=== PATIENT | male | born 1970 | race Caucasian/White ===

== ENCOUNTER → 2018-04-27 14:46 | Outpatient (CLI) | payer OTHER, SELFPAY ==
--- NOTE | 2018-04-24 10:18 | COLBX_PTH ---
PATIENT: DIANE POWERS LOC: [facility] U#:[id number] AGE/SX: 54/M ROOM: RE04/27/[address]: Dr. Reid Arnold MD : [id number] BED: DIS: SPEC #: [id number] RECD: 04/27/18 14:22 STATUS: YEIMY REAlyssa #: [id number] DAXA: 04/24/18 10:[address]: Reid Arnold DEPT: SURGICAL PATHOLOGY RECD BY: Nani Alex ENTERED: 04/27/18 15:24 SP TYPE: COLON BX OTHR DR: NUPUR Tissues: Cecum, NOS Procedures: Surgery Specimen Level IV HEADER OPERATION: Colonoscopy with biopsies PRE-OP DIAGNOSIS: Screening / polyp TISSUE SUBMITTED: Polyp biopsies cecum, rule out adenoma MICROSCOPIC DIAGNOSIS Cecum polyp, biopsy: Fragments of colonic mucosa, no pathologic diagnosis. ANTOINETTE:angeli 04/28/18 MICROSCOPIC DESCRIPTION Slides are reviewed. GROSS DESCRIPTION Received in fixative is one container labeled with the patient's name and designated cecum polyp biopsy. The specimen consists of multiple irregular fragments of light kong soft tissue that in aggregate measure 0.6 x 0.4 x 0.1 cm. The specimen is totally submitted in one cassette. / SJ:angeli 04/27/18 TC:4 CPT: 36444
== END ==
PROVIDERS: Referring Provider Internal Medicine Gastroenterology; Visit Provider Internal Medicine Gastroenterology
DX: Z12.11 Encounter for screening for malignant neoplasm of colon (principal); K63.5 Polyp of colon
CPT/HCPCS: 88305

== ENCOUNTER 2018-10-04 15:48 | Inpatient (IN) | payer OTHER, SELFPAY ==
[2018-10-04] VITALS (12 sets, daily range): BP systolic 77–119; BP diastolic 53–81; PULSE 79–123; RESP 14–20; TEMP 36.1–37.1; O2SAT 93–99; BMI 23.3; BMI 23.4; BMI 23.5
--- NOTE | 2018-10-04 16:14 | EKG12_ITS ---
Test Reason : Blood Pressure : / mmHG Vent. Rate : 097 BPM Atrial Rate : 097 BPM P-R Int : 154 ms QRS Dur : 096 ms QT Int : 362 ms P-R-T Axes : 052 -65 052 degrees QTc Int : 459 ms Normal sinus rhythm Left anterior fascicular block Inferior infarct , age undetermined Poor R-Wave Progression Abnormal ECG Confirmed by ANNE MARIE LUEVANO, URIEL ([id number]), website/blog editor SANJIV POLK ([id number]) on 10/07/2018 11:47:52 AM Referred By: Cindy Dhillon Confirmed By:URIEL KENNEY MD
--- NOTE | 2018-10-04 16:22 | NURSING ---
NO OLD EKGS
[2018-10-04 16:48] LABS: Absolute Lymphocyte Count 1.91 X10^3/uL (0.83-4.51); Basophil# 0.06 X10^3/uL; Basophil% 0.5 % (0-1); Eosinophil# 0.03 X10^3/uL; Eosinophils% 0.2 % (0-5); Lymphocyte # 1.91 X10^3/ul (4.0); Mean Corp Hgb Conc 34.6 g/dL (32-36); Mean Corpuscular Hgb 32.3 pg (27.0-32.0); Mean Corpuscular Volume 93.5 fL (80-94); Mean Platelet Vol. 10.2 fl (6.2-12.0); Monocyte% 5.5 % (0-10); NRBC Flagged by Analyzer 0 % (0-5); Neutrophil # 9.97 X10^3/uL (2.7-7.7); Neutrophil % 78.4 % (47-70); Platelet Count 251 K/mm3 (150-450); RBC Distribution Width CV 14.5 % (11.6-14.6); RBC Distribution Width SD 50.4 fl (35.1-43.9); Red Blood Count 6.03 M/mm3 (4.6-6.2); White Blood Count 12.7 K/mm3 (4.4-11.0)
[2018-10-04] MEDS: 0.9% Normal Saline 1,000 ML 1000 ML IV ×2 (16:48→17:51)
[2018-10-04] MEDS: LORazepam 2 MG/ML Syringe 1 MG IV (16:49)
[2018-10-04 16:54] LABS: Hematocrit 56.4 % (40-54)
[2018-10-04 16:56] LABS: ERROR FUNCTION FLAG YES; Hemoglobin 19.5 g/dL (13.0-16.5); International Normalized Ratio 0.9; POSITIVE COUNT NO; POSITIVE DIFFERENTIAL NO; POSITIVE MORPHOLOGY NO; Prothrombin Time (Protime)PT. 12.2 SECONDS (11.7-14.9)
--- NOTE | 2018-10-04 16:57 | ED.RN ---
Addendum entered by Nae Amezquita 10/04/18 17:00: Pasha MCGOWAN made aware Original Note: westley in lab called up critical value for hemaglobin of 19.5. Rony MCGOWAN was made aware. no further needs at this time.
--- NOTE | 2018-10-04 17:04 | ED.DCSUM_ITS ---
History of Present Illness Informant: Patient Onset: Today Context: Gradual Onset Timing: Continuous Quality: nausea Location: epigastric Current Severity: Severe Maximum Severity: Severe Worsened by: nothing Relieved by: nothing Associated Symptoms: nausea Narrative: 48-year-old male history of alcohol abuse presents to the emergency department with concerns that he is in alcohol withdrawal. Patient has been drinking daily now for several years. He drinks 24-30 beers per day. He is only had 2 beers total today that he drank on the way here. Recently admitted to [facility] earlier this month for detox from alcohol. He states after leaving the hospital he began to drink again now for about the last 2 weeks. He is not having a headache, vomiting, chest pain, abdominal pain, shortness of breath, denies lightheadedness or dizziness or seizure-like activity. He states he has never had an alcohol withdrawal seizure in the past. He denies any drug abuse. Denies any bloody or black stools. Prior similar symptoms: Yes Recent Illness/Hospitalization: Yes <Pasha Kennedy - Last Filed: 10/04/18 18:04> <Jonathon Mckeon - Last Filed: 10/05/18 00:06> Chief Complaint: Substance Abuse Past Medical History Prior records reviewed: Yes Past Medical History: - - Hypertension and alcohol abuse Surgical History: - - Vasectomy Lives: With Family Smoking Status: Current every day smoker <Pasha Kennedy - Last Filed: 10/04/18 18:04> - Family History Maternal Family History: Reports: No pertinent history Paternal Family History: Reports: Diabetes, Heart Disease, Hypertension <Jonathon Mckeon - Last Filed: 10/05/18 00:06> - Allergies and Home Meds Allergies/Adverse Reactions: Allergies No Known Allergies Allergy (Verified 10/04/18 15:49) Review of Systems All systems negative except as indicated General: Denies: Chills, Fever Eyes: Denies: Visual changes - left, Visual changes - right, Visual changes - bilaterally, Blurred vision - left, Blurred vision - right, Blurred Vision - bilaterally, Diplopia Cardiovascular: Denies: Chest pain Respiratory: Denies: Dyspnea Gastrointestinal: Reports: Nausea. Denies: Abdominal pain, Vomiting, Diarrhea, Constipation, Melena, Hematochezia Musculoskeletal: Denies: Myalgias, Arthralgias, Neck pain, Back pain, Swelling, Extremity Pain Neurological: Denies: Headache, Weakness, Parasthesia, Numbness <Pasha Kennedy - Last Filed: 10/04/18 18:04> Physical Exam Vital Signs/Narrative: Vital Signs Temp Pulse Resp BP Pulse Ox 10/04/18 15:51 96.9 F L 122 H 18 77/53 L 96 Inital Vital Signs reviewed: Yes General: Well nourished, Well developed, No Acute Distress Head: Normocephalic, Atraumatic Eyes: Perrl, EOMI ENT: Moist mucous membranes Neck: Supple, Nontender Cardiovascular: Regular rhythm, Tachycardia Respiratory: No distress, CTA bilaterally, Chest nontender Abdomen: Soft, Nontender, Nondistended, Normal bowel sounds, No masses Back: Nontender, Normal Inspection Extremities: Nontender, No edema Skin: Normal color, No rash Neurological: Alert, Oriented x3, Normal Strength, Normal Sensation, Normal Gait <Pasha Kennedy - Last Filed: 10/04/18 18:04> Diagnostic/Tx/Re-eval - Rhythm Strip Rhythm Strip: Sinus Tach Rate: 101 Ectopy: None - EKG Initial EKG Interpretation: Sinus Tachycardia Prior: No Prior - Medical Decision Making On arrival patient is hypotensive and tachycardic. He is slightly jittery is only had 2 beers today and we are concerned for withdrawal. Sepsis work-up was pursued secondary to his hypotension and tachycardia. Blood pressure improved after IV fluids. Heart rate slightly improved as well. EKG showed no signs of ischemia. No ST segment or T wave changes. Laboratory work-up shows elevated white blood cell count of 12. Hemoglobin elevated at 19. He has an elevated anion gap and creatinine. He has ketones in his urine. His lactate is 8. He is in ketoacidosis from alcoholism. At this time we do feel he is stable for admission. He is continuing to receive IV fluids. He was also given D5. <Pasha Kennedy - Last Filed: 10/04/18 18:04> - Medical Decision Making Patient presents with alcohol withdrawal. Hypotensive and tachycardic. No acute distress. White count elevated. Lactic acid elevated. Anion gap elevated. I suspect this is from withdrawal, dehydration, possible ketoacidosis. He was treated with fluids and dextrose. He also received Ativan. Hospitalist was contacted for admission. We will defer antibiotics at this time as he has no infectious symptoms, findings, fevers, etc. <Jonathon Mckeon - Last Filed: 10/05/18 00:06> ED Disposition <Pasha Kennedy - Last Filed: 10/04/18 18:04> <Jonathon Mckeon - Last Filed: 10/05/18 00:06> - Plan for ED Patient: Disposition: Acute Care Hospital [facility] Diagnosis: Alcoholic ketoacidosis
[2018-10-04 17:07] LABS: AST(SGOT) 47 U/L (15-37); Alanine Aminotransfer ALT/SGPT 45 U/L (16-61); Albumin, Serum 4.2 g/dL (3.2-5.0); Alkaline Phosphatase 96 U/L (45-117); Anion Gap 18 (5-15); BUN 8 mg/dL (7-18); BUN/Creat Ratio 4.9 RATIO (10-20); Calcium,Total 9.1 mg/dL (8.5-10.1); Chloride 92 mmol/L (98-107); Creatinine, Serum 1.63 mg/dL (0.70-1.30); EST Glomerular Filtration Rate 48 mL/min (>60); Est Glom Filt Rate - Afr Amer 58 mL/min (>60); Estimated Creatinine Clearance 63.04 ml/min; Globulin 4.1 g/dL (2.2-4.2); Glucose 99 mg/dL (74-106); Potassium 3.7 mmol/L (3.5-5.1); Protein, Total 8.3 g/dL (6.4-8.2); Sodium Level 132 mmol/L (136-145)
[2018-10-04 17:15] LABS: Bacteria 0 SEEN /hpf (None Seen); Mucous, Urine 0 SEEN /hpf (<or=2+); Red Blood Cells-Urine 0 SEEN /hpf (0-5)
[2018-10-04 17:16] LABS: Color, Urine Straw (Yellow); Glucose, Dipstick Normal (Normal); Ketone-Dipstick 15 mg/dl (Negative); Leukocyte Esterase-Dipstick Negative /ul (Negative); Nitrite-Dipstick Negative (Negative); Occult Blood-Urine Negative /ul (Negative); Protein-Dipstick Negative (Negative); Urine Bilirubin Dipstick Negative (Negative); Urine Clarity Clear (Clear); Urine Urobilinogen Normal (Normal)
[2018-10-04 17:22] LABS: Hyaline Cast 0-5 SEEN /lpf (0-5); Squamous Epithelial Cells - UA 0-5 SEEN /hpf (0-5)
[2018-10-04 17:24] LABS: White Blood Cells 0-5 SEEN /hpf (0-5)
[2018-10-04 17:39] LABS: Amphetamine Urine VISTA NEGATIVE (<1000 ng/mL); Barbiturate Urine VISTA NEGATIVE (< 200 ng/mL); Benzodiazepine Urine VISTA POSITIVE (< 200 ng/mL); Cocaine Urine VISTA NEGATIVE (< 300 ng/mL); Ecstacy Urine VISTA NEGATIVE (< 500 ng/mL); Methadone Urine VISTA NEGATIVE (< 300 ng/mL); PCP Urine VISTA NEGATIVE (< 25 ng/mL); THC Urine VISTA NEGATIVE (< 50 ng/mL); Vista UDS pH Range 6
[2018-10-04 17:41] LABS: Partial Thromboplast Time 23.2 Seconds (24.1-36.2)
[2018-10-04 17:49] LABS: Magnesium 1.8 mg/dL (1.6-2.6)
--- NOTE | 2018-10-04 17:53 | NURSING ---
PCU PAINTSIL ALCOHOLIC KETOACIDOSIS
--- NOTE | 2018-10-04 18:00 | NURSING ---
NEW ROOM 126
--- NOTE | 2018-10-04 18:06 | HP.PCM_ITS ---
Problem List (1) Alcoholism Status: Chronic (2) Alcoholic ketoacidosis Status: Acute (3) Acute kidney injury Status: Acute (4) Lactic acidosis Status: Acute (5) Hypomagnesemia Status: Acute (6) Hypertension Status: Chronic Qualifiers: Hypertension type: essential hypertension Qualified Code(s): I10 - Essential (primary) hypertension History of Present Illness Date of Admission: 10/04/18 Chief Complaint: Chest pain, palpitations, alcohol withdrawal - 1 day The patient is a 48 year old M with past medical history of chronic alcoholism, who has been in detox for alcohol more than 6 times, his last detox was 3 weeks ago in [facility] in [place]. Patient had try to stop drinking today. He typically drinks about a 20 cans of beer every day and also drinks liquor more than 1 pint. He states that he had no alcohol in the house except for liquor. He tried to not drink but started having severe chest discomfort associated with diaphoresis and palpitations. He therefore drunk 1 pint of liquor to see if that will help. That was not helping and he felt like he was going to . He drank 2 more counseled PA on the way to the ED. At the time of being seen he feels better, no more has chest discomfort. He denied any fever but has chills and nausea but no vomiting. He has had 1 large loose stool today, and he feels tremulous. He denied any use of delirium trem ens or ICU stay in the past for his alcohol withdrawals. Vitals in the ED temperature of 96.9F, heart rate 122, blood pressure 77/53, respiratory rate was 18, SPO2 is 98% on room air. His admitting blood work showed a BC count of 12.7, hemoglobin 19.5, platelet 251, INR 0.9, sodium 132, potassium 3.7, chloride 92, bicarbonate 22, anion gap was 18 BUN was 8, creatinine was 1.63. No previous creatinine could be seen in [facility]. Lactic acid is 8.0, magnesium 1.8, troponins were negative, LFTs unremarkable. UA was also unremarkable. Urine tox was positive for benzodiazepines. Serum alcohol level is 255. Past Medical History Past Medical History (Chronic Problems): Chronic Problems Alcoholism (Chronic) Hypertension (Chronic) Allergies No Known Allergies Allergy (Verified 10/04/18 15:49) Home Medications: Ambulatory Orders Medication Instructions Recorded Hydrochlorothiazide [Hctz] 25 mg PO DAILY 10/04/18 Lisinopril [Zestril] 10 mg PO DAILY 10/04/18 Surgical History: - - Vasectomy Psychiatric History: No pertinent psych hx Lives: With Family Smoking Status: Current every day smoker Tobacco Use: Cigarettes Alcohol: Heavy Drugs: None - *Family History Maternal History Items: No pertinent history Paternal History Items: Diabetes, Heart Disease, Hypertension Review of Systems Constitutional: Reports: Anorexia, Chills, Malaise, Weakness, Fatigue. Denies: Fever, Weight Change Eyes: Denies: Blurred vision, Cataracts, Conjunctivae Inflammation, Pain, Redness, Vision Change HEENT: Denies: Difficulty Hearing, Difficulty Swallowing, Head Aches, Hearing Changes, Sinus Congestion, Sinus Drainage Cardiovascular: Reports: Chest Pain, Chest Tightness. Denies: Claudication, Orthopnea, Palpitations, Paroxysmal Noc. Dyspnea Respiratory: Denies: Cough, Hemoptysis, Shortness of breath at rest, Shortness of breath upon exertion, Sputum production Gastrointestinal: Denies: Abdominal Pain, Constipation, Hematemesis, Hematochezia, Nausea, Vomiting Genitourinary: Denies: Dysuria, Incontinence, Nocturia Musculoskeletal: Denies: Joint Pain, Joint stiffness, Joint swelling, Joint Tenderness Skin: Denies: Pruritis, Rash, Wounds Neurological: Denies: Balance problems, Difficulty swallowing, Focal weakness, Numbness, Tingling Psychiatric: Denies: Anxiety, Depression, Homicidal Ideations, Suicidal Ideations Hematologic/ Lymphatic: Denies: Easy Bruising, Easy Bleeding VTE Information - Inpt Only VTE Present on Admission: No VTE Pharm Prophylaxis ordered?: Yes Patient Problems: Active and Suspected Problems Alcoholic ketoacidosis (Acute) Acute kidney injury (Acute) Lactic acidosis (Acute) Hypomagnesemia (Acute) - Physical Exam General: Alert, Oriented x3, Cooperative, No apparent distress, - - Slightly tremulous HEENT: Atraumatic, PERRLA, EOMI, Normocephalic Oral: Moist Mucosa Neck: Supple Lungs: Clear to auscultation, Normal air movement Cardiovascular: Regular rate, Regular Rhythm, Normal S1, Normal S2, No murmurs Abdomen: Bowel Sounds Present, Soft, Non Tender, Non-Distended, No Hepato-s plenomegaly Extremities: No edema Skin: No rashes, No breakdown Musculoskeletal: No Tenderness to Palpation of Joints or Extremities Lymphatic: No Cervical, Supraclavicular, or Inguinal Adenopathy Neurological: Cranial nerves II-XII grossly intact, Neuro grossly intact Psych/Mental Status: Anxious Vital Signs Temp Pulse Resp BP Pulse Ox 96.9 F L 100 14 117/81 H 99 10/04/18 15:51 10/04/18 17:49 10/04/18 17:49 10/04/18 17:49 10/04/18 17:49 Oxygen Delivery Method Room Air Weight: 82.7 kg Body Mass Index (BMI) 23.3 Intake and Output for Last 24 Hours 10/02/18 10/03/18 10/04/18 23:59 23:59 23:59 Intake Total 1000 / 1000 Balance 1000 / 1000 Laboratory Tests Past 24 Hrs 10/04/18 10/04/18 10/04/18 16:30 16:30 16:30 WBC 12.7 H RBC 6.03 Hgb 19.5 H* Hct 56.4 H MCV 93.5 MCH 32.3 H MCHC 34.6 RDW Std Deviation 50.4 H RDW Coeff of Danial 14.5 Plt Count 251 MPV 10.2 Immature Gran % (Auto) 0.400 Neut % (Auto) 78.4 H Lymph % (Auto) 15.0 L [place] % (Auto) 5.5 Eos % (Auto) 0.2 Baso % (Auto) 0.5 Absolute Neuts (auto) 10.0 H Absolute Lymphs (auto) 1.91 Nucleated RBC % 0 PT 12.2 INR 0.9 APTT 23.2 L Sodium 132 L Potassium 3.7 Chloride 92 L Carbon Dioxide 22.0 Anion Gap 18 H BUN 8 Creatinine 1.63 H Estim Creat Clear Calc 63.04 Est GFR (MDRD) Af Amer 58 L Est GFR (MDRD) Non-Af 48 L BUN/Creatinine Ratio 4.9 L Glucose 99 Lactic Acid Calcium 9.1 Magnesium Total Bilirubin 0.50 AST 47 H ALT 45 Alkaline Phosphatase 96 Troponin I < 0.015 Total Protein 8.3 H Albumin 4.2 Globulin 4.1 Albumin/Globulin Ratio 1.0 Urine Color Urine Clarity Urine pH Ur Specific Maxwell Urine Protein Urine Glucose (UA) Urine Ketones Urine Occult Blood Urine Nitrite Urine Bilirubin Urine Urobilinogen Ur Leukocyte Esterase Urine RBC Urine WBC Ur Squamous Epith Cells Urine Bacteria Hyaline Casts Urine Mucus Urine Opiates Screen Urine Methadone Screen Ur Barbiturates Screen Ur Phencyclidine Scrn Ur Amphetamines Screen U Methamphetamin-MDMA U Benzodiazepines Scrn Urine Cocaine Screen U Cannabinoids Screen Ur Drug Screen Comment Ethyl Alcohol Acetone Level 10/04/18 10/04/18 10/04/18 16:30 16:30 16:30 WBC RBC Hgb Hct MCV MCH MCHC RDW Std Deviation RDW Coeff of Danial Plt Count MPV Immature Gran % (Auto) Neut % (Auto) Lymph % (Auto) [place] % (Auto) Eos % (Auto) Baso % (Auto) Absolute Neuts (auto) Absolute Lymphs (auto) Nucleated RBC % PT INR APTT Sodium Potassium Chloride Carbon Dioxide Anion Gap BUN Creatinine Estim Creat Clear Calc Est GFR (MDRD) Af Amer Est GFR (MDRD) Non-Af BUN/Creatinine Ratio Glucose Lactic Acid 8.0 H* Calcium Magnesium 1.8 Total Bilirubin AST ALT Alkaline Phosphatase Troponin I Total Protein Albumin Globulin Albumin/Globulin Ratio Urine Color Urine Clarity Urine pH Ur Specific Maxwell Urine Protein Urine Glucose (UA) Urine Ketones Urine Occult Blood Urine Nitrite Urine Bilirubin Urine Urobilinogen Ur Leukocyte Esterase Urine RBC Urine WBC Ur Squamous Epith Cells Urine Bacteria Hyaline Casts Urine Mucus Urine Opiates Screen Urine Methadone Screen Ur Barbiturates Screen Ur Phencyclidine Scrn Ur Amphetamines Screen U Methamphetamin-MDMA U Benzodiazepines Scrn Urine Cocaine Screen U Cannabinoids Screen Ur Drug Screen Comment Ethyl Alcohol 255.0 Acetone Level 10/04/18 10/04/18 10/04/18 16:30 17:05 17:05 WBC RBC Hgb Hct MCV MCH MCHC RDW Std Deviation RDW Coeff of Danial Plt Count MPV Immature Gran % (Auto) Neut % (Auto) Lymph % (Auto) [place] % (Auto) Eos % (Auto) Baso % (Auto) Absolute Neuts (auto) Absolute Lymphs (auto) Nucleated RBC % PT INR APTT Sodium Potassium Chloride Carbon Dioxide Anion Gap BUN Creatinine Estim Creat Clear Calc Est GFR (MDRD) Af Amer Est GFR (MDRD) Non-Af BUN/Creatinine Ratio Glucose Lactic Acid Calcium Magnesium Total Bilirubin AST ALT Alkaline Phosphatase Troponin I Total Protein Albumin Globulin Albumin/Globulin Ratio Urine Color Straw Urine Clarity Clear Urine pH 7.0 Ur Specific Maxwell 1.010 Urine Protein Negative Urine Glucose (UA) Normal Urine Ketones 15 H Urine Occult Blood Negative Urine Nitrite Negative Urine Bilirubin Negative Urine Urobilinogen Normal Ur Leukocyte Esterase Negative Urine RBC 0 SEEN Urine WBC 0-5 SEEN Ur Squamous Epith Cells 0-5 SEEN Urine Bacteria 0 SEEN Hyaline Casts 0-5 SEEN Urine Mucus 0 SEEN Urine Opiates Screen NEGATIVE Urine Methadone Screen NEGATIVE Ur Barbiturates Screen NEGATIVE Ur Phencyclidine Scrn NEGATIVE Ur Amphetamines Screen NEGATIVE U Methamphetamin-MDMA NEGATIVE U Benzodiazepines Scrn POSITIVE H Urine Cocaine Screen NEGATIVE U Cannabinoids Screen NEGATIVE Ur Drug Screen Comment Ethyl Alcohol Acetone Level NEGATIVE Assessment/Plan All Active Problems Alcoholic ketoacidosis (Acute) Acute kidney injury (Acute) Lactic acidosis (Acute) Hypomagnesemia (Acute) 48 year old M with past medical history of chronic alcoholism, who has been in detox for alcohol more than 6 times, his last detox was 3 weeks ago in [facility] in [place] who comes in with complaints of chest discomfort, palpitations, diaphoresis whilst trying to quit alcohol. 1.Alcoholic/starvation ketoacidosis,mild in a patient with known history of chronic alcohol use disorder Anion gap is 18, creatinine is 1.63, glucose is 99, HCO3 22 Elevated anion gap secondary to alcoholism, MAURICIO, lactic acidosis, mild drop in bicarbonate Plan: Admit to PCU, stepdown status, IV fluids-D5 NS, repeat blood work in 2 hours, and in a.m., continue to monitor per protocol 2.Lactic acidosis, likely secondary to dehydration/alcohol withdrawal, admitting lactic acid is 8.0, no signs of sepsis, patient is clinically very stable and does not require ICU. Continue on IV fluids, repeat lactic acid per protocol 3.Transient Hypotension on arrival in the ED likely secondary to dehydration, improved rapidly with IV fluid administration, patient continued to be stable in the ED Continue on IV fluids 4.MAURICIO, prerenal secondary to dehydration, unknown previous creatinine, admitting creatinine 1.63, Continue IV fluids, repeat blood work in a.m. 5. Hypertension, initially hypotensive, on lisinopril and hydrochlorothiazide, Will hold both medications for now on account of MAURICIO May need to be resumed tomorrow morning if blood pressures are better and kidney function is better 6.Chronic alcohol use/alcohol withdrawal, history of multiple detox, last detox was 2 weeks ago Monitor on CIWA protocol with Ativan withdrawal protocol, case management/social work consult for discharge planning 7. Hypomagnesemia, replace, recheck in a.m. 8. Leukocytosis, reactive, no signs of sepsis, recheck in a.m. 9. Elevated hemoglobin secondary to dehydration, repeat blood work in a.m. 10. DVT PPx-Heparin SC Code Visit Inpatient E&M: 58717 Init Hosp L3
[2018-10-04] MEDS: Dextrose 5%/0.9% NaCl 1,000 ML 200 ML IV ×2 (18:15→23:06)
[2018-10-04 20:12] LABS: Lactic Acid 5.3 mmol/L (0.4-2.0)
[2018-10-04 20:45] LABS: Reflex Lactate? Y
[2018-10-04] MEDS: LORazepam 1 MG Tablet 2 MG PO (21:07)
[2018-10-04] MEDS: Heparin Injection (Vial) 5,000 UNIT/ML VIAL 5000 UNIT SC (21:08)
[2018-10-04] MEDS: Famotidine 20 MG Tablet PO (21:08)
[2018-10-04 22:05] LABS: Reflex Lactate? Y
[2018-10-04 23:29] LABS: Anion Gap 10 (5-15); BUN 11 mg/dL (7-18); BUN/Creat Ratio 11.2 RATIO (10-20); Calcium,Total 8.1 mg/dL (8.5-10.1); Chloride 103 mmol/L (98-107); Creatinine, Serum 0.98 mg/dL (0.70-1.30); EST Glomerular Filtration Rate 86 mL/min (>60); Est Glom Filt Rate - Afr Amer 104 mL/min (>60); Estimated Creatinine Clearance 104.85 ml/min; Glucose 181 mg/dL (74-106); Potassium 3.4 mmol/L (3.5-5.1); Sodium Level 138 mmol/L (136-145)
[2018-10-04 23:39] LABS: Lactic Acid 2.9 mmol/L (0.4-2.0)
[2018-10-05] VITALS (17 sets, daily range): BP systolic 112–150; BP diastolic 75–103; PULSE 70–112; RESP 16–19; TEMP 36.7–37.6; O2SAT 93–100
[2018-10-05] MEDS: LORazepam 1 MG Tablet 2 MG PO ×4 (02:07→19:55)
[2018-10-05] MEDS: Dextrose 5%/0.9% NaCl 1,000 ML 200 ML IV ×3 (03:58→14:09)
[2018-10-05] MEDS: Heparin Injection (Vial) 5,000 UNIT/ML VIAL 5000 UNIT SC ×2 (05:10→14:07)
[2018-10-05 05:27] LABS: Hematocrit 43.1 % (40-54); Mean Corp Hgb Conc 34.8 g/dL (32-36); Mean Corpuscular Hgb 32.1 pg (27.0-32.0); Mean Corpuscular Volume 92.1 fL (80-94); Mean Platelet Vol. 9.8 fl (6.2-12.0); Platelet Count 185 K/mm3 (150-450); RBC Distribution Width CV 14.7 % (11.6-14.6); RBC Distribution Width SD 49.9 fl (35.1-43.9); Red Blood Count 4.68 M/mm3 (4.6-6.2); White Blood Count 6.4 K/mm3 (4.4-11.0)
[2018-10-05 05:42] LABS: BUN 10 mg/dL (7-18); Estimated Creatinine Clearance 128.44 ml/min; Glucose 118 mg/dL (74-106)
[2018-10-05 05:43] LABS: AST(SGOT) 29 U/L (15-37); Alanine Aminotransfer ALT/SGPT 33 U/L (16-61); Albumin, Serum 2.8 g/dL (3.2-5.0); Alkaline Phosphatase 60 U/L (45-117); Anion Gap 4 (5-15); BUN/Creat Ratio 12.5 RATIO (10-20); Calcium,Total 7.9 mg/dL (8.5-10.1); Chloride 110 mmol/L (98-107); EST Glomerular Filtration Rate 108 mL/min (>60); Est Glom Filt Rate - Afr Amer 131 mL/min (>60); Globulin 2.9 g/dL (2.2-4.2); Magnesium 2.4 mg/dL (1.6-2.6); Potassium 4.8 mmol/L (3.5-5.1); Protein, Total 5.7 g/dL (6.4-8.2); Sodium Level 142 mmol/L (136-145)
[2018-10-05] MEDS: Thiamine Hydrochloride 100 MG Tablet PO (08:14)
[2018-10-05] MEDS: Multivitamins,Therapeutic Tablet 1 TABLET PO (08:14)
[2018-10-05] MEDS: Folic Acid 1 MG Tablet PO (08:14)
[2018-10-05] MEDS: Famotidine 20 MG Tablet PO ×2 (08:15→20:59)
--- NOTE | 2018-10-05 14:24 | CASEMGMT ---
ZANA YORK assessment: Face to Face with patient for initial transition planning/care coordination assessment. ZANA YORK introduced self and role at [facility], pt voices understanding and consents to assessment at this time. Pt is sitting up in bed in no distress at this time. Pt is A/Ox4 at this time and answers all questions appropriately at this time. Care providers, pharmacy, and demographics verified/updated at this time. PCP: Yolette Ordonez at [facility]ists: Pt states currently has no specialists. Preferred Pharmacy: [facility] Insurance: [employer] Prescription Benefit: [employer] Living Will/HPOA: Pt states does not have LW/HPOA but states that he has a portrait studio photographer and is aware that he needs to get those completed. LNOK: Eben Rogers, son; Mary Paula, sig other Living Arrangements: Pt states lives in a multi level home and states no concerns at home at this time. Pt states son and a friend live in home as well. Pt states is independent with ADL's. Transportation: Pt states drives self and states no transportation concerns at this time. DME/HHC: Pt states no current DME or need for any at this time. Pt states no hx of HHC or SNF in the past. Pt states no concerns with going home at time of discharge. 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 Pt states smokes 2 packs daily and drinks 24-30 beers daily 'when I'm drinking.' Pt just finished detox at [facility] about 3 weeks ago and is currently in an IOP for alcohol at this time. Pt states no further concerns/needs at this time. CM to follow for any further discharge planning/needs. Advised pt to ask for CM if any further questions/concerns/needs arise, voices understanding. Pt Goal: Home Plan: Home w/ resumption IOP for ETOH abuse. SStaten ZANA YORK
--- NOTE | 2018-10-05 15:44 | CHAPLAIN ---
Type of Pastoral Visit _x__ Initial Visit ___ Follow-up Visit ___ On-call Visit ___ General Patient Visit ___ Spiritual Assessment ___ Family Conference ___ Bereavement ___ Rapid Response ___ Code Blue ___ Other (describe below) Pastoral Care Referral From _x__ Patient ___ Family ___ Nurse ___ Physician ___ Slip Laster ___ Coil Winder Hand ___ Other (describe below) Sacrament/Intervention _x__ Active listening ___ Anointing ___ Nondenominational ___ Bereavement ___ Communion _x__ Valerie exploration ___ ___ Life review ___ Prayer ___ Reconciliation ___ Sacrament of Sick _x__ Supportive presence ___ Wedding ___ Other (describe below) Pastoral Comments patient is welcoming and states that he has been seeking spiritual support for his drinking problem and would like to talk; pt states that he has visitors with him and who just stepped out for a couple of minutes; offer made to patient to return later and pt agrees that would be preferred
[2018-10-05] MEDS: Atenolol 50 MG Tablet PO (15:54)
--- NOTE | 2018-10-05 16:21 | CASEMGMT ---
Social Work Per RN CM and physician pt was released from [facility] about three weeks ago in the alcohol program and is currently in an IOP program. SW entered pt room and introduced self. Pt has company in the room and requested SW follow up with pt at another time. SW will follow up tomorrow. EDIN Holguin
--- NOTE | 2018-10-05 18:22 | EKG12_ITS ---
Test Reason : AM EKG Blood Pressure : / mmHG Vent. Rate : 079 BPM Atrial Rate : 079 BPM P-R Int : 156 ms QRS Dur : 094 ms QT Int : 374 ms P-R-T Axes : 041 -38 040 degrees QTc Int : 428 ms Normal sinus rhythm Left axis deviation Cannot rule out Inferior infarct , age undetermined Abnormal ECG Confirmed by ANNE MARIE LUEVANO, URIEL ([id number]), makeup editor SANJIV POLK ([id number]) on 10/07/2018 12:56:13 PM Referred By: Cindy Dhillon Confirmed By:URIEL KENNEY MD
--- NOTE | 2018-10-05 18:38 | PCM.PROGNOTE ---
Subjective: Patient was seen and examined today, his labs were greatly improved today with normalized sodium, potassium, and white blood cell count. Patient is eating and drinking, I talked at length with him about his drinking problem and asked him if he wanted to go into inpatient rehab-he did not, he preferred to stay here and be tapered off his benzodiazepines. He states that he gets very nervous and this triggers his drinking, he has agreed to go on an antidepressant and some BuSpar for anxiety to see if this would help. At this time, I have decided to reduce the patient's IV fluid, I do not feel he needs telemetry, I have placed him on BuSpar and Zoloft. He will continue to have benzodiazepines administered and tapered. Finally, patient states he takes hydrochlorothiazide for blood pressure, I decided to place him on atenolol to see if this would help him with any anxiety issues. - Physical Exam General: Alert, Oriented x3, Cooperative, - - Appears anxious at the time of this examination HEENT: Atraumatic, PERRLA, EOMI, Normocephalic Oral: Moist Mucosa Neck: Supple, No JVD, Negative Carotid Bruits Lungs: Clear to auscultation, Normal air movement, No rhonchi, No wheeze, No rales Cardiovascular: Regular rate, Regular Rhythm, Normal S1, Normal S2, No murmurs, PMI Normal, No rub noted Abdomen: Bowel Sounds Present, Soft, Non Tender, Non-Distended Extremities: No edema, Capillary Refill Less than 3 Seconds Skin: No rashes, No breakdown Musculoskeletal: No Tenderness to Palpation of Joints or Extremities Neurological: Cranial nerves II-XII grossly intact, Neuro grossly intact, Muscle tone normal, Sensory exam intact to light touch and pain Psych/Mental Status: Appropriate, Anxious Vital Signs Temp Pulse Resp BP Pulse Ox 98.0 F 75 16 150/96 H 99 10/05/18 14:50 10/05/18 15:00 10/05/18 14:50 10/05/18 14:50 10/05/18 14:50 Oxygen Flow Rate (L/min) 2 Oxygen Delivery Method Room Air Weight: 83.8 kg Body Mass Index (BMI) 23.4 Intake and Output for Last 24 Hours 10/03/18 10/04/18 10/05/18 23:59 23:59 23:59 Intake Total 3242.00 / 3242.00 3260.66 / 3260.66 Output Total 1400 / 1400 1450 / 1450 Balance 1842.00 / 1842.00 1810.66 / 1810.66 Laboratory Tests Past 24 Hrs 10/04/18 10/04/18 10/04/18 16:30 19:20 19:20 WBC RBC Hgb Hct MCV MCH MCHC RDW Std Deviation RDW Coeff of Danial Plt Count MPV Diff Path Review June Sodium Potassium Chloride Carbon Dioxide Anion Gap BUN Creatinine Estim Creat Clear Calc Est GFR (MDRD) Af Amer Est GFR (MDRD) Non-Af BUN/Creatinine Ratio Glucose Lactic Acid 5.3 H* Calcium Phosphorus Magnesium Total Bilirubin AST ALT Alkaline Phosphatase Troponin I < 0.015 Total Protein Albumin Globulin Albumin/Globulin Ratio 10/04/18 10/04/18 10/04/18 23:05 23:05 23:05 WBC RBC Hgb Hct MCV MCH MCHC RDW Std Deviation RDW Coeff of Danial Plt Count MPV Diff Path Review Sodium 138 Potassium 3.4 L Chloride 103 Carbon Dioxide 25.0 Anion Gap 10 BUN 11 Creatinine 0.98 Estim Creat Clear Calc 104.85 Est GFR (MDRD) Af Amer 104 Est GFR (MDRD) Non-Af 86 BUN/Creatinine Ratio 11.2 Glucose 181 H Lactic Acid 2.9 H Calcium 8.1 L Phosphorus Magnesium Total Bilirubin AST ALT Alkaline Phosphatase Troponin I < 0.015 Total Protein Albumin Globulin Albumin/Globulin Ratio 10/05/18 10/05/18 05:10 05:10 WBC 6.4 RBC 4.68 Hgb 15.0 Hct 43.1 MCV 92.1 MCH 32.1 H MCHC 34.8 RDW Std Deviation 49.9 H RDW Coeff of Danial 14.7 H Plt Count 185 MPV 9.8 Diff Path Review Sodium 142 Potassium 4.8 Chloride 110 H Carbon Dioxide 28.0 Anion Gap 4 L BUN 10 Creatinine 0.80 Estim Creat Clear Calc 128.44 Est GFR (MDRD) Af Amer 131 Est GFR (MDRD) Non-Af 108 BUN/Creatinine Ratio 12.5 Glucose 118 H Lactic Acid Calcium 7.9 L Phosphorus 2.0 L Magnesium 2.4 Total Bilirubin 0.50 AST 29 ALT 33 Alkaline Phosphatase 60 Troponin I Total Protein 5.7 L Albumin 2.8 L Globulin 2.9 Albumin/Globulin Ratio 1.0 Medical Necessity - Tobacco Use Smoking Status: Current every day smoker Tobacco Use: Cigarettes Assessment/Plan All Active Problems Alcoholic ketoacidosis (Acute) Acute kidney injury (Acute) Lactic acidosis (Acute) Hypomagnesemia (Acute) #1 alcoholic ketoacidosis-resolved with fluids, continue administer fluids and continue treatment for alcohol withdrawal #2 acute alcohol withdrawal without complications patient-continue present treatment #3 chronic alcoholism-patient was urged to follow-up with IOP after he is discharged #4 hypertension-I decided to place the patient on Tenormin #5 anxiety-I placed the patient on an SSRI and BuSpar Code Visit Inpatient E&M: 63433 Subs Hosp L2
[2018-10-05] MEDS: Nicotine Polacrilex 2 MG GUM PO (19:55)
[2018-10-05] MEDS: busPIRone 5 MG Tablet 10 MG PO (20:57)
[2018-10-05] MEDS: Sertraline 50 MG Tablet PO (20:58)
[2018-10-06] VITALS (7 sets, daily range): BP systolic 143–151; BP diastolic 94–102; PULSE 63–78; RESP 14–16; TEMP 36.4–36.9; O2SAT 95–99
[2018-10-06] MEDS: LORazepam 1 MG Tablet 2 MG PO ×2 (03:03→08:18)
[2018-10-06] MEDS: busPIRone 5 MG Tablet 10 MG PO (05:23)
[2018-10-06] MEDS: Folic Acid 1 MG Tablet PO (08:14)
[2018-10-06] MEDS: Multivitamins,Therapeutic Tablet 1 TABLET PO (08:14)
[2018-10-06] MEDS: Thiamine Hydrochloride 100 MG Tablet PO (08:14)
[2018-10-06] MEDS: Famotidine 20 MG Tablet PO (08:17)
[2018-10-06] MEDS: Atenolol 50 MG Tablet PO (08:18)
[2018-10-06] MEDS: Sertraline 50 MG Tablet PO (08:18)
--- NOTE | 2018-10-06 10:46 | CASEMGMT ---
LIN checked in with patient regarding treatment for ETOH abuse. He said he is in an intensive outpatient program already. He said he doesn't need anything other than his IV out and his d/c papers as he is ready to go. Fatimah HUFF MSW
--- NOTE | 2018-10-06 11:07 | PCM.DC ---
- Discharge Diagnoses Current Active Problems: Current Active and Chronic Problems Alcoholic ketoacidosis (Acute) Alcoholism (Chronic) Acute kidney injury (Acute) Lactic acidosis (Acute) Hypomagnesemia (Acute) Hypertension (Chronic) You will use the following diet at home:: No restrictions Your food should be the consistency of: Regular Your liquids should be the consistency of: Regular/Thin Discharge Activity: Return to Normal Activity Weight Bearing Status: Full weight bearing Allergies/Adverse Reactions: Allergies No Known Allergies Allergy (Verified 10/04/18 15:49) Medications to take at Discharge Lisinopril [Zestril] 10 mg PO DAILY 10/04/18 Atenolol [Tenormin (beta kavya)] 50 mg PO DAILY #30 tab 10/06/18 Sertraline HCl [Zoloft] 100 mg PO DAILY #30 tab 10/06/18 busPIRone [Buspar] 15 mg PO TID #90 tab 10/06/18 The following prescriptions were given: busPIRone [Buspar] 15 mg PO TID #90 tab Transmission Status: [id number] Atenolol [Tenormin (beta kavya)] 50 mg PO DAILY #30 tab Transmission Status: Pending to [id number] Sertraline HCl [Zoloft] 100 mg PO DAILY #30 tab Transmission Status: Pending to [facility]pharmacy #[id number] Primary Care Physician: Care Physician,No Primary [NON-STAFF] - Please follow up with your Primary Care Physician in: within a week Test Results: Test results from this visit will be discussed in further detail at your follow-up appointment, if applicable.
--- NOTE | 2018-10-06 11:52 | CHAPLAIN ---
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
[2018-10-07 09:11] LABS: Pathologist Review Reviewed
--- NOTE | 2018-10-08 11:23 | PCM.DC.SUM ---
Discharge Date and Diagnosis Date of Admission: 10/04/18 Date of Discharge: 10/06/18 - Primary Discharge Diagnosis #1 alcoholic ketoacidosis #2 acute alcohol withdrawal without complications #3 chronic alcoholism #4 hypertension #5 anxiety #6 lactic acidosis secondary to alcohol withdrawal and alcoholic ketoacidosis - Secondary Discharge Diagnosis Chronic Problems Alcoholism (Chronic) Hypertension (Chronic) Hospital Course and Treatment Operations: None Procedures: None Summary of Care Provided: The patient is a 48 year old M who presented to the emergency room at [facility] with nausea and alcohol withdrawal. Patient has chronic alcoholism, he recently went through his detox at a hospital but began to drink after he was discharged from the hospital. Work-up in the emergency room included labs which revealed the patient to be an alcoholic ketoacidosis, patient's lactic acid was elevated but he was not septic. Patient was admitted to PCU, given IV fluids, and follow-up labs were obtained, he was put on an alcohol detox medication protocol and after talking with the patient, I placed him on an antidepressant and BuSpar for anxiety and placed him on Tenormin for his blood pressure and I felt that this would possibly help with his anxiety also. The next day, patient requested discharge and felt that he was okay to go home, he promised to follow-up with [facility] as an outpatient. On examination he appeared in good health and spirits. Vital signs as documented. Skin warm and dry and without overt rashes. Neck without JVD. Lungs clear. Heart exam notable for regular rhythm, normal sounds and absence of murmurs, rubs or gallops. Abdomen unremarkable and without evidence of organomegaly, masses, or abdominal aortic enlargement. Extremities nonedematous. Neuro: Cranial nerves II through XII are grossly intact, no focal motor deficits were noted, sensation to light touch and pinprick intact. Psych: Patient is alert and oriented x3, he does not appear anxious or depressed On 10/06/2018, patient was seen and examined felt to be in stable condition for discharge home - Physical Exam Vital Signs Temp Pulse Resp BP Pulse Ox 98.2 F 63 14 143/102 H 99 10/06/18 11:46 10/06/18 11:46 10/06/18 11:46 10/06/18 11:46 10/06/18 11:46 Oxygen Flow Rate (L/min) 2 Oxygen Delivery Method Room Air Weight: 83.4 kg Body Mass Index (BMI) 23.4 Intake and Output for Last 24 Hours 10/06/18 10/07/18 10/08/18 23:59 23:59 23:59 Intake Total 250 / 250 Balance 250 / 250 Discharge Activity: Return to Normal Activity Weight Bearing Status: Full weight bearing Home Medications: Medications to take at Discharge Lisinopril [Zestril] 10 mg PO DAILY 10/04/18 Atenolol [Tenormin (beta kavya)] 50 mg PO DAILY #30 tab 10/06/18 Sertraline HCl [Zoloft] 100 mg PO DAILY #30 tab 10/06/18 busPIRone [Buspar] 15 mg PO TID #90 tab 10/06/18 hydrOXYzine pamoate capsule [Vistaril] 50 mg PO TID PRN PRN #30 cap 10/07/18 Following Prescrptions Were Given to Patient: busPIRone [Buspar] 15 mg PO TID #90 tab Transmission Status: Received by [facility]/pharmacy #[id number] Atenolol [Tenormin (beta kavya)] 50 mg PO DAILY #30 tab Transmission Status: Received by [facility]pharm[facility] #[id number] Sertraline HCl [Zoloft] 100 mg PO DAILY #30 tab Transmission Status: Received by [facility]/pharmacy #[id number] Primary Care Physician: Care Physician,No Primary [NON-STAFF] - Please follow up with your Primary Care Physician in: within a week Disposition: Home Minutes spent on discharge:: 32 Patient Condition:: Stable Medical Necessity - Tobacco Use Smoking Status: Current every day smoker Tobacco Use: Cigarettes Meaningful Use Info Meaningful Use Diagnoses (Choose all that apply): None applicable Code Visit Inpatient E&M: 10026 Disch Hosp
== END 2018-10-06 11:25 | disposition home or self-care (01) | DRG 641 ==
LOC: ED 16:36 → PCU 18:07
PROVIDERS: Admitting Provider Internal Medicine; Emergency Provider Physician Assistant Medical; Referring Provider Internal Medicine; Visit Provider Internal Medicine
DX: E87.2 Acidosis (principal); N17.9 Acute kidney failure, unspecified; F10.230 Alcohol dependence with withdrawal, uncomplicated; Y90.8 Blood alcohol level of 240 mg/100 ml or more; E83.42 Hypomagnesemia; I10 Essential (primary) hypertension; F41.9 Anxiety disorder, unspecified; E86.0 Dehydration; F17.210 Nicotine dependence, cigarettes, uncomplicated
CPT/HCPCS: 36415; 80048; 80053; 80307; 80320; 81001; 82009; 83605; 83735; 84100; 84484; 85025; 85027; 85610; 85730; 93005; 97161; 97166; 97802; 99285; J7030; A4216; G0480; J3490

== ENCOUNTER 2018-10-07 12:13 | Emergency (ER) | payer OTHER, SELFPAY ==
[2018-10-04 18:26] VITALS: BMI 23.4
[2018-10-07 12:14] VITALS: BP 131/94; PULSE 73; RESP 16; TEMP 36.8; O2SAT 98; BMI 22.8
--- NOTE | 2018-10-07 13:00 | ED.VISSUMM ---
- ER Visit Summary Date of Service: 10/07/18 Chief Complaint: Shaking, sweats, and palpitations History of Present Illness: The patient is a 48 M who presents with shaking feeling that has been waxing and waning over the past hour. Patient states he was recently discharged from the hospital here after inpatient alcohol detox. Patient states that he has been unable to get his BuSpar filled because the pharmacy is unable to obtain the medication. Patient denies any alcohol use. Patient denies any visual or auditory hallucinations. Patient does admit to some nausea and vomiting. Patient denies any chest pain or shortness of breath. Physical Examination: Vital signs are stable. Patient is afebrile. Patient is in no acute distress. Oral mucosa is pink and moist. Neck is supple. Trachea is midline. There is no JVD noted. Heart was regular rate and rhythm. Lungs are clear and equal bilaterally. Abdomen is soft. Bowel sounds are normal. There is no tenderness. Cranial nerves II through XII are intact. There are no focal motor or sensory deficits noted. Emergency Department Course and Treatment: Patient was given a dose of BuSpar and Vistaril here. Patient was feeling better on reevaluation. Patient BuSpar prescription is ready for him at his pharmacy. Patient was given a prescription for Vistaril to take as needed for anxiety for couple days. Patient was instructed to follow-up with his primary care physician in 3 to 5 days. Patient understood and was agreeable with the plan. All questions were answered. Disposition: Discharge home Impression: 1. Anxiety 2. History of alcohol abuse This note was generated with trueAnthem dictation software. It may contain incorrect words, spelling, and punctuation that were not noted in review of the chart prior to signing ED Disposition - Plan for ED Patient: Disposition: Home or Assisted Living Diagnosis: Anxiety Instructions: Anxiety Reaction Prescriptions: hydrOXYzine pamoate capsule [Vistaril] 50 mg PO TID PRN PRN #30 cap PRN Reason: Anxiety Prescription Printed Referrals: Betsy Crawley NP-C [Primary Care Provider] - 3-5 Days
[2018-10-07] MEDS: hydrOXYzine PAM 25 MG Capsule 50 MG PO (13:11)
[2018-10-07] MEDS: busPIRone 15 MG TABLET PO (13:32)
--- NOTE | 2018-10-07 14:50 | CM.ED ---
SOCIAL WORK INFORMANT: NURSEWALI REASON FOR REFERRAL: SUBSTANCE ABUSE/MENTAL HEALTH MET WITH PATIENT AND SIGNIFICANT OTHER, ALEX GUPTA ([phone]) AT BEDSIDE. INTRODUCED ROLE AND REASON FOR REFERRAL. PATIENT REPORTS WAS JUST DISCHARGED FROM THE HOSPITAL AND ONLY COMPLETED 3 DAYS OF DETOX. SIGNIFICANT OTHER STATES, I FEEL HE LEFT TOO SOON. PATIENT REPORTS AT HOME HAS BEEN SWEATING, SHAKING, AND HAVING INCREASED ANXIETY. PATIENT REPORTS SCRIPT FOR BUSPAR WAS UNABLE TO BE FILLED YESTERDAY THEY DID NOT HAVE THE MEDICATION. PATIENT STATES DID GET A TEXT MESSAGE FROM PHARMACY, BUT UNSURE WHAT IT SAID. INFORMED PATIENT THIS WORKER CAN FOLLOW UP WITH PHARMACY[facility] [place] TO CHECK ON STATUS OF PRESCRIPTION. PATIENT IN AGREEMENT WITH PLAN. PATIENT'S SIGNIFICANT OTHER ASKING IF PATIENT CAN BE RE-ADMITTED FOR DETOX. EDUCATION PROVIDED AND INFORMED WILL DISCUSS WITH DR. CARLOS. PATIENT STATES HAS ALREADY COMPLETED INTAKE APPOINTMENT FOR IOP AT [facility]. DISCUSSED THE ABOVE WITH DR. CARLOS. PER DR. CARLOS, HOSPITALIST WAS CALLED AND PATIENT DOES NOT MEET CRITERIA FOR ADMISSION. DR. CARLOS TO FOLLOW UP WITH PATIENT. DONNA REINOSO, HYDRODYNAMICS TEACHER, BRAZER CRAWLER TORCH.
--- NOTE | 2018-10-07 14:58 | CM.ED ---
SOCIAL WORK CALL TO [facility] IN [place]. INFORMED PATIENT'S PRESCRIPTION IS READY FOR ANALYTICAL CONSULTANT THIS DAY. UPDATED PATIENT AND DR. CARLOS. PLAN: HOME, PATIENT TO FOLLOW UP WITH [facility] FOR INTENSIVE OUTPATIENT TREATMENT. DONNA REINOSO, BANQUET MANAGER, COAL CUTTER.
[2018-10-07 15:18] VITALS: BP 137/108; PULSE 63; RESP 16; O2SAT 97
--- NOTE | 2018-10-07 15:19 | ED.RN ---
REVIEWED D/C INSTRUCTIONS, FOLLOW UP CARE, PRESCRIPTION, AND S/S THAT WOULD WARRANT A RETURN TO THE ED WITH PT. PT VERBALIZED AN UNDERSTANDING AND DENIES FURTHER QUESTIONS FOR THIS RN. PT SKIN P/W/D, RESP EVEN AND UNLABORED, PT AO X 3, NO DISTRESS NOTED. PT AMBULATED OUT OF ED, GAIT STEADY.
== END 2018-10-07 15:22 | disposition home or self-care (01) ==
PROVIDERS: Emergency Provider Emergency Medicine; PCP Nurse Practitioner Family
DX: F41.9 Anxiety disorder, unspecified (principal); F10.10 Alcohol abuse, uncomplicated; I10 Essential (primary) hypertension; F17.210 Nicotine dependence, cigarettes, uncomplicated; R11.2 Nausea with vomiting, unspecified; Y90.9 Presence of alcohol in blood, level not specified
CPT/HCPCS: 99283

== ENCOUNTER 2018-10-23 10:57 | Emergency (ER) | payer MEDICAID, SELFPAY ==
[2018-10-23 10:58] VITALS: BP 130/93; PULSE 106; RESP 18; TEMP 36.1; O2SAT 98; BMI 24.3
--- NOTE | 2018-10-23 11:04 | ED.RN ---
PT STATES TO THIS RN I HAD TO DRINK 3 BEERS TO GET HERE. ASK PT IF HE DROVE HERE AND HE STATES YES.
[2018-10-23] MEDS: 0.9% Normal Saline 1,000 ML 1000 ML IV (11:40)
[2018-10-23] MEDS: LORazepam 2 MG/ML Syringe 1 MG IV (11:40)
[2018-10-23 11:48] LABS: Absolute Lymphocyte Count 1.85 X10^3/uL (0.83-4.51); Absolute Neutrophil Count 2.8 X10^3/uL (2.0-7.7); Basophil# 0.04 X10^3/uL; Basophil% 0.7 % (0-1); Eosinophil# 0.17 X10^3/uL; Eosinophils% 3.1 % (0-5); Hematocrit 50.6 % (40-54); Hemoglobin 17.8 g/dL (13.0-16.5); Lymphocyte # 1.85 X10^3/ul (4.0); Lymphocyte % 33.8 % (19-41); Mean Corp Hgb Conc 35.2 g/dL (32-36); Mean Corpuscular Volume 93.7 fL (80-94); Mean Platelet Vol. 9.6 fl (6.2-12.0); Monocyte# 0.57 X10^3/uL; Monocyte% 10.4 % (0-10); NRBC Flagged by Analyzer 0 % (0-5); Neutrophil # 2.84 X10^3/uL (2.7-7.7); Neutrophil % 51.8 % (47-70); Platelet Count 307 K/mm3 (150-450); RBC Distribution Width CV 13.9 % (11.6-14.6); RBC Distribution Width SD 48.3 fl (35.1-43.9); White Blood Count 5.5 K/mm3 (4.4-11.0)
[2018-10-23 11:59] LABS: Amphetamine Urine VISTA NEGATIVE (<1000 ng/mL); Barbiturate Urine VISTA NEGATIVE (< 200 ng/mL); Benzodiazepine Urine VISTA NEGATIVE (< 200 ng/mL); Cocaine Urine VISTA NEGATIVE (< 300 ng/mL); Ecstacy Urine VISTA NEGATIVE (< 500 ng/mL); Methadone Urine VISTA NEGATIVE (< 300 ng/mL); PCP Urine VISTA NEGATIVE (< 25 ng/mL); THC Urine VISTA NEGATIVE (< 50 ng/mL); Vista UDS pH Range 6
[2018-10-23 12:07] LABS: ALB/GLOB Ratio 1.1 RATIO (0.9-2.4); AST(SGOT) 71 U/L (15-37); Alanine Aminotransfer ALT/SGPT 55 U/L (16-61); Alkaline Phosphatase 80 U/L (45-117); Anion Gap 6 (5-15); BUN 3 mg/dL (7-18); BUN/Creat Ratio 3.9 RATIO (10-20); Calcium,Total 9.1 mg/dL (8.5-10.1); Chloride 102 mmol/L (98-107); Creatinine, Serum 0.78 mg/dL (0.70-1.30); EST Glomerular Filtration Rate 112 mL/min (>60); Est Glom Filt Rate - Afr Amer 136 mL/min (>60); Estimated Creatinine Clearance 131.73 ml/min; Globulin 3.8 g/dL (2.2-4.2); Glucose 115 mg/dL (74-106); Potassium 3.6 mmol/L (3.5-5.1); Protein, Total 7.8 g/dL (6.4-8.2); Sodium Level 140 mmol/L (136-145)
[2018-10-23 12:23] LABS: Lactic Acid 2.2 mmol/L (0.4-2.0)
--- NOTE | 2018-10-23 12:25 | ED.RN ---
LACTIC LEVEL OF 2.2. MD AND NURSE NOTIFIED.
[2018-10-23] MEDS: 0.9% Normal Saline 1,000 ML 999 ML IV (12:57)
[2018-10-23 13:03] VITALS: BP 132/86; PULSE 103; RESP 14; O2SAT 95
[2018-10-23 14:58] LABS: Lactic Acid 2.5 mmol/L (0.4-2.0)
--- NOTE | 2018-10-23 15:21 | ED.DCSUM_ITS ---
- ER Visit Summary Date of Service: 10/23/18 Chief Complaint: Alcohol withdrawal History of Present Illness: The patient is a 48 M who presents for alcohol withdrawal. He was admitted twice in the last couple weeks for the same symptoms. He was discharged on October 08. He started drinking again about 6 d ays ago. He had 3 beers today. He has not started having withdrawal symptoms. He is denying any suicidal or homicidal thoughts. He does have a history of acute kidney injury, alcoholic ketoacidosis, and hypertension. Denies any other drug use. Physical Examination: Afebrile. Heart rate 106. Alert and oriented. No acute distress. Tachycardic but regular. Lungs clear. Abdomen soft. Skin appears normal. Test Results: Hemoglobin 17.8, metabolic panel unremarkable. Anion gap is 6. Lactate is 2.2, tox screen negative, alcohol 295. Emergency Department Course and Treatment: Patient has a history of alcoholic ketoacidosis. He was treated with IV fluids and Ativan. Because of the history, I did obtain blood work and lactate. His lactate was elevated. Otherwise his labs were all fairly unremarkable. He received IV fluids as well as Ativan. The plan was to recheck his lactate, and discharge him if it was normal. It came back at 2.5. I spoke with the hospitalist to admit for further care. When I went to reassess the patient, he had eloped. Nurse attempted to call his contact numbers. Treatment Plan: As above Disposition: Elopement Impression: 1. Alcohol abuse 2. Lactic acidosis This note was generated with Genecureation software. It may contain incorrect words, spelling, and punctuation that were not noted in review of the chart prior to signing ED Disposition - Plan for ED Patient: Referrals: Betsy Crawley NP-C [Primary Care Provider] -
--- NOTE | 2018-10-23 15:36 | ED.RN ---
Patient not in room. Dr. Mckeon aware. Dr. Villa aware. Unsure if pt still has IV site in arm at this time. Message left on patient's cell number without call back. Kacye next of kin called asked her to have him call the ER.
[2018-10-23 15:43] LABS: Reflex Lactate? Y
[2018-10-23 18:16] LABS: Reflex Lactate? Y
== END 2018-10-23 15:45 | disposition left against medical advice (07) ==
PROVIDERS: Emergency Provider Emergency Medicine; Family Provider Nurse Practitioner Family; PCP Nurse Practitioner Family
DX: F10.239 Alcohol dependence with withdrawal, unspecified (principal); E87.2 Acidosis; I10 Essential (primary) hypertension; Y90.8 Blood alcohol level of 240 mg/100 ml or more
CPT/HCPCS: 80053; 80307; 80320; 83605; 85025; 99284; J7030; A4216; G0480

== ENCOUNTER 2019-05-01 22:34 | Observation (INO) | payer MEDICAID, SELFPAY ==
[2019-05-01 22:35] VITALS: BP 139/87; PULSE 96; RESP 16; TEMP 36.6; O2SAT 98; BMI 24.4
--- NOTE | 2019-05-01 22:55 | ED.VISSUMM ---
- ER Visit Summary Date of Service: 05/01/19 Chief Complaint: [Request for detox from alcohol] History of Present Illness: The patient is a 49 M [presents to the emergency department requesting detox from alcohol today. Patient states that he is a heavy drinker and drinks about 30-40 beers per day. His last drink was in the parking lot of the hospital before walking in. Patient states that he feels like he needs a beer because the moment some of the alcohol starts to wear off he starts shaking. His last detox was about 3 weeks ago in [place]. Patient stayed for a 5-day inpatient program but then soon relapsed. Patient denies any complaints otherwise. He has had a cough that is been mild for about a week. He denies any fever. He denies any shortness of breath. Patient is a smoker. Patient has history of hypertension as well as anxiety and depression and alcohol abuse. Patient denies any sick contacts or exposures to novel coronavirus patients. Denies recent travel or surgery otherwise.] Physical Examination: [HEENT-PERRLA, EOMI. Cranial nerves II through XII grossly intact. TMs clear. Mucous membranes moist. No adenopathy. Cardiovascular-regular rate and rhythm without murmur or ectopy Lungs-clear to auscultation, chest wall stable without crepitus or subcu emphysema Abdomen-normoactive bowel sounds, soft, nontender, no rebound or rigidity, no peritoneal signs. Extremities-intact ?4, normal range of motion, normal pulses, atraumatic] Test Results: [CBC with differential is normal. Chemistries unremarkable. Alk phos was 74, ALT 104, AST 110. Toxicology screen was negative. Alcohol level pending] Emergency Department Course and Treatment: [Patient had an IV line established. He was given Librium 50 mg p.o.] Treatment Plan: [Case will be discussed with hospitalist to evaluate patient for admission for detox from alcohol] Disposition: [Admit] Impression: [Alcohol intoxication/abuse Request for detox] This note was generated with iloho dictation software. It may contain incorrect words, spelling, and punctuation that were not noted in review of the chart prior to signing ED Disposition - Plan for ED Patient: Referrals: Betsy Crawley NP-C [Primary Care Provider] -
[2019-05-01] MEDS: chlordiazePOXIDE 25 MG Capsule 50 MG PO (23:04)
[2019-05-01 23:07] LABS: Absolute Lymphocyte Count 2.08 X10^3/uL (0.83-4.51); Absolute Neutrophil Count 3.1 X10^3/uL (2.0-7.7); Basophil# 0.05 X10^3/uL; Basophil% 0.9 % (0-1); Eosinophil# 0.11 X10^3/uL; Eosinophils% 1.9 % (0-5); Hematocrit 47.3 % (40-54); Hemoglobin 16.4 g/dL (13.0-16.5); Lymphocyte # 2.08 X10^3/ul (4.0); Lymphocyte % 35.4 % (19-41); Mean Corp Hgb Conc 34.7 g/dL (32-36); Mean Corpuscular Hgb 31.9 pg (27.0-32.0); Mean Platelet Vol. 9.5 fl (6.2-12.0); Monocyte# 0.58 X10^3/uL; Monocyte% 9.9 % (0-10); NRBC Flagged by Analyzer 0 % (0-5); Neutrophil # 3.05 X10^3/uL (2.7-7.7); Neutrophil % 51.7 % (47-70); Platelet Count 214 K/mm3 (150-450); RBC Distribution Width CV 14.6 % (11.6-14.6); RBC Distribution Width SD 49.6 fl (35.1-43.9); Red Blood Count 5.14 M/mm3 (4.6-6.2); White Blood Count 5.9 K/mm3 (4.4-11.0)
--- NOTE | 2019-05-01 23:11 | HP.PCM_ITS ---
Problem List (1) Alcohol dependence Status: Acute (2) Acute kidney injury Status: Inactive (3) Alcoholic ketoacidosis Status: Inactive (4) Hypomagnesemia Status: Inactive (5) Lactic acidosis Status: Inactive (6) Alcoholism Status: Chronic (7) Hypertension Status: Chronic Qualifiers: Hypertension type: essential hypertension Qualified Code(s): I10 - Essential (primary) hypertension History of Present Illness Date of Admission: 05/01/19 Chief Complaint: Alcohol dependence The patient is a 49 year old M with a significant history of anxiety disorder; hypertension and alcohol dependence who presents at the emergency department for alcohol detoxification. In the last 3 to 4 years patient has been to 15 or so alcohol detoxification programs. He was discharged from [facility] alcohol rehabilitation program in [facility] about 3 weeks ago. Since discharge he has not taken any of his home medications. Before coming to emergency department he drank 6 packs beer and his last bottle of beer was at the parking lot of our [facility] ([facility]); just before walking into the ED.. He has plan to follow-up with Scientologist, [facility] after discharge. Also he plans to resume AAA meetings after discharge. Past Medical History Past Medical History (Chronic Problems): Chronic Problems Alcoholism (Chronic) Hypertension (Chronic) Allergies No Known Allergies Allergy (Verified 05/01/19 22:35) Home Medications: Ambulatory Orders Medication Instructions Recorded Lisinopril [Zestril] 10 mg PO DAILY 10/04/18 Atenolol [Tenormin (beta kavya)] 50 mg PO DAILY #30 tab 10/06/18 Sertraline HCl [Zoloft] 100 mg PO DAILY #30 tab 10/06/18 busPIRone [Buspar] 15 mg PO TID #90 tab 10/06/18 hydrOXYzine pamoate capsule 50 mg PO TID PRN PRN #30 cap 10/07/18 [Vistaril] Surgical History: - - Vasectomy: Finger surgery; elbow surgery. Psychiatric History: Anxiety Lives: Spouse/ Significant Other Smoking Status: Current every day smoker Tobacco Use: Cigarettes - *Family History Maternal History Items: Pulmonary Disease Paternal History Items: Diabetes, Heart Disease, Hypertension Review of Systems Constitutional: Denies: Chills, Fever, Weight Change HEENT: Denies: Head Aches, Sinus Congestion, Sinus Drainage Cardiovascular: Denies: Chest Pain, Palpitations Respiratory: Denies: Cough, Shortness of breath at rest, Sputum production Gastrointestinal: Denies: Abdominal Pain, Nausea, Vomiting Genitourinary: Denies: Dysuria Musculoskeletal: Denies: Joint Pain, Joint Tenderness Skin: Denies: Rash, Wounds Neurological: Denies: Numbness, Tingling, Focal weakness Psychiatric: Denies: Anxiety, Depression, Homicidal Ideations, Suicidal Ideations Hematologic/ Lymphatic: Denies: Easy Bruising, Easy Bleeding VTE Information - Inpt Only VTE Present on Admission: No VTE Mechan Device Prophylaxis: None VTE Pharm Prophylaxis ordered?: Yes Patient Problems: Active and Suspected Problems Alcohol dependence (Acute) - Physical Exam Vitals/I&O's: Vital Signs Temp Pulse Resp BP Pulse Ox 97.9 F 96 16 139/87 H 98 05/01/19 22:35 05/01/19 22:35 05/01/19 22:35 05/01/19 22:35 05/01/19 22:35 Oxygen Delivery Method Room Air Weight: 83.915 kg Body Mass Index (BMI) 24.4 General: Alert, Oriented x3, Cooperative HEENT: Atraumatic, PERRLA, EOMI, Normocephalic Neck: Supple, No JVD, Negative Carotid Bruits Lungs: Clear to auscultation, Normal air movement, No rhonchi, No wheeze, No rales Cardiovascular: Regular rate, Normal S1, Normal S2, No murmurs Abdomen: Bowel Sounds Present, Soft, Non Tender Extremities: No edema, Capillary Refill Less than 3 Seconds Skin: No rashes, No breakdown Musculoskeletal: No Tenderness to Palpation of Joints or Extremities Neurological: Cranial nerves II-XII grossly intact Psych/Mental Status: Normal Affect, Appropriate Laboratory Results 05/01/19 22:41: Urine Opiates Screen Pending, Urine Methadone Screen Pending, Ur Barbiturates Screen Pending, Ur Phencyclidine Scrn Pending, Ur Amphetamines Screen Pending, U Methamphetamin-MDMA Pending, U Benzodiazepines Scrn Pending, Urine Cocaine Screen Pending, U Cannabinoids Screen Pending, Ur Drug Screen Comment 05/01/19 23:00: WBC 5.9, RBC 5.14, Hgb 16.4, Hct 47.3, MCV 92.0, MCH 31.9, MCHC 34.7, RDW Std Deviation 49.6 H, RDW Coeff of Danial 14.6, Plt Count 214, MPV 9.5, Immature Gran % (Auto) 0.200, Neut % (Auto) 51.7, Lymph % (Auto) 35.4, [place] % (Auto) 9.9, Eos % (Auto) 1.9, Baso % (Auto) 0.9, Absolute Neuts (auto) 3.1, Absolute Lymphs (auto) 2.08, Nucleated RBC % 0 05/01/19 23:00: Sodium Pending, Potassium Pending, Chloride Pending, Carbon Dioxide Pending, Anion Gap Pending, BUN Pending, Creatinine Pending, Est GFR (MDRD) Af Amer Pending, Est GFR (MDRD) Non-Af Pending, BUN/Creatinine Ratio Pending, Glucose Pending, Calcium Pending, Total Bilirubin Pending, AST Pending, ALT Pending, Alkaline Phosphatase Pending, Total Protein Pending, Albumin Pending 05/01/19 23:00: Ethyl Alcohol Pending Assessment/Plan All Active Problems Alcohol dependence (Acute) The patient is a 49 year old M with a significant history of anxiety disorder; hypertension and alcohol dependence who presents emergency department for detoxification. Alcohol dependence Received Librium at emergency department. Will start patient on alcohol withdrawal protocol with Ativan. Supportive treatment with folic acid, multivitamin and thiamine. Home atenolol continued. Ethanol level at emergency department returned as 304. Case management consult for discharge planning. Anxiety disorder He has not taken any of his medicine for the past 3 weeks. Zoloft and buspirone continued Hydroxyzine PRN continued Hypertension On presentation blood pressure was now within goal Atenolol and lisinopril continued. Trend blood pressure and adjust blood press ure medications. Elevated liver enzymes Like secondary to alcoholism. Counseled. Tobacco abuse Counseled Nicotine patch prescribed. DVT prophylaxis: Subcutaneous Lovenox ordered. Inpatient E&M: 55843 Init Hosp L2
[2019-05-01 23:21] LABS: ALB/GLOB Ratio 1.2 RATIO (0.9-2.4); AST(SGOT) 110 U/L (15-37); Alanine Aminotransfer ALT/SGPT 104 U/L (16-61); Albumin, Serum 4.1 g/dL (3.2-5.0); Alkaline Phosphatase 74 U/L (45-117); Anion Gap 9 (5-15); BUN 7 mg/dL (7-18); BUN/Creat Ratio 9.5 RATIO (10-20); Calcium,Total 8.3 mg/dL (8.5-10.1); Chloride 99 mmol/L (98-107); Creatinine, Serum 0.73 mg/dL (0.70-1.30); EST Glomerular Filtration Rate 120 mL/min (>60); Est Glom Filt Rate - Afr Amer 145 mL/min (>60); Estimated Creatinine Clearance 135.29 ml/min; Globulin 3.4 g/dL (2.2-4.2); Glucose 108 mg/dL (74-106); Potassium 3.7 mmol/L (3.5-5.1); Protein, Total 7.5 g/dL (6.4-8.2); Sodium Level 135 mmol/L (136-145)
[2019-05-01 23:23] LABS: Amphetamine Urine VISTA NEGATIVE (<1000 ng/mL); Barbiturate Urine VISTA NEGATIVE (< 200 ng/mL); Benzodiazepine Urine VISTA NEGATIVE (< 200 ng/mL); Cocaine Urine VISTA NEGATIVE (< 300 ng/mL); Ecstacy Urine VISTA NEGATIVE (< 500 ng/mL); Methadone Urine VISTA NEGATIVE (< 300 ng/mL); PCP Urine VISTA NEGATIVE (< 25 ng/mL); THC Urine VISTA NEGATIVE (< 50 ng/mL); Vista UDS pH Range 6
[2019-05-02 00:12] VITALS: BP 131/79; PULSE 95; RESP 16; TEMP 36.6; O2SAT 98
[2019-05-02 01:29] VITALS: BMI 22.8
[2019-05-02 01:31] VITALS: BP 141/92; PULSE 93; RESP 16; TEMP 36.6; O2SAT 97
[2019-05-02 01:38] VITALS: BMI 22.9
[2019-05-02] MEDS: Ondansetron 4 MG/2 ML Vial IV (01:47)
[2019-05-02] MEDS: hydrOXYzine PAM 25 MG Capsule 50 MG PO (01:48)
[2019-05-02 04:59] VITALS: BP 121/81; PULSE 108; RESP 18; TEMP 36.8; O2SAT 95
[2019-05-02] MEDS: LORazepam 1 MG Tablet 2 MG PO ×3 (05:01→17:30)
[2019-05-02] MEDS: busPIRone 15 MG TABLET PO ×2 (05:01→14:37)
[2019-05-02 12:00] VITALS: BP 155/90; PULSE 98; RESP 16; TEMP 36.6; O2SAT 94
[2019-05-02] MEDS: Sertraline 100 MG Tablet PO (12:01)
[2019-05-02] MEDS: Multivitamins,Ther W-Minerals Tablet 1 TABLET PO (12:01)
[2019-05-02] MEDS: Folic Acid 1 MG Tablet PO (12:02)
[2019-05-02] MEDS: Enoxaparin 40 MG/0.4 ML Syringe SC (12:02)
[2019-05-02] MEDS: Thiamine Hydrochloride 100 MG Tablet PO ×2 (12:02→17:31)
[2019-05-02] MEDS: Lisinopril 10 MG Tablet PO (12:03)
[2019-05-02] MEDS: Atenolol 50 MG Tablet PO (12:03)
--- NOTE | 2019-05-02 12:09 | PCM.PN.HOSP ---
Patient Problems: Active and Suspected Problems Alcohol dependence (Acute) Reason for Visit: Follow-up on alcohol withdrawal Subjective: Patient was seen and examined. He denied any new complaints. His CIWA this morning was 6. Complains of mild tremors. Objective: Physical exam: General: Alert, Oriented x3, Cooperative HEENT: Atraumatic, PERRLA, EOMI, Normocephalic Neck: Supple, No JVD, Negative Carotid Bruits Lungs: Clear to auscultation, Normal air movement, No rhonchi, No wheeze, No rales Cardiovascular: Regular rate, Normal S1, Normal S2, No murmurs Abdomen: Bowel Sounds Present, Soft, Non Tender Extremities: No edema, Capillary Refill Less than 3 Seconds Skin: No rashes, No breakdown Musculoskeletal: No Tenderness to Palpation of Joints or Extremities Neurological: Cranial nerves II-XII grossly intact Psych/Mental Status: Normal Affect, Appropriate Vitals/I&O's: Vital Signs Temp Pulse Resp BP Pulse Ox 98.3 F 108 H 18 121/81 H 95 05/02/19 04:59 05/02/19 04:59 05/02/19 04:59 05/02/19 04:59 05/02/19 04:59 Oxygen Delivery Method Room Air Weight: 78.8 kg Body Mass Index (BMI) 22.8 Intake and Output for Last 24 Hours 04/30/19 05/01/19 05/02/19 23:59 23:59 23:59 Intake Total 150 / 150 Balance 150 / 150 Laboratory Results 05/01/19 22:41: Urine Opiates Screen NEGATIVE, Urine Methadone Screen NEGATIVE, Ur Barbiturates Screen NEGATIVE, Ur Phencyclidine Scrn NEGATIVE, Ur Amphetamines Screen NEGATIVE, U Methamphetamin-MDMA NEGATIVE, U Benzodiazepines Scrn NEGATIVE, Urine Cocaine Screen NEGATIVE, U Cannabinoids Screen NEGATIVE, Ur Drug Screen Comment 05/01/19 23:00: WBC 5.9, RBC 5.14, Hgb 16.4, Hct 47.3, MCV 92.0, MCH 31.9, MCHC 34.7, RDW Std Deviation 49.6 H, RDW Coeff of Danial 14.6, Plt Count 214, MPV 9.5, Immature Gran % (Auto) 0.200, Neut % (Auto) 51.7, Lymph % (Auto) 35.4, Snyder % (Auto) 9.9, Eos % (Auto) 1.9, Baso % (Auto) 0.9, Absolute Neuts (auto) 3.1, Absolute Lymphs (auto) 2.08, Nucleated RBC % 0 05/01/19 23:00: Sodium 135 L, Potassium 3.7, Chloride 99, Carbon Dioxide 27.0, Anion Gap 9, BUN 7, Creatinine 0.73, Estim Creat Clear Calc 135.29, Est GFR (MDRD) Af Amer 145, Est GFR (MDRD) Non-Af 120, BUN/Creatinine Ratio 9.5 L, Glucose 108 H, Calcium 8.3 L, Total Bilirubin 0.40, AST 110 H, ALT 104 H, Alkaline Phosphatase 74, Total Protein 7.5, Albumin 4.1, Globulin 3.4, Albumin/Globulin Ratio 1.2 05/01/19 23:00: Ethyl Alcohol 304.0 H* Current Medications Atenolol (Tenormin (Beta Melinda)) 50 mg PO DAILY [facility] Last Admin: 05/02/19 12:03 Dose: 50 mg Documented by: Buspirone HCl (Buspar) 15 mg PO TID [facility] Last Admin: 05/02/19 05:01 Dose: 15 mg Documented by: Enoxaparin Sodium (Lovenox) 40 mg SC DAILY [facility] Last Admin: 05/02/19 12:02 Dose: 40 mg Documented by: Folic Acid (Folic Acid) 1 mg PO DAILY@0800 [facility] Stop: 05/04/19 08:01 Last Admin: 05/02/19 12:02 Dose: 1 mg Documented by: Glucagon () 1 mg IM .X1 PRN PRN Reason: Hypoglycemia Hydroxyzine Pamoate (Vistaril Pamoate Capsule) 50 mg PO TID PRN PRN PRN Reason: ANXIETY Last Admin: 05/02/19 01:48 Dose: 50 mg Documented by: Dextrose (Dextrose 10%-Water) 250 mls @ 999 mls/hr IV .Q16M PRN; Protocol PRN Reason: HYPOGLYCEMIA Lisinopril (Zestril) 10 mg PO DAILY [facility] Last Admin: 05/02/19 12:03 Dose: 10 mg Documented by: Lorazepam (Ativan) 2 mg PO Q2H PRN PRN; Protocol PRN Reason: CIWA score > 8 but <15 Lorazepam (Ativan) 2 mg PO UD PRN; Protocol PRN Reason: CIWA score >/=15. Lorazepam (Ativan) 2 mg IV Q2H PRN PRN; Protocol PRN Reason: CIWA score > 8 but <15 Lorazepam (Ativan) 2 mg IV UD PRN; Protocol PRN Reason: CIWA score >/=15. Lorazepam (Ativan) 1 mg PO Q24H PRN PRN Reason: Agitation Lorazepam (Ativan) 2 mg PO Q6H DEVEN; Taper Stop: 05/08/19 04:59 Last Admin: 05/02/19 12:07 Dose: 2 mg Documented by: Multivitamins/Minerals ([facility]ivit[facility] With Minerals (Bkc)) [facility] Last Admin: 05/02/19 12:01 Dose: 1 tablet Documented by: Nicotine (Nicoderm Cq (Pbkc)) 21 mg TRANSDERM. DAILY [facility] Last Admin: 05/02/19 12:03 Dose: 21 mg Documented by: Ondansetron HCl (Zofran) 4 mg IV Q8H PRN PRN PRN Reason: NAUSEA/VOMITING Last Admin: 05/02/19 01:47 Dose: 4 mg Documented by: Sertraline HCl (Zoloft) 100 mg PO DAILY [facility] Last Admin: 05/02/19 12:01 Dose: 100 mg Documented by: Sodium Chloride () 10 - 40 ml IV UD PRN PRN Reason: SALINE FLUSH Thiamine HCl (Vitamin B1) 100 mg PO BIDCM [facility] Stop: 05/04/19 17:01 Last Admin: 05/02/19 12:02 Dose: 100 mg Documented by: Medical Necessity - Tobacco Use Smoking Status: Current every day smoker Tobacco Use: Cigarettes Assessment/Plan All Active Problems Alcohol dependence (Acute) 49-year-old male with past medical history of anxiety disorder, hypertension, alcohol use disorder who comes in for medical stabilization. 1. Acute alcohol withdrawal, CIWA is 6, on alcohol withdrawal protocol with Ativan Admitting alcohol level was 304 Continue on folic acid, multivitamin, and thiamine 2. Anxiety disorder, continue on Zoloft and buspirone 3. Nicotine dependence, on replacement 4. Hypertension, controlled, continue atenolol and lisinopril 5. DVT PPx- Lovenox SC Inpatient E&M: 35660 [facility] Hosp L2
[2019-05-02 17:33] VITALS: BP 121/78; PULSE 79; RESP 16; TEMP 36.1; O2SAT 95
--- NOTE | 2019-05-02 22:22 | DCINST_ITS ---
- Discharge Diagnoses Reason(s) for Visit for Discharge Instructions: Acute alcohol withdrawal You will use the following diet at home:: No restrictions Allergies/Adverse Reactions: Allergies No Known Allergies Allergy (Verified 05/01/19 22:35) Medications to take at Discharge Lisinopril [Zestril] 10 mg PO DAILY 10/04/18 Atenolol [Tenormin (beta kavya)] 50 mg PO DAILY #30 tab 10/06/18 Sertraline HCl [Zoloft] 100 mg PO DAILY #30 tab 10/06/18 busPIRone [Buspar] 15 mg PO TID #90 tab 10/06/18 hydrOXYzine pamoate capsule [Vistaril] 50 mg PO TID PRN PRN #30 cap 10/07/18 Primary Care Physician: Betsy Crawley NP-C [Primary Care Provider] - Test Results: Test results from this visit will be discussed in further detail at your follow- up appointment, if applicable.
--- NOTE | 2019-05-02 22:22 | PCM.DC.SUM ---
Discharge Date and Diagnosis Date of Admission: 05/01/19 Date of Discharge: 05/02/19 - Primary Discharge Diagnosis Acute alcohol withdrawal - Secondary Discharge Diagnosis Chronic Problems Alcoholism (Chronic) Hypertension (Chronic) Hospital Course and Treatment None Operations: None Procedures: None Summary of Care Provided: The patient is a 49 year old M with PMHx of anxiety who was admitted with alcohol withdrawal symptoms and admitted for medical stabilisation. Patient was seen and examined on the day of discharge. He however signed out AMA later in the evening. Subjective: See progress note of the day Objective: See progress note of the day - Physical Exam Vitals/I&O's: Vital Signs Temp Pulse Resp BP Pulse Ox 96.9 F L 79 16 121/78 H 95 05/02/19 17:33 05/02/19 17:33 05/02/19 17:33 05/02/19 17:33 05/02/19 17:33 Oxygen Delivery Method Room Air Weight: 78.8 kg Body Mass Index (BMI) 22.8 Intake and Output for Last 24 Hours 04/30/19 05/01/19 05/02/19 23:59 23:59 23:59 Intake Total 150 / 150 Balance 150 / 150 Laboratory Results 05/01/19 22:41: Urine Opiates Screen NEGATIVE, Urine Methadone Screen NEGATIVE, Ur Barbiturates Screen NEGATIVE, Ur Phencyclidine Scrn NEGATIVE, Ur Amphetamines Screen NEGATIVE, U Methamphetamin-MDMA NEGATIVE, U Benzodiazepines Scrn NEGATIVE, Urine Cocaine Screen NEGATIVE, U Cannabinoids Screen NEGATIVE, Ur Drug Screen Comment 05/01/19 23:00: WBC 5.9, RBC 5.14, Hgb 16.4, Hct 47.3, MCV 92.0, MCH 31.9, MCHC 34.7, RDW Std Deviation 49.6 H, RDW Coeff of Danial 14.6, Plt Count 214, MPV 9.5, Immature Gran % (Auto) 0.200, Neut % (Auto) 51.7, Lymph % (Auto) 35.4, [place] % (Auto) 9.9, Eos % (Auto) 1.9, Baso % (Auto) 0.9, Absolute Neuts (auto) 3.1, Absolute Lymphs (auto) 2.08, Nucleated RBC % 0 05/01/19 23:00: Sodium 135 L, Potassium 3.7, Chloride 99, Carbon Dioxide 27.0, Anion Gap 9, BUN 7, Creatinine 0.73, Estim Creat Clear Calc 135.29, Est GFR (MDRD) Af Amer 145, Est GFR (MDRD) Non-Af 120, BUN/Creatinine Ratio 9.5 L, Glucose 108 H, Calcium 8.3 L, Total Bilirubin 0.40, AST 110 H, ALT 104 H, Alkaline Phosphatase 74, Total Protein 7.5, Albumin 4.1, Globulin 3.4, Albumin/Globulin Ratio 1.2 05/01/19 23:00: Ethyl Alcohol 304.0 H* Discharge Diet: No Restrictions Discharge Activity: Return to Normal Activity Home Medications: Medications to take at Discharge Lisinopril [Zestril] 10 mg PO DAILY 10/04/18 Atenolol [Tenormin (beta kavya)] 50 mg PO DAILY #30 tab 10/06/18 Sertraline HCl [Zoloft] 100 mg PO DAILY #30 tab 10/06/18 busPIRone [Buspar] 15 mg PO TID #90 tab 10/06/18 hydrOXYzine pamoate capsule [Vistaril] 50 mg PO TID PRN PRN #30 cap 10/07/18 Primary Care Physician: Betsy Crawley NP-C [Primary Care Provider] - Disposition: Against Medical Advice Minutes spent on discharge:: 25 Patient Condition:: Stable Medical Necessity - Tobacco Use Smoking Status: Current every day smoker Tobacco Use: Cigarettes Meaningful Use Info Meaningful Use Diagnoses (Choose all that apply): None applicable Inpatient E&M: 64901 Disch Hosp
== END 2019-05-02 22:05 | disposition left against medical advice (07) | DRG 770 ==
LOC: ED 23:05 → MS3 05-02 01:15
PROVIDERS: Admitting Provider Hospitalist; Emergency Provider Emergency Medicine; PCP Nurse Practitioner Family; Visit Provider Internal Medicine
DX: F10.239 Alcohol dependence with withdrawal, unspecified (principal); F41.9 Anxiety disorder, unspecified; I10 Essential (primary) hypertension; F10.229 Alcohol dependence with intoxication, unspecified; Y90.8 Blood alcohol level of 240 mg/100 ml or more; F17.210 Nicotine dependence, cigarettes, uncomplicated; Z79.899 Other long term (current) drug therapy
CPT/HCPCS: 80053; 80307; 80320; 85025; 99218; 99283; A4216; G0378; G0480; J2405

== ENCOUNTER 2021-04-05 15:18 | Inpatient (IN) | payer MEDICAID, SELFPAY ==
[2021-04-05] VITALS (8 sets, daily range): BP systolic 117–169; BP diastolic 78–108; PULSE 79–112; RESP 16–20; TEMP 36.4–37.2; O2SAT 94–98; BMI 22.8; BMI 22.2
--- NOTE | 2021-04-05 15:39 | EDS_ITS ---
HPI <ROSLYN Palmer - Last Filed: 04/05/21 16:55> History of Present Illness Chief Complaint: Substance Abuse Narrative Narrative: 51 year old male presents to the ER requesting detox from alcohol. He is a heavy drinker and drinks 50 beers per day. His last drink was in the parking lot of the hospital before checking in. His last detox was in January 2021 at [place] and he states he started drinking almost immediately after leaving. He denies history of DTs or seizures. He smokes 1 PPD but denies other drug use. He states he has history of high blood pressure but does not take medication for this. Denies other medical problems or liver disease. He has nausea and occasionally vomits but feels fine now. No chest pain or shortness of breath. PFSH <ROSLYN Palmer - Last Filed: 04/05/21 16:55> [facility] Medical History Alcohol abuse Home Medications NK 04/05/21 [History Last Taken Unknown] Allergy/AdvReac Type Severity Reaction Status Date / Time No Known Allergies Allergy Verified 05/01/19 22:35 Surgical History (Updated 04/05/21 @ 16:01 by Madeline Willingham) Hx of knee surgery Social History Smoking Status: Current every day smoker tobacco type: cigarettes ROS <ROSLYN Palmer - Last Filed: 04/05/21 16:55> ROS ED ROS Narrative Constitutional: Negative for fever, chills, malaise. Eyes: Negative for visual change. ENT: Negative for sore throat, ear pain, rhinorrhea. CVS: Positive for palpitations. Negative for chest pain, syncope. Respiratory: Negative for shortness of breath, cough, orthopnea. GI: Positive for nausea, vomiting negative for abdominal pain, diarrhea, constipation, melena, hematochezia. : Negative for dysuria, hematuria or frequency. Neuro: Negative for headache, motor/sensory dysfunction. Skin: Negative for rash, abscess, or wound. Musc: Negative for joint pain, swelling, trauma. Heme: Negative for easy bruising, bleeding, lymphadenopathy. EXAM <ROSLYN Palmer - Last Filed: 04/05/21 16:55> Physical Exam Narrative Exam Narrative: CONST: Patient sitting in no acute distress. EYES: Normal inspection. ENT: Normal inspection, dry mucous membranes. NECK: Normal inspection. RESP: No respiratory distress, CTAB. CVS: Regular rate and rhythm, no murmur, no gallop. ABD: Soft and nontender, no guarding or rebound, nondistended, no hepatosplenomegaly. SKIN: Color normal, no rash, warm, dry, intact. EXTREMITIES: Normal appearance, no pedal edema. NEURO: Oriented x4. PSYCH: Normal affect. Const Vital Signs: 04/05/21 15:20 04/05/21 16:02 04/05/21 16:03 Temperature 98.3 F Temperature Source Temporal Pulse Rate 103 H 87 90 Respiratory Rate 18 17 18 Blood Pressure 169/108 H 149/107 H 149/107 H Blood Pressure Mean 128 121 121 Blood Pressure Source Monitor Blood Pressure Position Semi-Fowlers Pulse Ox 98 97 97 Oxygen Delivery Method Room Air Room Air Room Air <Dr. Paul Etienne MD - Last Filed: 04/05/21 16:39> Physical Exam Const Vital Signs: 04/05/21 15:20 04/05/21 16:02 04/05/21 16:03 Temperature 98.3 F Temperature Source Temporal Pulse Rate 103 H 87 90 Respiratory Rate 18 17 18 Blood Pressure 169/108 H 149/107 H 149/107 H Blood Pressure Mean 128 121 121 Blood Pressure Source Monitor Blood Pressure Position Semi-Fowlers Pulse Ox 98 97 97 Oxygen Delivery Method Room Air Room Air Room Air MDM <ROSLYN Palmer - Last Filed: 04/05/21 16:55> [facility] MDM Narrative Medical decision making narrative: Patient presents for alcohol detox. Initially he was slightly hypertensive and tachycardic. He is sitting in no acute distress. Slightly dry mucous membranes. Neurologically intact. Medical exam is benign. Labs consistent with slight dehydration with hemoglobin of 18.2, sodium 130, potassium 3.2. Urine drug screen is negative. Alcohol level over 400. Patient was given IV fluids and a nicotine patch. No evidence of withdrawal at this time. Case was discussed with hospitalist and he was admitted for alcohol detox Lab Data Labs: Laboratory Results - last 24 hr 04/05/21 04/05/21 04/05/21 15:40 15:40 15:40 WBC 5.9 RBC 5.41 Hgb 18.2 H* Hct 50.8 MCV 93.9 MCH 33.6 H MCHC 35.8 RDW Std Deviation 46.7 H RDW Coeff of Danial 13.3 Plt Count 169 MPV 10.2 Immature Gran % (Auto) 0.200 Neut % (Auto) 53.9 Lymph % (Auto) 34.0 Andrew % (Auto) 10.1 H Eos % (Auto) 0.8 Baso % (Auto) 1.0 Absolute Neuts (auto) 3.2 Absolute Lymphs (auto) 2.02 Nucleated RBC % 0 PT INR Sodium 130 L Potassium 3.2 L Chloride 95 L Carbon Dioxide 25.0 Anion Gap 10 BUN 2 L Creatinine 0.80 Estim Creat Clear Calc 122.19 Est GFR (MDRD) Af Amer 130 Est GFR (MDRD) Non-Af 108 BUN/Creatinine Ratio 2.5 L Glucose 162 H Calcium 8.6 Total Bilirubin 0.60 AST 131 H ALT 113 H Alkaline Phosphatase 126 H Total Protein 8.0 Albumin 3.7 Globulin 4.3 H Albumin/Globulin Ratio 0.9 Urine Opiates Screen Urine Methadone Screen Ur Barbiturates Screen Ur Phencyclidine Scrn Ur Amphetamines Screen U Methamphetamin-MDMA U Benzodiazepines Scrn Urine Cocaine Screen U Cannabinoids Screen Ur Drug Screen Comment Ethyl Alcohol 406.0 H* 04/05/21 04/05/21 15:40 15:40 WBC RBC Hgb Hct MCV MCH MCHC RDW Std Deviation RDW Coeff of Danial Plt Count MPV Immature Gran % (Auto) Neut % (Auto) Lymph % (Auto) Andrew % (Auto) Eos % (Auto) Baso % (Auto) Absolute Neuts (auto) Absolute Lymphs (auto) Nucleated RBC % PT 11.7 INR 0.9 Sodium Potassium Chloride Carbon Dioxide Anion Gap BUN Creatinine Estim Creat Clear Calc Est GFR (MDRD) Af Amer Est GFR (MDRD) Non-Af BUN/Creatinine Ratio Glucose Calcium Total Bilirubin AST ALT Alkaline Phosphatase Total Protein Albumin Globulin Albumin/Globulin Ratio Urine Opiates Screen NEGATIVE Urine Methadone Screen NEGATIVE Ur Barbiturates Screen NEGATIVE Ur Phencyclidine Scrn NEGATIVE Ur Amphetamines Screen NEGATIVE U Methamphetamin-MDMA NEGATIVE U Benzodiazepines Scrn NEGATIVE Urine Cocaine Screen NEGATIVE U Cannabinoids Screen NEGATIVE Ur Drug Screen Comment Ethyl Alcohol <Dr. Paul Etienne MD - Last Filed: 04/05/21 16:39> MDM MDM Narrative Medical decision making narrative: Seen and evaluated independently and in conjunction with physician accounts receivable assistant. Agree with notes above unless documented otherwise. Patient is in no acute distress. Pleasantly intoxicated. Neurologically intact with a normal exam, ambulatory without ataxia. No abdominal distention or fluid wave, no telangiectasias, varicose veins, peripheral edema to indicate cirrhosis and he has no known history of it. Will admit for detox. Lab Data Attestation: I reviewed the patient's lab results. Labs: Laboratory Results - last 24 hr 04/05/21 04/05/21 04/05/21 15:40 15:40 15:40 WBC 5.9 RBC 5.41 Hgb 18.2 H* Hct 50.8 MCV 93.9 MCH 33.6 H MCHC 35.8 RDW Std Deviation 46.7 H RDW Coeff of Danial 13.3 Plt Count 169 MPV 10.2 Immature Gran % (Auto) 0.200 Neut % (Auto) 53.9 Lymph % (Auto) 34.0 Andrew % (Auto) 10.1 H Eos % (Auto) 0.8 Baso % (Auto) 1.0 Absolute Neuts (auto) 3.2 Absolute Lymphs (auto) 2.02 Nucleated RBC % 0 PT INR Sodium 130 L Potassium 3.2 L Chloride 95 L Carbon Dioxide 25.0 Anion Gap 10 BUN 2 L Creatinine 0.80 Estim Creat Clear Calc 122.19 Est GFR (MDRD) Af Amer 130 Est GFR (MDRD) Non-Af 108 BUN/Creatinine Ratio 2.5 L Glucose 162 H Calcium 8.6 Total Bilirubin 0.60 AST 131 H ALT 113 H Alkaline Phosphatase 126 H Total Protein 8.0 Albumin 3.7 Globulin 4.3 H Albumin/Globulin Ratio 0.9 Urine Opiates Screen Urine Methadone Screen Ur Barbiturates Screen Ur Phencyclidine Scrn Ur Amphetamines Screen U Methamphetamin-MDMA U Benzodiazepines Scrn Urine Cocaine Screen U Cannabinoids Screen Ur Drug Screen Comment Ethyl Alcohol 406.0 H* 04/05/21 04/05/21 15:40 15:40 WBC RBC Hgb Hct MCV MCH MCHC RDW Std Deviation RDW Coeff of Danial Plt Count MPV Immature Gran % (Auto) Neut % (Auto) Lymph % (Auto) Andrew % (Auto) Eos % (Auto) Baso % (Auto) Absolute Neuts (auto) Absolute Lymphs (auto) Nucleated RBC % PT 11.7 INR 0.9 Sodium Potassium Chloride Carbon Dioxide Anion Gap BUN Creatinine Estim Creat Clear Calc Est GFR (MDRD) Af Amer Est GFR (MDRD) Non-Af BUN/Creatinine Ratio Glucose Calcium Total Bilirubin AST ALT Alkaline Phosphatase Total Protein Albumin Globulin Albumin/Globulin Ratio Urine Opiates Screen NEGATIVE Urine Methadone Screen NEGATIVE Ur Barbiturates Screen NEGATIVE Ur Phencyclidine Scrn NEGATIVE Ur Amphetamines Screen NEGATIVE U Methamphetamin-MDMA NEGATIVE U Benzodiazepines Scrn NEGATIVE Urine Cocaine Screen NEGATIVE U Cannabinoids Screen NEGATIVE Ur Drug Screen Comment Ethyl Alcohol Discharge Plan Dx/Rx/DC Orders Clinical Impression: Alcohol dependence Disposition Disposition: Acute Care Hospital [facility]
[2021-04-05] MEDS: 0.9% Normal Saline 1,000 ML 999 ML IV (15:48)
[2021-04-05 15:55] LABS: Absolute Lymphocyte Count 2.02 X10^3/uL (0.83-4.51); Absolute Neutrophil Count 3.2 X10^3/uL (2.0-7.7); Basophil# 0.06 X10^3/uL; Eosinophil# 0.05 X10^3/uL; Eosinophils% 0.8 % (0-5); Hematocrit 50.8 % (40-54); Lymphocyte # 2.02 X10^3/ul (0.83-4.51); Mean Corp Hgb Conc 35.8 g/dL (32-36); Mean Corpuscular Hgb 33.6 pg (27.0-32.0); Mean Corpuscular Volume 93.9 fL (80-94); Mean Platelet Vol. 10.2 fl (6.2-12.0); Monocyte% 10.1 % (0-10); NRBC Flagged by Analyzer 0 % (0-5); Neutrophil % 53.9 % (47-70); Platelet Count 169 K/mm3 (150-450); RBC Distribution Width CV 13.3 % (11.6-14.6); RBC Distribution Width SD 46.7 fl (35.1-43.9); Red Blood Count 5.41 M/mm3 (4.6-6.2); White Blood Count 5.9 K/mm3 (4.4-11.0)
[2021-04-05 15:58] LABS: Hemoglobin 18.2 g/dL (13.0-16.5)
[2021-04-05 16:10] LABS: Amphetamine Urine VISTA NEGATIVE (<1000 ng/mL); Barbiturate Urine VISTA NEGATIVE (< 200 ng/mL); Benzodiazepine Urine VISTA NEGATIVE (< 200 ng/mL); Cocaine Urine VISTA NEGATIVE (< 300 ng/mL); Ecstacy Urine VISTA NEGATIVE (< 500 ng/mL); Methadone Urine VISTA NEGATIVE (< 300 ng/mL); PCP Urine VISTA NEGATIVE (< 25 ng/mL); THC Urine VISTA NEGATIVE (< 50 ng/mL); Vista UDS pH Range 6
[2021-04-05 16:12] LABS: International Normalized Ratio 0.9; Prothrombin Time (Protime)PT. 11.7 SECONDS (11.7-14.9)
[2021-04-05 16:13] LABS: ALB/GLOB Ratio 0.9 RATIO (0.9-2.4); AST(SGOT) 131 U/L (15-37); Alanine Aminotransfer ALT/SGPT 113 U/L (16-61); Albumin, Serum 3.7 g/dL (3.2-5.0); Alkaline Phosphatase 126 U/L (45-117); Anion Gap 10 (5-15); BUN 2 mg/dL (7-18); BUN/Creat Ratio 2.5 RATIO (10-20); Calcium,Total 8.6 mg/dL (8.5-10.1); Chloride 95 mmol/L (98-107); EST Glomerular Filtration Rate 108 mL/min (>60); Est Glom Filt Rate - Afr Amer 130 mL/min (>60); Estimated Creatinine Clearance 122.19 ml/min; Globulin 4.3 g/dL (2.2-4.2); Glucose 162 mg/dL (74-106); Potassium 3.2 mmol/L (3.5-5.1); Sodium Level 130 mmol/L (136-145)
--- NOTE | 2021-04-05 17:15 | HP.PCM.HOS_ITS ---
HPI - General General Date of Admission: 04/05/21 Date of Service: 04/05/21 Chief Complaint: EtOH abuse with withdrawal, request for detoxification HPI Narrative The patient is a 51 y/o M w/ PMHx: HTN, Depression and Anxiety, Heavy Tobacco use, EtOH abuse (40-50, 12 ounce beers daily, last intake prior to ED presentation but notes he has been cutting back and intake over the last 24 hours 30 potentially) who presents to the [facility] on 04/05/2021 w/ noted acute EtOH withdrawal, onset starting later in the day following last EtOH intake just prior to presentation however he has cut back over the last 24 hours with onset of mild tremors, agitation, tactile disturbances. Patient interested in attaining sober status. Patient was recently in [facility] and following discharge sobriety only lasted 3 days but he could not give a specific reason or trigger as to why he restarted. He notes he did attempt residential treatment but was not able to at that time. Work-up in the ED included T 90.3, heart rate initially 103, BP 169/108, respiratory rate 18, 98% on room air, CBC with WC 5.9, hemoglobin 18.2, platelet 169 without marked shift, unremarkable coags, CMP with sodium 130, potassium 3.2, chloride 95, glucose 162, AST/LT 131/113, alk phos 126, UDS unremarkable, ethyl alcohol level 406. In the ED patient administered normal saline and 21 mg transdermal nicotine patch placed. [facility] Medical History Alcohol abuse Depression Hypertension Smoker Home Medications NK 04/05/21 [History Last Taken Unknown] Allergy/AdvReac Type Severity Reaction Status Date / Time No Known Allergies Allergy Verified 05/01/19 22:35 Family History (Updated 04/05/21 @ 17:[address] Juany Morrissey MD) Father Hypertension Myocardial infarction Heart disease Family History other other (Patient reports not knowing his mother's medical history but states she takes several pills.) Surgical History (Updated 04/05/21 @ 17:[address] Juany Morrissey MD) History of surgery on upper extremity Hx of hand surgery Hx of knee surgery Social History (Updated 04/05/21 @ 17:[address] Juany Morrissey MD) housing: other details: Lives alone primarily, but notes his son will oc casionally stay with him. Smoking Status: Current every day smoker tobacco type: cigarettes Smoking packs per day: 2 Smoking cigarettes per day: 40.0 alcohol intake: current alcohol intake frequency: 3 or more drinks per day details: Baseline 40-50, 12 ounce beers daily, attempting to cut back. substance use type: does not use ROS ROS Narrative Admission Review of Systems: CONSTITUTIONAL: No weight loss, fever, chills, + weakness or fatigue. HEENT: Eyes: No visual loss, blurred vision, double vision or yellow sclerae. Ears, Nose, Throat: No hearing loss, sneezing, congestion, runny nose or sore throat. SKIN: No rash or itching, lesions, wounds. CARDIOVASCULAR: No chest pain, chest pressure or chest discomfort, palpitations, edema, orthopnea, syncopal events. RESPIRATORY: No shortness of breath, cough or sputum, wheezing, hemoptysis. GASTROINTESTINAL: + anorexia, No nausea, vomiting or diarrhea, abdominal pain, melena, BRBPR. GENITOURINARY: No dysuria, frequency, urgency or retention. NEUROLOGICAL: + Agitation, mild tremors noted. No headache, dizziness, syncope, paralysis, ataxia, numbness or tingling in the extremities, focal weakness, change in bowel or bladder control, seizure. MUSCULOSKELETAL: + muscle, back pain, joint pain or stiffness. HEMATOLOGIC: No anemia, bleeding or bruising. LYMPHATICS: No enlarged nodes. No history of splenectomy. PSYCHIATRIC: + history of depression or anxiety. ENDOCRINOLOGIC: No reports of sweating, cold or heat intolerance. No polyuria or polydipsia. ALLERGIES: No history of asthma, hives, eczema or rhinitis. Vital Signs Vital Signs Vital Signs: 04/05/21 15:20 04/05/21 16:02 04/05/21 16:03 Temperature 98.3 F Temperature Source Temporal Pulse Rate 103 H 87 90 Respiratory Rate 18 17 18 Blood Pressure 169/108 H 149/107 H 149/107 H Blood Pressure Mean 128 121 121 Blood Pressure Source Monitor Blood Pressure Position Semi-Fowlers Pulse Ox 98 97 97 Oxygen Delivery Method Room Air Room Air Room Air Weight Weight: 178 lb 5.663 oz Body Mass Index (BMI) 22.8 Physical Exam Narrative Physical Examination: General: Awake, alert, oriented x 3 and cooperative, seated upright in the ED bed, anxious, mild tremors noted, moving frequently. Skin: Normal color, normal turgor, no icterus, no cyanosis. HEENT: AT/NC, EOMI, PERRLA, mildly dry MM, no carotid bruits or JVD noted. Lungs: Diminished, greater bases, moderate effort, no rales, ronchi or wheezing. Heart: Mildly tachycardic with regular rhythm; no gallop, rub audible. Abdomen: Soft, NTTP, ND, mildly hyperactive BS, mild HM. Extremities: No cyanosis, clubbing, or edema. Neurological: Patient awake, alert, oriented as noted, cognitive function intact; pupils equally reactive to light and accommodation, cranial nerves II- XII grossly normal, moving all 4 extremities, no focal deficits, strength mildly global decrease given acute presentation, agitated, moving frequently in the bed, mild tremors evident. Psychiatric: Affect appears anxious, mildly agitated, no acute evidence of depressive feelings but does have underlying history. Results Lab / Micro Data Result Diagrams: 04/05/21 15:40 04/05/21 15:40 Labs: Laboratory Results - last 24 hr 04/05/21 15:40: WBC 5.9, RBC 5.41, Hgb 18.2 H*, Hct 50.8, MCV 93.9, MCH 33.6 H, MCHC 35.8, RDW Std Deviation 46.7 H, RDW Coeff of Danial 13.3, Plt Count 169, MPV 10.2, Immature Gran % (Auto) 0.200, Neut % (Auto) 53.9, Lymph % (Auto) 34.0, [place] % (Auto) 10.1 H, Eos % (Auto) 0.8, Baso % (Auto) 1.0, Absolute Neuts (auto) 3.2, Absolute Lymphs (auto) 2.02, Nucleated RBC % 0 04/05/21 15:40: Sodium 130 L, Potassium 3.2 L, Chloride 95 L, Carbon Dioxide 25.0, Anion Gap 10, BUN 2 L, Creatinine 0.80, Estim Creat Clear Calc 122.19, Est GFR (MDRD) Af Amer 130, Est GFR (MDRD) Non-Af 108, BUN/Creatinine Ratio 2.5 L, Glucose 162 H, Calcium 8.6, Total Bilirubin 0.60, AST 131 H, ALT 113 H, Alkaline Phosphatase 126 H, Total Protein 8.0, Albumin 3.7, Globulin 4.3 H, Albumin/Globulin Ratio 0.9 04/05/21 15:40: Ethyl Alcohol 406.0 H* 04/05/21 15:40: Urine Opiates Screen NEGATIVE, Urine Methadone Screen NEGATIVE, Ur Barbiturates Screen NEGATIVE, Ur Phencyclidine Scrn NEGATIVE, Ur Amphetamines Screen NEGATIVE, U Methamphetamin-MDMA NEGATIVE, U Benzodiazepines Scrn NEGATIVE, Urine Cocaine Screen NEGATIVE, U Cannabinoids Screen NEGATIVE, Ur Drug Screen Comment 04/05/21 15:40: PT 11.7, INR 0.9 Charges/Coding Visit Charges Inpatient E&M: 49325 Init Hosp L3 A/P Addt'l Comments Addt'l Comments The patient is a 51 y/o M w/ PMHx: HTN, Depression and Anxiety, Heavy Tobacco use, EtOH abuse (40-50, 12 ounce beers daily, last intake prior to ED presentation but notes he has been cutting back and intake over the last 24 hours 30 potentially) who presents to the [facility] on 04/05/2021 w/ noted acute EtOH withdrawal, onset starting later in the day following last EtOH intake just prior to presentation however he has cut back over the last 24 hours with onset of mild tremors, agitation, tactile disturbances. #1. Acute EtOH Withdrawal: Will admit to medical surgical floor, routine labs obtained in the ED upon presentation. Given interest in sobriety, will initiate and continue on protocol with taper course of Phenobarbital, scheduled stefania apentin for seizure prophylaxis, as needed Catapres, Bentyl, Vistaril, IV fluids, IV antiemetics, Tylenol as needed for pain. Will consult Case management for assistance for transition to next level of rehabilitation care. Mag, phos pending. Maintain on CIWA protocol concurrently. #2. Hypokalemia: Admission K+ 3.2, magnesium level will be requested as noted, supplementation given, repeat level in AM. #3. Hyponatremia, suspect secondary to beer pot angel: Admission sodium 130, likely chronic, judiciously we will plan to hydrate per withdrawal order set protocols. #4. Hyperglycemia: Admission glucose 162, possibly stress response, hemoglobin A1c requested #5. Elevated LFTs: Admission AST/ALT 131/113, likely secondary to chronic alcohol abuse, continue treatment as noted above #1. #6. Tobacco Abuse: Encouraged cessation, inpatient consultation per RT, NR if desired. #7. Hypertension: Not on regimen, notes it improves when he is not drinking, elevated BP in the ED, if continues may necessitate oral regimen, as needed IV hydralazine in interim. #8. Anxiety and depression: Likely contributes to alcohol abuse, not on any regimen, will encourage counseling with 180. #9. DVT prophylaxis: Low risk, encourage ambulation.
--- NOTE | 2021-04-05 17:17 | CM.ED ---
Referral Source: Case Find Referral Reason: RAMP Patient voiced he understands the detox program includes no visitors and no phones. Patient said that he is currently not linked with AOD counselor but wants linkage with [facility] at discharge. Patient voiced he is drinking 50 beers a day. LIN called network pricing consultant treatment navigator Esther and advised her the admission. She indicated Antwan will follow up with patient tomorrow. Plan: RAMP Program Ivon MORTON
[2021-04-05] MEDS: 0.9% Saline Lock 10 ML Syringe IV (18:00)
[2021-04-05] MEDS: LORazepam 2 MG/ML Syringe IV (18:00)
[2021-04-05 18:12] LABS: Phosphorus 3.5 mg/dL (2.5-4.9)
[2021-04-05 18:30] LABS: Hemoglobin A1c 5.5 % (3.8-5.6)
[2021-04-05] MEDS: Phenobarbital 32.4 MG Tablet 64.8 MG PO ×2 (18:30→21:38)
[2021-04-05] MEDS: Ondansetron 8 MG Tablet PO (18:30)
[2021-04-06] MEDS: LORazepam 1 MG Tablet 2 MG PO ×3 (01:39→09:49)
[2021-04-06] MEDS: Phenobarbital 32.4 MG Tablet 64.8 MG PO ×6 (01:39→21:42)
[2021-04-06] MEDS: Nicotine Polacrilex 2 MG GUM PO ×2 (01:42→06:04)
[2021-04-06 05:00] VITALS: BP 134/96; PULSE 98; RESP 16; TEMP 36.6; O2SAT 96
[2021-04-06] MEDS: Folic Acid 1 MG Tablet PO (09:43)
[2021-04-06] MEDS: Thiamine Hydrochloride 100 MG Tablet PO (09:43)
[2021-04-06 09:46] VITALS: BP 145/91; PULSE 101; RESP 16; TEMP 37.1; O2SAT 93
[2021-04-06] MEDS: Ondansetron 8 MG Tablet PO (09:49)
[2021-04-06] MEDS: Dicyclomine 10 MG Capsule 20 MG PO (09:49)
--- NOTE | 2021-04-06 10:28 | ADDICTION ---
TW met with pt to complete ASAM, AUDIT, DUDIT, MSE, D/C plan, and fill out DONA. Pt was agreeable, answered all questions asked, and inquired about outpatient treatment. TW provided education on Vivitrol and pt asked to be referred. Pt has outpatient appointment set up at [facility] for 04/13/21 at 11:30AM but is encouraged to come in for a walk-in on Friday04/10/21 and to reach out to peer support throughout the week. No transportation needs noted due to client driving himself to detox.
--- NOTE | 2021-04-06 13:09 | PN.HOSP_ITS ---
Subjective Subjective Patient drinks 50 Beers daily 16 ounce bottle every day for many years since he is is of 30s. He started drinking at the age of 14/15 with beers and progressed. Patient is having withdrawal symptoms, anxiety attack, diaphoresis, flushing, muscle cramps and tremors Objective Data Objective Data Vital Signs: Vital Signs Temp Pulse Resp BP Pulse Ox 98.8 F 101 H 16 145/91 H 93 04/06/21 09:46 04/06/21 09:46 04/06/21 09:46 04/06/21 09:46 04/06/21 09:46 Oxygen Delivery Method Room Air Weight: 173 lb 8.061 oz Body Mass Index (BMI) 22.2 Intake & Output: Intake and Output for Last 24 Hours 04/04/21 04/05/21 04/06/21 23:59 23:59 23:59 Intake Total 1300 / 1300 1000 / 1000 Balance 1300 / 1300 1000 / 1000 Lab / Micro Data Result Diagrams: 04/05/21 15:40 04/05/21 15:40 Labs: Laboratory Results - last 24 hr 04/05/21 15:40: WBC 5.9, RBC 5.41, Hgb 18.2 H*, Hct 50.8, MCV 93.9, MCH 33.6 H, MCHC 35.8, RDW Std Deviation 46.7 H, RDW Coeff of Danial 13.3, Plt Count 169, MPV 10.2, Immature Gran % (Auto) 0.200, Neut % (Auto) 53.9, Lymph % (Auto) 34.0, [place] % (Auto) 10.1 H, Eos % (Auto) 0.8, Baso % (Auto) 1.0, Absolute Neuts (auto) 3.2, Absolute Lymphs (auto) 2.02, Nucleated RBC % 0 04/05/21 15:40: Sodium 130 L, Potassium 3.2 L, Chloride 95 L, Carbon Dioxide 25.0, Anion Gap 10, BUN 2 L, Creatinine 0.80, Estim Creat Clear Calc 122.19, Est GFR (MDRD) Af Amer 130, Est GFR (MDRD) Non-Af 108, BUN/Creatinine Ratio 2.5 L, Glucose 162 H, Calcium 8.6, Total Bilirubin 0.60, AST 131 H, ALT 113 H, Alkaline Phosphatase 126 H, Total Protein 8.0, Albumin 3.7, Globulin 4.3 H, Albumin/Globulin Ratio 0.9 04/05/21 15:40: Ethyl Alcohol 406.0 H* 04/05/21 15:40: Urine Opiates Screen NEGATIVE, Urine Methadone Screen NEGATIVE, Ur Barbiturates Screen NEGATIVE, Ur Phencyclidine Scrn NEGATIVE, Ur Amphetamines Screen NEGATIVE, U Methamphetamin-MDMA NEGATIVE, U Benzodiazepines Scrn NEGATIVE, Urine Cocaine Screen NEGATIVE, U Cannabinoids Screen NEGATIVE, Ur Drug Screen Comment 04/05/21 15:40: PT 11.7, INR 0.9 04/05/21 15:40: Magnesium 2.0 04/05/21 15:40: Phosphorus 3.5 04/05/21 15:40: Hemoglobin A1c 5.5 Physical Exam Narrative General: Alert, Oriented x3, Cooperative HEENT: Atraumatic, PERRLA, EOMI, Normocephalic Oral: No Gingival or Mucosal Lesions/ Ulcerations Neck: Supple, No JVD, Negative Carotid Bruits Lungs: Air entry diminished in bilateral lung bases. No crepitation/rhonchi Cardiovascular: Sinus tachycardia, Normal S1, Normal S2, No murmurs Abdomen: Bowel Sounds Present, Soft, Non Tender, Non-Distended. Liver not enlarged. No ascites : No renal angle tenderness. No suprapubic tenderness. Extremities: No edema, Capillary Refill Less than 3 Seconds Skin: No rashes, No breakdown Musculoskeletal: No Tenderness to Palpation of Joints or Extremities Neurological: Cranial nerves II-XII grossly intact, DTR 2+/4 Psych/Mental Status: Anxious, tremors Assessment & Plan Assessment/Plan (1) Alcohol dependence: QUALIFIERS: Substance use status: in withdrawal Complication of substance-induced condition: with delirium Qualified Code(s): F10.231 - Alcohol dependence with withdrawal delirium PLAN: 1. Acute alcohol withdrawal syndrome with history of chronic alcohol use, dependence and tolerance: [facility] Patient having active withdrawal symptoms. CIWA score 17. Patient has been drinking 15 beers for about the last 20 years since he was in 30s. Patient evaluated by 180 correctional case records supervisor. Continue phenobarbital, gabapentin, Bentyl Vistaril, supportive, clonidine, Tylenol as needed. Patient admitted with ethylalcohol 406. #2. Hypokalemia: Admission K+ 3.2, serum magnesium and phosphorus level normal. Repeat BMP today #3. Hyponatremia, suspect secondary to beer potomania: Admission sodium 130, likely chronic, most likely due to low solute intake and additive diuretic effect of beer #4. Hyperglycemia: Admission glucose 162, possibly stress response, hemoglobin A1c 5.5%. #5. Chronic alcoholic hepatitis: ALT and AST are elevated. This has been elevated since 2020 due to high chronic alcohol use and dependence. #6. Chronic cigarette smoking/nicotine dependence: Encouraged cessation #7. Hypertension: Blood pressure elevated probably due to sympathetic drive. Clonidine ordered #8. Anxiety and depression: Seen by 180. #9. DVT prophylaxis: Low risk, encourage ambulation. Charges/Coding Visit Charges Inpatient E&M: 26457 Subs Hosp L2
[2021-04-06 14:10] VITALS: BP 143/92; PULSE 83; RESP 16; TEMP 36.8; O2SAT 94
--- NOTE | 2021-04-06 14:13 | CHAPLAIN ---
Type of Pastoral Visit _x__ Initial Visit ___ Follow-up Visit ___ On-call Visit ___ General Patient Visit ___ Spiritual Assessment ___ Family Conference ___ Bereavement ___ Rapid Response ___ Code Blue ___ Other (describe below) Pastoral Care Referral From _x__ Patient ___ Family ___ Nurse ___ Physician ___ Principal Network Architect ___ Watch Crystal Cutter ___ Other (describe below) Sacrament/Intervention _x__ Active listening ___ Anointing ___ Yarsani ___ Bereavement ___ Communion _x__ Valerie exploration ___ ___ Life review _x__ Prayer ___ Reconciliation ___ Sacrament of Sick _x__ Supportive presence ___ Wedding ___ Other (describe below) Pastoral Comments patient appeared to be sleeping but awoke easily to his name; introduction of self and role and the patient welcomed this card player and said you can pray for me; pt states that he gets some support from a biomedical engineering technologist friend and from his family; pt states that the alcohol is beating me; pt says he is willing to get help and knows that I need to get my help from God who is the only One from whom I can get the help I need; pt has difficult time keeping his eyes open and so the visit ended with offer of support as needed while he is here at hospital
[2021-04-06 14:31] LABS: Anion Gap 5 (5-15); BUN 6 mg/dL (7-18); BUN/Creat Ratio 8.3 RATIO (10-20); Calcium,Total 9.5 mg/dL (8.5-10.1); Chloride 101 mmol/L (98-107); Creatinine, Serum 0.72 mg/dL (0.70-1.30); EST Glomerular Filtration Rate 122 mL/min (>60); Est Glom Filt Rate - Afr Amer 147 mL/min (>60); Estimated Creatinine Clearance 132.08 ml/min; Glucose 124 mg/dL (74-106); Potassium 3.4 mmol/L (3.5-5.1); Sodium Level 135 mmol/L (136-145)
[2021-04-06] MEDS: cloNIDine HCl 0.2 MG Tablet PO ×2 (15:23→21:42)
[2021-04-06 18:45] VITALS: BP 133/90; PULSE 81; RESP 16; TEMP 36.9; O2SAT 96
[2021-04-06 22:00] VITALS: BP 144/102; PULSE 77; RESP 16; TEMP 37; O2SAT 94
[2021-04-07] MEDS: Phenobarbital 32.4 MG Tablet 64.8 MG PO ×6 (01:24→22:04)
[2021-04-07 03:56] VITALS: BP 121/90; PULSE 76; RESP 16; TEMP 36.8; O2SAT 96
[2021-04-07] MEDS: LORazepam 1 MG Tablet 2 MG PO (04:44)
[2021-04-07] MEDS: hydrOXYzine PAM 25 MG Capsule 50 MG PO ×4 (04:44→17:29)
[2021-04-07] MEDS: LORazepam 2 MG/ML Syringe IV (06:57)
[2021-04-07] MEDS: Gabapentin 300 MG Capsule PO (06:58)
[2021-04-07] MEDS: Nicotine Polacrilex 2 MG GUM PO ×2 (07:04→22:11)
[2021-04-07 08:39] LABS: AST(SGOT) 78 U/L (15-37); Alanine Aminotransfer ALT/SGPT 84 U/L (16-61); Albumin, Serum 3.6 g/dL (3.2-5.0); Alkaline Phosphatase 127 U/L (45-117); Anion Gap 8 (5-15); BUN 6 mg/dL (7-18); Bilirubin, Direct 0.31 mg/dL (0.00-0.30); Calcium,Total 9.5 mg/dL (8.5-10.1); Chloride 97 mmol/L (98-107); Creatinine, Serum 0.75 mg/dL (0.70-1.30); EST Glomerular Filtration Rate 116 mL/min (>60); Est Glom Filt Rate - Afr Amer 141 mL/min (>60); Estimated Creatinine Clearance 126.79 ml/min; Globulin 4.1 g/dL (2.2-4.2); Glucose 90 mg/dL (74-106); Magnesium 1.9 mg/dL (1.6-2.6); Phosphorus 3.3 mg/dL (2.5-4.9); Potassium 3.5 mmol/L (3.5-5.1); Protein, Total 7.7 g/dL (6.4-8.2); Sodium Level 129 mmol/L (136-145)
[2021-04-07 08:54] VITALS: BP 121/91; PULSE 98; RESP 18; TEMP 36.3; O2SAT 100
[2021-04-07] MEDS: Folic Acid 1 MG Tablet PO (08:58)
[2021-04-07] MEDS: Thiamine Hydrochloride 100 MG Tablet PO (08:58)
--- NOTE | 2021-04-07 12:09 | PCM.PN.HOSP ---
Subjective Subjective Patient still having withdrawal symptoms anxiety, tremor flushing, muscle aches and pain. Objective Data Objective Data Vital Signs: Vital Signs Temp Pulse Resp BP Pulse Ox 97.4 F L 98 18 121/91 H 100 04/07/21 08:54 04/07/21 08:54 04/07/21 08:54 04/07/21 08:54 04/07/21 08:54 Oxygen Delivery Method Room Air Weight: 173 lb 8.061 oz Body Mass Index (BMI) 22.2 Intake & Output: Intake and Output for Last 24 Hours 04/05/21 04/06/21 04/07/21 23:59 23:59 23:59 Intake Total 1300 / 1300 1400 / 1400 600 / 600 Balance 1300 / 1300 1400 / 1400 600 / 600 Lab / Micro Data Result Diagrams: 04/05/21 15:40 04/07/21 07:50 Labs: Laboratory Results - last 24 hr 04/06/21 13:40: Sodium 135 L, Potassium 3.4 L, Chloride 101, Carbon Dioxide 29.0, Anion Gap 5, BUN 6 L, Creatinine 0.72, Estim Creat Clear Calc 132.08, Est GFR (MDRD) Af Amer 147, Est GFR (MDRD) Non-Af 122, BUN/Creatinine Ratio 8.3 L, Glucose 124 H, Calcium 9.5 04/07/21 07:50: Sodium 129 L, Potassium 3.5, Chloride 97 L, Carbon Dioxide 24.0, Anion Gap 8, BUN 6 L, Creatinine 0.75, Estim Creat Clear Calc 126.79, Est GFR (MDRD) Af Amer 141, Est GFR (MDRD) Non-Af 116, BUN/Creatinine Ratio 8.0 L, Glucose 90, Calcium 9.5, Phosphorus 3.3, Magnesium 1.9, Total Bilirubin 1.00, Direct Bilirubin 0.31 H, AST 78 H, ALT 84 H, Alkaline Phosphatase 127 H, Total Protein 7.7, Albumin 3.6, Globulin 4.1 Physical Exam Narrative General: Alert, Oriented x3, Cooperative HEENT: Atraumatic, PERRLA, EOMI, Normocephalic Oral: No Gingival or Mucosal Lesions/ Ulcerations Neck: Supple, No JVD, Negative Carotid Bruits Lungs: Air entry diminished in bilateral lung bases. No crepitation/rhonchi Cardiovascular: Sinus tachycardia, Normal S1, Normal S2, No murmurs Abdomen: Bowel Sounds Present, Soft, Non Tender, Non-Distended. Liver not enlarged. No ascites : No renal angle tenderness. No suprapubic tenderness. Extremities: No edema, Capillary Refill Less than 3 Seconds Skin: No rashes, No breakdown Musculoskeletal: No Tenderness to Palpation of Joints or Extremities Neurological: Cranial nerves II-XII grossly intact, DTR 2+/4 Psych/Mental Status: Anxious, tremors. No hallucination or perceptual disturbances Assessment & Plan Assessment/Plan (1) Alcohol dependence: QUALIFIERS: Substance use status: in withdrawal Complication of substance-induced condition: with delirium Qualified Code(s): F10.231 - Alcohol dependence with withdrawal delirium PLAN: 1. Acute alcohol withdrawal syndrome with history of chronic alcohol use, dependence and tolerance: The patient is being admitted in [facility] floor. Patient having active withdrawal symptoms. CIWA score 17. Patient has been drinking 15 beers for about the last 20 years since he was in 30s. Patient evaluated by 180 family independence case manager. Continue phenobarbital, gabapentin, Bentyl Vistaril, supportive, clonidine, Tylenol as needed. Patient admitted with ethylalcohol 406. 04/07: CIWA score improved 7. Continue medication. digital strategist senior manager note reviewed. Patient is outpatient 1 AT follow-up on 04/13/2021 but encouraged to reach for help earlier if needed. #2. Hypokalemia: Admission K+ 3.2, serum magnesium and phosphorus level normal. 05/04: Potassium 3.5. Serum magnesium 1.9. Serum phosphorus 3.3. mild hypokalemia. Potassium and magnesium replacement ordered. #3. Hyponatremia, secondary to beer potomania: Admission sodium 130, likely chronic, most likely due to low solute intake and additive diuretic effect of beer 04/07: Serum sodium is 129. Patient admitted with 130, increased 135 and 129. It was 135 on 05/01/19. Assessment is chronic hypotonic isovolemic hyponatremia. #4. Hyperglycemia: Admission glucose 162, possibly stress response, hemoglobin A1c 5.5%. #5. Chronic alcoholic hepatitis: ALT and AST are elevated. This has been elevated since 2020 due to high chronic alcohol use and dependence. #6. Chronic cigarette smoking/nicotine dependence: Encouraged cessation #7. Hypertension: Blood pressure elevated probably due to sympathetic drive. Clonidine ordered #8. Anxiety and depression: Seen by 180. #9. DVT prophylaxis: Low risk, encourage ambulation. Charges/Coding Visit Charges Inpatient E&M: 61872 Subs Hosp L2
[2021-04-07 13:37] VITALS: BP 141/99; PULSE 67; RESP 16; TEMP 36.4; O2SAT 98
[2021-04-07] MEDS: Potassium Chloride Oral Tablet 20 MEQ 40 MEQ PO (13:41)
[2021-04-07] MEDS: Na Biphos/Potassium Phosphate PACKET 1 PACKET PO ×2 (13:43→22:03)
[2021-04-07] MEDS: Magnesium Chloride 64 MG Delay Rel.Tablet 128 MG PO (13:43)
[2021-04-07 17:25] VITALS: BP 127/91; PULSE 67; RESP 14; TEMP 36.7; O2SAT 98
[2021-04-07 21:56] VITALS: BP 128/84; PULSE 70; RESP 16; TEMP 36.6; O2SAT 98
[2021-04-08] MEDS: Phenobarbital 32.4 MG Tablet 64.8 MG PO (01:55)
[2021-04-08] MEDS: Nicotine Polacrilex 2 MG GUM PO ×4 (01:55→08:45)
[2021-04-08 01:56] VITALS: BP 137/19; PULSE 71; RESP 16; TEMP 36.6; O2SAT 100
[2021-04-08] MEDS: Gabapentin 300 MG Capsule PO (04:24)
[2021-04-08 06:00] VITALS: BP 146/99; PULSE 79; RESP 16; TEMP 36.3; O2SAT 98
[2021-04-08 08:41] VITALS: BP 158/109; PULSE 82; RESP 14; TEMP 36.4; O2SAT 100
[2021-04-08] MEDS: Thiamine Hydrochloride 100 MG Tablet PO (08:45)
[2021-04-08] MEDS: cloNIDine HCl 0.2 MG Tablet PO (08:45)
[2021-04-08] MEDS: Magnesium Chloride 64 MG Delay Rel.Tablet 128 MG PO (08:45)
[2021-04-08] MEDS: Potassium Chloride Oral Tablet 20 MEQ 40 MEQ PO (08:45)
[2021-04-08] MEDS: Na Biphos/Potassium Phosphate PACKET 1 PACKET PO (08:45)
[2021-04-08] MEDS: Folic Acid 1 MG Tablet PO (08:46)
--- NOTE | 2021-04-08 09:25 | NURSING ---
PT REPORTS FEELING MUCH BETTER TODAY, STILL HAS TREMORS BUT NOT SEVERE YESTERDAY. HIS MAIN COMPLAINT IS ANXIOUS BECAUSE I WANT TO SMOKE. RATING HIS ANXIETY SEVERE D/T WANTING A SMOKE PUSHED HIS CIWA SCALE TO 14. DR DOOLEY MADE AWARE AND DOES NOT WANT TO DC PT AT THIS TIME, ENCOURAGED PT TO STAY ATLEAST ONE MORE DAY. PT SIGNED OUT AMA, I FEEL BETTER, I ACCOMPLISHED WHAT I CAME TO DO, I WANT TO GO SMOKE AND GO TO [place] WITH MY GIRLFRIEND AND HER MOM
--- NOTE | 2021-04-08 11:39 | DS.PCM_ITS ---
Providers Date of Admission: 04/05/21 Date of Discharge: 04/08/21 Primary Care Physician: No Primary Care Phys Reason For Visit: ETOH DEPENDENCE Diagnosis Discharge Diagnosis (1) Alcohol dependence: Status: Acute Code(s): F10.20 - Alcohol dependence, uncomplicated Qualifiers: Substance use status: in withdrawal Complication of substance-induced condition: with delirium Qualified Code(s): F10.231 - Alcohol dependence with withdrawal delirium Medications at Discharge Home Medications NK 04/05/21 Hospital Course Summary of Care Provided Hospital Course: This is a 51-year-old gentleman with history of anxiety and depression, chronic alcohol use, 50 beers, 12 ounces bottles every day for long time present dose since his 20s. He started drinking alcohol/beer at early teenage of . Patient also drinks vodka sometimes. 1. Acute alcohol withdrawal syndrome with history of chronic alcohol use, dependence and tolerance: The patient is being admitted in MedSurg floor. Patient having active withdrawal symptoms. CIWA score 17. Patient has been drinking 15 beers for about the last 20 years since he was in 30s. Patient evaluated by 180 immigration case manager. Continue phenobarbital, gabapentin, Bentyl Vistaril, supportive, clonidine, Tylenol as needed. Patient admitted with ethylalcohol 406. 04/07: CIWA score improved 7. Continue medication. warehouse logistics manager note reviewed. Patient is outpatient 1 AT follow-up on 04/13/2021 but encouraged to reach for help earlier if needed. 04/08: CIWA score 14. Advised to patient to complete the regimen of bupren orphine as patient still has high CIWA score but he signed AMA. He said he has plan to attend outpatient 118 alcohol rehab program. I advised to adhere with the plan. #2. Hypokalemia: Admission K+ 3.2, serum magnesium and phosphorus level normal. 04/06: Potassium 3.5. Serum magnesium 1.9. Serum phosphorus 3.3. mild hypokalemia. Potassium and magnesium replacement ordered. 04/08: Potassium replacement #3. Hyponatremia, secondary to beer potomania: Admission sodium 130, likely chronic, most likely due to low solute intake and additive diuretic effect of beer 04/07: Serum sodium is 129. Patient admitted with 130, increased 135 and 129. It was 135 on 05/01/19. Assessment is chronic hypotonic isovolemic hyponatremia. #4. Hyperglycemia: Admission glucose 162, possibly stress response, hemoglobin A1c 5.5%. #5. Chronic alcoholic hepatitis: ALT and AST are elevated. This has been el evated since 2020 due to high chronic alcohol use and dependence. #6. Chronic cigarette smoking/nicotine dependence: Encouraged cessation #7. Hypertension: Blood pressure elevated probably due to sympathetic drive. Clonidine ordered #8. Anxiety and depression: Seen by 180. #9. DVT prophylaxis: Low risk, encourage ambulation. Patient signed AMA even though nursing staff and I advised to stay and complete the treatment to avoid relapse. Patient knows the risk SIW. Physical Exam Narrative Patient overall symptoms have improved. Patient is still shaky, tremors. He wants to go out and smoke and he has his girlfriend to meet in discharge today. I advised to stay as he is in the middle of buprenorphine treatment and CIWA score is 14 mainly due to anxiety and restlessness. General: Alert, Oriented x3, Cooperative HEENT: Atraumatic, PERRLA, EOMI, Normocephalic Oral: No Gingival or Mucosal Lesions/ Ulcerations Neck: Supple, No JVD, Negative Carotid Bruits Lungs: Air entry diminished in bilateral lung bases. No crepitation/rhonchi Cardiovascular: Sinus tachycardia, Normal S1, Normal S2, No murmurs Abdomen: Bowel Sounds Present, Soft, Non Tender, Non-Distended. Liver not enlarged. No ascites : No renal angle tenderness. No suprapubic tenderness. Extremities: No edema, Capillary Refill Less than 3 Seconds Skin: No rashes, No breakdown Musculoskeletal: No Tenderness to Palpation of Joints or Extremities Neurological: Cranial nerves II-XII grossly intact, DTR 2+/4 Psych/Mental Status: Anxious, tremors. No hallucination or perceptual disturbances Weight / BMI Weight Weight: 173 lb 8.061 oz Body Mass Index (BMI) 22.2 ABG / Lab / Microbiology Data Result Diagrams: 04/05/21 15:40 04/07/21 07:50 Meaningful Use Info Meaningful Use Diagnoses (Choose all that apply): None applicable Discharge Plan Admission Admit Date/Time: 04/05/21 17:13 Attending Provider: Jer Villa Primary Care Provider: Care Physician,No Primary Discharge Orders/Prescriptions Prescriptions: No Action NK RF: 0 Referrals / Follow Up: Care Physician,No Primary [Primary Care Provider] - Disposition Disposition (needs filled in before D/C Order can be placed): Against Medical Advice Charges/Coding Visit Charges Inpatient E&M: 78222 Disch Hosp
== END 2021-04-08 09:25 | disposition left against medical advice (07) | DRG 770 ==
LOC: ED 16:32 → MS3 17:22
PROVIDERS: Nurse Practitioner Family; Admitting Provider Family Medicine; Emergency Provider Physician Assistant; Visit Provider Internal Medicine
DX: F10.231 Alcohol dependence with withdrawal delirium (principal); E87.1 Hypo-osmolality and hyponatremia; K70.10 Alcoholic hepatitis without ascites; E87.6 Hypokalemia; I10 Essential (primary) hypertension; F41.9 Anxiety disorder, unspecified; E83.42 Hypomagnesemia; E86.0 Dehydration; F17.210 Nicotine dependence, cigarettes, uncomplicated; F32.A Depression, unspecified; R73.9 Hyperglycemia, unspecified; Y90.8 Blood alcohol level of 240 mg/100 ml or more; Z53.29 Procedure and treatment not carried out because of patient's decision for other reasons; Z82.49 Family history of ischemic heart disease and other diseases of the circulatory system
CPT/HCPCS: 36415; 80048; 80053; 80076; 80307; 82077; 83036; 83735; 84100; 85025; 85610; 99284; 99406; J7030; A4216

== ENCOUNTER 2021-04-18 15:11 | Observation (INO) | payer MEDICAID, SELFPAY ==
[2021-04-18 15:12] VITALS: BP 172/142; PULSE 100; RESP 16; TEMP 36.8; O2SAT 97; BMI 22.8
--- NOTE | 2021-04-18 15:27 | EKG12_ITS ---
Test Reason : WITHDRAWL Blood Pressure : / mmHG Vent. Rate : 093 BPM Atrial Rate : 093 BPM P-R Int : 172 ms QRS Dur : 104 ms QT Int : 370 ms P-R-T Axes : 059 -67 048 degrees QTc Int : 460 ms Normal sinus rhythm Left anterior fascicular block Inferior infarct , age undetermined Abnormal ECG Confirmed by ABEL LUEVANO, TASH ([id number]), scientific publications editor SANJIV POLK ([id number]) on 04/19/2021 10:27:20 AM Referred By: ALEAH Confirmed By:TASH ROMAN MD
--- NOTE | 2021-04-18 15:31 | EDS_ITS ---
HPI History of Present Illness Chief Complaint: Substance Abuse Narrative Narrative: Patient presents requesting alcohol detox, indicates has a long history of alcohol abuse almost his entire adult life, he drinks 50 beers a day just drank in the ED parking lot, he denies any past history of other drug abuse specifically no history of injection drug abuse, he has no history of any type of medical problems of any kind, no history of cirrhosis or alcohol complications, He indicates he simply tired of being an alcoholic, he was detox of 3 or 4 weeks ago he did not follow-up outpatient detox team he began drinking shortly after his hospitalization ended. He presents for evaluation [facility] Medical History Alcohol abuse Alcohol dependence Depression Hypertension Smoker Home Medications NK 04/05/21 [History Last Taken Unknown] Allergy/AdvReac Type Severity Reaction Status Date / Time No Known Allergies Allergy Verified 05/01/19 22:35 Family History (Updated 04/05/21 @ 17:[address] Juany Morrissey MD) Father Hypertension Myocardial infarction Heart disease Surgical History (Updated 04/05/21 @ 17:[address] Juany Morrissey MD) History of surgery on upper extremity Hx of hand surgery Hx of knee surgery Social History (Updated 04/05/21 @ 17:[address] Juany Morrissey MD) housing: other details: Lives alone primarily, but notes his son will occasionally stay with him. Smoking Status: Current every day smoker tobacco type: cigarettes alcohol intake: current alcohol intake frequency: 3 or more drinks per day details: Baseline 40-50, 12 ounce beers daily, attempting to cut back. substance use type: does not use EXAM Physical Exam Narrative Exam Narrative: Vital signs unremarkable he is in no distress resting company in bed he appears to be slightly intoxicated HEENT exam is generally unremarkable nose and throat clear lungs clear heart tones normal abdomen soft nontender upper lower extremity unremarkable neurologically awake alert moving all 4 no psychomotor agitation Const Vital Signs: 04/18/21 15:12 04/18/21 16:12 04/18/21 17:00 Temperature 98.2 F Temperature Source Temporal Pulse Rate 100 94 97 Respiratory Rate 16 17 15 Blood Pressure 172/142 H 179/110 H 178/110 H Blood Pressure Mean 152 133 132 Pulse Ox 97 97 97 Oxygen Delivery Method Room Air Room Air Room Air MDM MDM MDM Narrative Medical decision making narrative: Given his history given his heavy alcohol consumption and abuse we will proceed with alcohol detox evaluation discussed with hospitalist Chest x-ray 1 view to my review shows nothing acute, screening labs are all generally unremarkable alcohol about 420 patient stable in the emergency room in no distress spoke with the hospitalist given all the above admit further management. It is noted the patient lacks a left the hospital AMA yes last time I explained to him should he leave again AMA his admission status would be in jeopardy should he return and he voices understanding we will not leave AMA Final impression alcohol abuse requiring inpatient detoxification Lab Data Labs: Laboratory Results - last 24 hr 04/18/21 04/18/21 04/18/21 15:35 15:35 15:45 WBC 6.3 RBC 5.17 Hgb 17.4 H Hct 48.7 MCV 94.2 H MCH 33.7 H MCHC 35.7 RDW Std Deviation 46.9 H RDW Coeff of Danial 13.4 Plt Count 291 MPV 9.6 Immature Gran % (Auto) 0.300 Neut % (Auto) 46.6 L Lymph % (Auto) 40.3 [place] % (Auto) 10.7 H Eos % (Auto) 0.8 Baso % (Auto) 1.3 H Absolute Neuts (auto) 3.0 Absolute Lymphs (auto) 2.55 Nucleated RBC % 0 Sodium Potassium Chloride Carbon Dioxide Anion Gap BUN Creatinine Estim Creat Clear Calc Est GFR (MDRD) Af Amer Est GFR (MDRD) Non-Af BUN/Creatinine Ratio Glucose Calcium Total Bilirubin AST ALT Alkaline Phosphatase Total Protein Albumin Globulin Albumin/Globulin Ratio Urine Color Straw Urine Clarity Clear Urine pH 6.5 Ur Specific [place] 1.005 Urine Protein Negative Urine Glucose (UA) Normal Urine Ketones Negative Urine Occult Blood Negative Urine Nitrite Negative Urine Bilirubin Negative Urine Urobilinogen Normal Ur Leukocyte Esterase 25 H Urine RBC 0 SEEN Urine WBC 0 SEEN Ur Squamous Epith Cells 0 SEEN Urine Bacteria 0 SEEN Urine Mucus 0 SEEN Urine Opiates Screen NEGATIVE Urine Methadone Screen NEGATIVE Ur Barbiturates Screen POSITIVE H Ur Phencyclidine Scrn NEGATIVE Ur Amphetamines Screen NEGATIVE MDMA (Ecstasy) Screen NEGATIVE U Benzodiazepines Scrn NEGATIVE Urine Cocaine Screen NEGATIVE U Cannabinoids Screen NEGATIVE Ur Drug Screen Comment Ethyl Alcohol 04/18/21 04/18/21 15:45 15:45 WBC RBC Hgb Hct MCV MCH MCHC RDW Std Deviation RDW Coeff of Danial Plt Count MPV Immature Gran % (Auto) Neut % (Auto) Lymph % (Auto) [place] % (Auto) Eos % (Auto) Baso % (Auto) Absolute Neuts (auto) Absolute Lymphs (auto) Nucleated RBC % Sodium 131 L Potassium 3.5 Chloride 93 L Carbon Dioxide 27.0 Anion Gap 11 BUN 2 L Creatinine 0.67 L Estim Creat Clear Calc 145.61 Est GFR (MDRD) Af Amer 160 Est GFR (MDRD) Non-Af 132 BUN/Creatinine Ratio 3.0 L Glucose 151 H Calcium 8.6 Total Bilirubin 0.30 AST 107 H ALT 112 H Alkaline Phosphatase 115 Total Protein 8.2 Albumin 4.2 Globulin 4.0 Albumin/Globulin Ratio 1.0 Urine Color Urine Clarity Urine pH Ur Specific [place] Urine Protein Urine Glucose (UA) Urine Ketones Urine Occult Blood Urine Nitrite Urine Bilirubin Urine Urobilinogen Ur Leukocyte Esterase Urine RBC Urine WBC Ur Squamous Epith Cells Urine Bacteria Urine Mucus Urine Opiates Screen Urine Methadone Screen Ur Barbiturates Screen Ur Phencyclidine Scrn Ur Amphetamines Screen MDMA (Ecstasy) Screen U Benzodiazepines Scrn Urine Cocaine Screen U Cannabinoids Screen Ur Drug Screen Comment Ethyl Alcohol 416.0 H* Radiography Diagnostic Testing: Clinical Impression(s) from Imaging Studies Chest X-Ray 04/18/21 15:45 IMPRESSION: Normal x-ray examination of the chest. Electronically Signed: Dhaval Goff MD at 16:18 EST , Discharge Plan Triage Chief Complaint: Substance Abuse ED Provider: Kilo Mcconnell Dx/Rx/DC Orders Prescriptions: No Action NK RF: 0 Primary Care Provider: Care Physician,No Primary
[2021-04-18 15:39] LABS: Bacteria 0 SEEN /hpf (None Seen); Mucous, Urine 0 SEEN /hpf (<or=2+); Red Blood Cells-Urine 0 SEEN /hpf (0-5); Squamous Epithelial Cells - UA 0 SEEN /hpf (0-5); White Blood Cells 0 SEEN /hpf (0-5)
--- NOTE | 2021-04-18 15:45 | RAD_ITS ---
STUDY: X-RAY CHEST REASON FOR EXAM: Male, 51 years old. Sob TECHNIQUE: Single frontal view of the chest. COMPARISON: None. FINDINGS: The lungs are clear and expanded. There is no demonstrated pleural abnormality. Normal size heart. Normal mediastinum and reuben. Normal visualized pulmonary arteries. Normal visualized aortic arch and descending thoracic aorta. Normal visualized thoracic spine. Normal visualized ribs, clavicles, and shoulders. There is no demonstrated abnormality of the visualized soft tissue structures of the upper abdomen. RAD/Chest 1 View (Portable) IMPRESSION: Normal x-ray examination of the chest. Electronically Signed: Dhaval Goff MD at 16:18 EST ,
[2021-04-18] MEDS: LORazepam 2 MG/ML Syringe 1 MG IV (15:47)
[2021-04-18 15:54] LABS: Color, Urine Straw (Yellow); Glucose, Dipstick Normal (Normal); Ketone-Dipstick Negative (Negative); Leukocyte Esterase-Dipstick 25 /ul (Negative); Nitrite-Dipstick Negative (Negative); Occult Blood-Urine Negative /ul (Negative); Protein-Dipstick Negative (Negative); Specific Gravity, Urine 1.005 (1.002-1.030); Urine Bilirubin Dipstick Negative (Negative); Urine Clarity Clear (Clear); Urine Urobilinogen Normal (Normal); Urine pH 6.5 (5.0 - 8.0)
[2021-04-18 15:59] LABS: Absolute Lymphocyte Count 2.55 X10^3/uL (0.83-4.51); Basophil# 0.08 X10^3/uL; Basophil% 1.3 % (0-1); Eosinophil# 0.05 X10^3/uL; Eosinophils% 0.8 % (0-5); Hematocrit 48.7 % (40-54); Hemoglobin 17.4 g/dL (13.0-16.5); Lymphocyte # 2.55 X10^3/ul (0.83-4.51); Lymphocyte % 40.3 % (19-41); Mean Corp Hgb Conc 35.7 g/dL (32-36); Mean Corpuscular Hgb 33.7 pg (27.0-32.0); Mean Corpuscular Volume 94.2 fL (80-94); Mean Platelet Vol. 9.6 fl (6.2-12.0); Monocyte# 0.68 X10^3/uL; Monocyte% 10.7 % (0-10); NRBC Flagged by Analyzer 0 % (0-5); Neutrophil # 2.95 X10^3/uL (2.7-7.7); Neutrophil % 46.6 % (47-70); Platelet Count 291 K/mm3 (150-450); RBC Distribution Width CV 13.4 % (11.6-14.6); RBC Distribution Width SD 46.9 fl (35.1-43.9); Red Blood Count 5.17 M/mm3 (4.6-6.2); White Blood Count 6.3 K/mm3 (4.4-11.0)
[2021-04-18 16:00] LABS: Amphetamine Urine VISTA NEGATIVE (<1000 ng/mL); Barbiturate Urine VISTA POSITIVE (< 200 ng/mL); Benzodiazepine Urine VISTA NEGATIVE (< 200 ng/mL); Cocaine Urine VISTA NEGATIVE (< 300 ng/mL); Ecstacy Urine VISTA NEGATIVE (< 500 ng/mL); Methadone Urine VISTA NEGATIVE (< 300 ng/mL); PCP Urine VISTA NEGATIVE (< 25 ng/mL); THC Urine VISTA NEGATIVE (< 50 ng/mL); Vista UDS pH Range 6
[2021-04-18 16:12] VITALS: BP 179/110; PULSE 94; RESP 17; O2SAT 97
[2021-04-18 16:31] LABS: AST(SGOT) 107 U/L (15-37); Alanine Aminotransfer ALT/SGPT 112 U/L (16-61); Albumin, Serum 4.2 g/dL (3.2-5.0); Alkaline Phosphatase 115 U/L (45-117); Anion Gap 11 (5-15); BUN 2 mg/dL (7-18); Calcium,Total 8.6 mg/dL (8.5-10.1); Chloride 93 mmol/L (98-107); Creatinine, Serum 0.67 mg/dL (0.70-1.30); EST Glomerular Filtration Rate 132 mL/min (>60); Est Glom Filt Rate - Afr Amer 160 mL/min (>60); Estimated Creatinine Clearance 145.61 ml/min; Glucose 151 mg/dL (74-106); Potassium 3.5 mmol/L (3.5-5.1); Protein, Total 8.2 g/dL (6.4-8.2); Sodium Level 131 mmol/L (136-145)
--- NOTE | 2021-04-18 16:51 | HP.PCM.HOS_ITS ---
HPI - General General Date of Admission: 04/18/21 HPI Narrative DIANE POWERS, is a 51 M who presents for acute alcohol withdrawal. He was just discharged ~10 days ago. He comes back today again requesting detox. He signed out AMA at his last visit and his last drink was in the parking lot just before he came in to the ED. He says he has contacted [facility] and he is due to be seen at [facility] on friday, but they would only accept him after he was seen in the ED. Vitals in the ED were BP of 172/142, AR of 100, RR of 16 and he was saturating at 97% on room air. CHC showed Hb of 17.4 with wbc of 6.3 and platelets of 291. Chemistry shows sodium of 131 potassium of 3.5 as well as creatinine of 0.67. Urine tox positive for barbiturates and serum alcohol level is pending. He has been admitted to be managed for acute alcohol withdrawal. [facility] Medical History Alcohol abuse Alcohol dependence Depression Hypertension Smoker Home Medications NK 04/05/21 [History Last Taken Unknown] Allergy/AdvReac Type Severity Reaction Status Date / Time No Known Allergies Allergy Verified 05/01/19 22:35 Family History (Updated 04/05/21 @ 17:[address] Juany Morrissey MD) Father Hypertension Myocardial infarction Heart disease Surgical History History of surgery on upper extremity Hx of hand surgery Hx of knee surgery Social History (Updated 04/05/21 @ 17:[address] Juany Morrissey MD) housing: other details: Lives alone primarily, but notes his son will occasionally stay with him. Smoking Status: Current every day smoker tobacco type: cigarettes alcohol intake: current alcohol intake frequency: 3 or more drinks per day details: Baseline 40-50, 12 ounce beers daily, attempting to cut back. substance use type: does not use ROS Constitutional Constitutional: Denies anorexia, change in weight, chills, malaise or weakness Eyes Eyes: Denies change in vision ENT HEENT: Denies dysphagia, headache(s), nasal congestion or nasal discharge Cardiovascular Cardiovascular: Denies chest pain, dyspnea on exertion, edema, lightheadedness, orthopnea, palpitations, paroxysmal nocturnal dyspnea or rapid heart rate Respiratory/Chest Respiratory/Chest: Denies cough, dyspnea, shortness of breath at rest or shortness of breath with exertion Gastrointestinal Gastrointestinal: Denies abdominal pain, coffee ground emesis or dyspepsia Genitourinary Genitourinary: Denies burning urination, dysuria or urinary hesitancy Musculoskeletal Musculoskeletal: Denies arthralgias, joint swelling or myalgias Neurologic Neurologic: Denies confusion, dizziness, focal weakness, headache(s), numbness, syncope or tingling Psychiatric Psychiatric: Denies anxiety or depression Endocrine Endocrinology: Denies change in body appearance Hematologic/Lymphatic Hematologic/Lymphatic: Denies anemia Vital Signs Vital Signs Vital Signs: 04/18/21 15:12 Temperature 98.2 F Temperature Source Temporal Pulse Rate 100 Respiratory Rate 16 Blood Pressure 172/142 H Blood Pressure Mean 152 Pulse Ox 97 Oxygen Delivery Method Room Air Weight Weight: 178 lb Body Mass Index (BMI) 22.8 Physical Exam Const alert and oriented x3 General Appearance: cooperative HEENT normocephalic, head/scalp atraumatic, hearing grossly normal bilaterally and moist oral mucous membranes Eyes PERRL, EOMs intact bilaterally and conjunctivae normal Neck no lymphadenopathy and supple Resp normal respiratory effort, no retractions, no use of accessory muscles and clear to auscultation bilaterally Cardio regular rate, regular rhythm, S1 normal heart sound, S2 normal heart sound and no murmurs GI normal to inspection, nondistended, normoactive bowel sounds, soft to palpation, non-tender and non-distended Extremity normal to inspection, full ROM and no clubbing, cyanosis or edema Peripheral Pulses: Yes pulses 2+ throughout Skin no rashes or lesions noted Neuro oriented x3, CN's II-XII intact bilaterally and moves all extremities Sensorium / Orientation: awake and alert Psych affect normal Results Lab / Micro Data Result Diagrams: 04/18/21 15:45 04/18/21 15:45 Labs: Laboratory Results - last 24 hr 04/18/21 15:35: Urine Opiates Screen NEGATIVE, Urine Methadone Screen NEGATIVE, Ur Barbiturates Screen POSITIVE H, Ur Phencyclidine Scrn NEGATIVE, Ur Amphetamines Screen NEGATIVE, MDMA (Ecstasy) Screen NEGATIVE, U Benzodiazepines Scrn NEGATIVE, Urine Cocaine Screen NEGATIVE, U Cannabinoids Screen NEGATIVE, Ur Drug Screen Comment 04/18/21 15:35: Urine Color Straw, Urine Clarity Clear, Urine pH 6.5, Ur Specific [place] 1.005, Urine Protein Negative, Urine Glucose (UA) Normal, Urine Ketones Negative, Urine Occult Blood Negative, Urine Nitrite Negative, Urine Bilirubin Negative, Urine Urobilinogen Normal, Ur Leukocyte Esterase 25 H, Urine RBC 0 SEEN, Urine WBC 0 SEEN, Ur Squamous Epith Cells 0 SEEN, Urine Bacteria 0 SEEN, Urine Mucus 0 SEEN 04/18/21 15:45: WBC 6.3, RBC 5.17, Hgb 17.4 H, Hct 48.7, MCV 94.2 H, MCH 33.7 H, MCHC 35.7, RDW Std Deviation 46.9 H, RDW Coeff of Danial 13.4, Plt Count 291, MPV 9.6, Immature Gran % (Auto) 0.300, Neut % (Auto) 46.6 L, Lymph % (Auto) 40.3, [place] % (Auto) 10.7 H, Eos % (Auto) 0.8, Baso % (Auto) 1.3 H, Absolute Neuts (auto) 3.0, Absolute Lymphs (auto) 2.55, Nucleated RBC % 0 04/18/21 15:45: Sodium 131 L, Potassium 3.5, Chloride 93 L, Carbon Dioxide 27.0, Anion Gap 11, BUN 2 L, Creatinine 0.67 L, Estim Creat Clear Calc 145.61, Est GFR (MDRD) Af Amer 160, Est GFR (MDRD) Non-Af 132, BUN/Creatinine Ratio 3.0 L, Glucose 151 H, Calcium 8.6, Total Bilirubin 0.30, AST 107 H, ALT 112 H, Alkaline Phosphatase 115, Total Protein 8.2, Albumin 4.2, Globulin 4.0, Albumin/Globulin Ratio 1.0 Radiology Impression Chest X-Ray 04/18/21 15:45 IMPRESSION: Normal x-ray examination of the chest. Electronically Signed: Dhaval Goff MD at 16:18 EST , Assessment & Plan Assessment/Plan (1) Alcoholism: (2) Alcohol withdrawal: PLAN: #Acute alcohol withdrawal * Serum alcohol level pending. Urine tox positive for barbiturates. * Signed out AMA after managed for acute alcohol withdrawal on April 08, 2021. * Started on alcohol withdrawal protocol with phenobarbital * . Thiamine, multivitamin folic acid * Adjunctive meds for symptomatic treatment. * #Anxiety disorder: not on any meds. To follow up with PCP on outpatient basis #Elevated blood pressure * Blood pressure elevated. Not a known hypertensive. On clonidine prn per alcohol withdrawal protocol This will help with elevated BP. IF BP remains elevated, to consider starting oral BP meds. #Nicotine dependence: Counseled to quit. Nicotine patch 21 mg daily. DVT prophylaxis: Low risk. Encouraged to ambulate. Charges/Coding Visit Charges Inpatient E&M: 66475 Init Hosp L3
--- NOTE | 2021-04-18 16:52 | NURSING ---
DR SHIRLENE MASON
[2021-04-18 17:00] VITALS: BP 178/110; PULSE 97; RESP 15; O2SAT 97
--- NOTE | 2021-04-18 17:30 | CM.ED ---
Social Work Consult: Substance Abuse Referral source: Dr. Mcconnell. Spoke with patient in room. Introduced self and socia worker role. Patient agreeable to speak with this social media intern. Patient seeking medical management of withdrawal symptoms, [facility]. Patient recently with admission to [facility]AMP unit a few weeks ago and left AMA. This social media intern inquired as to what is different this time. Patient states I am ready. Patient wishes to follow up with [facility] for treatment after completing R[facility]. Patient verbally agreeable to [facility] contract. Patient reports substance of choice as alcohol and to drink 50 beers a day. [facility] updated on patient admission. PLAN: Admit to [facility]. Cony WELLS, CANDACE
[2021-04-18 17:33] VITALS: BP 170/105; PULSE 97; RESP 15; TEMP 36.8; O2SAT 97
--- NOTE | 2021-04-18 17:46 | NURSING ---
MED SURG [facility] ALCOHOL WITHDRAWAL REQUIRING MANAGEMENT
[2021-04-18 18:06] VITALS: BP 143/96; PULSE 114; RESP 16; TEMP 36.9; O2SAT 96
[2021-04-18 18:10] VITALS: BMI 22.2
[2021-04-18] MEDS: Phenobarbital 32.4 MG Tablet 64.8 MG PO ×2 (18:41→22:34)
[2021-04-18 22:00] VITALS: BP 142/99; PULSE 112; RESP 16; TEMP 36.9; O2SAT 96
[2021-04-19] VITALS (8 sets, daily range): BP systolic 129–153; BP diastolic 86–108; PULSE 84–118; RESP 16–18; TEMP 36.6–37.2; O2SAT 94–100
[2021-04-19] MEDS: Phenobarbital 32.4 MG Tablet 64.8 MG PO ×6 (02:11→22:28)
[2021-04-19] MEDS: LORazepam 1 MG Tablet 2 MG PO (02:19)
[2021-04-19] MEDS: traZODone 100 MG Tablet PO (02:19)
[2021-04-19] MEDS: Ondansetron 4 MG/2 ML Vial IV (02:20)
[2021-04-19] MEDS: 0.9% Saline Lock 10 ML Syringe IV (02:20)
[2021-04-19] MEDS: hydrOXYzine PAM 25 MG Capsule 50 MG PO (06:08)
[2021-04-19] MEDS: Thiamine Hydrochloride 100 MG Tablet PO (08:27)
[2021-04-19] MEDS: Folic Acid 1 MG Tablet PO (08:27)
[2021-04-19] MEDS: Nicotine Polacrilex 2 MG GUM PO ×4 (08:28→22:33)
--- NOTE | 2021-04-19 11:43 | PCM.PN.HOSP ---
Documented by User: Alix Martinez NP, SWEATBAND DRUMMER-C 04/19/21 11:48 Subjective Subjective Patient seen and examined. Denies significant withdrawal symptoms. States he feels pretty good. States following recent discharge she was sober 3 days before he began drinking again. States he is amendable to residential program this time. Objective Data Objective Data Vital Signs: Vital Signs Temp Pulse Resp BP Pulse Ox 98.8 F 110 H 16 134/86 H 94 04/19/21 08:23 04/19/21 08:23 04/19/21 08:23 04/19/21 08:23 04/19/21 08:23 Oxygen Delivery Method Room Air Weight: 173 lb 4.533 oz Body Mass Index (BMI) 22.2 Intake & Output: Intake and Output for Last 24 Hours 04/17/21 04/18/21 04/19/21 23:59 23:59 23:59 Intake Total 220 / 220 Balance 220 / 220 Lab / Micro Data Result Diagrams: 04/18/21 15:45 04/18/21 15:45 Labs: Laboratory Results - last 24 hr 04/18/21 15:35: Urine Opiates Screen NEGATIVE, Urine Methadone Screen NEGATIVE, Ur Barbiturates Screen POSITIVE H, Ur Phencyclidine Scrn NEGATIVE, Ur Amphetamines Screen NEGATIVE, MDMA (Ecstasy) Screen NEGATIVE, U Benzodiazepines Scrn NEGATIVE, Urine Cocaine Screen NEGATIVE, U Cannabinoids Screen NEGATIVE, Ur Drug Screen Comment 04/18/21 15:35: Urine Color Straw, Urine Clarity Clear, Urine pH 6.5, Ur Specific [place] 1.005, Urine Protein Negative, Urine Glucose (UA) Normal, Urine Ketones Negative, Urine Occult Blood Negative, Urine Nitrite Negative, Urine Bilirubin Negative, Urine Urobilinogen Normal, Ur Leukocyte Esterase 25 H, Urine RBC 0 SEEN, Urine WBC 0 SEEN, Ur Squamous Epith Cells 0 SEEN, Urine Bacteria 0 SEEN, Urine Mucus 0 SEEN 04/18/21 15:45: WBC 6.3, RBC 5.17, Hgb 17.4 H, Hct 48.7, MCV 94.2 H, MCH 33.7 H, MCHC 35.7, RDW Std Deviation 46.9 H, RDW Coeff of Danial 13.4, Plt Count 291, MPV 9.6, Immature Gran % (Auto) 0.300, Neut % (Auto) 46.6 L, Lymph % (Auto) 40.3, Nuckolls % (Auto) 10.7 H, Eos % (Auto) 0.8, Baso % (Auto) 1.3 H, Absolute Neuts (auto) 3.0, Absolute Lymphs (auto) 2.55, Nucleated RBC % 0 04/18/21 15:45: Ethyl Alcohol 416.0 H* 04/18/21 15:45: Sodium 131 L, Potassium 3.5, Chloride 93 L, Carbon Dioxide 27.0, Anion Gap 11, BUN 2 L, Creatinine 0.67 L, Estim Creat Clear Calc 145.61, Est GFR (MDRD) Af Amer 160, Est GFR (MDRD) Non-Af 132, BUN/Creatinine Ratio 3.0 L, Glucose 151 H, Calcium 8.6, Total Bilirubin 0.30, AST 107 H, ALT 112 H, Alkaline Phosphatase 115, Total Protein 8.2, Albumin 4.2, Globulin 4.0, Albumin/Globulin Ratio 1.0 Radiography Diagnostic Testing: Radiology Impression Chest X-Ray 04/18/21 15:45 IMPRESSION: Normal x-ray examination of the chest. Electronically Signed: Dhaval Goff MD at 16:18 EST , Physical Exam Const alert, oriented x3 and no apparent distress Orientation / Consciousness: awake, oriented to person, oriented to place and oriented to time HEENT normocephalic and moist oral mucous membranes Eyes PERRL, EOMs intact bilaterally and conjunctivae normal Neck no lymphadenopathy Resp normal respiratory effort and clear to auscultation bilaterally Cardio regular rate, regular rhythm and no murmurs Peripheral Pulses: pulses 2+ throughout GI normal to inspection, nondistended, normoactive bowel sounds, non-tender and non-distended Extremity normal to inspection Skin no rashes or lesions noted Lesions: no lesions Rashes: no rashes Trauma: no lacerations or abrasions Neuro CN's II-XII intact bilaterally, no focal motor deficits, no sensory deficits noted and deep tendon reflexes 2+ bilaterally Psych mental status grossly normal and affect normal Assessment & Plan Assessment/Plan (1) Alcohol withdrawal: PLAN: 1. Acute alcohol withdrawal, chronic alcohol dependence-medical stabilization per protocol. Phenobarb taper. As needed regimen for somatic complaints. Thiamine, folic acid, multivitamin supplementation. 2. Alcoholic hepatitis-elevated during recent admission as well. Outpatient follow up. 3. Tobacco dependence-encouraged cessation. Nicotine replacement patch if desired. 4. Hypertension-not on regimen, improved from admission. Continue to monitor. 5. Anxiety/depression-recommend outpatient follow-up. DVT prophylaxis-low risk, encourage ambulation This patient was seen by Alix Martinez NP-C under the supervision of Dr. Isaac. Documented by User: Dr. Meli Isaac DO 04/19/21 14:25 Subjective Subjective This patient was seen in conjunction with Alix Martinez NP. The following represents my independent history and physical examination. Please see below for addendum the above. Patient states that he is overall feeling better however he just had an episode of emesis. He denies the diarrhea. He complains of some internal tremor but states his gross tremor has improved. He has no significant complaints at this time. Objective Data Lab / Micro Data Result Diagrams: 04/18/21 15:45 04/18/21 15:45 Physical Exam Const alert, oriented x3, no apparent distress and average body habitus Constitutional Narrative: Applied white male lying in bed, appears not to be feeling well however nontoxic Exam Limitations: no limitations HEENT head/scalp atraumatic and moist oral mucous membranes Head and Scalp: normocephalic Resp normal respiratory effort, no retractions, no use of accessory muscles and clear to auscultation bilaterally Cardio regular rhythm, S1 normal heart sound, S2 normal heart sound, no murmurs, no rub, no gallops, no clicks and no JVD Cardio Narrative: Tachycardic GI normal to inspection, nondistended, normoactive bowel sounds, soft to palpation and non-distended Extremity no clubbing, cyanosis or edema Peripheral Pulses: Yes pulses 2+ throughout Neuro oriented x3, CN's II-XII intact bilaterally, moves all extremities and no focal motor deficits Sensorium / Orientation: awake and alert Speech: speech normal Assessment & Plan Assessment/Plan (1) Alcohol withdrawal: (2) Alcoholic hepatitis: PLAN: Assessment: Acute alcohol withdrawal Alcoholic hepatitis Hypertension Tobacco abuse Anxiety/depression Plan: Continue phenobarbital taper Continue supportive medications Continue thiamine and folic acid supplementation Continue nicotine patch Anticipate improvement in transaminases with time and sobriety Await [facility] input Charges/Coding Visit Charges Inpatient E&M: 81436 Subs Hosp L2
[2021-04-19] MEDS: Ondansetron 8 MG Tablet PO (12:03)
--- NOTE | 2021-04-19 13:00 | ADDICTION ---
This investment underwriter met with PT to conduct ASAM, MSE, AUDIT assessments and to plan for d/c. PT A+Ox4 and participated actively. All assessments completed and placed in PT's chart. PT has been here 3x in the past 2 months (last time leaving AMA) and admitting drinking as soon as discharging. We discussed together that if he does comes back to detox he will accept residential prior to admission. PT plans to f/u with individual counselor at [facility] for follow-up counseling services. PT did not indicate a need for transportation post d/c from [facility].
--- NOTE | 2021-04-19 14:13 | CHAPLAIN ---
Type of Pastoral Visit _x__ Initial Visit ___ Follow-up Visit ___ On-call Visit ___ General Patient Visit ___ Spiritual Assessment ___ Family Conference ___ Bereavement ___ Rapid Response ___ Code Blue ___ Other (describe below) Pastoral Care Referral From _x__ Patient ___ Family ___ Nurse ___ Physician ___ Regional Facilities Specialist ___ Local Coordinator ___ Other (describe below) Sacrament/Intervention _x__ Active listening ___ Anointing ___ Presybeterian ___ Bereavement ___ Communion _x__ Valerie exploration ___ _x__ Life review _x__ Prayer ___ Reconciliation ___ Sacrament of Sick _x__ Supportive presence ___ Wedding ___ Other (describe below) Pastoral Comments patient has been seen in a previous admission; pt welcomes visit and spiritual care support; pt states that main support for him is a preacher friend; pt says he is in regular contact with this friend who helps listen and support; pt states I want to beat this but I don't know how, I've tried a lot of things; pt has a new job starting on Friday and will go through a weeks training for it; pt welcomes prayer and future visits
[2021-04-20 02:25] VITALS: BP 137/98; PULSE 74; RESP 18; TEMP 36.6; O2SAT 95
[2021-04-20] MEDS: Phenobarbital 32.4 MG Tablet 64.8 MG PO ×6 (02:31→22:17)
[2021-04-20 06:25] VITALS: BP 146/106; PULSE 81; RESP 18; TEMP 36.6; O2SAT 94
[2021-04-20] MEDS: Nicotine Polacrilex 2 MG GUM PO ×6 (06:35→22:21)
[2021-04-20 08:36] VITALS: BP 131/95; PULSE 76; RESP 16; TEMP 36.6; O2SAT 96
[2021-04-20] MEDS: Folic Acid 1 MG Tablet PO (09:13)
[2021-04-20] MEDS: Thiamine Hydrochloride 100 MG Tablet PO (09:13)
--- NOTE | 2021-04-20 10:47 | PN.HOSP_ITS ---
Documented by User: Alix Martinez NP, BOOKKEEPING CLERKS SUPERVISOR-C 04/20/21 10:50 Subjective Subjective Patient seen and examined. States he feels great today. Denies withdrawal symptoms. Reports nicotine craving, currently chewing nicotine gum. Objective Data Objective Data Vital Signs: Vital Signs Temp Pulse Resp BP Pulse Ox 97.8 F 76 16 131/95 H 96 04/20/21 08:36 04/20/21 08:36 04/20/21 08:36 04/20/21 08:36 04/20/21 08:36 Oxygen Delivery Method Room Air Weight: 173 lb 4.533 oz Body Mass Index (BMI) 22.2 Intake & Output: Intake and Output for Last 24 Hours 04/18/21 04/19/21 04/20/21 23:59 23:59 23:59 Intake Total 1180 / 1500 320 / 320 Output Total 0 / 0 Balance 1180 / 1500 320 / 320 Lab / Micro Data Result Diagrams: 04/18/21 15:45 04/18/21 15:45 Physical Exam Const alert, oriented x3 and no apparent distress Orientation / Consciousness: awake, oriented to person, oriented to place and oriented to time HEENT normocephalic and moist oral mucous membranes Eyes PERRL, EOMs intact bilaterally and conjunctivae normal Neck no lymphadenopathy Resp normal respiratory effort and clear to auscultation bilaterally Cardio regular rate, regular rhythm and no murmurs Peripheral Pulses: pulses 2+ throughout GI normal to inspection, nondistended, normoactive bowel sounds, non-tender and non-distended Extremity normal to inspection Skin no rashes or lesions noted Lesions: no lesions Rashes: no rashes Trauma: no lacerations or abrasions Neuro CN's II-XII intact bilaterally, no focal motor deficits, no sensory deficits noted and deep tendon reflexes 2+ bilaterally Psych mental status grossly normal and affect normal Assessment & Plan Assessment/Plan (1) Alcohol withdrawal: PLAN: 1. Acute alcohol withdrawal, chronic alcohol dependence-medical stabilization per protocol. Phenobarb taper. As needed regimen for somatic complaints. Thiamine, folic acid, multivitamin supplementation. Addiction medicine consulted. Likely discharge 04/21/2021 with outpatient follow-up. 2. Alcoholic hepatitis-elevated during recent admission as well. Outpatient follow up. 3. Tobacco dependence-encouraged cessation. Nicotine replacement patch/gum. 4. Hypertension-not on regimen. Currently stable, continue to monitor. Patient states when he stops drinking his blood pressure is typically well controlled without medication. 5. Anxiety/depression-recommend outpatient follow-up. DVT prophylaxis-low risk, encourage ambulation This patient was seen by RANDA Montoya under the supervision of Dr. Isaac. Documented by User: Dr. Meli Isaac DO 04/20/21 13:43 Subjective Subjective This patient was seen in conjunction with Alix Martinez NP. The following represents my independent history and physical examination. Please see below for addendum the above. No significant issues overnight. Vomiting has resolved. Patient states he is feeling much better today. No tremor noted in the patient states his internal tremor is gone. He initially had indicated that he wanted to follow-up as an inpatient but not however now the plan is for outpatient follow-up as he starts a new job on Friday. We did discuss possible discharge tomorrow if he clinically remained stable and he is wanting to go if he continues to feel as good as he is now. Objective Data Lab / Micro Data Result Diagrams: 04/18/21 15:45 04/18/21 15:45 Physical Exam Const alert, oriented x3, no apparent distress and average body habitus Constitutional Narrative: Applied white male lying in bed, appears to be feeling much better today, nontoxic General Appearance: cooperative Orientation / Consciousness: awake, oriented to person, oriented to place and oriented to time Exam Limitations: no limitations HEENT normocephalic, head/scalp atraumatic, hearing grossly normal bilaterally and moist oral mucous membranes Head and Scalp: normocephalic Resp normal respiratory effort, no retractions, no use of accessory muscles and clear to auscultation bilaterally Cardio regular rate, regular rhythm, S1 normal heart sound, S2 normal heart sound, no murmurs, no rub, no gallops, no clicks and no JVD Cardio Narrative: Tachycardic Peripheral Pulses: pulses 2+ throughout GI normal to inspection, nondistended, normoactive bowel sounds, soft to palpation, non-tender and non-distended Extremity normal to inspection, full ROM and no clubbing, cyanosis or edema Peripheral Pulses: Yes pulses 2+ throughout Skin Lesions: no lesions Rashes: no rashes Trauma: no lacerations or abrasions Neuro oriented x3, moves all extremities, no focal motor deficits and deep tendon reflexes 2+ bilaterally Sensorium / Orientation: awake and alert Speech: speech normal Psych mental status grossly normal Assessment & Plan Assessment/Plan (1) Alcohol withdrawal: (2) Alcoholic hepatitis: PLAN: Assessment: Acute alcohol withdrawal Alcoholic hepatitis Hypertension Tobacco abuse Anxiety/depression Plan: Continue phenobarbital taper Continue supportive medications Continue thiamine and folic acid supplementation Continue nicotine patch Anticipate improvement in transaminases with time and sobriety Plan is for discharge with outpatient follow-up at [facility] for individual counseling Anticipate discharge in the next 24 hours as long as patient remained stable Charges/Coding Visit Charges Inpatient E&M: 89557 Subs Hosp L2
[2021-04-20 14:25] VITALS: BP 128/93; PULSE 82; RESP 16; TEMP 36.6; O2SAT 95
[2021-04-20 20:00] VITALS: BP 121/104; PULSE 84; RESP 18; TEMP 36.4; O2SAT 96
[2021-04-21 02:00] VITALS: BP 132/94; PULSE 78; RESP 16; TEMP 36.8; O2SAT 97
[2021-04-21] MEDS: Phenobarbital 32.4 MG Tablet 64.8 MG PO ×2 (02:08→09:03)
[2021-04-21 08:55] VITALS: BP 135/99; PULSE 82; RESP 12; TEMP 36.6; O2SAT 97
[2021-04-21] MEDS: Thiamine Hydrochloride 100 MG Tablet PO (08:59)
[2021-04-21] MEDS: Folic Acid 1 MG Tablet PO (08:59)
--- NOTE | 2021-04-21 10:04 | PCM.DC ---
Discharge Instructions Diet Discharge Diet: No restrictions Activity Discharge Activity: Return to Normal Activity Dressing / Incision Call your doctor if you observe: Shortness of breath, Dizziness and Chest pain Follow Up Care Test Results: Test results from this visit will be discussed in further detail at your follow-up appointment, if applicable. Discharge Plan Admission Admit Date/Time: 04/18/21 17:04 Primary Reason for Your Visit: Alcohol withdrawal Attending Provider: Meli Isaac Primary Care Provider: Care Physician,No Primary Instructions Additional Instructions / Restrictions: Follow up with [facility] as scheduled Discharge Orders/Prescriptions Prescriptions: No Action NK RF: 0 Referrals / Follow Up: Care Physician,No Primary [Primary Care Provider] - Disposition Disposition (needs filled in before D/C Order can be placed): Home, Self Care
--- NOTE | 2021-04-21 10:06 | PCM.DC.SUM ---
Documented by User: Alix Martinez NP, TELETYPESETTER OPERATOR-C 04/21/21 10:09 Providers Date of Admission: 04/18/21 Date of Discharge: 04/21/21 Primary Care Physician: No Primary Care Phys Reason For Visit: ACUTE ALCOHOL WITHDRAWAL Diagnosis Discharge Diagnosis (1) Alcohol withdrawal: Status: Acute Code(s): F10.239 - Alcohol dependence with withdrawal, unspecified (2) Alcoholic hepatitis: Status: Acute Code(s): K70.10 - Alcoholic hepatitis without ascites Medications at Discharge Home Medications NK 04/05/21 Hospital Course Operations None Procedures None Summary of Care Provided Hospital Course: Patient is a 51-year-old male admitted 04/18/2021 due to alcohol withdrawal. 1. Acute alcohol withdrawal, chronic alcohol dependence-medical stabilization per protocol. Phenobarb taper during admission. Continue outpatient follow-up with addiction medicine. As discussed with addiction medicine, if patient were to return for detox he will accept residential treatment prior to admission. 2. Alcoholic hepatitis-elevated during recent admission as well. Outpatient follow up. 3. Tobacco dependence-encouraged cessation. 4. Hypertension-not on regimen. Currently stable, continue to monitor as outpatient. Patient states when he stops drinking his blood pressure is typically well controlled without medication. 5. Anxiety/depression-recommend outpatient follow-up. Physical Exam Const alert, oriented x3 and no apparent distress Orientation / Consciousness: awake, oriented to person, oriented to place and oriented to time HEENT normocephalic and moist oral mucous membranes Eyes PERRL, EOMs intact bilaterally and conjunctivae normal Neck no lymphadenopathy Resp normal respiratory effort and clear to auscultation bilaterally Cardio regular rate, regular rhythm and no murmurs Peripheral Pulses: pulses 2+ throughout GI normal to inspection, nondistended, normoactive bowel sounds, non-tender and non-distended Extremity normal to inspection Skin no rashes or lesions noted Lesions: no lesions Rashes: no rashes Trauma: no lacerations or abrasions Neuro CN's II-XII intact bilaterally, no focal motor deficits, no sensory deficits noted and deep tendon reflexes 2+ bilaterally Psych mental status grossly normal and affect normal Patient seen and examined prior to discharge. Physical assessment as noted above. Patient is stable for discharge with follow up recommendations as noted above. This patient was seen by RANDA Montoya under the supervision of Dr. Isaac. Weight / BMI Weight Weight: 173 lb 4.533 oz Body Mass Index (BMI) 22.2 ABG / Lab / Microbiology Data Result Diagrams: 04/18/21 15:45 04/18/21 15:45 D/C Instructions Discharge Diet: No restrictions Call your doctor if you observe: Shortness of breath, Dizziness and Chest pain Meaningful Use Info Meaningful Use Diagnoses (Choose all that apply): None applicable Discharge Plan Admission Admit Date/Time: 04/18/21 17:04 Primary Reason for Your Visit: Alcohol withdrawal Attending Provider: Meli Isaac Primary Care Provider: Care Physician,No Primary Instructions Additional Instructions / Restrictions: Follow up with [facility] as scheduled Discharge Orders/Prescriptions Prescriptions: No Action NK RF: 0 Referrals / Follow Up: Care Physician,No Primary [Primary Care Provider] - Disposition Disposition (needs filled in before D/C Order can be placed): Home, Self Care Documented by User: Dr. Meli Isaac DO 04/21/21 11:43 Providers Date of Admission: 04/18/21 Reason For Visit: ACUTE ALCOHOL WITHDRAWAL Medications at Discharge Home Medications NK 04/05/21 Hospital Course Operations None Procedures None Summary of Care Provided Minutes Spent on Discharge: 23 Hospital Course: Mr. Rogers is a 51-year-old white male who presented to the emergency department [facility] on 04/18/2021 with acute alcohol withdrawal requesting detox. He was admitted approximately 10 days ago and at that time signed out AGAINST MEDICAL ADVICE. He comes back today requesting detox again. His last drink was in the parking lot just prior to coming into the emergency department. He contacted [facility] prior to admission and was due to be seen at [facility] on Friday but they would only accept him after he was seen in the emergency department here in detox. Upon presentation his vital signs showed an elevated blood pressure of 172/142 and elevated heart rate at 100 but were otherwise unremarkable. His CBC showed a hemoglobin of 17.4 which appears to be baseline but was otherwise unremarkable. His BMP showed chronic hyponatremia with a sodium of 131. This appears to be stable and his lab work was otherwise unremarkable. Urine tox screen was performed and was positive for barbiturates. His serum alcohol level on admission was 416. He was admitted to the hospital and initiated on phenobarbital as well as CIWA protocol and as needed Ativan use. Supportive medications were given as well as thiamine and folate. The patient overall did extremely well with regards to his detox and had resolution of his symptoms by 04/20/2021. He remained stable with the taper and was feeling well enough to be discharged on 04/21/2021. He was discharged home in stable condition. [facility] did evaluate him while he was here and recommended follow-up as an outpatient as already scheduled on Friday. He was encouraged to establish with a primary care physician. Discharge diagnoses: Acute alcohol withdrawal Alcoholic hepatitis Tobacco dependence Hypertension Anxiety Depression Physical Exam Const alert, oriented x3, no apparent distress and average body habitus Constitutional Narrative: Applied white male up walking around the hallways, appears to be feeling well, nontoxic, no tremor General Appearance: cooperative, comfortable, well kempt and well developed Orientation / Consciousness: awake Exam Limitations: no limitations HEENT normocephalic, head/scalp atraumatic, hearing grossly normal bilaterally and moist oral mucous membranes Resp normal respiratory effort, no retractions, no use of accessory muscles and clear to auscultation bilaterally Resp Narrative: Diffusely diminished but clear Cardio regular rate, regular rhythm, S1 normal heart sound, S2 normal heart sound, no murmurs, no rub, no gallops, no clicks and no JVD Cardio Narrative: Tachycardic Peripheral Pulses: pulses 2+ throughout GI normal to inspection, nondistended, normoactive bowel sounds, soft to palpation, non-tender and non-distended Extremity normal to inspection, full ROM and no clubbing, cyanosis or edema Skin no rashes or lesions noted Lesions: no lesions Rashes: no rashes Trauma: no lacerations or abrasions Neuro oriented x3, moves all extremities, no focal motor deficits and deep tendon reflexes 2+ bilaterally Neuro Narrative: No tremor noted at this time Sensorium / Orientation: awake and alert Speech: speech normal Psych mental status grossly normal ABG / Lab / Microbiology Data Result Diagrams: 04/18/21 15:45 04/18/21 15:45 Discharge Plan Admission Admit Date/Time: 04/18/21 17:04 Primary Reason for Your Visit: Alcohol withdrawal Attending Provider: Meli Isaac Primary Care Provider: Care Physician,No Primary Instructions Additional Instructions / Restrictions: Follow up with [facility] as scheduled Discharge Orders/Prescriptions Prescriptions: No Action NK RF: 0 Referrals / Follow Up: Care Physician,No Primary [Primary Care Provider] - Disposition Disposition (needs filled in before D/C Order can be placed): Home, Self Care Charges/Coding Visit Charges Inpatient E&M: 27979 Disch Hosp
[2021-04-21] MEDS: Nicotine Polacrilex 2 MG GUM PO (10:54)
== END 2021-04-21 12:03 | disposition home or self-care (01) | DRG 772 ==
LOC: ED 15:31 → PCU 04-19 06:53
PROVIDERS: Admitting Provider Student in an Organized Health Care Education/Training Program; Emergency Provider Emergency Medicine; Visit Provider Internal Medicine
DX: F10.229 Alcohol dependence with intoxication, unspecified (principal); F10.239 Alcohol dependence with withdrawal, unspecified; K70.10 Alcoholic hepatitis without ascites; F17.210 Nicotine dependence, cigarettes, uncomplicated; I10 Essential (primary) hypertension; Y90.8 Blood alcohol level of 240 mg/100 ml or more; F32.A Depression, unspecified
CPT/HCPCS: 71045; 80053; 80307; 81001; 82077; 85025; 93005; 96374; 96375; 99218; 99284; 99406; A4216; G0378; J2405

== ENCOUNTER 2021-04-26 18:17 | Inpatient (IN) | payer MEDICAID, SELFPAY ==
[2021-04-26 18:18] VITALS: BP 124/88; PULSE 113; RESP 16; TEMP 36.8; O2SAT 97; BMI 24.0
[2021-04-26 19:44] VITALS: BP 140/93; PULSE 104; RESP 18; O2SAT 98
[2021-04-26 19:52] VITALS: BP 140/93; PULSE 105; RESP 16; O2SAT 96
--- NOTE | 2021-04-26 20:08 | EX.ED.SAOD ---
HPI History of Present Illness Chief Complaint: ETOH Intox Informant: patient Onset/Context/Timing Onset: Today Context: Gradual Onset Timing: Continuous Quality: Shaky Location: Generalized Worsened by: Nothing Relieved by: Nothing Associated Symptoms Associated Symptoms: Positive for diarrhea*, tremor and palpatations; Negative for vomiting*, fever*, rash*, seizure, change in mental status, suicidal ideation and homicidal ideation Narrative Narrative: Patient presents requesting detox from alcohol. Patient states he was admitted to the hospital last week for detox. Patient states he was detoxed off of the alcohol while here in the emergency department but never followed up with [facility] for further treatment. Patient states he started drinking again when he was discharged. Patient states he drinks approximately 15 beers per day. Patient states his last drink was approximately 1 to 2 hours prior to arrival. Patient admits to some mild nausea but denies any vomiting. Patient admits to some diarrhea. Patient states he feels shaky. Patient denies any seizures however. Patient denies any suicidal or homicidal ideation. PFSH PFS Medical History Alcohol abuse Alcohol dependence Depression Hypertension Hyponatremia Smoker Home Medications NK 04/05/21 [History Last Taken Unknown] Allergy/AdvReac Type Severity Reaction Status Date / Time No Known Allergies Allergy Verified 04/26/21 18:19 Family History (Updated 04/05/21 @ 17:[address] Juany Morrissey MD) Father Hypertension Myocardial infarction Heart disease Surgical History History of surgery on upper extremity Hx of hand surgery Hx of knee surgery Social History housing: other details: Lives alone primarily, but notes his son will occasionally stay with him. Smoking Status: Current every day smoker tobacco type: cigarettes alcohol intake: current alcohol intake frequency: 3 or more drinks per day details: Baseline 40-50, 12 ounce beers daily, attempting to cut back. substance use type: does not use ROS ROS ED Constitutional Constitutional ED: Reports chills and subjective; Denies fever(s) Eyes Eyes: Denies blurry vision or change in vision ENT ENT ED: Denies rhinorrhea or sore throat Cardiovascular Cardiovascular: Denies chest pain or palpitations Respiratory/Chest Respiratory/Chest: Denies cough or dyspnea Gastrointestinal Gastrointestinal: Reports diarrhea and nausea; Denies vomiting Genitourinary Genitourinary ED: Denies dysuria or hematuria Musculoskeletal Musculoskeletal: Denies back pain or neck pain Integumentary Denies abscess or rash Neurologic Neurologic: Denies headache(s) or weakness Allergic/Immunologic Allergic/Immunologic ED: Denies mouth swelling or urticaria EXAM Physical Exam Const Vital Signs: 04/26/21 18:18 04/26/21 19:44 04/26/21 19:52 Temperature 98.2 F Temperature Source Temporal Pulse Rate 113 H 104 H 105 H Respiratory Rate 16 18 16 Blood Pressure 124/88 H 140/93 H 140/93 H Blood Pressure Mean 100 108 108 Blood Pressure Source Monitor Blood Pressure Position Semi-Fowlers Blood Pressure Location Left Arm Pulse Ox 97 98 96 Oxygen Delivery Method Room Air Room Air Room Air 04/26/21 21:14 Temperature Temperature Source Pulse Rate 98 Respiratory Rate 18 Blood Pressure Blood Pressure Mean Blood Pressure Source Blood Pressure Position Blood Pressure Location Pulse Ox 99 Oxygen Delivery Method Room Air Positive well nourished and well developed General Appearance ED: well developed HEENT Reports moist mucous membranes Neck supple and no JVD Resp normal respiratory effort and clear to auscultation bilaterally Cardio regular rhythm and no murmurs Rate: tachycardic GI normal to inspection, nondistended, normoactive bowel sounds and non-tender Palpation: soft Extremity normal to inspection General Extremety ED: Negative for edema or tenderness General Extremity: Negative for edema Neuro oriented x3, CN's II-XII intact bilaterally and no sensory deficits noted Sensorium / Orientation: alert Motor Exam: strength 5/5 throughout Psych mental status grossly normal Skin no rashes or lesions noted MDM MDM MDM Narrative Medical decision making narrative: Patient was given a dose of phenobarbital here. CBC was within normal limits. Comprehensive metabolic profile showed a slightly elevated AST of 56 and ALT of 71. Total bilirubin was normal. Lipase was normal. Serum alcohol level was elevated at 288. Urinalysis does not show any evidence of urinary tract infection. Urine tox screen was positive for barbiturates. Case was discussed with the hospitalist. He will admit the patient to his service. Patient understood and was agreeable with the plan. All questions were answered. Lab Data Attestation: I reviewed the patient's lab results. Labs: Laboratory Results - last 24 hr 04/26/21 04/26/21 04/26/21 20:25 20:25 20:25 WBC 5.2 RBC 4.97 Hgb 16.5 Hct 46.4 MCV 93.4 MCH 33.2 H MCHC 35.6 RDW Std Deviation 45.9 H RDW Coeff of Danial 13.3 Plt Count 233 MPV 10.1 Immature Gran % (Auto) 0.400 Neut % (Auto) 37.7 L Lymph % (Auto) 50.4 H [place] % (Auto) 8.9 Eos % (Auto) 1.6 Baso % (Auto) 1.0 Absolute Neuts (auto) 2.0 Absolute Lymphs (auto) 2.60 Nucleated RBC % 0 Sodium 134 L Potassium 3.7 Chloride 99 Carbon Dioxide 27.0 Anion Gap 8 BUN 3 L Creatinine 0.85 Estim Creat Clear Calc 116.85 Est GFR (MDRD) Af Amer 121 Est GFR (MDRD) Non-Af 100 BUN/Creatinine Ratio 3.5 L Glucose 116 H Calcium 8.9 Total Bilirubin 0.30 AST 56 H ALT 71 H Alkaline Phosphatase 99 Total Protein 7.7 Albumin 3.9 Globulin 3.8 Albumin/Globulin Ratio 1.0 Lipase 214 Urine Color Urine Clarity Urine pH Ur Specific [place] Urine Protein Urine Glucose (UA) Urine Ketones Urine Occult Blood Urine Nitrite Urine Bilirubin Urine Urobilinogen Ur Leukocyte Esterase Urine RBC Urine WBC Ur Squamous Epith Cells Urine Bacteria Urine Mucus Urine Opiates Screen Urine Methadone Screen Ur Barbiturates Screen Ur Phencyclidine Scrn Ur Amphetamines Screen MDMA (Ecstasy) Screen U Benzodiazepines Scrn Urine Cocaine Screen U Cannabinoids Screen Ur Drug Screen Comment Ethyl Alcohol 288.0 04/26/21 04/26/21 20:35 20:35 WBC RBC Hgb Hct MCV MCH MCHC RDW Std Deviation RDW Coeff of Danial Plt Count MPV Immature Gran % (Auto) Neut % (Auto) Lymph % (Auto) [place] % (Auto) Eos % (Auto) Baso % (Auto) Absolute Neuts (auto) Absolute Lymphs (auto) Nucleated RBC % Sodium Potassium Chloride Carbon Dioxide Anion Gap BUN Creatinine Estim Creat Clear Calc Est GFR (MDRD) Af Amer Est GFR (MDRD) Non-Af BUN/Creatinine Ratio Glucose Calcium Total Bilirubin AST ALT Alkaline Phosphatase Total Protein Albumin Globulin Albumin/Globulin Ratio Lipase Urine Color Straw Urine Clarity Clear Urine pH 6.5 Ur Specific [place] 1.010 Urine Protein Negative Urine Glucose (UA) Normal Urine Ketones Negative Urine Occult Blood Negative Urine Nitrite Negative Urine Bilirubin Negative Urine Urobilinogen Normal Ur Leukocyte Esterase Negative Urine RBC 0 SEEN Urine WBC 0 SEEN Ur Squamous Epith Cells 0 SEEN Urine Bacteria 0 SEEN Urine Mucus 0 SEEN Urine Opiates Screen NEGATIVE Urine Methadone Screen NEGATIVE Ur Barbiturates Screen POSITIVE H Ur Phencyclidine Scrn NEGATIVE Ur Amphetamines Screen NEGATIVE MDMA (Ecstasy) Screen NEGATIVE U Benzodiazepines Scrn NEGATIVE Urine Cocaine Screen NEGATIVE U Cannabinoids Screen NEGATIVE Ur Drug Screen Comment Ethyl Alcohol Discharge Plan Triage Chief Complaint: ETOH Intox ED Provider: Jean Carlos Barron Dx/Rx/DC Orders Clinical Impression: Alcohol withdrawal Prescriptions: No Action NK RF: 0 Primary Care Provider: Care Physician,No Primary Referrals: Care Physician,No Primary [Primary Care Provider] - Disposition Disposition: Acute Care Hospital [facility]
[2021-04-26] MEDS: Phenobarbital 32.4 MG Tablet PO ×2 (20:27→23:15)
[2021-04-26 20:34] LABS: Basophil# 0.05 X10^3/uL; Eosinophil# 0.08 X10^3/uL; Eosinophils% 1.6 % (0-5); Hematocrit 46.4 % (40-54); Hemoglobin 16.5 g/dL (13.0-16.5); Lymphocyte % 50.4 % (19-41); Mean Corp Hgb Conc 35.6 g/dL (32-36); Mean Corpuscular Hgb 33.2 pg (27.0-32.0); Mean Corpuscular Volume 93.4 fL (80-94); Mean Platelet Vol. 10.1 fl (6.2-12.0); Monocyte# 0.46 X10^3/uL; Monocyte% 8.9 % (0-10); NRBC Flagged by Analyzer 0 % (0-5); Neutrophil # 1.95 X10^3/uL (2.7-7.7); Neutrophil % 37.7 % (47-70); Platelet Count 233 K/mm3 (150-450); RBC Distribution Width CV 13.3 % (11.6-14.6); RBC Distribution Width SD 45.9 fl (35.1-43.9); Red Blood Count 4.97 M/mm3 (4.6-6.2); White Blood Count 5.2 K/mm3 (4.4-11.0)
[2021-04-26 20:37] LABS: Bacteria 0 SEEN /hpf (None Seen); Mucous, Urine 0 SEEN /hpf (<or=2+); Red Blood Cells-Urine 0 SEEN /hpf (0-5); Squamous Epithelial Cells - UA 0 SEEN /hpf (0-5); White Blood Cells 0 SEEN /hpf (0-5)
[2021-04-26 20:48] LABS: Color, Urine Straw (Yellow); Glucose, Dipstick Normal (Normal); Ketone-Dipstick Negative (Negative); Leukocyte Esterase-Dipstick Negative /ul (Negative); Nitrite-Dipstick Negative (Negative); Occult Blood-Urine Negative /ul (Negative); Protein-Dipstick Negative (Negative); Urine Bilirubin Dipstick Negative (Negative); Urine Clarity Clear (Clear); Urine Urobilinogen Normal (Normal); Urine pH 6.5 (5.0 - 8.0)
[2021-04-26 20:51] LABS: Amphetamine Urine VISTA NEGATIVE (<1000 ng/mL); Barbiturate Urine VISTA POSITIVE (< 200 ng/mL); Benzodiazepine Urine VISTA NEGATIVE (< 200 ng/mL); Cocaine Urine VISTA NEGATIVE (< 300 ng/mL); Ecstacy Urine VISTA NEGATIVE (< 500 ng/mL); Methadone Urine VISTA NEGATIVE (< 300 ng/mL); PCP Urine VISTA NEGATIVE (< 25 ng/mL); THC Urine VISTA NEGATIVE (< 50 ng/mL); Vista UDS pH Range 6
[2021-04-26 20:52] LABS: AST(SGOT) 56 U/L (15-37); Alanine Aminotransfer ALT/SGPT 71 U/L (16-61); Albumin, Serum 3.9 g/dL (3.2-5.0); Alkaline Phosphatase 99 U/L (45-117); Anion Gap 8 (5-15); BUN 3 mg/dL (7-18); BUN/Creat Ratio 3.5 RATIO (10-20); Calcium,Total 8.9 mg/dL (8.5-10.1); Chloride 99 mmol/L (98-107); Creatinine, Serum 0.85 mg/dL (0.70-1.30); EST Glomerular Filtration Rate 100 mL/min (>60); Est Glom Filt Rate - Afr Amer 121 mL/min (>60); Estimated Creatinine Clearance 116.85 ml/min; Globulin 3.8 g/dL (2.2-4.2); Glucose 116 mg/dL (74-106); Lipase 214 U/L (73-393); Potassium 3.7 mmol/L (3.5-5.1); Protein, Total 7.7 g/dL (6.4-8.2); Sodium Level 134 mmol/L (136-145)
[2021-04-26 21:14] VITALS: PULSE 98; RESP 18; O2SAT 99
--- NOTE | 2021-04-26 21:30 | HP.PCM.HOS_ITS ---
HPI - General HPI Narrative DIANE POWERS, is a 51 M with a significant history of alcohol abuse and borderline hypertension (reportedwhen he is drinking) who presents to the emergency department with desire for detoxification. Of note patient was admitted to our hospital on 04/18/2021 and discharged on 04/21/2021 for alcoholism and detoxification. 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 He was referred for a clinical examination and clearance. He did his clinical examination on 04/23/2021 and he was not safely cleared for driving a commercial vehicle. He then resumed drinking. Patient reported that he has been drinking since age 11 years. In the past 5 years he has been drinking more secondary to a divorce and bereavement. He drinks about fifty 12 ounces of beer per day. Last time he drank was about 1 to 2 hours prior to presentation. Prior to presentation he drank about 6 to 8 cans of beer. On the day of presentation he reports some withdrawal symptoms of tremors, myalgia; diaphoresis and body aches. At the time of examination at the emergency department he had received phenobarbital and he reported that his withdrawal symptoms had abated. [facility] Medical History Alcohol abuse Alcohol dependence Depression Hypertension Hyponatremia Smoker Home Medications NK 04/05/21 [History Last Taken Unknown] Allergy/AdvReac Type Severity Reaction Status Date / Time No Known Allergies Allergy Verified 04/26/21 18:19 Family History Father Hypertension Myocardial infarction Heart disease Surgical History History of surgery on upper extremity Hx of hand surgery Hx of knee surgery Social History housing: other details: Lives alone primarily, but notes his son will oc casionally stay with him. Smoking Status: Current every day smoker tobacco type: cigarettes alcohol intake: current alcohol intake frequency: 3 or more drinks per day details: Baseline 40-50, 12 ounce beers daily, attempting to cut back. substance use type: does not use ROS ROS Narrative Constitutional: Denies fever, chills, fatigue, anorexia and change in weight Eyes: Denies blurry vision, change in eye color, change in vision, discharge from eye(s), double vision, erythema, eye pain, loss of vision or other HEENT: Denies abnormal hearing, dysphagia, ear pain, epistaxis, headache(s), hearing loss, nasal congestion, nasal discharge, post nasal drip, sinus pressure, sore throat or other Cardiovascular: Denies chest pain or palpitations. Denies dyspnea on exertion, orthopnea and paroxysmal nocturnal dyspnea Respiratory/Chest: Denies cough, excessive phlegm production, shortness of breath with exertion and wheezing Gastrointestinal: Denies abdominal pain, coffee ground emesis, constipation, diarrhea, dyspepsia, hematemesis, hematochezia, loose stools, melena, nausea, vomiting or other Genitourinary: Denies burning urination, difficulty urinating, dysuria, hematuria, nocturia, urinary frequency, urinary hesitancy, urinary incontinence, urinary urgency or other Musculoskeletal: Reports myalgia. Denies arthralgias, back pain, joint pain, joint stiffness, joint swelling, neck pain or other Neurologic: Reported tremors. Denies abnormal gait, abnormal speech, confusion, disequilibrium, dizziness, focal weakness, headache(s), numbness, paresthesias, seizure-like activity, seizures, syncope, tingling, or other Psychiatric: Denies anxiety, depression, homicidal ideation, suicidal ideation or other Endocrinology: Denies change in body appearance, cold intolerance, excessive sweating, heat intolerance, polydipsia, polyuria or other Hematologic/Lymphatic: Denies anemia, easy bleeding, easy bruising, lymphade nopathy or other Integumentary: Denies rashes Allergic/Immunologic: Denies rhinitis, hives, eczema, or other Vital Signs Vital Signs Vital Signs: 04/26/21 18:18 04/26/21 19:44 04/26/21 19:52 Temperature 98.2 F Temperature Source Temporal Pulse Rate 113 H 104 H 105 H Respiratory Rate 16 18 16 Blood Pressure 124/88 H 140/93 H 140/93 H Blood Pressure Mean 100 108 108 Blood Pressure Source Monitor Blood Pressure Position Semi-Fowlers Blood Pressure Location Left Arm Pulse Ox 97 98 96 Oxygen Delivery Method Room Air Room Air Room Air 04/26/21 21:14 Temperature Temperature Source Pulse Rate 98 Respiratory Rate 18 Blood Pressure Blood Pressure Mean Blood Pressure Source Blood Pressure Position Blood Pressure Location Pulse Ox 99 Oxygen Delivery Method Room Air Weight Weight: 84.822 kg Body Mass Index (BMI) 24.0 Physical Exam Narrative Physical exam: General: Well-nourished, well-developed. Head: Normocephalic, atraumatic, no tenderness Eyes: PERRLA, EOMI ENT, no trauma, moist mucous membranes, no rhinorrhea Neck: Nontender, full range of motion, no spinal tenderness, deformities, step- off CVS: Regular rate and rhythm. S1-S2 present. No murmur, gallop or rub. Respiratory : clear to auscultation bilaterally, chest wall nontender, no wheezing Abdomen: Soft, nontender, nondistended, normal bowel sounds, no masses : Deferred Back: Nontender, no CVA tenderness, no midline spinal tenderness, deformities, step-offs Extremities: Nontender full range of motion, no trauma Skin: Normal color, no trauma, abrasions Neuro: Alert, oriented, cranial nerves II through XII grossly intact. Asterixis present. Psychiatry: Normal mood. Normal affect. Not depressed. Not anxious. Results Lab / Micro Data Result Diagrams: 04/26/21 20:25 04/26/21 20:25 Labs: Laboratory Results - last 24 hr 04/26/21 20:25: WBC 5.2, RBC 4.97, Hgb 16.5, Hct 46.4, MCV 93.4, MCH 33.2 H, MCHC 35.6, RDW Std Deviation 45.9 H, RDW Coeff of Danial 13.3, Plt Count 233, MPV 10.1, Immature Gran % (Auto) 0.400, Neut % (Auto) 37.7 L, Lymph % (Auto) 50.4 H, [place] % (Auto) 8.9, Eos % (Auto) 1.6, Baso % (Auto) 1.0, Absolute Neuts (auto) 2.0, Absolute Lymphs (auto) 2.60, Nucleated RBC % 0 04/26/21 20:25: Sodium 134 L, Potassium 3.7, Chloride 99, Carbon Dioxide 27.0, Anion Gap 8, BUN 3 L, Creatinine 0.85, Estim Creat Clear Calc 116.85, Est GFR (MDRD) Af Amer 121, Est GFR (MDRD) Non-Af 100, BUN/Creatinine Ratio 3.5 L, Glucose 116 H, Calcium 8.9, Total Bilirubin 0.30, AST 56 H, ALT 71 H, Alkaline Phosphatase 99, Total Protein 7.7, Albumin 3.9, Globulin 3.8, Albumin/Globulin Ratio 1.0, Lipase 214 04/26/21 20:25: Ethyl Alcohol 288.0 04/26/21 20:35: Urine Color Straw, Urine Clarity Clear, Urine pH 6.5, Ur Specific [place] 1.010, Urine Protein Negative, Urine Glucose (UA) Normal, Urine Ketones Negative, Urine Occult Blood Negative, Urine Nitrite Negative, Urine Bilirubin Negative, Urine Urobilinogen Normal, Ur Leukocyte Esterase Negative, Urine RBC 0 SEEN, Urine WBC 0 SEEN, Ur Squamous Epith Cells 0 SEEN, Urine Bacteria 0 SEEN, Urine Mucus 0 SEEN 04/26/21 20:35: Urine Opiates Screen NEGATIVE, Urine Methadone Screen NEGATIVE, Ur Barbiturates Screen POSITIVE H, Ur Phencyclidine Scrn NEGATIVE, Ur Amphetamin es Screen NEGATIVE, MDMA (Ecstasy) Screen NEGATIVE, U Benzodiazepines Scrn NEGATIVE, Urine Cocaine Screen NEGATIVE, U Cannabinoids Screen NEGATIVE, Ur Drug Screen Comment Assessment & Plan Assessment/Plan (1) Admitted to alcohol detoxification center: (2) Alcohol abuse: (3) Alcohol withdrawal: QUALIFIERS: Complication of substance-induced condition: uncomplicated Qualified Code(s): F10.230 - Alcohol dependence with withdrawal, uncomplicated PLAN: Alcohol dependence and desire for detoxification Previous discharge reviewed. Plan was that patient will be accepted back for detoxification if he accepts residential treatment prior to admission. Patient report that arrangement has been made with [facility] for residential treatment after discharge. Patient be started on phenobarbital and other adjunctive medications: Gabapentin as needed; dicyclomine as needed; Vistaril as needed; Imodium as needed; trazodo ne as needed; Zofran as needed; scheduled thiamine; and schedule folic acid. Monitor CIWA score Tobacco abuse Counseled Nicotine patch prescribed. Hypertension His blood pressure is not within goal. Trend blood pressures. DVT prophylaxis Low risk Encourage to ambulate Charges/Coding Visit Charges Inpatient E&M: 95913 Init Hosp L2
--- NOTE | 2021-04-26 22:25 | CM.ED ---
LIN Note LIN called Brenda at [facility] and made referral for patient as he is being admitted for detox. LIN advised of patient's admission and room number in [facility]. Ivon MORTON
[2021-04-26 22:41] VITALS: BP 125/86; PULSE 76; RESP 12; TEMP 36.9
[2021-04-26 22:59] VITALS: BMI 22.6
[2021-04-26 23:06] VITALS: BP 131/94; PULSE 104; RESP 16; TEMP 36.7; O2SAT 97
[2021-04-27 02:55] VITALS: BP 142/98; PULSE 112; RESP 16; TEMP 36.9; O2SAT 96
[2021-04-27] MEDS: Phenobarbital 32.4 MG Tablet PO ×6 (02:55→22:17)
[2021-04-27 06:44] VITALS: BP 148/93; PULSE 96; RESP 18; TEMP 37.2; O2SAT 98
--- NOTE | 2021-04-27 07:43 | PCM.PN.HOSP ---
Subjective Subjective Follow-up on acute alcohol withdrawal: Patient was seen and examined. He complains of tremors, hot and cold flashes. Otherwise no acute events overnight. Objective Data Objective Data Vital Signs: Vital Signs Temp Pulse Resp BP Pulse Ox 99 F 96 18 148/93 H 98 04/27/21 06:44 04/27/21 06:44 04/27/21 06:44 04/27/21 06:44 04/27/21 06:44 Oxygen Delivery Method Room Air Weight: 80 kg Body Mass Index (BMI) 22.6 Lab / Micro Data Result Diagrams: 04/26/21 20:25 04/26/21 20:25 Labs: Laboratory Results - last 24 hr 04/26/21 20:25: WBC 5.2, RBC 4.97, Hgb 16.5, Hct 46.4, MCV 93.4, MCH 33.2 H, MCHC 35.6, RDW Std Deviation 45.9 H, RDW Coeff of Danial 13.3, Plt Count 233, MPV 10.1, Immature Gran % (Auto) 0.400, Neut % (Auto) 37.7 L, Lymph % (Auto) 50.4 H, [place] % (Auto) 8.9, Eos % (Auto) 1.6, Baso % (Auto) 1.0, Absolute Neuts (auto) 2.0, Absolute Lymphs (auto) 2.60, Nucleated RBC % 0 04/26/21 20:25: Sodium 134 L, Potassium 3.7, Chloride 99, Carbon Dioxide 27.0, Anion Gap 8, BUN 3 L, Creatinine 0.85, Estim Creat Clear Calc 116.85, Est GFR (MDRD) Af Amer 121, Est GFR (MDRD) Non-Af 100, BUN/Creatinine Ratio 3.5 L, Glucose 116 H, Calcium 8.9, Total Bilirubin 0.30, AST 56 H, ALT 71 H, Alkaline Phosphatase 99, Total Protein 7.7, Albumin 3.9, Globulin 3.8, Albumin/Globulin Ratio 1.0, Lipase 214 04/26/21 20:25: Ethyl Alcohol 288.0 04/26/21 20:35: Urine Color Straw, Urine Clarity Clear, Urine pH 6.5, Ur Specific [place] 1.010, Urine Protein Negative, Urine Glucose (UA) Normal, Urine Ketones Negative, Urine Occult Blood Negative, Urine Nitrite Negative, Urine Bilirubin Negative, Urine Urobilinogen Normal, Ur Leukocyte Esterase Negative, Urine RBC 0 SEEN, Urine WBC 0 SEEN, Ur Squamous Epith Cells 0 SEEN, Urine Bacteria 0 SEEN, Urine Mucus 0 SEEN 04/26/21 20:35: Urine Opiates Screen NEGATIVE, Urine Methadone Screen NEGATIVE, Ur Barbiturates Screen POSITIVE H, Ur Phencyclidine Scrn NEGATIVE, Ur Amphetamines Screen NEGATIVE, MDMA (Ecstasy) Screen NEGATIVE, U Benzodiazepines Scrn NEGATIVE, Urine Cocaine Screen NEGATIVE, U Cannabinoids Screen NEGATIVE, Ur Drug Screen Comment Physical Exam Narrative Physical exam: General: Alert, Oriented x3, Cooperative, No apparent distress, Well developed HEENT: Atraumatic Oral: Moist Mucosa Neck: Supple Lungs: Clear to auscultation Cardiovascular: HS I+II, regular, no murmurs Abdomen: Bowel Sounds Present, Soft, Non Tender Extremities: No edema Assessment & Plan Assessment/Plan (1) Admitted to alcohol detoxification center: (2) Alcohol abuse: (3) Alcohol withdrawal: QUALIFIERS: Complication of substance-induced condition: uncomplicated Qualified Code(s): F10.230 - Alcohol dependence with withdrawal, uncomplicated PLAN: 1. Acute alcohol withdrawal in a patient with known history of alcohol abuse Admitting CIWA score is 2. Continue on phenobarb taper, folic acid, multivitamin, thiamine 2. Nicotine dependence, continue to replace 3. Hypertension, uncontrolled, will start on amlodipine 5mg daily 4. DVT PPx -Low risk; encourage to ambulate Charges/Coding Visit Charges Inpatient E&M: 08837 Subs Hosp L2
[2021-04-27] MEDS: Folic Acid 1 MG Tablet PO (08:18)
[2021-04-27] MEDS: Thiamine Hydrochloride 100 MG Tablet PO (08:18)
[2021-04-27 10:00] VITALS: BP 150/97; PULSE 97; RESP 16; TEMP 36.6; O2SAT 98
[2021-04-27] MEDS: Nicotine Polacrilex 2 MG GUM PO (10:42)
--- NOTE | 2021-04-27 11:28 | ADDICTION ---
This content writer met with PT to conduct ASAM, MSE, AUDIT assessments and to plan for d/c. PT A+Ox4 and participated actively. All assessments completed and placed in PT's chart. PT plans to f/u [facility]. [facility] has a bed available on Friday morning and will provide transportation post d/c from [facility].
[2021-04-27 14:00] VITALS: BP 156/98; PULSE 93; RESP 16; TEMP 36.9; O2SAT 99
[2021-04-27 17:56] VITALS: BP 138/90; PULSE 89; RESP 16; TEMP 36.8; O2SAT 98
[2021-04-27 22:20] VITALS: BP 138/95; PULSE 71; RESP 18; TEMP 36.6; O2SAT 95
[2021-04-28] MEDS: Phenobarbital 32.4 MG Tablet PO ×6 (02:43→22:16)
[2021-04-28 06:25] VITALS: BP 138/95; PULSE 77; RESP 18; TEMP 36.7; O2SAT 93
--- NOTE | 2021-04-28 07:26 | PCM.PN.HOSP ---
Subjective Subjective Follow-up on acute alcohol withdrawal: Patient was seen and examined. He complains of tremors, hot and cold flashes. Otherwise no acute events overnight. Objective Data Objective Data Vital Signs: Vital Signs Temp Pulse Resp BP Pulse Ox 98.1 F 77 18 138/95 H 93 04/28/21 06:25 04/28/21 06:25 04/28/21 06:25 04/28/21 06:25 04/28/21 06:25 Oxygen Delivery Method Room Air Weight: 80 kg Body Mass Index (BMI) 22.6 Intake & Output: Intake and Output for Last 24 Hours 04/26/21 04/27/21 04/28/21 23:59 23:59 23:59 Intake Total 2099 / 2099 500 / 500 Balance 2099 / 2099 500 / 500 Lab / Micro Data Result Diagrams: 04/26/21 20:25 04/26/21 20:25 Physical Exam Narrative Physical exam: General: Alert, Oriented x3, Cooperative, No apparent distress, Well developed HEENT: Atraumatic Oral: Moist Mucosa Neck: Supple Lungs: Clear to auscultation Cardiovascular: HS I+II, regular, no murmurs Abdomen: Bowel Sounds Present, Soft, Non Tender Extremities: No edema Assessment & Plan Assessment/Plan (1) Admitted to alcohol detoxification center: (2) Alcohol abuse: (3) Alcohol withdrawal: QUALIFIERS: Complication of substance-induced condition: uncomplicated Qualified Code(s): F10.230 - Alcohol dependence with withdrawal, uncomplicated PLAN: 1. Acute alcohol withdrawal, last CIWA score is 5 Continue on phenobarb taper, folic acid, multivitamin, thiamine 2. Nicotine dependence, on replacement 3. Hypertension, uncontrolled, continue on amlodipine 10mg daily 4. DVT PPx -Low risk; encourage to ambulate Charges/Coding Visit Charges Inpatient E&M: 59389 Subs Hosp L2
[2021-04-28 08:00] VITALS: BP 151/101; PULSE 100; RESP 18; TEMP 36.3; O2SAT 96
[2021-04-28] MEDS: Folic Acid 1 MG Tablet PO (08:26)
[2021-04-28] MEDS: Thiamine Hydrochloride 100 MG Tablet PO (08:27)
[2021-04-28] MEDS: amLODIPine 5 MG Tablet PO (08:38)
[2021-04-28 15:46] VITALS: BP 135/102; PULSE 77; RESP 18; TEMP 36.8; O2SAT 96
[2021-04-28 22:23] VITALS: BP 153/105; PULSE 73; RESP 18; TEMP 36.6; O2SAT 98
[2021-04-29] MEDS: Phenobarbital 32.4 MG Tablet PO ×4 (03:13→18:46)
[2021-04-29 03:45] VITALS: BP 134/97; PULSE 73; RESP 16; TEMP 36.8; O2SAT 97
[2021-04-29] MEDS: Thiamine Hydrochloride 100 MG Tablet PO (08:25)
[2021-04-29] MEDS: Folic Acid 1 MG Tablet PO (08:25)
[2021-04-29] MEDS: amLODIPine 10 MG Tablet PO (08:25)
--- NOTE | 2021-04-29 08:27 | PN.HOSP_ITS ---
Subjective Subjective Follow-up on acute alcohol withdrawal: Patient was seen and examined. No acute events overnight. He feels much imp roved. Waiting on a discharge tomorrow to inpatient drug rehab. Objective Data Objective Data Vital Signs: Vital Signs Temp Pulse Resp BP Pulse Ox 98.2 F 73 16 134/97 H 97 04/29/21 03:45 04/29/21 03:45 04/29/21 03:45 04/29/21 03:45 04/29/21 03:45 Oxygen Delivery Method Room Air Weight: 80 kg Body Mass Index (BMI) 22.6 Intake & Output: Intake and Output for Last 24 Hours 04/27/21 04/28/21 04/29/21 23:59 23:59 23:59 Intake Total 2099 / 2099 3500 / 3500 Balance 2099 / 2099 3500 / 3500 Lab / Micro Data Result Diagrams: 04/26/21 20:25 04/26/21 20:25 Physical Exam Narrative Physical exam: General: Alert, Oriented x3, Cooperative, No apparent distress, Well developed HEENT: Atraumatic Oral: Moist Mucosa Neck: Supple Lungs: Clear to auscultation Cardiovascular: HS I+II, regular, no murmurs Abdomen: Bowel Sounds Present, Soft, Non Tender Extremities: No edema Assessment & Plan Assessment/Plan (1) Admitted to alcohol detoxification center: (2) Alcohol abuse: (3) Alcohol withdrawal: QUALIFIERS: Complication of substance-induced condition: uncomplicated Qualified Code(s): F10.230 - Alcohol dependence with withdrawal, uncomplicated PLAN: 1. Acute alcohol withdrawal, improved Continue on phenobarb taper, folic acid, multivitamin, thiamine 2. Nicotine dependence, on replacement 3. Hypertension, uncontrolled, continue on amlodipine 10mg daily 4. DVT PPx -Low risk; encourage to ambulate Charges/Coding Visit Charges Inpatient E&M: 40792 Subs Hosp L1
[2021-04-29 08:29] VITALS: BP 154/98; PULSE 80; RESP 18; TEMP 36.7; O2SAT 100
[2021-04-29 14:30] VITALS: BP 159/98; PULSE 81; RESP 18; TEMP 36.6; O2SAT 98
[2021-04-29 19:38] VITALS: BP 150/104; PULSE 81; RESP 16; TEMP 36.4; O2SAT 98
[2021-04-30] MEDS: Phenobarbital 32.4 MG Tablet PO ×2 (00:49→06:12)
[2021-04-30 02:42] VITALS: BP 129/91; PULSE 67; RESP 16; TEMP 36.3; O2SAT 95
--- NOTE | 2021-04-30 07:30 | PCM.DC ---
Discharge Instructions Diet Discharge Diet: 2000 mg Sodium Diet Activity Discharge Activity: Return to Normal Activity Follow Up Care Test Results: Test results from this visit will be discussed in further detail at your follow-up appointment, if applicable. Discharge Plan Admission Admit Date/Time: 04/26/21 21:27 Primary Reason for Your Visit: Acute alcohol withdrawal Attending Provider: Cindy Pedersen Primary Care Provider: Reynold Gutiérrez,Sayra Primary Instructions Additional Instructions / Restrictions: You are strongly advised to avoid alcohol or use of any illicit drug. Avoid smoking. Follow-up with your inpatient rehab program as scheduled. Discharge Orders/Prescriptions Prescriptions: New amlodipine 10 mg Tablet 10 mg PO DAILY 30 Days Qty: 30 RF: 0 Referrals / Follow Up: Care Physician,No Primary [Primary Care Provider] - Disposition Disposition (needs filled in before D/C Order can be placed): Home, Self Care
--- NOTE | 2021-04-30 07:31 | DS.PCM_ITS ---
Providers Date of Admission: 04/26/21 Date of Discharge: 04/30/21 Primary Care Physician: Sayra Primary Care Phys Reason For Visit: DESIRE FOR DETOXIFICATION Diagnosis Discharge Diagnosis (1) Admitted to alcohol detoxification center: Status: Acute (2) Alcohol abuse: Status: Chronic Code(s): F10.10 - Alcohol abuse, uncomplicated (3) Alcohol withdrawal: Code(s): F10.239 - Alcohol dependence with withdrawal, unspecified Qualifiers: Complication of substance-induced condition: uncomplicated Qualified Code(s): F10.230 - Alcohol dependence with withdrawal, uncomplicated Medications at Discharge Home Medications amlodipine 10 mg PO DAILY 30 Days #30 tab 04/30/21 Hospital Course Operations None Procedures None Summary of Care Provided Minutes Spent on Discharge: 25 Hospital Course: 51-year-old male with past medical history of alcohol abuse, hypertension who comes in requesting for medical stabilization for acute alcohol withdrawal. 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 He later on resumed drinking. He admits to drinking about 5012 ounces of beer a day. [facility] and managed for acute alcohol withdrawal. Patient was managed on the phenobarbital withdrawal protocol. He did very well. He was seen by the electric utility lineworker and will be discharged to an inpatient drug rehab treatment place. On the day of discharge, patient was seen and examined. He denied any new complaints. He was seen walking around the unit several times. Physical Exam Narrative Physical exam: General: Alert, Oriented x3, Cooperative, No apparent distress, Well developed HEENT: Atraumatic Oral: Moist Mucosa Neck: Supple Lungs: Clear to auscultation Cardiovascular: HS I+II, regular, no murmurs Abdomen: Bowel Sounds Present, Soft, Non Tender Extremities: No edema Weight / BMI Weight Weight: 80 kg Body Mass Index (BMI) 22.6 ABG / Lab / Microbiology Data Result Diagrams: 04/26/21 20:25 04/26/21 20:25 D/C Instructions Discharge Diet: 2000 mg Sodium Diet Meaningful Use Info Meaningful Use Diagnoses (Choose all that apply): None applicable Discharge Plan Admission Admit Date/Time: 04/26/21 21:27 Primary Reason for Your Visit: Acute alcohol withdrawal Attending Provider: Cindy Pedersen Primary Care Provider: Care Physician,No Primary Instructions Additional Instructions / Restrictions: You are strongly advised to avoid alcohol or use of any illicit drug. Avoid smoking. Follow-up with your inpatient rehab program as scheduled. Discharge Orders/Prescriptions Prescriptions: New amlodipine 10 mg Tablet 10 mg PO DAILY 30 Days Qty: 30 RF: 0 Referrals / Follow Up: Care Physician,No Primary [Primary Care Provider] - Disposition Disposition (needs filled in before D/C Order can be placed): Home, Self Care Charges/Coding Visit Charges Inpatient E&M: 59640 Disch Hosp
[2021-04-30 08:20] VITALS: BP 140/101; PULSE 73; RESP 16; TEMP 36.3; O2SAT 97
[2021-04-30] MEDS: amLODIPine 10 MG Tablet PO (08:25)
[2021-04-30] MEDS: Thiamine Hydrochloride 100 MG Tablet PO (08:25)
[2021-04-30] MEDS: Folic Acid 1 MG Tablet PO (08:25)
[2021-04-30 11:45] VITALS: BP 132/92; PULSE 77; RESP 16; TEMP 36.6; O2SAT 100
== END 2021-04-30 12:15 | DRG 772 ==
LOC: ED 21:31 → MS3 22:15
PROVIDERS: Admitting Provider Hospitalist; Emergency Provider Emergency Medicine; Visit Provider Internal Medicine
DX: F10.230 Alcohol dependence with withdrawal, uncomplicated (principal); F17.210 Nicotine dependence, cigarettes, uncomplicated; I10 Essential (primary) hypertension; Y90.8 Blood alcohol level of 240 mg/100 ml or more
CPT/HCPCS: 80053; 80307; 81001; 82077; 83690; 85025; 99285; A4216

== ENCOUNTER 2021-07-30 17:04 | Inpatient (IN) | payer MEDICAID, SELFPAY ==
[2021-07-30 17:04] VITALS: BP 149/100; PULSE 98; RESP 16; TEMP 36.6; O2SAT 98; BMI 23.7
--- NOTE | 2021-07-30 17:26 | EX.ED.SAOD ---
HPI History of Present Illness Chief Complaint: Substance Abuse Narrative Narrative: 51-year-old male with history of EtOH abuse presenting for detox. He states he typically drinks about 20 beers a day. He denies other alcohol. He denies drug use. Patient states he recently detoxed but has been drinking about 3 months since his last detox. He states his last drink was yesterday prior to arrival and he already feels as if he is withdrawing a little bit. PFSH PFSH Medical History Alcohol abuse Alcohol dependence Alcohol withdrawal Alcoholic hepatitis Depression Hypertension Hyponatremia Smoker Home Medications amlodipine 10 mg tablet 10 mg PO DAILY BP 07/30/21 [History Last Taken Unknown] Allergy/AdvReac Type Severity Reaction Status Date / Time No Known Allergies Allergy Verified 07/30/21 17:06 Family History Father Hypertension Myocardial infarction Heart disease Surgical History History of surgery on upper extremity Hx of hand surgery Hx of knee surgery Social History housing: other details: Lives alone primarily, but notes his son will occasionally stay with him. Smoking Status: Current every day smoker tobacco type: cigarettes alcohol intake: current alcohol intake frequency: 3 or more drinks per day details: Baseline 40-50, 12 ounce beers daily, attempting to cut back. substance use type: does not use ROS ROS ED Constitutional Constitutional ED: Reports other Details: Shakiness ; Denies chills, fever(s) or sweats Eyes Eyes: Denies blurry vision or change in vision ENT ENT ED: Denies ear pain, rhinorrhea or sore throat Cardiovascular Cardiovascular: Denies chest pain, palpitations or racing heartbeat Respiratory/Chest Respiratory/Chest: Denies cough, dyspnea or sputum Gastrointestinal Gastrointestinal: Denies abdominal pain, constipation, diarrhea or vomiting Genitourinary Genitourinary ED: Denies dysuria, hematuria or urinary frequency Musculoskeletal Musculoskeletal: Denies arthralgias, myalgias or neck pain Integumentary Denies abscess, Abrasions or rash Neurologic Neurologic: Denies headache(s), paresthesias or weakness Psychiatric Psychiatric: Reports anxiety; Denies depression, suicidal ideation or suicidal thoughts Endocrine Endocrinology: Denies polydipsia or polyuria EXAM Physical Exam Const Vital Signs: 07/30/21 17:04 Temperature 97.8 F Temperature Source Temporal Pulse Rate 98 Respiratory Rate 16 Blood Pressure 149/100 H Blood Pressure Mean 116 Pulse Ox 98 Oxygen Delivery Method Room Air Positive well nourished General Appearance ED: Negative for pallor HEENT Reports normocephalic, head/scalp atraumatic and moist mucous membranes Eyes PERRL and EOMs intact bilaterally Neck no lymphadenopathy and supple Chest Wall inspection of chest normal and palpation of chest normal Resp normal respiratory effort and clear to auscultation bilaterally Auscultation: Negative for rales, rhonchi or wheezes Cardio regular rate and regular rhythm GI normal to inspection, nondistended, normoactive bowel sounds and non-distended Auscultation: normoactive bowel sounds Palpation: soft Narrative: Deferred Extremity normal to inspection General Extremety ED: Yes edema and tenderness General Extremity: edema Neuro oriented x3 and CN's II-XII intact bilaterally Sensorium / Orientation: alert Motor Exam: strength 5/5 throughout Psych mental status grossly normal Attitude: No agitated Skin no rashes or lesions noted and no wounds General Skin Exam: Negative for jaundice or pallor MDM MDM MDM Narrative Medical decision making narrative: Presenting for detox. He states he drinks 20 beers a day. Last drink before he came in. EtOH is 273. CBC and CMP are unremarkable. Urine drug screen negative. Patient states he was feeling a little shaky like he was withdrawing and he was given 2 of Ativan IV. Patient remained stable emergency room. Discussed with hospitalist for admission. Impression: 1. EtOH abuse 2. EtOH intoxication 3. Presentation for EtOH detox Lab Data Labs: Laboratory Results - last 24 hr 07/30/21 07/30/21 07/30/21 17:29 17:29 17:29 WBC 5.9 RBC 5.52 Hgb 17.8 H Hct 50.8 MCV 92.0 MCH 32.2 H MCHC 35.0 RDW Std Deviation 46.6 H RDW Coeff of Danial 13.6 Plt Count 213 MPV 9.6 Immature Gran % (Auto) 0.200 Neut % (Auto) 44.0 L Lymph % (Auto) 43.8 H [place] % (Auto) 9.5 Eos % (Auto) 1.5 Baso % (Auto) 1.0 Absolute Neuts (auto) 2.6 Absolute Lymphs (auto) 2.59 Nucleated RBC % 0 Sodium 135 L Potassium 3.8 Chloride 99 Carbon Dioxide 28.0 Anion Gap 8 BUN 4 L Creatinine 0.71 Estim Creat Clear Calc 139.89 Est GFR (MDRD) Af Amer 148 Est GFR (MDRD) Non-Af 122 BUN/Creatinine Ratio 5.6 L Glucose 95 Calcium 9.0 Total Bilirubin 0.40 AST 29 ALT 31 Alkaline Phosphatase 62 Total Protein 7.8 Albumin 4.1 Globulin 3.7 Albumin/Globulin Ratio 1.1 Urine Opiates Screen Urine Methadone Screen Ur Barbiturates Screen Ur Phencyclidine Scrn Ur Amphetamines Screen MDMA (Ecstasy) Screen U Benzodiazepines Scrn Urine Cocaine Screen U Cannabinoids Screen Ur Drug Screen Comment Ethyl Alcohol 273.0 07/30/21 17:30 WBC RBC Hgb Hct MCV MCH MCHC RDW Std Deviation RDW Coeff of Danial Plt Count MPV Immature Gran % (Auto) Neut % (Auto) Lymph % (Auto) [place] % (Auto) Eos % (Auto) Baso % (Auto) Absolute Neuts (auto) Absolute Lymphs (auto) Nucleated RBC % Sodium Potassium Chloride Carbon Dioxide Anion Gap BUN Creatinine Estim Creat Clear Calc Est GFR (MDRD) Af Amer Est GFR (MDRD) Non-Af BUN/Creatinine Ratio Glucose Calcium Total Bilirubin AST ALT Alkaline Phosphatase Total Protein Albumin Globulin Albumin/Globulin Ratio Urine Opiates Screen NEGATIVE Urine Methadone Screen NEGATIVE Ur Barbiturates Screen NEGATIVE Ur Phencyclidine Scrn NEGATIVE Ur Amphetamines Screen NEGATIVE MDMA (Ecstasy) Screen NEGATIVE U Benzodiazepines Scrn NEGATIVE Urine Cocaine Screen NEGATIVE U Cannabinoids Screen NEGATIVE Ur Drug Screen Comment Ethyl Alcohol Discharge Plan Triage Chief Complaint: Substance Abuse ED Provider: Koby Edwards Dx/Rx/DC Orders Primary Care Provider: Care Physician,No Primary
--- NOTE | 2021-07-30 17:37 | CM.ED ---
Addendum entered by Nae Iglesias 07/30/21 18:17: Ivon MARIA provided pt with PCP list. Original Note: Social Work Note Reason for Referral: ETOH SW reviewed chart, pt is at [facility] for ETOH detox. Ivon MARIA met with pt. PT state that he drinks 20 beers a day and states that he has been clean 5 months. Pt states that he recently started drinking for the last week and he can't stop. Pt state that he went to [facility] for 1 month last time and is interested in going back to [facility]. LIN placed a call to treatment navigator and Reza answered and transferred this worker to Layla's voicemail. SW left voicemail for Layla updated her on pt's admission to [facility] for RAMP. Plan: CLARIBEL Iglesias [employer], [employer]
[2021-07-30 17:40] LABS: Absolute Lymphocyte Count 2.59 X10^3/uL (0.83-4.51); Absolute Neutrophil Count 2.6 X10^3/uL (2.0-7.7); Basophil# 0.06 X10^3/uL; Eosinophil# 0.09 X10^3/uL; Eosinophils% 1.5 % (0-5); Hematocrit 50.8 % (40-54); Hemoglobin 17.8 g/dL (13.0-16.5); Lymphocyte # 2.59 X10^3/ul (0.83-4.51); Lymphocyte % 43.8 % (19-41); Mean Corpuscular Hgb 32.2 pg (27.0-32.0); Mean Platelet Vol. 9.6 fl (6.2-12.0); Monocyte# 0.56 X10^3/uL; Monocyte% 9.5 % (0-10); NRBC Flagged by Analyzer 0 % (0-5); Platelet Count 213 K/mm3 (150-450); RBC Distribution Width CV 13.6 % (11.6-14.6); RBC Distribution Width SD 46.6 fl (35.1-43.9); Red Blood Count 5.52 M/mm3 (4.6-6.2); White Blood Count 5.9 K/mm3 (4.4-11.0)
[2021-07-30 17:54] LABS: ALB/GLOB Ratio 1.1 RATIO (0.9-2.4); AST(SGOT) 29 U/L (15-37); Alanine Aminotransfer ALT/SGPT 31 U/L (16-61); Albumin, Serum 4.1 g/dL (3.2-5.0); Alkaline Phosphatase 62 U/L (45-117); Anion Gap 8 (5-15); BUN 4 mg/dL (7-18); BUN/Creat Ratio 5.6 RATIO (10-20); Chloride 99 mmol/L (98-107); Creatinine, Serum 0.71 mg/dL (0.70-1.30); EST Glomerular Filtration Rate 122 mL/min (>60); Est Glom Filt Rate - Afr Amer 148 mL/min (>60); Estimated Creatinine Clearance 139.89 ml/min; Globulin 3.7 g/dL (2.2-4.2); Glucose 95 mg/dL (74-106); Potassium 3.8 mmol/L (3.5-5.1); Protein, Total 7.8 g/dL (6.4-8.2); Sodium Level 135 mmol/L (136-145)
[2021-07-30] MEDS: LORazepam 2 MG/ML Syringe IV (17:54)
--- NOTE | 2021-07-30 18:23 | HP.PCM_ITS ---
Documented by User: ONIEL MartínezC 07/30/21 18:29 HPI - General General Date of Admission: 07/30/21 Date of Service: 07/30/21 Chief Complaint: Desire for detox from alcohol HPI Narrative DIANE POWERS, is a 51 M who presents with desire to detox from alcohol. Patient has went through detox at this facility twice already this year but he is unable to stay sober once he goes home. Patient reports that he also has a history of hypertension although he admits that he does not always take his blood pressure medication. [facility] Medical History Alcohol abuse Alcohol dependence Alcohol withdrawal Alcoholic hepatitis Depression Hypertension Hyponatremia Smoker Home Medications amlodipine 10 mg tablet 10 mg PO DAILY BP 07/30/21 [History Last Taken Unknown] Allergy/AdvReac Type Severity Reaction Status Date / Time No Known Allergies Allergy Verified 07/30/21 17:06 Family History Father Hypertension Myocardial infarction Heart disease Surgical History History of surgery on upper extremity Hx of hand surgery Hx of knee surgery Social History housing: other details: Lives alone primarily, but notes his son will occasionally stay with him. Smoking Status: Current every day smoker tobacco type: cigarettes alcohol intake: current alcohol intake frequency: 3 or more drinks per day details: Baseline 40-50, 12 ounce beers daily, attempting to cut back. substance use type: does not use ROS Constitutional Constitutional: Denies anorexia, chills, fever(s), malaise or weakness Cardiovascular Cardiovascular: Denies chest pain, edema, palpitations or syncope Respiratory/Chest Respiratory/Chest: Denies cough, shortness of breath at rest, shortness of breath with exertion or wheezing Gastrointestinal Gastrointestinal: Denies abdominal pain, constipation, diarrhea, nausea or vomiting Genitourinary Genitourinary: Denies dysuria Musculoskeletal Musculoskeletal: Denies back pain, extremity pain, joint pain or joint stiffness Integumentary Integumentary: Denies dry skin, jaundice, lesions or pruritus Neurologic Neurologic: Denies abnormal gait, abnormal speech, confusion or dizziness Psychiatric Psychiatric: Denies anxiety Endocrine Endocrinology: Denies change in body appearance Hematologic/Lymphatic Hematologic/Lymphatic: Denies anemia Vital Signs Vital Signs Vital Signs: 07/30/21 17:04 Temperature 97.8 F Temperature Source Temporal Pulse Rate 98 Respiratory Rate 16 Blood Pressure 149/100 H Blood Pressure Mean 116 Pulse Ox 98 Oxygen Delivery Method Room Air Weight Weight: 185 lb Body Mass Index (BMI) 23.7 Physical Exam Const alert and oriented x3 General Appearance: cooperative HEENT normocephalic and head/scalp atraumatic Eyes conjunctivae normal and no scleral icterus Neck no lymphadenopathy and supple General: trachea midline Resp normal respiratory effort, normal air movement and clear to auscultation bilaterally Cardio regular rate, regular rhythm, S1 normal heart sound, S2 normal heart sound and peripheral pulses 2+ throughout GI normal to inspection, nondistended, normoactive bowel sounds, soft to palpation and non-tender Extremity normal capillary refill and no clubbing, cyanosis or edema Skin General Skin Exam: no breakdown Lesions: no lesions Rashes: no rashes Neuro no focal motor deficits and no sensory deficits noted Speech: speech normal Psych cooperative and affect normal Psych Narrative: Patient intoxicated during exam Results Lab / Micro Data Result Diagrams: 07/30/21 17:29 07/30/21 17:29 Labs: Laboratory Results - last 24 hr 07/30/21 17:29: WBC 5.9, RBC 5.52, Hgb 17.8 H, Hct 50.8, MCV 92.0, MCH 32.2 H, MCHC 35.0, RDW Std Deviation 46.6 H, RDW Coeff of Danial 13.6, Plt Count 213, MPV 9.6, Immature Gran % (Auto) 0.200, Neut % (Auto) 44.0 L, Lymph % (Auto) 43.8 H, [place] % (Auto) 9.5, Eos % (Auto) 1.5, Baso % (Auto) 1.0, Absolute Neuts (auto) 2.6, Absolute Lymphs (auto) 2.59, Nucleated RBC % 0 07/30/21 17:29: Sodium 135 L, Potassium 3.8, Chloride 99, Carbon Dioxide 28.0, Anion Gap 8, BUN 4 L, Creatinine 0.71, Estim Creat Clear Calc 139.89, Est GFR (MDRD) Af Amer 148, Est GFR (MDRD) Non-Af 122, BUN/Creatinine Ratio 5.6 L, Glucose 95, Calcium 9.0, Total Bilirubin 0.40, AST 29, ALT 31, Alkaline Phosphatase 62, Total Protein 7.8, Albumin 4.1, Globulin 3.7, Albumin/Globulin Ratio 1.1 07/30/21 17:30: Ur Drug Screen Comment Assessment & Plan Assessment/Plan (1) Alcohol abuse: PLAN: Plan 1. Desire to detox from alcohol -Admit to MedSurg -Phenobarbital taper per protocol -Supportive medications ordered per protocol -Case management consulted 2. Tobacco abuse -Encourage cessation -Nicotine patch 3. Hypertension -Continue amlodipine 10 mg p.o. daily -Vital signs per protocol, patient's blood pressure mildly elevated at 149/100 upon arrival to ER DVT prophylaxis-not indicated, encourage ambulation This patient was seen by RANDA Martínez under the supervision of Dr. Hewitt. 27 minutes spent in clinical coordination of patient's plan of care. Documented by User: Dr. Stew Hewitt DO 07/30/21 19:53 HPI - General General Date of Admission: 07/30/21 [facility] Medical History Alcohol abuse Alcohol dependence Alcohol withdrawal Alcoholic hepatitis Depression Hypertension Hyponatremia Smoker Home Medications amlodipine 10 mg tablet 10 mg PO DAILY BP 07/30/21 [History Last Taken Unknown] Allergy/AdvReac Type Severity Reaction Status Date / Time No Known Allergies Allergy Verified 07/30/21 17:06 Family History Father Hypertension Myocardial infarction Heart disease Surgical History History of surgery on upper extremity Hx of hand surgery Hx of knee surgery Social History housing: other details: Lives alone primarily, but notes his son will occasiona lly stay with him. Smoking Status: Current every day smoker tobacco type: cigarettes alcohol intake: current alcohol intake frequency: 3 or more drinks per day details: Baseline 40-50, 12 ounce beers daily, attempting to cut back. substance use type: does not use Results Lab / Micro Data Result Diagrams: 07/30/21 17:29 07/30/21 17:29 Assessment & Plan Assessment/Plan (1) Alcohol abuse: Charges/Coding Addendum Addendum: Was seen and examined today independently of Darby Pond, he came to the ER today at [facility] requesting services for alcohol detox. Patient admits to drinking approximately 20 beers a day, he denies any other illicit drug usage. Patient has undergone detox services before-he states 3 times at all. Patient admits to drinking today prior to coming to the emergency room. On examination he appeared his stated age, he does not appear to be in any distress. Vital signs as documented. Skin warm and dry and without overt rashes. Neck without JVD, neck was supple, trachea midline, thyroid was normal. Lungs clear bilaterally, normal air movement was noted. Heart exam notable for regular rhythm, normal sounds and absence of murmurs, rubs or gallops. Abdomen unremarkable and without evidence of organomegaly, masses, or abdominal aortic enlargement. Bowel sounds are present, abdomen is not distended. Extremities nonedematous, no cyanosis was noted, no clubbing was noted. Neuro: Cranial nerves II through XII are grossly intact, no focal motor deficits were noted, sensation to light touch and pinprick intact, motor exam 5/5 throughout. Psych: Patient is alert and oriented x3, he does not appear anxious or depressed, he does not appear agitated. Patient's talk screen was negative for all substances tested, his alcohol level however was 273. Impression: #1 chronic alcoholism requesting services for alcohol detox-patient was admitted to [facility], orders were entered using the alcohol detox order set, patient will be seen by addiction social service manager. Patient states he wants to go into an inpatient detox program. #2 essential hypertension-patient is on Norvasc at this time I have reviewed Darby Pond's history and physical including her medical assessment and plan of care and with the above additions endorse it. Total cl inical time spent by myself addressing the patient's medical issues, reviewing the data, and collaborating with the patient's care team: 43-minutes Visit Charges Inpatient E&M: 82821 Init Hosp L3
[2021-07-30 18:35] LABS: Amphetamine Urine VISTA NEGATIVE (<1000 ng/mL); Barbiturate Urine VISTA NEGATIVE (< 200 ng/mL); Benzodiazepine Urine VISTA NEGATIVE (< 200 ng/mL); Cocaine Urine VISTA NEGATIVE (< 300 ng/mL); Ecstacy Urine VISTA NEGATIVE (< 500 ng/mL); Methadone Urine VISTA NEGATIVE (< 300 ng/mL); PCP Urine VISTA NEGATIVE (< 25 ng/mL); THC Urine VISTA NEGATIVE (< 50 ng/mL); Vista UDS pH Range 7
[2021-07-30 18:43] VITALS: BP 135/89; PULSE 90; RESP 17; TEMP 36.9; O2SAT 99
[2021-07-30 18:58] VITALS: BMI 22.1
[2021-07-30 19:05] VITALS: BP 135/94; PULSE 106; RESP 16; TEMP 36.6; O2SAT 97
[2021-07-30 20:10] VITALS: O2SAT 97
[2021-07-30] MEDS: Phenobarbital 32.4 MG Tablet 64.8 MG PO (20:23)
[2021-07-31] VITALS (7 sets, daily range): BP systolic 128–153; BP diastolic 76–103; PULSE 84–104; RESP 16–18; TEMP 36.6–37.1; O2SAT 95–99
[2021-07-31] MEDS: Phenobarbital 32.4 MG Tablet 64.8 MG PO ×6 (00:10→20:46)
[2021-07-31] MEDS: amLODIPine 10 MG Tablet PO (08:27)
[2021-07-31] MEDS: Ondansetron 8 MG Tablet PO ×2 (08:27→16:19)
[2021-07-31] MEDS: Dicyclomine 10 MG Capsule 20 MG PO ×2 (08:27→16:19)
[2021-07-31] MEDS: Acetaminophen 325 MG Tablet 650 MG PO (08:28)
[2021-07-31] MEDS: hydrOXYzine PAM 25 MG Capsule 50 MG PO ×3 (08:28→16:19)
[2021-07-31] MEDS: Folic Acid 1 MG Tablet PO (08:28)
[2021-07-31] MEDS: Thiamine Hydrochloride 100 MG Tablet PO (08:28)
[2021-07-31] MEDS: Nicotine Polacrilex 2 MG GUM PO ×4 (08:29→20:50)
--- NOTE | 2021-07-31 12:03 | PN.HOSP_ITS ---
Subjective Subjective Patient seen and examined. Patient sitting in bed no distress noted. Patient reporting mild symptoms Objective Data Objective Data Vital Signs: Vital Signs Temp Pulse Resp BP Pulse Ox 98.0 F 92 18 135/101 H 98 07/31/21 08:18 07/31/21 08:18 07/31/21 08:18 07/31/21 08:18 07/31/21 08:18 Oxygen Delivery Method Room Air Weight: 172 lb 4.8 oz Body Mass Index (BMI) 22.1 Lab / Micro Data Result Diagrams: 07/30/21 17:29 07/30/21 17:29 Labs: Laboratory Results - last 24 hr 07/30/21 17:29: WBC 5.9, RBC 5.52, Hgb 17.8 H, Hct 50.8, MCV 92.0, MCH 32.2 H, MCHC 35.0, RDW Std Deviation 46.6 H, RDW Coeff of Danial 13.6, Plt Count 213, MPV 9 .6, Immature Gran % (Auto) 0.200, Neut % (Auto) 44.0 L, Lymph % (Auto) 43.8 H, [place] % (Auto) 9.5, Eos % (Auto) 1.5, Baso % (Auto) 1.0, Absolute Neuts (auto) 2.6, Absolute Lymphs (auto) 2.59, Nucleated RBC % 0 07/30/21 17:29: Sodium 135 L, Potassium 3.8, Chloride 99, Carbon Dioxide 28.0, Anion Gap 8, BUN 4 L, Creatinine 0.71, Estim Creat Clear Calc 139.89, Est GFR (MDRD) Af Amer 148, Est GFR (MDRD) Non-Af 122, BUN/Creatinine Ratio 5.6 L, Glucose 95, Calcium 9.0, Total Bilirubin 0.40, AST 29, ALT 31, Alkaline Phosphatase 62, Total Protein 7.8, Albumin 4.1, Globulin 3.7, Albumin/Globulin Ratio 1.1 07/30/21 17:29: Ethyl Alcohol 273.0 07/30/21 17:30: Urine Opiates Screen NEGATIVE, Urine Methadone Screen NEGATIVE, Ur Barbiturates Screen NEGATIVE, Ur Phencyclidine Scrn NEGATIVE, Ur Amphetamines Screen NEGATIVE, MDMA (Ecstasy) Screen NEGATIVE, U Benzodiazepines Scrn NEGATIVE, Urine Cocaine Screen NEGATIVE, U Cannabinoids Screen NEGATIVE, Ur Drug Screen Comment Physical Exam Const alert and oriented x3 General Appearance: cooperative HEENT normocephalic and head/scalp atraumatic Eyes conjunctivae normal and no scleral icterus Neck no lymphadenopathy and supple General: trachea midline Resp normal respiratory effort, normal air movement and clear to auscultation bilaterally Cardio regular rate, regular rhythm, S1 normal heart sound, S2 normal heart sound and peripheral pulses 2+ throughout GI normal to inspection, nondistended, normoactive bowel sounds, soft to palpation and non-tender Extremity normal capillary refill and no clubbing, cyanosis or edema Skin General Skin Exam: no breakdown Lesions: no lesions Rashes: no rashes Neuro no focal motor deficits and no sensory deficits noted Speech: speech normal Psych cooperative and affect normal Psych Narrative: Patient intoxicated during exam Assessment & Plan Assessment/Plan (1) Alcohol abuse: PLAN: Plan 1.? Desire to detox from alcohol -Phenobarbital taper per protocol -Supportive medications ordered per protocol -Case management consulted 2.? Tobacco abuse -Encourage cessation -Nicotine patch 3.? Hypertension -Continue amlodipine 10 mg p.o. daily -Vital signs per protocol, patient's blood pressure improved slightly with an reinitiation of amlodipine -As needed hydralazine DVT prophylaxis-not indicated, encourage ambulation This patient was seen by ONIEL MartínezC under the supervision of Dr. Hewitt. 13 minutes spent in clinical coordination of patient's plan of care.
--- NOTE | 2021-07-31 14:59 | ADDICTION ---
This teletypewriter operator met with PT to conduct ASAM, MSE, AUDIT assessments and to plan for d/c. PT A+Ox4 and participated actively. All assessments completed and placed in PT's chart. PT plans to f/u with [facility] for residential [facility] services. [facility] post d[facility]c from [facility].
[2021-08-01 00:42] VITALS: BP 129/96; PULSE 87; RESP 16; TEMP 36.4; O2SAT 94
[2021-08-01] MEDS: Nicotine Polacrilex 2 MG GUM PO ×2 (00:49→08:33)
[2021-08-01] MEDS: Phenobarbital 32.4 MG Tablet 64.8 MG PO ×3 (00:49→08:33)
[2021-08-01 04:56] VITALS: BP 139/96; PULSE 78; RESP 16; TEMP 36.4; O2SAT 95
[2021-08-01 08:30] VITALS: BP 131/96; PULSE 81; RESP 18; TEMP 36.2; O2SAT 97
[2021-08-01] MEDS: Thiamine Hydrochloride 100 MG Tablet PO (08:32)
[2021-08-01] MEDS: Folic Acid 1 MG Tablet PO (08:32)
[2021-08-01] MEDS: amLODIPine 10 MG Tablet PO (08:33)
--- NOTE | 2021-08-01 08:55 | NURSING ---
swati from [facility] called in for screening with patient.
--- NOTE | 2021-08-01 09:49 | DCINST_ITS ---
Discharge Instructions Diet Discharge Diet: No restrictions Activity Discharge Activity: Return to Normal Activity Dressing / Incision Call your doctor if you observe: Dizziness, Chest pain and Uncontrolled pain Follow Up Care Test Results: Test results from this visit will be discussed in further detail at your follow- up appointment, if applicable. Discharge Plan Admission Admit Date/Time: 07/30/21 18:18 Primary Reason for Your Visit: ETOH detox Attending Provider: Stew Hewitt Primary Care Provider: Care Physician,No Primary Discharge Orders/Prescriptions Prescriptions: New amlodipine 10 mg Tablet 10 mg PO DAILY 30 Days Qty: 30 2RF nicotine 21 mg/24 hr Patch 24 Hour 21 mg transdermal DAILY 30 Days Qty: 30 0RF Discontinued amlodipine 10 mg tablet 10 mg PO DAILY Referrals / Follow Up: Care Physician,No Primary [Primary Care Provider] - Disposition Disposition (needs filled in before D/C Order can be placed): Inpatient Rehab Unit/Facility
[2021-08-01 09:50] VITALS: O2SAT 95
--- NOTE | 2021-08-01 09:56 | DS.PCM_ITS ---
Documented by User: RANDA Martínez 08/01/21 09:59 Providers Date of Admission: 07/30/21 Date of Discharge: 08/01/21 Primary Care Physician: No Primary Care Phys Reason For Visit: ALCOHOL DETOX Diagnosis Discharge Diagnosis (1) Alcohol abuse: Status: Chronic Code(s): F10.10 - Alcohol abuse, uncomplicated Plan 1.? Desire to detox from alcohol -Phenobarbital taper per protocol -Supportive medications ordered per protocol -Case management consulted 2.? Tobacco abuse -Encourage cessation -Nicotine patch 3.? Hypertension -Continue amlodipine 10 mg p.o. daily -Vital signs per protocol, patient's blood pressure improved slightly with an reinitiation of amlodipine -As needed hydralazine DVT prophylaxis-not indicated, encourage ambulation This patient was seen by RANDA Martínez under the supervision of Dr. Hewitt. 13 minutes spent in clinical coordination of patient's plan of care. Medications at Discharge Home Medications amlodipine 10 mg tablet 10 mg PO DAILY 30 days #30 tabs 08/01/21 nicotine 21 mg/24 hr daily transdermal patch 21 mg transdermal DAILY 30 days #30 ea 08/01/21 Hospital Course Operations None Procedures None Summary of Care Provided Minutes Spent on Discharge: 35 Hospital Course: Patient is a 51-year-old male who originally presented to the ER for detoxification from alcohol. Patient has been here multiple times in the past and has followed up outpatient. Patient will go to inpatient rehab facility immediately following discharge. Patient will be continued on his amlodipine as well as a nicotine patch. Physical Exam Const alert and oriented x3 General Appearance: cooperative HEENT normocephalic and head/scalp atraumatic Eyes conjunctivae normal and no scleral icterus Neck no lymphadenopathy and supple General: trachea midline Resp normal respiratory effort, normal air movement and clear to auscultation bilaterally Cardio regular rate, regular rhythm, S1 normal heart sound, S2 normal heart sound and peripheral pulses 2+ throughout GI normal to inspection, nondistended, normoactive bowel sounds, soft to palpation and non-tender Extremity normal capillary refill and no clubbing, cyanosis or edema Skin General Skin Exam: no breakdown Lesions: no lesions Rashes: no rashes Neuro no focal motor deficits and no sensory deficits noted Speech: speech normal Psych cooperative and affect normal Psych Narrative: Patient intoxicated during exam Weight / BMI Weight Weight: 172 lb 4.8 oz Body Mass Index (BMI) 22.1 ABG / Lab / Microbiology Data Result Diagrams: 07/30/21 17:29 07/30/21 17:29 D/C Instructions Discharge Diet: No restrictions Call your doctor if you observe: Dizziness, Chest pain and Uncontrolled pain Meaningful Use Info Meaningful Use Diagnoses (Choose all that apply): None applicable Discharge Plan Admission Admit Date/Time: 07/30/21 18:18 Primary Reason for Your Visit: ETOH detox Attending Provider: Stew Hewitt Primary Care Provider: Care Physician,No Primary Discharge Orders/Prescriptions Prescriptions: New amlodipine 10 mg Tablet 10 mg PO DAILY 30 Days Qty: 30 2RF nicotine 21 mg/24 hr Patch 24 Hour 21 mg transdermal DAILY 30 Days Qty: 30 0RF Discontinued amlodipine 10 mg tablet 10 mg PO DAILY Referrals / Follow Up: Care Physician,Sayra Primary [Primary Care Provider] - Disposition Disposition (needs filled in before D/C Order can be placed): Inpatient Rehab Unit/Facility Documented by User: Dr. Stew Hewitt DO 08/02/21 17:41 Providers Date of Admission: 07/30/21 Reason For Visit: ALCOHOL DETOX Diagnosis Discharge Diagnosis (1) Alcohol abuse: Status: Chronic Code(s): F10.10 - Alcohol abuse, uncomplicated Medications at Discharge Home Medications amlodipine 10 mg tablet 10 mg PO DAILY 30 days #30 tabs 08/01/21 nicotine 21 mg/24 hr daily transdermal patch 21 mg transdermal DAILY 30 days #30 ea 08/01/21 ABG / Lab / Microbiology Data Result Diagrams: 07/30/21 17:29 07/30/21 17:29 Discharge Plan Admission Admit Date/Time: 07/30/21 18:18 Primary Reason for Your Visit: ETOH detox Attending Provider: Stew Hewitt Primary Care Provider: Reynold Physician,No Primary Discharge Orders/Prescriptions Prescriptions: New amlodipine 10 mg Tablet 10 mg PO DAILY 30 Days Qty: 30 2RF nicotine 21 mg/24 hr Patch 24 Hour 21 mg transdermal DAILY 30 Days Qty: 30 0RF Discontinued amlodipine 10 mg tablet 10 mg PO DAILY Referrals / Follow Up: Care Physician,No Primary [Primary Care Provider] - Disposition Disposition (needs filled in before D/C Order can be placed): Inpatient Rehab Unit/Facility Charges/Coding Addendum Addendum: Patient was seen and examined independently of Darby Pond today, he was excepted into an inpatient alcohol detox facility. On examination he appeared in good health and spirits. Vital signs as documented. Skin warm and dry and without overt rashes. Neck without JVD, neck was supple, trachea midline, thyroid was normal. Lungs clear bilaterally, normal air movement was noted. Heart exam notable for regular rhythm, normal sounds and absence of murmurs, rubs or gallops. Abdomen unremarkable and without evidence of organomegaly, masses, or abdominal aortic enlargement. Bowel sounds are present, abdomen is not distended. Extremities nonedematous, no cyanosis was noted, no clubbing was noted. Neuro: Cranial nerves II through XII are grossly intact, no focal motor deficits were noted, sensation to light touch and pinprick intact, motor exam 5/5 throughout. Psych: Patient is alert and oriented x3, he does not appear anxious or depressed, he does not appear agitated. Impression: #1 acute alcohol withdrawal without complications #2 chronic alcoholism #3 essential hypertension I have reviewed Darby Pond's discharge summary including her medical assessment and plan of care and with the above additions endorse it. Total clin ical time spent by myself addressing the patient's medical needs, reviewing the data, and working with the patient's care team: 22 minutes Visit Charges Inpatient E&M: 40299 Disch Hosp
== END 2021-08-01 11:10 | DRG 775 ==
LOC: ED 17:49 → MS3 18:34
PROVIDERS: Admitting Provider Internal Medicine; Emergency Provider Student in an Organized Health Care Education/Training Program; Visit Provider Internal Medicine
DX: F10.239 Alcohol dependence with withdrawal, unspecified (principal); F17.210 Nicotine dependence, cigarettes, uncomplicated; I10 Essential (primary) hypertension; Y90.8 Blood alcohol level of 240 mg/100 ml or more
CPT/HCPCS: 80053; 80307; 82077; 85025; 99284; 99406; A4216

== ENCOUNTER 2022-11-23 12:34 | Inpatient (IN) | payer MEDICAID, SELFPAY ==
[2022-11-23 12:35] VITALS: BP 141/107; PULSE 90; RESP 16; TEMP 35.6; O2SAT 97; BMI 21.4
--- NOTE | 2022-11-23 12:53 | EX.ED.DYSGE1 ---
HPI History of Present Illness Chief Complaint: ETOH Intox Informant: patient Narrative Narrative: 52-year-old male presenting to the emergency department with a chief complaint of requesting detox from alcohol. Patient states that he has cut back from 60 beers a day to 30 beers a day. He states he drinks [id number]. He smokes 2 packs a day. He has done numerous rehabilitation/detoxification programs. He was sober for about 1.5 years about 5 years ago. Since then he has done some detox programs but drank upon leaving. He has no upcoming pending legal issues. 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 He lives in [place]. He denies any other medical issues. No bleeding or liver problems noted. From a withdrawal standpoint he states he has never had delirium tremens or seizures. [facility] Medical History Alcohol abuse Alcohol dependence Alcohol withdrawal Alcoholic hepatitis Depression Hypertension Hyponatremia Smoker Home Medications amlodipine 10 mg tablet 10 mg PO DAILY 30 days #30 tabs 08/01/21 [Rx Last Taken Unknown] nicotine 21 mg/24 hr daily transdermal patch 21 mg transdermal DAILY 30 days #30 ea 08/01/21 [Rx Last Taken Unknown] Allergy/AdvReac Type Severity Reaction Status Date / Time No Known Allergies Allergy Verified 11/23/22 12:34 Family History Father Hypertension Myocardial infarction Heart disease Surgical History History of surgery on upper extremity Hx of hand surgery Hx of knee surgery Social History housing: other details: Lives alone primarily, but notes his son will occasionally stay with him. Smoking Status: Current every day smoker tobacco type: cigarettes alcohol intake: current alcohol intake frequency: 3 or more drinks per day details: Baseline 40-50, 12 ounce beers daily, attempting to cut back. substance use type: does not use ROS ROS ED Constitutional Constitutional ED: Denies chills or weight loss Eyes Eyes: Denies change in vision or diplopia ENT ENT ED: Denies ear pain, rhinorrhea or sore throat Cardiovascular Cardiovascular: Denies chest pain, orthopnea, palpitations or racing heartbeat Respiratory/Chest Respiratory/Chest: Denies cough, dyspnea or orthopnea Gastrointestinal Gastrointestinal: Denies abdominal pain, diarrhea, nausea or vomiting Genitourinary Genitourinary ED: Denies dysuria, hematuria or urinary frequency Musculoskeletal Musculoskeletal: Denies arthralgias or myalgias Integumentary Denies abscess or rash Neurologic Neurologic: Denies headache(s) or weakness Psychiatric Psychiatric: Reports depression; Denies anxiety, suicidal ideation or suicidal thoughts Endocrine Endocrinology: Denies polydipsia, polyphagia or polyuria Allergic/Immunologic Allergic/Immunologic ED: Denies mouth swelling, tongue swelling or urticaria EXAM Physical Exam Const Vital Signs: 11/23/22 12:35 Temperature 96.1 F L Temperature Source Temporal Pulse Rate 90 Respiratory Rate 16 Blood Pressure 141/107 H Blood Pressure Mean 118 Pulse Ox 97 Oxygen Delivery Method Room Air Positive well nourished and well developed General Appearance ED: well developed HEENT Reports normocephalic, head/scalp atraumatic and moist mucous membranes Eyes PERRL and EOMs intact bilaterally Neck no lymphadenopathy, supple and no JVD Resp normal respiratory effort and clear to auscultation bilaterally Cardio regular rate, regular rhythm and no murmurs GI normal to inspection, nondistended, normoactive bowel sounds and non-tender Palpation: soft Back/Spine no CVA tenderness and normal ROM Extremity normal to inspection General Extremety ED: Negative for edema General Extremity: Negative for edema Neuro oriented x3 and CN's II-XII intact bilaterally Sensorium / Orientation: alert Motor Exam: strength 5/5 throughout Psych mental status grossly normal Mood & Affect: Negative for depressed or tearful Skin no rashes or lesions noted and no wounds MDM MDM MDM Narrative Medical decision making narrative: Nicotine patch was administered. ED addiction labs were obtained. White count 3.8 with hemoglobin 16.4. Clinically the platelets was noted. Coags are normal. Liver enzymes are elevated consistent with an alcoholic hepatitis. Blood alcohol level 297. I will speak with the hospitalist regarding admission. Lab Data Attestation: I reviewed the patient's lab results. Labs: Laboratory Results - last 24 hr 11/23/22 11/23/22 13:05 13:18 WBC 3.8 L RBC 5.04 Hgb 16.4 Hct 48.0 MCV 95.2 H MCH 32.5 H MCHC 34.2 RDW Std Deviation 53.8 H RDW Coeff of Danial 15.3 H Plt Count Immature Gran % (Auto) 0.300 Neut % (Auto) 53.8 Lymph % (Auto) 31.7 [place] % (Auto) 12.0 H Eos % (Auto) 1.1 Baso % (Auto) 1.1 H Absolute Neuts (auto) 2.0 Absolute Lymphs (auto) 1.19 Nucleated RBC % 0 Platelet Estimate ADEQUATE PT 12.1 INR 0.9 Sodium 134 L Potassium 3.5 Chloride 98 Carbon Dioxide 30.0 Anion Gap 6 BUN 2 L Creatinine 0.62 L Estim Creat Clear Calc 145.50 Est GFR (MDRD) Af Amer 172 Est GFR (MDRD) Non-Af 143 BUN/Creatinine Ratio 3.2 L Glucose 101 Calcium 8.8 Magnesium 2.4 Total Bilirubin 0.70 AST 253 H ALT 129 H Alkaline Phosphatase 233 H Total Protein 8.5 H Albumin 3.6 Globulin 4.9 H Albumin/Globulin Ratio 0.7 L Ur Drug Screen Comment Ethyl Alcohol 297.0 Management Discussion w/another healthcare provider: Hospitalist Discharge Plan Dx/Rx/DC Orders Clinical Impression: Alcohol abuse, Alcohol withdrawal, Tobacco abuse, Hypertension, Acute alcoholic hepatitis Disposition Disposition: Acute Care Hospital [facility]
[2022-11-23 13:14] LABS: Absolute Lymphocyte Count 1.19 X10^3/uL (0.83-4.51); Basophil# 0.04 X10^3/uL; Basophil% 1.1 % (0-1); Eosinophil# 0.04 X10^3/uL; Eosinophils% 1.1 % (0-5); Hemoglobin 16.4 g/dL (13.0-16.5); Lymphocyte # 1.19 X10^3/ul (0.83-4.51); Lymphocyte % 31.7 % (19-41); Mean Corp Hgb Conc 34.2 g/dL (32-36); Mean Corpuscular Hgb 32.5 pg (27.0-32.0); Mean Corpuscular Volume 95.2 fL (80-94); Monocyte# 0.45 X10^3/uL; NRBC Flagged by Analyzer 0 % (0-5); Neutrophil # 2.02 X10^3/uL (2.7-7.7); Neutrophil % 53.8 % (47-70); POSITIVE COUNT YES; RBC Distribution Width CV 15.3 % (11.6-14.6); RBC Distribution Width SD 53.8 fl (35.1-43.9); Red Blood Count 5.04 M/mm3 (4.6-6.2); White Blood Count 3.8 K/mm3 (4.4-11.0)
[2022-11-23 13:30] LABS: ALB/GLOB Ratio 0.7 RATIO (0.9-2.4); AST(SGOT) 253 U/L (15-37); Alanine Aminotransfer ALT/SGPT 129 U/L (16-61); Albumin, Serum 3.6 g/dL (3.2-5.0); Alkaline Phosphatase 233 U/L (45-117); Anion Gap 6 (5-15); BUN 2 mg/dL (7-18); BUN/Creat Ratio 3.2 RATIO (10-20); Calcium,Total 8.8 mg/dL (8.5-10.1); Chloride 98 mmol/L (98-107); Creatinine, Serum 0.62 mg/dL (0.70-1.30); EST Glomerular Filtration Rate 143 mL/min (>60); Est Glom Filt Rate - Afr Amer 172 mL/min (>60); Globulin 4.9 g/dL (2.2-4.2); Glucose 101 mg/dL (74-106); Magnesium 2.4 mg/dL (1.6-2.6); Potassium 3.5 mmol/L (3.5-5.1); Protein, Total 8.5 g/dL (6.4-8.2); Sodium Level 134 mmol/L (136-145)
[2022-11-23 13:39] LABS: International Normalized Ratio 0.9; Prothrombin Time (Protime)PT. 12.1 SECONDS (11.7-14.9)
[2022-11-23 13:42] LABS: Platelet Estimate ADEQUATE (ADEQ)
[2022-11-23 13:45] LABS: Amphetamine Urine VISTA NEGATIVE (<1000 ng/mL); Barbiturate Urine VISTA NEGATIVE (< 200 ng/mL); Benzodiazepine Urine VISTA NEGATIVE (< 200 ng/mL); Cocaine Urine VISTA NEGATIVE (< 300 ng/mL); Ecstacy Urine VISTA NEGATIVE (< 500 ng/mL); Methadone Urine VISTA NEGATIVE (< 300 ng/mL); PCP Urine VISTA NEGATIVE (< 25 ng/mL); THC Urine VISTA NEGATIVE (< 50 ng/mL); Vista UDS pH Range 7
--- NOTE | 2022-11-23 13:48 | NURSING ---
MED SURG [place] ALCOHOL WITHDRAWAL
--- NOTE | 2022-11-23 13:50 | PCM.HP.STD ---
HPI - General General Date of Admission: 11/23/22 HPI Narrative DIANE POWERS, is a 52 M who presents to the hospital requesting detox from alcohol. He normally drinks 60 beers a day but is down to 30 beers a day. He says the last 24 hours has been trying to cut back even more and only drink 15-20, with his last drink in the parking lot prior to coming to the ER. His blood alcohol level is elevated. He does have some tremors and feels shaky because even though he is drinking and still a significant decrease from his baseline. He has been through detox several times before. Denies any other drug use. [facility] Medical History Alcohol abuse Alcohol dependence Alcohol withdrawal Alcoholic hepatitis Depression Hypertension Hyponatremia Smoker Home Medications amlodipine 10 mg tablet 10 mg PO DAILY 30 days #30 tabs 08/01/21 [Rx Last Taken Unknown] nicotine 21 mg/24 hr daily transdermal patch 21 mg transdermal DAILY 30 days #30 ea 08/01/21 [Rx Last Taken Unknown] Allergy/AdvReac Type Severity Reaction Status Date / Time No Known Allergies Allergy Verified 11/23/22 12:34 Family History Father Hypertension Myocardial infarction Heart disease Surgical History History of surgery on upper extremity Hx of hand surgery Hx of knee surgery Social History housing: other details: Lives alone primarily, but notes his son will occasionally stay with him. Smoking Status: Current every day smoker tobacco type: cigarettes alcohol intake: current alcohol intake frequency: 3 or more drinks per day details: Baseline 40-50, 12 ounce beers daily, attempting to cut back. substance use type: does not use ROS Constitutional Constitutional: Denies chills, fatigue, fever(s) or malaise Eyes Eyes: Denies blurry vision ENT HEENT: Denies headache(s) or nasal discharge Cardiovascular Cardiovascular: Denies chest pain, dyspnea on exertion or syncope Respiratory/Chest Respiratory/Chest: Denies cough, shortness of breath at rest or shortness of breath with exertion Gastrointestinal Gastrointestinal: Denies constipation, diarrhea, nausea or vomiting Genitourinary Genitourinary: Denies dysuria Neurologic Neurologic: Reports tremor(s); Denies focal weakness or numbness Psychiatric Psychiatric: Reports anxiety; Denies depression Vital Signs Vital Signs Vital Signs: 11/23/22 12:35 Temperature 96.1 F L Temperature Source Temporal Pulse Rate 90 Respiratory Rate 16 Blood Pressure 141/107 H Blood Pressure Mean 118 Pulse Ox 97 Oxygen Delivery Method Room Air Weight Weight: 166 lb 8 oz Body Mass Index (BMI) 21.4 Physical Exam Narrative General: Alert, Oriented x3, Cooperative, No apparent distress, restless HEENT: Atraumatic, PERRLA, EOMI, Normocephalic Oral: Moist Mucosa Neck: Supple, No JVD Lungs: Clear to auscultation, Normal air movement, No rhonchi, No wheeze, No rales Cardiovascular: Regular rate, Regular Rhythm, Normal S1, Normal S2, No murmurs Abdomen: Soft, Non Tender, Non-Distended, No Hepato-splenomegaly Extremities: No edema, Capillary Refill Less than 3 Seconds Skin: No rashes, No breakdown Musculoskeletal: No Tenderness to Palpation of Joints or Extremities Neurological: Cranial nerves II-XII grossly intact, Motor Exam 5/5 strength throughout, Sensory exam intact to light touch and pain Psych/Mental Status: Anxious with tremor Results Lab / Micro Data 11/23/22 13:05 11/23/22 13:05 Labs: Laboratory Results - last 24 hr 11/23/22 13:05: WBC 3.8 L, RBC 5.04, Hgb 16.4, Hct 48.0, MCV 95.2 H, MCH 32.5 H, MCHC 34.2, RDW Std Deviation 53.8 H, RDW Coeff of Danial 15.3 H, Plt Count , Immature Gran % (Auto) 0.300, Neut % (Auto) 53.8, Lymph % (Auto) 31.7, [place] % (Auto) 12.0 H, Eos % (Auto) 1.1, Baso % (Auto) 1.1 H, Absolute Neuts (auto) 2.0, Absolute Lymphs (auto) 1.19, Nucleated RBC % 0, Platelet Estimate ADEQUATE, PT 12.1, INR 0.9, Sodium 134 L, Potassium 3.5, Chloride 98, Carbon Dioxide 30.0, Anion Gap 6, BUN 2 L, Creatinine 0.62 L, Estim Creat Clear Calc 145.50, Est GFR (MDRD) Af Amer 172, Est GFR (MDRD) Non-Af 143, BUN/Creatinine Ratio 3.2 L, Glucose 101, Calcium 8.8, Magnesium 2.4, Total Bilirubin 0.70, AST 253 H, ALT 129 H, Alkaline Phosphatase 233 H, Total Protein 8.5 H, Albumin 3.6, Globulin 4.9 H, Albumin/Globulin Ratio 0.7 L, Ethyl Alcohol 297.0 11/23/22 13:18: Urine Opiates Screen NEGATIVE, Urine Methadone Screen NEGATIVE, Ur Barbiturates Screen NEGATIVE, Ur Phencyclidine Scrn NEGATIVE, Ur Amphetamines Screen NEGATIVE, MDMA (Ecstasy) Screen NEGATIVE, U Benzodiazepines Scrn NEGATIVE, Urine Cocaine Screen NEGATIVE, U Cannabinoids Screen NEGATIVE, Ur Drug Screen Comment Assessment & Plan Assessment/Plan (1) Acute alcoholic hepatitis: (2) Alcohol withdrawal: PLAN: Plan 1. Alcohol abuse requesting detox with acute alcoholic hepatitis/tobacco abuse ? We will repeat CMP in the morning to trend LFTs ? Continue with the alcohol withdrawal protocol ? We will place him on a nicotine patch, discussed cessation 2. HTN ? Blood pressures are stable ? Can restart amlodipine once verified DVT: Ambulation Charges/Coding Visit Charges Inpatient E&M: 04457 Init Hosp L2
[2022-11-23 14:08] VITALS: BP 137/92; PULSE 85; O2SAT 99
[2022-11-23 14:13] VITALS: BP 137/92; PULSE 85; RESP 18; O2SAT 99
[2022-11-23 15:31] VITALS: BMI 20.5
[2022-11-23] MEDS: hydrOXYzine PAM 25 MG Capsule 50 MG PO (15:53)
[2022-11-23] MEDS: Phenobarbital 32.4 MG Tablet 64.8 MG PO ×2 (15:53→20:30)
[2022-11-23 20:16] VITALS: BP 121/98; PULSE 106; RESP 16; TEMP 36.6; O2SAT 95
[2022-11-23] MEDS: Loperamide 2 MG Capsule PO (20:30)
[2022-11-23] MEDS: Ondansetron 8 MG Tablet PO (20:30)
[2022-11-24] VITALS (8 sets, daily range): BP systolic 126–148; BP diastolic 80–102; PULSE 80–100; RESP 16–18; TEMP 36.1–37.1; O2SAT 95–98
[2022-11-24] MEDS: Phenobarbital 32.4 MG Tablet 64.8 MG PO ×7 (00:45→23:27)
[2022-11-24] MEDS: traZODone 100 MG Tablet PO ×2 (00:49→23:28)
[2022-11-24] MEDS: Gabapentin 300 MG Capsule PO ×3 (00:49→19:03)
[2022-11-24] MEDS: Ondansetron 8 MG Tablet PO (04:27)
[2022-11-24] MEDS: hydrOXYzine PAM 25 MG Capsule 50 MG PO ×3 (04:27→20:19)
--- NOTE | 2022-11-24 06:54 | PN.HOSP_ITS ---
Reason for Visit Reason for Visit: Alcohol detox Subjective Subjective Patient is a 52-year-old male who presented to the emergency department was prehospital on 11/23/2022 requesting detox from alcohol. He reported at presentation that he had been drinking 16 beers a day and had cut back to 30 beers a day. He indicated he drinks [id number] and also smokes 2 packs of cigarettes daily. He has had numerous rehabilitation/detoxification admissions and was sober for about 1-1/2 years about 5 years ago. Since that point time he is done some intermittent detox programs but drink immediately upon leaving. He denied any significant withdrawal issues at previous admissions including DTs and seizures. He was admitted to the medical floor and started on a phenobarbital taper as well as supportive medications and thiamine and folate. His LFTs were elevated with an AST of 253 and an ALT of 129 on admission. I highly suspect this is most likely related to alcoholic hepatitis. Patient states he is feeling overall pretty good. Still some tremor but definitely feels better than he did yesterday. Objective Data Objective Data Vital Signs: Vital Signs Temp Pulse Resp BP Pulse Ox O2 Del Method 98.8 F 86 18 141/89 H 97 Room Air 11/24/22 04:26 11/24/22 04:26 11/24/22 04:26 11/24/22 04:26 11/24/22 04:26 11/24/22 04:26 Oxygen Delivery Method Room Air Weight: 72.6 kg Body Mass Index (BMI) 20.5 Intake & Output: Intake and Output for Last 24 Hours 11/22/22 11/23/22 11/24/22 23:59 23:59 23:59 Intake Total 850 / 850 Balance 850 / 850 Lab / Micro Data 11/23/22 13:05 11/24/22 06:45 Labs: Laboratory Results - last 24 hr 11/23/22 13:05: WBC 3.8 L, RBC 5.04, Hgb 16.4, Hct 48.0, MCV 95.2 H, MCH 32.5 H, MCHC 34.2, RDW Std Deviation 53.8 H, RDW Coeff of Danial 15.3 H, Plt Count , Immature Gran % (Auto) 0.300, Neut % (Auto) 53.8, Lymph % (Auto) 31.7, [place] % (Auto) 12.0 H, Eos % (Auto) 1.1, Baso % (Auto) 1.1 H, Absolute Neuts (auto) 2.0, Absolute Lymphs (auto) 1.19, Nucleated RBC % 0, Platelet Estimate ADEQUATE, PT 12.1, INR 0.9, Sodium 134 L, Potassium 3.5, Chloride 98, Carbon Dioxide 30.0, Anion Gap 6, BUN 2 L, Creatinine 0.62 L, Estim Creat Clear Calc 145.50, Est GFR (MDRD) Af Amer 172, Est GFR (MDRD) Non-Af 143, BUN/Creatinine Ratio 3.2 L, Glucose 101, Calcium 8.8, Magnesium 2.4, Total Bilirubin 0.70, AST 253 H, ALT 129 H, Alkaline Phosphatase 233 H, Total Protein 8.5 H, Albumin 3.6, Globulin 4.9 H, Albumin/Globulin Ratio 0.7 L, Ethyl Alcohol 297.0 11/23/22 13:18: Urine Opiates Screen NEGATIVE, Urine Methadone Screen NEGATIVE, Ur Barbiturates Screen NEGATIVE, Ur Phencyclidine Scrn NEGATIVE, Ur Amphetamines Screen NEGATIVE, MDMA (Ecstasy) Screen NEGATIVE, U Benzodiazepines Scrn NEGATIVE, Urine Cocaine Screen NEGATIVE, U Cannabinoids Screen NEGATIVE, Ur Drug Screen Comment Physical Exam Const alert, oriented x3, no apparent distress and well nourished Constitutional Narrative: Middle-aged, white male, sitting up in bed, appears comfortable and nontoxic, slight tremor noted HEENT head/scalp atraumatic and moist oral mucous membranes Head and Scalp: normocephalic Resp normal respiratory effort, no retractions, no use of accessory muscles and clear to auscultation bilaterally Resp Narrative: Diffusely diminished but clear Auscultation: Negative for rales, rhonchi or wheezes Cardio regular rate, regular rhythm, S1 normal heart sound, S2 normal heart sound, no murmurs, no rub, no gallops and no clicks GI normal to inspection, nondistended, normoactive bowel sounds, soft to palpation and non-tender Extremity no clubbing, cyanosis or edema Neuro oriented x3, moves all extremities and no focal motor deficits Neuro Narrative: Mild tremor Speech: speech normal Psych affect normal Psych Narrative: Pleasant, interacts appropriately Assessment & Plan Assessment/Plan (1) Acute alcoholic hepatitis: (2) Alcohol abuse: PLAN: Plan Alcohol abuse with pending alcohol withdrawal -Alcohol level on presentation was 297 -Patient's last drink was in the parking lot just prior to coming to the emergency department -Had been drinking up to 60 beers a day but had cut back to 30 beers a day but was starting to have symptoms so decided to come the emergency department -Continue phenobarbital taper -Continue supportive medication for symptom relief -Continue thiamine and folate -180 consultation for assistance with discharge planning Alcoholic hepatitis -Secondary to the above -Transaminase elevation was very consistent with alcohol abuse -LFTs are starting to trend down and should improve with abstinence Hypertension -Patient had been on amlodipine previously however not taking currently -Expect blood pressure elevation while withdrawing but will monitor blood p ressure and if persistently elevated despite improving withdrawal symptoms may need to reinitiate antihypertensives -As needed hydralazine for systolic pressure greater than 160 Tobacco abuse -Continue nicotine patch -Recommend cessation DVT prophylaxis -Low risk -Recommend early and frequent ambulation CODE STATUS Full code Charges/Coding Visit Charges Inpatient E&M: 92735 Subs Hosp L2
[2022-11-24 07:31] LABS: ALB/GLOB Ratio 0.8 RATIO (0.9-2.4); AST(SGOT) 164 U/L (15-37); Alanine Aminotransfer ALT/SGPT 97 U/L (16-61); Alkaline Phosphatase 185 U/L (45-117); Anion Gap 5 (5-15); BUN 4 mg/dL (7-18); BUN/Creat Ratio 6.9 RATIO (10-20); Calcium,Total 8.8 mg/dL (8.5-10.1); Chloride 101 mmol/L (98-107); Creatinine, Serum 0.58 mg/dL (0.70-1.30); EST Glomerular Filtration Rate 156 mL/min (>60); Est Glom Filt Rate - Afr Amer 188 mL/min (>60); Estimated Creatinine Clearance 149.51 ml/min; Glucose 90 mg/dL (74-106); Potassium 3.8 mmol/L (3.5-5.1); Sodium Level 135 mmol/L (136-145)
[2022-11-24] MEDS: Folic Acid 1 MG Tablet PO (08:26)
[2022-11-24] MEDS: Thiamine Hydrochloride 100 MG Tablet PO (08:26)
[2022-11-24] MEDS: Dicyclomine 10 MG Capsule 20 MG PO (10:43)
[2022-11-24] MEDS: LORazepam 1 MG Tablet 2 MG PO (12:41)
[2022-11-25 04:14] VITALS: BP 124/93; PULSE 71; RESP 18; TEMP 36.6; O2SAT 96
[2022-11-25] MEDS: Phenobarbital 32.4 MG Tablet 64.8 MG PO ×2 (04:17→08:10)
[2022-11-25] MEDS: hydrOXYzine PAM 25 MG Capsule 50 MG PO (04:17)
[2022-11-25 08:00] VITALS: BP 137/86; PULSE 82; RESP 16; TEMP 37; O2SAT 99
[2022-11-25] MEDS: Folic Acid 1 MG Tablet PO (08:11)
[2022-11-25] MEDS: Thiamine Hydrochloride 100 MG Tablet PO (08:11)
--- NOTE | 2022-11-25 10:34 | ADDICTION ---
Completed ASAM and other assessments. At time of completion, pt reported that he wants to leave. He reported he needed a cigarette. Encouraged pt to stay and complete detox. Pt was not interested.
--- NOTE | 2022-11-25 10:37 | NURSING ---
pt leaving AMA
--- NOTE | 2022-11-25 17:50 | PCM.DC.SUM ---
Providers Date of Admission: 11/23/22 Date of Discharge: 11/25/22 Primary Care Physician: No Primary Care Phys Reason For Visit: ETOH DETOX Diagnosis Discharge Diagnosis (1) Acute alcoholic hepatitis: Status: Acute Code(s): K70.10 - Alcoholic hepatitis without ascites (2) Alcohol abuse: Status: Chronic Code(s): F10.10 - Alcohol abuse, uncomplicated Medications at Discharge Home Medications nicotine 21 mg/24 hr daily transdermal patch 21 mg transdermal DAILY nicotine withdrawal 30 days #30 ea 08/01/21 Hospital Course Operations None Procedures None Summary of Care Provided Minutes Spent on Discharge: 23 Hospital Course: Patient is a 52-year-old male with history of alcohol use disorder, tobacco use disorder and hypertension who presented to [facility] on 11/23/2022 requesting alcohol detoxification. Short hospital course as noted below. Importantly, patient left AGAINST MEDICAL ADVICE on morning of 11/25 prior to being seen by a provider. Alcohol use disorder: Reported drinking 60 beers per day, had cut down to 30 beers a day recently. Last drink was in the parking lot prior to coming to the ED. Blood alcohol level 297 on admit. Did note tremors and shakiness on admit despite that alcohol level. Noted that he had been through detox several times before. Was started on a phenobarbital taper plus other supportive medications for symptom relief on admission. Per staff, appeared to be tolerating the taper well. 180 was able to meet with the patient before he left AMA. ? Recommended abstinence from alcohol on discharge. Outpatient resources provided for patient. Would recommend continuing thiamine and folate as no medications. Alcohol hepatitis: Transaminases elevated on admission, very consistent with alcohol abuse. Mildly downtrended during hospitalization. ? Would improve with alcohol cessation. No further work-up needed going forward. Tobacco use disorder: Reported smoking 2 packs of cigarettes per day. Provided with a nicotine patch while admitted. Hypertension: Patient reported he had previously been on amlodipine, however is not currently taking. Blood pressures fairly high while admitted, held on antihypertensives as he was actively withdrawing from alcohol. Recommend outpatient follow-up. Total clinical time spent by myself addressing the patient's discharge needs: 23 minutes. Physical Exam Narrative Did not see patient prior to him leaving AMA, unable to conduct physical exam. Weight / BMI Weight Weight: 72.6 kg Body Mass Index (BMI) 20.5 ABG / Lab / Microbiology Data 10/14/23 13:05 11/24/22 06:45 D/C Instructions Discharge Diet: No restrictions Weight Bearing Status: Full weight bearing Meaningful Use Info Meaningful Use Diagnoses (Choose all that apply): None applicable Discharge Plan Admission Admit Date/Time: 11/23/22 13:49 Attending Provider: Gilberto Bradshaw Primary Care Provider: Care Physician,No Primary Consulting Providers: Jose Ludwig Kathryn Discharge Orders/Prescriptions Prescriptions: No Action nicotine 21 mg/24 hr Patch 24 Hour 21 mg transdermal DAILY 30 Days Qty: 30 0RF Referrals / Follow Up: Care Physician,No Primary [Primary Care Provider] - Disposition Disposition (needs filled in before D/C Order can be placed): Against Medical Advice Charges/Coding Visit Charges Inpatient E&M: 87605 Disch Hosp
--- NOTE | 2022-11-25 17:58 | DCINST_ITS ---
Discharge Instructions Diet Discharge Diet: No restrictions Activity Weight Bearing Status: Full weight bearing Follow Up Care Test Results: Test results from this visit will be discussed in further detail at your follow- up appointment, if applicable. Discharge Plan Admission Admit Date/Time: 11/23/22 13:49 Attending Provider: Gilberto Bradshaw Primary Care Provider: Care Physician,No Primary Consulting Providers: Jose Ludwig Kathryn Discharge Orders/Prescriptions Prescriptions: No Action nicotine 21 mg/24 hr Patch 24 Hour 21 mg transdermal DAILY 30 Days Qty: 30 0RF Referrals / Follow Up: Care Physician,No Primary [Primary Care Provider] - Disposition Disposition (needs filled in before D/C Order can be placed): Against Medical Advice
== END 2022-11-25 10:40 | disposition left against medical advice (07) | DRG 770 ==
LOC: ED 13:54 → MS3 14:18
PROVIDERS: Admitting Provider Family Medicine; Emergency Provider Emergency Medicine; Visit Provider Hospitalist
DX: F10.239 Alcohol dependence with withdrawal, unspecified (principal); F17.210 Nicotine dependence, cigarettes, uncomplicated; K70.10 Alcoholic hepatitis without ascites; I10 Essential (primary) hypertension; Y90.8 Blood alcohol level of 240 mg/100 ml or more; Z53.29 Procedure and treatment not carried out because of patient's decision for other reasons
CPT/HCPCS: 36415; 80053; 80307; 82077; 83735; 85025; 85610; 99284; 99406; A4216

== ENCOUNTER 2022-12-25 12:10 | Inpatient (IN) | payer MEDICAID, SELFPAY ==
[2022-12-25] VITALS (7 sets, daily range): BP systolic 115–158; BP diastolic 76–109; PULSE 80–120; RESP 16–18; TEMP 36.6–37.2; O2SAT 92–100; BMI 22.3; BMI 21.8
--- NOTE | 2022-12-25 13:51 | CT_ITS ---
STUDY: CT BRAIN WITHOUT CONTRAST REASON FOR EXAM: Male, 52 years old. Fall, injury RADIATION DOSAGE (If Supplied By Facility): CTDIvol = ( 44.99 ) mGy, DLP = ( 812.98 ) mGycm TECHNIQUE: Transaxial CT imaging of the brain was performed without administration of intravenous contrast material. Individualized dose optimization techniques were used for this CT. COMPARISON: No relevant priors. FINDINGS: Normal soft tissue structures. Normal calvarium. There is mild cerebral atrophy with widening of the extra-axial spaces and ventricular dilatation. Normal white matter tracts of the cerebral hemispheres. Normal basal ganglia and thalami. Normal brainstem. Normal cerebellum. There is no intracranial hemorrhage. There are no findings of an acute ischemic infarction. Small retention cysts or polyp at the base of the maxillary sinuses bilaterally. CT/Brain/Head without Contrast IMPRESSION: Chronic involutional changes of the brain. Electronically Signed: Mikel Antoine MD at 14:49 EST ,
--- NOTE | 2022-12-25 13:52 | EDS_ITS ---
HPI History of Present Illness Chief Complaint: Substance Abuse Detail of Chief Complaint: Requesting detox from alcohol Informant: patient Narrative Narrative: Patient presents to the emergency department requesting detox from alcohol. Lamin amaral states that he normally drinks about 60 beers per day. His last drink was prior to entering the emergency department. Patient states he last went through detox about 2 weeks ago. Patient also states that he fell yesterday and struck his nose on the ground and complains of some pain of the nose. He does not think he lost consciousness. Patient has history of hypertension. [facility] Medical History Alcohol abuse Alcoholic hepatitis Anxiety and depression Hypertension Hypertension Hyponatremia Tobacco abuse Home Medications nicotine 21 mg/24 hr daily transdermal patch 21 mg transdermal DAILY nicotine withdrawal 30 days #30 ea 08/01/21 [Rx Last Taken Unknown] Allergy/AdvReac Type Severity Reaction Status Date / Time No Known Allergies Allergy Verified 12/25/22 12:11 Family History Father Hypertension Myocardial infarction Heart disease Family History other Surgical History History of surgery on upper extremity Hx of hand surgery Hx of knee surgery Social History housing: other details: Lives alone primarily, but notes his son will occasionally stay with him. Smoking Status: Heavy Smoker (>10/day) alcohol intake: current alcohol intake frequency: 3 or more drinks per day details: Baseline 40-60, 12 ounce beers daily. substance use type: does not use ROS ROS ED Review of Systems ROS Unobtainable: other Constitutional Constitutional ED: Reports lethargy; Denies chills, fever(s), sweats or weight loss Eyes Eyes: Denies blurry vision, change in vision or diplopia ENT ENT ED: Denies rhinorrhea or sore throat Cardiovascular Cardiovascular: Denies chest pain, orthopnea or racing heartbeat Respiratory/Chest Respiratory/Chest: Denies cough, dyspnea, dyspnea on exertion, orthopnea or sputum Gastrointestinal Gastrointestinal: Denies abdominal pain, diarrhea, nausea or vomiting Genitourinary Genitourinary ED: Denies dysuria, hematuria or urinary frequency Musculoskeletal Musculoskeletal: Denies arthralgias, back pain, myalgias or neck pain Integumentary Denies abscess, Abrasions or rash Neurologic Neurologic: Reports headache(s); Denies weakness Psychiatric Psychiatric: Denies anxiety, depression or suicidal thoughts Endocrine Endocrinology: Denies polydipsia, polyphagia or polyuria Hematologic/Lymphatic Hematologic/Lymphatic: Denies easy bleeding, easy bruising or lymphadenopathy Allergic/Immunologic Allergic/Immunologic ED: Denies mouth swelling, tongue swelling or urticaria EXAM Physical Exam Const Vital Signs: 12/25/22 12:10 12/25/22 13:57 12/25/22 14:03 Temperature 98 F Temperature Source Temporal Pulse Rate 108 H 95 80 Respiratory Rate 16 16 16 Blood Pressure 148/109 H 142/95 H 148/92 H Blood Pressure Mean 122 110 110 Pulse Ox 100 96 95 Oxygen Delivery Method Room Air Room Air Room Air Positive well nourished and well developed General Appearance ED: well developed and NAD HEENT Reports TM's clear and moist mucous membranes HEENT Narrative: Soft tissue swelling over the nasal bone with tenderness palpation. There are some dried blood in both nasal vaults. No septal hematoma. Mild ecchymosis and bruising to the left orbit. normocephalic and atraumatic; Negative for trauma or tenderness Tympanic Membrane ED: Yes TM's clear Eyes PERRL and EOMs intact bilaterally General Eye ED: Negative for pale conjunctiva or scleral icterus Neck no lymphadenopathy, supple and no JVD General: Negative for tenderness Chest Wall inspection of chest normal and palpation of chest normal Chest: Negative for tenderness Resp normal respiratory effort and clear to auscultation bilaterally Effort and Inspection: Negative for respiratory distress or pain with movement Auscultation: Negative for rhonchi, wheezes or diminished lung sounds Cardio regular rate, regular rhythm, S1 normal heart sound, S2 normal heart sound and no murmurs Peripheral Pulses: pulses 2+ throughout GI normal to inspection, nondistended, normoactive bowel sounds, soft to palpation, non-tender, non-distended and no masses Back/Spine no CVA tenderness and no thoracic nor lumbar tenderness Extremity normal to inspection General Extremety ED: Negative for edema General Extremity: Negative for edema Neuro oriented x3, CN's II-XII intact bilaterally, no sensory deficits noted and gait normal Sensorium / Orientation: awake, alert, oriented to person, oriented to place and oriented to time Motor Exam: strength 5/5 throughout and strength abnormal Psych mental status grossly normal Skin no rashes or lesions noted and no wounds MDM MDM MDM Narrative Medical decision making narrative: Patient presents requesting detox from alcohol. He had had a fall yesterday with injury to his face. CT scan of the brain was unremarkable with no evidence of traumatic injury. CT of the C-spine results pending however on my interpretation do not appreciate any fractures. Patient CBC with differential showing a 6.4 with hemoglobin of 16 and platelet count of 354. Chemistries unremarkable. LFTs slightly elevated with AST of 69 and ALT of 74 as well as alk phos of 130. Lab Data Labs: Laboratory Results - last 24 hr 12/25/22 12/25/22 13:49 14:33 WBC 6.4 RBC 4.83 Hgb 16.0 Hct 46.9 MCV 97.1 H MCH 33.1 H MCHC 34.1 RDW Std Deviation 49.8 H RDW Coeff of Danial 13.7 Plt Count 354 MPV 10.1 Immature Gran % (Auto) 0.500 Neut % (Auto) 58.5 Lymph % (Auto) 31.3 [place] % (Auto) 7.2 Eos % (Auto) 0.6 Baso % (Auto) 1.9 H Absolute Neuts (auto) 3.8 Absolute Lymphs (auto) 2.01 Nucleated RBC % 0 Sodium 132 L Potassium 3.9 Chloride 96 L Carbon Dioxide 30.0 Anion Gap 6 BUN 3 L Creatinine 0.63 L Estim Creat Clear Calc 149.69 Est GFR (MDRD) Af Amer 170 Est GFR (MDRD) Non-Af 141 BUN/Creatinine Ratio 4.8 L Glucose 102 Calcium 8.4 L Total Bilirubin 0.20 AST 69 H ALT 74 H Alkaline Phosphatase 130 H Total Protein 7.7 Albumin 3.7 Globulin 4.0 Albumin/Globulin Ratio 0.9 Urine Opiates Screen NEGATIVE Urine Methadone Screen NEGATIVE Ur Barbiturates Screen POSITIVE H Ur Phencyclidine Scrn NEGATIVE Ur Amphetamines Screen NEGATIVE MDMA (Ecstasy) Screen NEGATIVE U Benzodiazepines Scrn NEGATIVE Urine Cocaine Screen NEGATIVE U Cannabinoids Screen NEGATIVE Ur Drug Screen Comment Ethyl Alcohol 347.0 H* Radiography Diagnostic Testing: Clinical Impression(s) from Imaging Studies Brain CT 12/25/22 13:51 IMPRESSION: Chronic involutional changes of the brain. Electronically Signed: Mikel Antoine MD at 14:49 EST , Cervical Spine CT 12/25/22 13:53 IMPRESSION: Multilevel degenerative changes, as described above. Electronically Signed: Mikel Antoine MD at 14:58 EST , Discharge Plan Dx/Rx/DC Orders Clinical Impression: Alcohol abuse, Alcohol withdrawal, History of hypertension Disposition Disposition: Acute Care Hospital [facility]
--- NOTE | 2022-12-25 13:53 | CT_ITS ---
STUDY: CT CERVICAL SPINE WITHOUT CONTRAST REASON FOR EXAM: Male, 52 years old. Injury due to a fall. RADIATION DOSAGE (If Supplied By Facility): CTDIvol = ( 23.96 ) mGy, DLP = ( 570.12 ) mGycm TECHNIQUE: High resolution transaxial imaging was performed without contrast material. Sagittal and coronal images were reconstructed. Individualized dose optimization techniques were used for this CT. COMPARISON: None FINDINGS: Normal craniovertebral junction. Normal anterior atlantoaxial articulation. Normal odontoid process. Normal cervical lordosis. Normal vertebral bodies and posterior osseous elements. C2-3: Normal endplates. Normal disc height and morphology. Normal central canal and intervertebral neuroforamina. C3-4: Normal endplates. Normal disc height and morphology. Normal central canal and intervertebral neuroforamina. C4-5: Mild degree of disc space narrowing. Anterior spondylosis. C5-6: Mild degree of disc space narrowing. Anterior spondylosis. C6-7: Moderate degree of disc space narrowing and spondylosis. C7-T1: Normal endplates. Normal disc height and morphology. Normal central canal and intervertebral neuroforamina. Normal visualized soft tissue structures. CT/Spine Cervical without Contras IMPRESSION: Multilevel degenerative changes, as described above. Electronically Signed: Mikel Antoine MD at 14:58 EST ,
[2022-12-25 14:17] LABS: Absolute Lymphocyte Count 2.01 X10^3/uL (0.83-4.51); Absolute Neutrophil Count 3.8 X10^3/uL (2.0-7.7); Basophil# 0.12 X10^3/uL; Basophil% 1.9 % (0-1); Eosinophil# 0.04 X10^3/uL; Eosinophils% 0.6 % (0-5); Hematocrit 46.9 % (40-54); Lymphocyte # 2.01 X10^3/ul (0.83-4.51); Lymphocyte % 31.3 % (19-41); Mean Corp Hgb Conc 34.1 g/dL (32-36); Mean Corpuscular Hgb 33.1 pg (27.0-32.0); Mean Corpuscular Volume 97.1 fL (80-94); Mean Platelet Vol. 10.1 fl (6.2-12.0); Monocyte# 0.46 X10^3/uL; Monocyte% 7.2 % (0-10); NRBC Flagged by Analyzer 0 % (0-5); Neutrophil # 3.77 X10^3/uL (2.7-7.7); Neutrophil % 58.5 % (47-70); Platelet Count 354 K/mm3 (150-450); RBC Distribution Width CV 13.7 % (11.6-14.6); RBC Distribution Width SD 49.8 fl (35.1-43.9); Red Blood Count 4.83 M/mm3 (4.6-6.2); White Blood Count 6.4 K/mm3 (4.4-11.0)
[2022-12-25] MEDS: 0.9% Normal Saline (1000mL) 1,000 ML 150 ML IV (14:29)
[2022-12-25 14:33] LABS: ALB/GLOB Ratio 0.9 RATIO (0.9-2.4); AST(SGOT) 69 U/L (15-37); Alanine Aminotransfer ALT/SGPT 74 U/L (16-61); Albumin, Serum 3.7 g/dL (3.2-5.0); Alkaline Phosphatase 130 U/L (45-117); Anion Gap 6 (5-15); BUN 3 mg/dL (7-18); BUN/Creat Ratio 4.8 RATIO (10-20); Calcium,Total 8.4 mg/dL (8.5-10.1); Chloride 96 mmol/L (98-107); Creatinine, Serum 0.63 mg/dL (0.70-1.30); EST Glomerular Filtration Rate 141 mL/min (>60); Est Glom Filt Rate - Afr Amer 170 mL/min (>60); Estimated Creatinine Clearance 149.69 ml/min; Glucose 102 mg/dL (74-106); Potassium 3.9 mmol/L (3.5-5.1); Protein, Total 7.7 g/dL (6.4-8.2); Sodium Level 132 mmol/L (136-145)
--- NOTE | 2022-12-25 14:45 | PCM.HP.STD ---
HPI - General General Date of Admission: 12/25/22 Date of Service: 12/25/22 Chief Complaint: Alcohol detox treatment. HPI Narrative The patient is a 51 y/o M w/ PMHx: HTN, Depression and Anxiety, Heavy Tobacco use, EtOH abuse (40-60, 12 ounce beers daily, last intake prior to ED presentation) who presents to the [facility] ED on 12/25/22 with request for acute EtOH detoxification. He notes he normally starts having withdrawal within the first several hours of abstaining including tremors, agitation, tactile disturbances. Patient interested in attaining sober status. He notes that unfortunate he did fall the day prior and struck his face on the ground with some discomfort currently to his nose with no loss of consciousness. He has been admitted at [facility] for EtOH withdrawal and other facilities prior, most recently [facility] 11/23/22. Evaluation does have hiccups that he notes is been ongoing and persistent x5 days. Work-up in the ED included T98, heart rate initially 108 with most recent repeat 80, BP initially 148/109 with most recent repeat 148/92, respiratory rate 16, 100% on room air, CBC with WBC 6.4, hemoglobin 16, platelet 354 without marked shift, CMP with sodium 132, chloride 96, BUN/creatinine 3/0.63, hepatic profile with AST/ALT 69/74, alk phos 130, pending UDS and ethyl alcohol upon request evaluation of patient, CT of the brain and cervical CT spine obtained with chronic changes with no acute findings. [facility] Medical History Alcohol abuse Alcoholic hepatitis Anxiety and depression Hypertension Hypertension Hyponatremia Tobacco abuse Home Medications nicotine 21 mg/24 hr daily transdermal patch 21 mg transdermal DAILY nicotine withdrawal 30 days #30 ea 08/01/21 [Rx Last Taken Unknown] Allergy/AdvReac Type Severity Reaction Status Date / Time No Known Allergies Allergy Verified 12/25/22 12:11 Family History Father Hypertension Myocardial infarction Heart disease Family History other other (Patient reports not knowing his mother's medical history but states she takes several pills.) Surgical History History of surgery on upper extremity Hx of hand surgery Hx of knee surgery Social History housing: other details: Lives alone primarily, but notes his son will occasionally stay with him. Smoking Status: Heavy Smoker (>10/day) alcohol intake: current alcohol intake frequency: 3 or more drinks per day details: Baseline 40-60, 12 ounce beers daily. substance use type: does not use ROS ROS Narrative Admission Review of Systems: CONSTITUTIONAL: No weight loss, fever, chills, + weakness or fatigue. HEENT: Eyes: No visual loss, blurred vision, double vision or yellow sclerae. Ears, Nose, Throat: No hearing loss, sneezing, congestion, runny nose or sore throat. SKIN: + Various abrasions and ecchymoses with recent fall, some clotted blood across his nasal bridge and nose. CARDIOVASCULAR: No chest pain, chest pressure or chest discomfort, palpitations, edema, orthopnea, syncopal events. RESPIRATORY: No shortness of breath, cough or sputum, wheezing, hemoptysis. GASTROINTESTINAL: + Intractable hiccups, No anorexia, nausea, vomiting or diarrhea, abdominal pain, melena, BRBPR. GENITOURINARY: No dysuria, frequency, urgency or retention. NEUROLOGICAL: No headache, dizziness, syncope, paralysis, ataxia, numbness or tingling in the extremities, focal weakness, change in bowel or bladder control, seizure. No current noted agitation, tremors or tactile disturbances reported. MUSCULOSKELETAL: + muscle, back pain, joint pain or stiffness. HEMATOLOGIC: No anemia, + easy bleeding/bruising. LYMPHATICS: No enlarged nodes. No history of splenectomy. PSYCHIATRIC: + history of depression or anxiety. ENDOCRINOLOGIC: No reports of sweating, cold or heat intolerance. No polyuria or polydipsia. ALLERGIES: No history of asthma, hives, eczema or rhinitis. Vital Signs Vital Signs Vital Signs: 12/25/22 12:10 12/25/22 13:57 12/25/22 14:03 Temperature 98 F Temperature Source Temporal Pulse Rate 108 H 95 80 Respiratory Rate 16 16 16 Blood Pressure 148/109 H 142/95 H 148/92 H Blood Pressure Mean 122 110 110 Pulse Ox 100 96 95 Oxygen Delivery Method Room Air Room Air Room Air Weight Weight: 174 lb 1 oz Body Mass Index (BMI) 22.3 Physical Exam Narrative Physical Examination: General: Awake, alert, oriented x 3 and cooperative, seated upright in the ED bed, no acute distress, denies any head or neck pain, last drink prior to ED presentation with no severe withdrawal symptoms currently Skin: Normal color, normal turgor, no icterus, no cyanosis. HEENT: AT/NC, EOMI, PERRLA, mildly dry MM, no carotid bruits or JVD noted. Lungs: Diminished, greater bases, moderate effort, no rales, ronchi or wheezing. Heart: Regular rate with regular rhythm; no gallop, rub audible. Abdomen: Soft, NTTP, ND, mildly hyperactive BS, appreciated HM. Extremities: No cyanosis, clubbing, or edema. Neurological: Patient awake, alert, oriented as noted, cognitive function intact; pupils equally reactive to light and accommodation, cranial nerves II-XII grossly normal, moving all 4 extremities, no focal deficits, strength mildly global decrease given acute presentation, no current significant withdrawal symptoms with recent alcohol intake prior to ED arrival. Psychiatric: Affect appears anxious, initially discusses need for a beer and a cigarette but eventually willing to be admitted for withdrawal treatment, no acute evidence of depressive feelings but does have underlying history. Results Lab / Micro Data 12/25/22 13:49 12/25/22 13:49 Labs: Laboratory Results - last 24 hr 12/25/22 13:49: WBC 6.4, RBC 4.83, Hgb 16.0, Hct 46.9, MCV 97.1 H, MCH 33.1 H, MCHC 34.1, RDW Std Deviation 49.8 H, RDW Coeff of Danial 13.7, Plt Count 354, MPV 10.1, Immature Gran % (Auto) 0.500, Neut % (Auto) 58.5, Lymph % (Auto) 31.3, [place] % (Auto) 7.2, Eos % (Auto) 0.6, Baso % (Auto) 1.9 H, Absolute Neuts (auto) 3.8, Absolute Lymphs (auto) 2.01, Nucleated RBC % 0, Sodium 132 L, Potassium 3.9, Chloride 96 L, Carbon Dioxide 30.0, Anion Gap 6, BUN 3 L, Creatinine 0.63 L, Estim Creat Clear Calc 149.69, Est GFR (MDRD) Af Amer 170, Est GFR (MDRD) Non-Af 141, BUN/Creatinine Ratio 4.8 L, Glucose 102, Calcium 8.4 L, Total Bilirubin 0.20, AST 69 H, ALT 74 H, Alkaline Phosphatase 130 H, Total Protein 7.7, Albumin 3.7, Globulin 4.0, Albumin/Globulin Ratio 0.9 12/25/22 14:33: Ur Drug Screen Comment Assessment & Plan Assessment/Plan (1) Alcohol abuse: PLAN: Plan The patient is a 51 y/o M w/ PMHx: HTN, Depression and Anxiety, Heavy Tobacco use, EtOH abuse (40-60, 12 ounce beers daily, last intake prior to ED presentation) who presents to the [facility] ED on 12/25/22 with request for acute EtOH detoxification. #1. EtOH abuse with Impending Acute EtOH Withdrawal with Chronic LFT elevations/Alcoholic hepatitis: Will admit to medical surgical floor, routine labs obtained in the ED upon presentation with noted AST/ALT 69/74, alk phos 130, chronically elevated. UDS and ethyl alcohol level pending. Given interest in sobriety, will initiate and continue on protocol with taper course of Phenobarbital, PRN gabapentin, Catapres, Bentyl, Vistaril, IV fluids, IV antiemetics, Tylenol as needed for pain. Will consult Case management for assistance for transition to next level of rehabilitation care. Mag, phos pending. Maintain on CIWA protocol concurrently. #2. Recent mechanical fall potentially while inebriated: CT head with no acute intracranial findings, CT cervical spine with multilevel degenerative changes with no acute findings. Maintain on fall precautions. Patient denies any head or cervical discomfort at this time. #3. Hyponatremia, Chronic secondary to EtOH abuse: Admission sodium 132, baseline similar, will continue evaluation and treatment as noted #1. #4. Hypertension: Not on regimen, previously had been on amlodipine and given elevated blood pressures have persisted through to his current presentation we will restart, as needed IV hydralazine in interim. #5. Anxiety and depression: Likely contributes to alcohol abuse, not on any regimen, will encourage aggressive follow-up with 180/counseling. #6. Tobacco Abuse: Encouraged cessation, inpatient consultation per RT, NR if desired. #7. Intractable hiccups: We will initiate low-dose Thorazine. #8. DVT prophylaxis: Low risk for type of admission. Charges/Coding Visit Charges Inpatient E&M: 27484 Init Hosp L2
[2022-12-25 14:55] LABS: Amphetamine Urine VISTA NEGATIVE (<1000 ng/mL); Barbiturate Urine VISTA POSITIVE (< 200 ng/mL); Benzodiazepine Urine VISTA NEGATIVE (< 200 ng/mL); Cocaine Urine VISTA NEGATIVE (< 300 ng/mL); Ecstacy Urine VISTA NEGATIVE (< 500 ng/mL); Methadone Urine VISTA NEGATIVE (< 300 ng/mL); PCP Urine VISTA NEGATIVE (< 25 ng/mL); THC Urine VISTA NEGATIVE (< 50 ng/mL); Vista UDS pH Range 6
[2022-12-25 16:08] LABS: Magnesium 2.3 mg/dL (1.6-2.6); Phosphorus 4.1 mg/dL (2.5-4.9)
[2022-12-25] MEDS: Lactated Ringers 1,000 ML 125 ML IV (18:00)
[2022-12-25] MEDS: ChlorproMAZINE 25 MG Tablet PO (18:00)
[2022-12-25] MEDS: Phenobarbital 32.4 MG Tablet 64.8 MG PO ×2 (18:01→21:40)
[2022-12-25] MEDS: LORazepam 1 MG Tablet 2 MG PO (18:02)
[2022-12-25] MEDS: Acetaminophen 325 MG Tablet 650 MG PO (21:39)
[2022-12-25] MEDS: Gabapentin 300 MG Capsule PO (21:40)
[2022-12-26] VITALS (8 sets, daily range): BP systolic 135–152; BP diastolic 97–109; PULSE 86–108; RESP 18; TEMP 36.3–37.1; O2SAT 93–97
[2022-12-26] MEDS: LORazepam 1 MG Tablet 2 MG PO (02:25)
[2022-12-26] MEDS: Phenobarbital 32.4 MG Tablet 64.8 MG PO ×6 (02:25→22:12)
[2022-12-26] MEDS: hydrOXYzine PAM 25 MG Capsule 50 MG PO ×2 (02:26→08:44)
[2022-12-26] MEDS: Gabapentin 300 MG Capsule PO ×3 (06:38→22:12)
--- NOTE | 2022-12-26 08:07 | PN.HOSP_ITS ---
Reason for Visit Reason for Visit: Diagnoses Alcohol abuse, uncomplicated (12/25/22) Subjective Subjective Feels ok. Some tremulousness. Asking for Neosporin for nose because it keeps cracking. Objective Data Objective Data Vital Signs: Vital Signs Temp Pulse Resp BP Pulse Ox O2 Del Method 36.8 C 97 18 146/100 H 93 Room Air 12/26/22 06:35 12/26/22 06:35 12/26/22 06:35 12/26/22 06:35 12/26/22 06:35 12/26/22 06:35 Oxygen Delivery Method Room Air Weight: 77.111 kg Body Mass Index (BMI) 21.8 Intake & Output: Intake and Output for Last 24 Hours 12/24/22 12/25/22 12/26/22 23:59 23:59 23:59 Intake Total 772.5 / 772.5 1000 / 1000 Balance 772.5 / 772.5 1000 / 1000 Lab / Micro Data 12/25/22 13:49 12/25/22 13:49 Labs: Laboratory Results - last 24 hr 12/25/22 13:49: WBC 6.4, RBC 4.83, Hgb 16.0, Hct 46.9, MCV 97.1 H, MCH 33.1 H, MCHC 34.1, RDW Std Deviation 49.8 H, RDW Coeff of Danial 13.7, Plt Count 354, MPV 10.1, Immature Gran % (Auto) 0.500, Neut % (Auto) 58.5, Lymph % (Auto) 31.3, Screven % (Auto) 7.2, Eos % (Auto) 0.6, Baso % (Auto) 1.9 H, Absolute Neuts (auto) 3.8, Absolute Lymphs (auto) 2.01, Nucleated RBC % 0, Sodium 132 L, Potassium 3.9, Chloride 96 L, Carbon Dioxide 30.0, Anion Gap 6, BUN 3 L, Creatinine 0.63 L , Estim Creat Clear Calc 149.69, Est GFR (MDRD) Af Amer 170, Est GFR (MDRD) Non- Af 141, BUN/Creatinine Ratio 4.8 L, Glucose 102, Calcium 8.4 L, Phosphorus 4.1, Magnesium 2.3, Total Bilirubin 0.20, AST 69 H, ALT 74 H, Alkaline Phosphatase 130 H, Total Protein 7.7, Albumin 3.7, Globulin 4.0, Albumin/Globulin Ratio 0.9, Ethyl Alcohol 347.0 H* 12/25/22 14:33: Urine Opiates Screen NEGATIVE, Urine Methadone Screen NEGATIVE, Ur Barbiturates Screen POSITIVE H, Ur Phencyclidine Scrn NEGATIVE, Ur Amphetamines Screen NEGATIVE, MDMA (Ecstasy) Screen NEGATIVE, U Benzodiazepines Scrn NEGATIVE, Urine Cocaine Screen NEGATIVE, U Cannabinoids Screen NEGATIVE, Ur Drug Screen Comment Radiography Diagnostic Testing: Radiology Impression Brain CT 12/25/22 13:51 IMPRESSION: Chronic involutional changes of the brain. Electronically Signed: Mikel Antoine MD at 14:49 EST , Cervical Spine CT 12/25/22 13:53 IMPRESSION: Multilevel degenerative changes, as described above. Electronically Signed: Mikel Antoine MD at 14:58 EST , Physical Exam Const alert and no apparent distress HEENT HEENT Narrative: abrasion on nose w slight swelling of the nose. Neuro Sensorium / Orientation: awake and alert Psych affect normal Assessment & Plan Assessment/Plan (1) Alcohol abuse: PLAN: Plan #1. EtOH abuse with Impending Acute EtOH Withdrawal if pt that drinks 40-60 beers/day. UDS + for barbiturates. Ethyl alcohol 347. Given interest in sobriety, will initiate and continue on protocol with taper course of Phenobarbital, PRN gabapentin, Catapres, Bentyl, Vistaril, IV fluids, IV antiemetics, Tylenol as needed for pain. Will consult Case management for assistance for transition to next level of rehabilitation care. Mag, phos pending. Maintain on CIWA protocol concurrently. Pt will follow with program. He will to complete program otherwise he will be ineligible for RAMP in the future. #2. Recent mechanical fall potentially while inebriated: CT head with no acute intracranial findings, CT cervical spine with multilevel degenerative changes with no acute findings. Maintain on fall precautions. Patient denies any head or cervical discomfort at this time. Superficial abrasion on nose and swelling of his nose. Appear aligned. Recommended avoiding manipulating his nose. No need for Neosporin. #3. Hyponatremia, Chronic likely 2/2 beer potomania. Outpt followup. #4. Hypertension: Not on regimen, previously had been on amlodipine and given elevated blood pressures have persisted through to his current presentation we will restart, as needed IV hydralazine in interim. #5. Anxiety and depression: Likely contributes to alcohol abuse, not on any regimen, will encourage aggressive follow-up with 180/counseling. #6. Tobacco Abuse: Encouraged cessation, inpatient consultation per RT, NR if desired. #7. Intractable hiccups: We will initiate low-dose Thorazine. #8. DVT prophylaxis: Low risk for type of admission. Greater than 35 minutes of which greater than 50% time was counseling patient at bedside about his alcoholism, his nasal abrasion. Charges/Coding Visit Charges Inpatient E&M: 15582 Subs Hosp L2
[2022-12-26] MEDS: Folic Acid 1 MG Tablet PO (08:44)
[2022-12-26] MEDS: Multivitamins,Ther W-Minerals Tablet 1 TABLET PO (08:44)
[2022-12-26] MEDS: Thiamine Hydrochloride 100 MG Tablet PO (08:44)
[2022-12-26] MEDS: amLODIPine 5 MG Tablet PO (08:44)
--- NOTE | 2022-12-26 10:52 | ADDICTION ---
This database report writer met with PT to conduct ASAM, MSE, AUDIT assessments and to plan for d/c. PT A+Ox4 and participated actively. All assessments completed, and placed in PT's chart. PT plans to f/u with an assessment at [facility] for follow-up treatment services. PT did not indicate a need for transportation post d/c from [facility]. This worker spoke with the pt about his previous detox admissions. Pt went back to using directly after detox. This is his 10th time in detox. Clinician informed him if that he needed to complete a treatment program in order to be eligible for RAMP in the future.
--- NOTE | 2022-12-26 15:26 | CHAPLAIN ---
Type of Pastoral Visit _x__ Initial Visit ___ Follow-up Visit ___ On-call Visit ___ General Patient Visit ___ Spiritual Assessment ___ Family Conference ___ Bereavement ___ Rapid Response ___ Code Blue ___ Other (describe below) Pastoral Care Referral From _x__ Patient ___ Family ___ Nurse ___ Physician ___ Hat Steamer ___ Obstetrics Teacher ___ Other (describe below) Sacrament/Intervention _x__ Active listening ___ Anointing ___ Confucianist ___ Bereavement ___ Communion _x__ Valerie exploration ___ _x__ Life review _x__ Prayer ___ Reconciliation ___ Sacrament of Sick _x__ Supportive presence ___ Wedding ___ Other (describe below) Pastoral Comments patient's first comment is I know that God is the only one who can help me and I keep praying for Him, but I can't find Him; long discussion which includes valerie exploration and affirmation, life review from teenage years on, being a disappointment to the family, his caodaism and support connections, work history, and desire to beat the addiction; pt is at a loss as to what to do and much time given to listen, encourage, affirm, and give prayers
--- NOTE | 2022-12-26 18:00 | CASEMGMT ---
Social Work - SDOH screening SDOH screen completed for trigger related to Utilities, food, and transportation. During conversation with this card writer hand, patient acknowledged concern with utilities but denied food or transportation issues. Patient admits that sometimes should not drive due to drinking, but does have access to transportation. Patient plans to live with his daughter or ex-girlfriend at discharge, and reports both can help, as well as are sober supports. Patient accepted resources related to utilities, but also includes other general help. Patient expressed appreciation for help. Patient shared that typically drinks around 60 beers of Faviola beer a day, and longest time of sobriety was a year and a half. Patient reports drinking has escalated over the last 5-6 years. This card writer hand had noted in addiction therapist note, that patient will not be eligible for RAMP program, again in the future, if patient does not complete a treatment program. This card writer hand attempted to encourage patient to consider a treatment program at discharge, rather than going to daughter's home. Patient reports has been to IOP 5 times, and 3 residential programs ([facility], [facility], and a place in [place]). This card writer hand encouraged maybe it is time to try residential again. Patient expressed thought will just go to daughter's home, and not seeming to have any interest in a treatment program. Patient reports to be employable if patient just stops drinking. Encouarged patient to consider treatment programming again. No other needs indicated for SDOH. Patient is currently enrolled in the RAMP program. -PRAVEEN Mann
[2022-12-26] MEDS: Ibuprofen 600 MG Tablet PO (22:12)
[2022-12-27] MEDS: Phenobarbital 32.4 MG Tablet 64.8 MG PO ×6 (02:41→20:53)
[2022-12-27 02:42] VITALS: BP 139/95; PULSE 77; RESP 18; TEMP 36.4; O2SAT 94
--- NOTE | 2022-12-27 07:49 | PCM.PN.HOSP ---
Reason for Visit Reason for Visit: Diagnoses Alcohol abuse, uncomplicated (12/25/22) Subjective Subjective Still tremulousness. States that tremulousness can persist for weeks after a bout of alcohol withdrawal. Has been eating. No other acute events. Objective Data Objective Data Vital Signs: Vital Signs Temp Pulse Resp BP Pulse Ox O2 Del Method 36.4 C L 77 18 139/95 H 94 Room Air 12/27/22 02:42 12/27/22 02:42 12/27/22 02:42 12/27/22 02:42 12/27/22 02:42 12/27/22 02:42 Oxygen Delivery Method Room Air Weight: 77.111 kg Body Mass Index (BMI) 21.8 Intake & Output: Intake and Output for Last 24 Hours 12/25/22 12/26/22 12/27/22 23:59 23:59 23:59 Intake Total 772.5 / 772.5 1000 / 1000 Balance 772.5 / 772.5 1000 / 1000 Lab / Micro Data 12/25/22 13:49 12/25/22 13:49 Physical Exam Const alert and no apparent distress HEENT head/scalp atraumatic Resp normal respiratory effort Extremity normal to inspection and no clubbing, cyanosis or edema Neuro Sensorium / Orientation: awake and alert Speech: speech normal Psych affect normal Assessment & Plan Assessment/Plan (1) Alcohol abuse: PLAN: Plan #1. EtOH abuse with Impending Acute EtOH Withdrawal if pt that drinks 40-60 beers/day. UDS + for barbiturates. Ethyl alcohol 347. Given interest in sobriety, will initiate and continue on protocol with taper course of Phenobarbital, PRN gabapentin, Catapres, Bentyl, Vistaril, IV fluids, IV antiemetics, Tylenol as needed for pain. Will consult Case management for assistance for transition to next level of rehabilitation care. Mag, phos pending. Maintain on CIWA protocol concurrently. Pt will follow with program. He will to complete program otherwise he will be ineligible for RAMP in the future. We will reevaluate tomorrow. If doing well patient can likely be discharged. #2. Recent mechanical fall potentially while inebriated: CT head with no acute intracranial findings, CT cervical spine with multilevel degenerative changes with no acute findings. Maintain on fall precautions. Patient denies any head or cervical discomfort at this time. Superficial abrasion on nose and swelling of his nose. Appear aligned. Recommended avoiding manipulating his nose. No need for Neosporin. #3. Hyponatremia, Chronic likely 2/2 beer potomania. Outpt followup. #4. Hypertension: Not on regimen, previously had been on amlodipine and given elevated blood pressures have persisted through to his current presentation we will restart, as needed IV hydralazine in interim. #5. Anxiety and depression: Likely contributes to alcohol abuse, not on any regimen, will encourage aggressive follow-up with 180/counseling. #6. Tobacco Abuse: Encouraged cessation, inpatient consultation per RT, NR if desired. #7. Intractable hiccups: We will initiate low-dose Thorazine. #8. DVT prophylaxis: Low risk for type of admission. Charges/Coding Visit Charges Inpatient E&M: 96710 Subs Hosp L1
[2022-12-27 09:15] VITALS: BP 151/106; PULSE 106; RESP 18; TEMP 36.5; O2SAT 99
[2022-12-27] MEDS: amLODIPine 5 MG Tablet PO (09:23)
[2022-12-27] MEDS: hydrOXYzine PAM 25 MG Capsule 50 MG PO ×2 (09:23→17:26)
[2022-12-27] MEDS: Folic Acid 1 MG Tablet PO (09:23)
[2022-12-27] MEDS: Thiamine Hydrochloride 100 MG Tablet PO (09:23)
[2022-12-27] MEDS: Multivitamins,Ther W-Minerals Tablet 1 TABLET PO (09:23)
[2022-12-27 09:31] VITALS: PULSE 106
[2022-12-27] MEDS: Gabapentin 300 MG Capsule PO (11:34)
[2022-12-27 14:04] VITALS: PULSE 95
[2022-12-27 14:05] VITALS: BP 152/102; PULSE 95; RESP 18; TEMP 36.4; O2SAT 99
[2022-12-27 20:51] VITALS: BP 142/93; PULSE 83; RESP 18; TEMP 36.7; O2SAT 98
[2022-12-28] MEDS: Phenobarbital 32.4 MG Tablet 64.8 MG PO ×2 (02:36→06:55)
[2022-12-28 02:37] VITALS: BP 140/102; PULSE 72; RESP 18; TEMP 36.4; O2SAT 98
--- NOTE | 2022-12-28 08:02 | PN.HOSP_ITS ---
Reason for Visit Reason for Visit: Diagnoses Alcohol abuse, uncomplicated (12/25/22) Subjective Subjective Craving cigarettes. Upset that his food is not here. Objective Data Objective Data Vital Signs: Vital Signs Temp Pulse Resp BP Pulse Ox O2 Del Method 36.4 C L 72 18 140/102 H 98 Room Air 12/28/22 02:37 12/28/22 02:37 12/28/22 02:37 12/28/22 02:37 12/28/22 02:37 12/28/22 02:37 Oxygen Delivery Method Room Air Weight: 77.111 kg Body Mass Index (BMI) 21.8 Intake & Output: Intake and Output for Last 24 Hours 12/26/22 12/27/22 12/28/22 23:59 23:59 23:59 Intake Total 1000 / 1000 Balance 1000 / 1000 Lab / Micro Data 12/25/22 13:49 12/25/22 13:49 Physical Exam Const alert and no apparent distress HEENT HEENT Narrative: Subtle abrasion over his nose. Decreased nasal swelling. Assessment & Plan Assessment/Plan (1) Alcohol abuse: PLAN: Plan #1. EtOH abuse with Impending Acute EtOH Withdrawal if pt that drinks 40-60 beers/day. UDS + for barbiturates. Ethyl alcohol 347. Given interest in sobriety, will initiate and continue on protocol with taper course of Phenobarbital, PRN gabapentin, Catapres, Bentyl, Vistaril, IV fluids, IV antiemetics, Tylenol as needed for pain. Will consult Case management for assistance for transition to next level of rehabilitation care. Mag, phos pending. Maintain on CIVT protocol concurrently. Patient to be discharged today and to follow-up with outpatient programs. If patient does not follow-up then he will not be further eligible for ramp in the future. In that case, patient will not be able to be admitted unless he is going through acute alcohol withdrawal. #2. Recent mechanical fall potentially while inebriated: CT head with no acute intracranial findings, CT cervical spine with multilevel degenerative changes with no acute findings. Maintain on fall precautions. Patient denies any head or cervical discomfort at this time. Superficial abrasion on nose and swelling of his nose. Appear aligned. Recommended avoiding manipulating his nose. No need for Neosporin. #3. Hyponatremia, Chronic likely 2/2 beer potomania. Outpt followup. #4. Hypertension: Not on regimen, previously had been on amlodipine and given elevated blood pressures have persisted through to his current presentation we will restart, as needed IV hydralazine in interim. #5. Anxiety and depression: Likely contributes to alcohol abuse, not on any reg imen, will encourage aggressive follow-up with 180/counseling. #6. Tobacco Abuse: Encouraged cessation, inpatient consultation per RT, NR if desired. #7. Intractable hiccups: We will initiate low-dose Thorazine. #8. DVT prophylaxis: Low risk for type of admission.
[2022-12-28] MEDS: Multivitamins,Ther W-Minerals Tablet 1 TABLET PO (08:48)
[2022-12-28] MEDS: Thiamine Hydrochloride 100 MG Tablet PO (08:49)
[2022-12-28] MEDS: amLODIPine 5 MG Tablet PO (08:49)
[2022-12-28] MEDS: Folic Acid 1 MG Tablet PO (08:49)
[2022-12-28] MEDS: hydrOXYzine PAM 25 MG Capsule 50 MG PO (08:53)
[2022-12-28 09:27] VITALS: BP 131/95; PULSE 84; RESP 16; TEMP 37.1; O2SAT 99
--- NOTE | 2022-12-28 10:32 | PCM.DC.SUM ---
Providers Date of Admission: 12/25/22 Primary Care Physician: No Primary Care Phys Reason For Visit: ETOH DETOXIFICATION Diagnosis Discharge Diagnosis (1) Alcohol abuse: Status: Chronic Code(s): F10.10 - Alcohol abuse, uncomplicated Plan #1. EtOH abuse with Impending Acute EtOH Withdrawal if pt that drinks 40-60 beers/day. UDS + for barbiturates. Ethyl alcohol 347. Given interest in sobriety, will initiate and continue on protocol with taper course of Phenobarbital, PRN gabapentin, Catapres, Bentyl, Vistaril, IV fluids, IV antiemetics, Tylenol as needed for pain. Will consult Case management for assistance for transition to next level of rehabilitation care. Mag, phos pending. Maintain on CIWA protocol concurrently. Patient to be discharged today and to follow-up with outpatient programs. If patient does not follow-up then he will not be further eligible for ramp in the future. In that case, patient will not be able to be admitted unless he is going through acute alcohol withdrawal. #2. Recent mechanical fall potentially while inebriated: CT head with no acute intracranial findings, CT cervical spine with multilevel degenerative changes with no acute findings. Maintain on fall precautions. Patient denies any head or cervical discomfort at this time. Superficial abrasion on nose and swelling of his nose. Appear aligned. Recommended avoiding manipulating his nose. No need for Neosporin. #3. Hyponatremia, Chronic likely 2/2 beer potomania. Outpt followup. #4. Hypertension: Not on regimen, previously had been on amlodipine and given elevated blood pressures have persisted through to his current presentation we will restart, as needed IV hydralazine in interim. #5. Anxiety and depression: Likely contributes to alcohol abuse, not on any regimen, will encourage aggressive follow-up with 180/counseling. #6. Tobacco Abuse: Encouraged cessation, inpatient consultation per RT, NR if desired. #7. Intractable hiccups: We will initiate low-dose Thorazine. #8. DVT prophylaxis: Low risk for type of admission. Medications at Discharge Home Medications multivitamin 1 tab PO DAILY #30 tabs 12/28/22 Hospital Course Summary of Care Provided Hospital Course: Patient mated for alcohol withdrawal as he drinks 40-60 beers per day. Patient is on phenobarbital as well other adjunctive medications. Patient was seen by addiction medicine. Plan is for the patient be discharged today but patient will need to follow-up with his outpatient program. If the patient does present here requesting alcohol withdrawal and if he did not complete the program, he will be eligible for ramp programs. So be very important to asked patient if he did follow-up with any programs if he did not that he cannot be admitted here unless he is going through acute alcohol withdrawal. Weight / BMI Weight Weight: 77.111 kg Body Mass Index (BMI) 21.8 ABG / Lab / Microbiology Data 12/25/22 13:49 12/25/22 13:49 D/C Instructions Discharge Diet: No restrictions Meaningful Use Info Meaningful Use Diagnoses (Choose all that apply): None applicable Discharge Plan Admission Admit Date/Time: 12/25/22 14:47 Primary Reason for Your Visit: Alcohol withdrawal Attending Provider: Jean Carlos Long Primary Care Provider: Reynold Gutiérrez,No Primary Consulting Providers: Juany Morrissey Instructions Additional Instructions / Restrictions: Is very important that you do follow-up with outpatient programs for your alcohol withdrawal. Per addiction medicine, who saw you here, if you do not follow-up this time you will not be eligible to be admitted for the alcohol withdrawal program. With that being said if you are going through acute alcohol withdrawal you could be admitted for that but otherwise you just cannot request alcohol withdrawal without being an actual alcohol drawl. Discharge Orders/Prescriptions Prescriptions: New multivitamin Tablet 1 tab PO DAILY Qty: 30 0RF Discontinued nicotine 21 mg/24 hr Patch 24 Hour 21 mg transdermal DAILY 30 Days Qty: 30 0RF Referrals / Follow Up: Care Physician,No Primary [Primary Care Provider] - Disposition Disposition (needs filled in before D/C Order can be placed): Home, Self Care Charges/Coding Visit Charges Inpatient E&M: 05729 Disch Hosp
== END 2022-12-28 10:55 | disposition home or self-care (01) | DRG 772 ==
LOC: ED 14:58 → MS3 15:44
PROVIDERS: Admitting Provider Family Medicine; Emergency Provider Emergency Medicine
DX: F10.239 Alcohol dependence with withdrawal, unspecified (principal); E87.1 Hypo-osmolality and hyponatremia; K70.10 Alcoholic hepatitis without ascites; I10 Essential (primary) hypertension; F32.A Depression, unspecified; F17.210 Nicotine dependence, cigarettes, uncomplicated; F41.9 Anxiety disorder, unspecified; S00.31XA Abrasion of nose, initial encounter; W19.XXXA Unspecified fall, initial encounter; Y90.8 Blood alcohol level of 240 mg/100 ml or more; R06.6 Hiccough
CPT/HCPCS: 70450; 72125; 80053; 80307; 82077; 83735; 84100; 85025; 97802; 99285; 99406; J7030; J7120; A4216

== ENCOUNTER 2023-01-07 15:38 | Emergency (ER) | payer MEDICAID, SELFPAY ==
[2023-01-07 15:39] VITALS: BP 150/104; PULSE 109; RESP 16; TEMP 35.8; O2SAT 99
--- NOTE | 2023-01-07 16:03 | EX.ED.DYSGE1 ---
HPI <ROSLYN Palmer - Last Filed: 01/07/23 16:28> History of Present Illness Chief Complaint: Substance Abuse Narrative Narrative: 52-year-old male is here requesting alcohol detox. He was admitted here for detox on 12/25 and was instructed to follow-up with outpatient programs. Patient is vague and tells me he followed up somewhere in [place] or [place] but then he states he is not sure when that was. His started drinking after leaving the hospital last time and his last drink was in the parking lot prior to walking in the ED. He drinks 60 beers a day. No liquor and no drugs. He takes no medications. Denies history of seizures. PFSH <ROSLYN Palmer - Last Filed: 01/07/23 16:28> PFS Medical History Alcohol abuse Alcoholic hepatitis Anxiety and depression Hypertension Hypertension Hyponatremia Tobacco abuse Home Medications NK 01/07/23 [History Last Taken Unknown] Allergy/AdvReac Type Severity Reaction Status Date / Time No Known Allergies Allergy Verified 01/07/23 15:39 Family History Father Hypertension Myocardial infarction Heart disease Family History other Surgical History History of surgery on upper extremity Hx of hand surgery Hx of knee surgery Social History housing: other details: Lives alone primarily, but notes his son will occasionally stay with him. Smoking Status: Heavy Smoker (>10/day) alcohol intake: current alcohol intake frequency: 3 or more drinks per day details: Baseline 40-60, 12 ounce beers daily. substance use type: does not use ROS <ROSLYN Palmer - Last Filed: 01/07/23 16:28> ROS ED ROS Narrative Constitutional: Negative for fever, chills, malaise. CVS: Negative for palpitations, chest pain. Respiratory: Negative for shortness of breath. GI: Negative for abdominal pain, nausea, vomiting. Neuro: Negative for headache. EXAM <ROSLYN Palmer - Last Filed: 01/07/23 16:28> Physical Exam Narrative Exam Narrative: CONST: Patient sitting in no acute distress. EYES: Normal inspection. NECK: Normal inspection. RESP: No respiratory distress, CTAB. CVS: Slightly tachycardic around 105 bpm with regular rhythm, no murmur, no gallop. ABD: Soft and nontender, no guarding or rebound, nondistended, no hepatosplenomegaly. SKIN: Color normal, no rash, warm, dry, intact. EXTREMITIES: Normal appearance, no pedal edema. NEURO: Oriented x4. PSYCH: Normal affect. Const Vital Signs: 01/07/23 15:39 Temperature 96.5 F L Temperature Source Temporal Pulse Rate 109 H Respiratory Rate 16 Blood Pressure 150/104 H Blood Pressure Mean 119 Pulse Ox 99 Oxygen Delivery Method Room Air <Dr. Jesus Porras MD - Last Filed: 01/07/23 16:33> Physical Exam Const Vital Signs: 01/07/23 15:39 Temperature 96.5 F L Temperature Source Temporal Pulse Rate 109 H Respiratory Rate 16 Blood Pressure 150/104 H Blood Pressure Mean 119 Pulse Ox 99 Oxygen Delivery Method Room Air MDM <ROSLYN Palmer - Last Filed: 01/07/23 16:28> [facility] MDM Narrative Medical decision making narrative: I spoke with social work who contacted 180 to see if the patient had followed up after last admission and he has not. 180 said he is no longer eligible to be in the ramp program. According to the last hospitalist note on 12/28 since he is not eligible for ramp he cannot be admitted unless he is going through acute alcohol withdrawal which he is not at this time. This was explained to the patient. He was calm and states he would like to go and his IV was pulled and he was discharged. He exhibited no signs of acute alcohol withdrawal and did not require intervention. <Dr. Jesus Porras MD - Last Filed: 01/07/23 16:33> [facility] Treatment and Re-Evaluation :: I have personally performed a face to face assessment of the patient and have reviewed the JOSE Note. I performed a substantive portion of the visit including all aspects of the following. My maki findings include: History: Patient presents requesting detox. He went through the program not long ago here. He states he did complete it. He did not follow-up for ongoing treatment. He started drinking when he left. He drinks anywhere from 30-60 beers a day. He does not feel as though he is in withdrawal. He did drink today. His reason for coming in his he just has to get off the alcohol. Exam: Patient is awake alert. No acute distress. Carries on normal conversation. Conjunctival is injected but I see no icterus. Heart is minimally tachycardic. Mucous membranes are moist. Lungs are clear. Saturations normal. His abdomen is actually benign. Medical Decision Making: Due to his recent visit, lack of follow-up he is not eligible for acute admission now. We did get social work involved. He is not eligible for the ramp program either. Discharge Plan Triage Chief Complaint: Substance Abuse ED Midlevel Provider: Karen Garcia ED Provider: Jesus Porras Dx/Rx/DC Orders Clinical Impression: Alcohol abuse Instructions: Addiction: Getting Help Prescriptions: No Action NK Primary Care Provider: Care Physician,No Primary Referrals: Care Physician,No Primary [Primary Care Provider] - Disposition Disposition: Home, Self Care
[2023-01-07 16:32] VITALS: RESP 16
--- NOTE | 2023-01-07 16:37 | CM.ED ---
Social Work SW contacted [facility] regarding patient status for RAMP program. [facility] reports patient is unable to participate in RAMP program. Pt was recommended for residential treatment as pt has had numerous RAMP admissions without success. [facility] and hospitalist had made this clear with patient at discharge from 12/25 RAMP admission. It is noted that patient can only be admitted if in acute withdrawal but not for the RAMP program. Pt was to receive follow up services/residential after last discharge and did not follow through with services and reported drinking the same day of last discharge. Lin Conn ENGINEER INTERN, [employer]
== END 2023-01-07 16:32 | disposition home or self-care (01) ==
LOC: ED 16:32
PROVIDERS: Emergency Provider Emergency Medicine; Visit Provider Emergency Medicine
DX: F10.10 Alcohol abuse, uncomplicated (principal); I10 Essential (primary) hypertension; F17.200 Nicotine dependence, unspecified, uncomplicated
CPT/HCPCS: 99283

== ENCOUNTER 2024-06-25 20:37 | Inpatient (IN) | payer BC, SELFPAY ==
[2024-06-25 20:38] VITALS: BP 157/114; PULSE 118; RESP 19; TEMP 35.9; O2SAT 99; BMI 23.1
--- NOTE | 2024-06-25 21:08 | EDS_ITS ---
HPI History of Present Illness Chief Complaint: ETOH Intox [facility] Medical History (Updated 06/25/24 @ 22:[address] Aaliyah Rg MD) History of hypertension Anxiety and depression Hypertension Tobacco abuse Alcohol abuse Hyponatremia Alcoholic hepatitis Alcohol abuse Hypertension Home Medications ?Medication ?Instructions ?Recorded ?Last Taken ?Type NK 01/07/23 Unknown History Allergy/AdvReac Type Severity Reaction Status Date / Time No Known Allergies Allergy Verified 06/25/24 20:38 Family History Father Hypertension Myocardial infarction Heart disease Family History other Surgical History History of surgery on upper extremity Hx of hand surgery Hx of knee surgery Social History housing: other details: Lives alone primarily, but notes his son will occasionally stay with him. Smoking Status: Heavy Smoker (>10/day) alcohol intake: current alcohol intake frequency: 3 or more drinks per day details: Baseline 40-60, 12 ounce beers daily. substance use type: does not use EXAM Physical Exam Const Vital Signs: 06/25/24 20:38 06/25/24 21:47 Temperature 96.6 F L 96.8 F L Temperature Source Temporal Temporal Pulse Rate 118 H 98 Respiratory Rate 19 H 18 Blood Pressure 157/114 H 140/93 H Blood Pressure Mean 128 108 Pulse Ox 99 95 Oxygen Delivery Method Room Air Room Air MDM [facility] Narrative Medical decision making narrative: HISTORY OF PRESENT ILLNESS: Chief complaint: Alcohol abuse, encounter for alcohol detox 54-year-old male history of alcohol abuse presents with request to undergo inpatient detox. patient notes is been drinking every day for last 2 weeks. He states he drink up to 60 beers in 1 day. Last drink was several hours prior to arrival. Denies other drug use. REVIEW OF SYSTEMS: Pertinent positives: None Pertinent negatives: Abdominal pain, vomiting PHYSICAL EXAM: Nursing triage notes reviewed, Vital signs reviewed Constitutional: please see mdm HENT: MMM Eyes: Pupils equal round and reactive to light, Extraocular muscles intact Neck: No stridor, no JVD, full neck ROM Lungs: Clear to auscultation, No wheezing or rales. No increased work of breathing, no conversational dyspnea, no accessory muscle use, no nasal flaring. No respiratory distress noted Heart: Regular rate and rhythm, No murmurs, No rubs and No gallops, 2+ distal pulses (radial, femoral, posterior tibial) in all extremities Abdomen: Soft, there is no tenderness, rigidity, rebound or guarding, no obvious peritoneal signs, no palpable pulsatile abdominal masses, no auscultated abdominal bruit : No CVAT Extremities: No edema Neuro: No new focal neurological deficits, cranial nerves II through XII intact, 5/5 strength in all present extremities. Intact sensation to light touch in all present extremities, 2+ reflexes bilateral patella tendons. Skin: No rash or lesions noted MEDICAL DECISION MAKING: Chief Complaint: please see HPI External records reviewed: Reviewed prior mission for alcohol detox Factors affecting care: history of alcohol abuse Social determinants of health: history of alcohol History obtained from others: none Consults:Internal medicine (Dr. Rg) MDM Narrative: Patient was initially tachycardic, hypertensive consistent with alcohol withdrawal. Medical clearance labs were obtained Patient was initially treated with 2 mg IV Ativan and 97.2 mg of p.o. phenobarbital ALL IMAGES (IF OBTAINED) HAVE BEEN PERSONALLY REVIEWED AND INTERPRETED BY MYSELF. Serum alcohol level grossly elevated CBC without leukocytosis, severe anemia, no thrombocytopenia. BMP with evidence hyponatremia, likely alcoholic ketoacidosis elevated anion gap, no evidence of metabolic acidosis, Urine drug screen is pending at this time Discussed with hospitalist for admission to the right program. The patient and/or family, caregivers express understanding. The patient and/or family, caregivers agrees with the plan. Shared decision making: I will have a discussion with the patient and or visitors regarding risk/benefits of further testing or admission. They will be made aware of of the risk/benefits inherent in this decision they will be given the opportunity to voice understanding. Total critical care time today provided was at least 0 [minutes. This excludes separately billable procedures. Critical care time (if documented) is secondary to the patient having high probability of clinically significant/life threatening deterioration in the patient's condition which required my urgent intervention. Impression: 1. Acute alcohol intoxication 2. Acute alcohol withdrawal 3. Encounter for admission to inpatient alcohol detox Dispo: Admit This note was generated with [employer] dictation software. It may contain incorrect words, spelling, and punctuation that were not noted in review of the chart prior to signing. Lab Data Labs: Laboratory Results - last 24 hr 06/25/24 21:00 WBC 5.7 RBC 5.29 Hgb 16.3 Hct 45.4 MCV 85.8 MCH 30.8 MCHC 35.9 RDW Std Deviation 45.1 H RDW Coeff of Danial 14.4 Plt Count 129 L MPV 10.7 Immature Gran % (Auto) 0.200 Neut % (Auto) 48.3 Lymph % (Auto) 42.6 H [place] % (Auto) 7.5 Eos % (Auto) 0.7 Baso % (Auto) 0.7 Absolute Neuts (auto) 2.8 Absolute Lymphs (auto) 2.43 Nucleated RBC % 0 Sodium 131 L Potassium 3.4 Chloride 91 L Carbon Dioxide 23.4 Anion Gap 17 H BUN 6 Creatinine 0.69 L Estim Creat Clear Calc 138.05 Est GFR (MDRD) Non-Af 109 BUN/Creatinine Ratio 9.1 L Glucose 142 H Calcium 8.5 Ethyl Alcohol 347.0 H* Discharge Plan Disposition Disposition: Acute Care Hospital [facility] Discharge Date/Time: 06/25/24 23:02
[2024-06-25 21:40] LABS: Absolute Lymphocyte Count 2.43 X10^3/uL (0.83-4.51); Absolute Neutrophil Count 2.8 X10^3/uL (2.0-7.7); Basophil# 0.04 X10^3/uL; Basophil% 0.7 % (0-1); Eosinophil# 0.04 X10^3/uL; Eosinophils% 0.7 % (0-5); Hematocrit 45.4 % (40-54); Hemoglobin 16.3 g/dL (13.0-16.5); Lymphocyte # 2.43 X10^3/ul (0.83-4.51); Lymphocyte % 42.6 % (19-41); Mean Corp Hgb Conc 35.9 g/dL (32-36); Mean Corpuscular Hgb 30.8 pg (27.0-32.0); Mean Corpuscular Volume 85.8 fL (80-94); Mean Platelet Vol. 10.7 fl (6.2-12.0); Monocyte# 0.43 X10^3/uL; Monocyte% 7.5 % (0-10); NRBC Flagged by Analyzer 0 % (0-5); Neutrophil # 2.76 X10^3/uL (2.7-7.7); Neutrophil % 48.3 % (47-70); Platelet Count 129 K/mm3 (150-450); RBC Distribution Width CV 14.4 % (11.6-14.6); RBC Distribution Width SD 45.1 fl (35.1-43.9); Red Blood Count 5.29 M/mm3 (4.6-6.2); White Blood Count 5.7 K/mm3 (4.4-11.0)
[2024-06-25] MEDS: 0.9% Normal Saline (500mL Bag) 500 ML 999 ML IV (21:43)
[2024-06-25] MEDS: Phenobarbital 32.4 MG Tablet 97.2 MG PO (21:43)
[2024-06-25] MEDS: Lorazepam 2 MG/ML WCH Syringe IM (21:43)
[2024-06-25 21:47] VITALS: BP 140/93; PULSE 98; RESP 18; TEMP 36; O2SAT 95
[2024-06-25 22:01] LABS: Anion Gap 17 (5-15); BUN 6 mg/dL (4-19); BUN/Creat Ratio 9.1 RATIO (10-20); Calcium,Total 8.5 mg/dL (7.6-11.0); Carbon Dioxide 23.4 mmol/L (21.0-32.0); Chloride 91 mmol/L (98-108); Creatinine, Serum 0.69 mg/dL (0.70-1.20); EST Glomerular Filtration Rate 109 (>60); Estimated Creatinine Clearance 138.05 ml/min (50-250); Glucose 142 mg/dL (70-99); Potassium 3.4 mmol/L (3.3-5.1); Sodium Level 131 mmol/L (133-145)
--- NOTE | 2024-06-25 22:39 | PCM.HP.STD ---
HPI - General General Date of Admission: 06/25/24 Date of Service: 06/25/24 Chief Complaint: Alcohol abuse HPI Narrative DIANE POWERS, is a 54 M with past medical history of alcohol abuse and nicotine dependence who presents to the ED for concerns regarding alcohol withdrawal and desire for detoxification. He has had longstanding history of alcohol abuse but had achieved sobriety for last 1-1/2 years. About 2 weeks back he he started consuming alcohol, drinks about 60 cans of beer per day along with 1-1/2 to 2 packs of cigarettes. He lives with his son, has had multiple prior admissions to rehabilitation centers for alcohol detoxification His last drink was today At the time of presentation in the ED, blood pressure 140/93 temperature 96.8, satting well on room air, WBC 5.7, hemoglobin 16.3, platelet count 129, sodium 131, potassium 3.4, chloride 91, creatinine 0.6, Ethyl alcohol 347.0 PFSH Medical History History of hypertension Anxiety and depression Hypertension Tobacco abuse Alcohol abuse Hyponatremia Alcoholic hepatitis Alcohol abuse Hypertension Home Medications ?Medication ?Instructions ?Recorded ?Last Taken ?Type NK 01/07/23 Unknown History Allergy/AdvReac Type Severity Reaction Status Date / Time No Known Allergies Allergy Verified 06/25/24 20:38 Family History Father Hypertension Myocardial infarction Heart disease Family History other Surgical History History of surgery on upper extremity Hx of hand surgery Hx of knee surgery Social History housing: other details: Lives alone primarily, but notes his son will occasionally stay with him. Smoking Status: Heavy Smoker (>10/day) alcohol intake: current alcohol intake frequency: 3 or more drinks per day details: Baseline 40-60, 12 ounce beers daily. substance use type: does not use ROS Review of Systems ROS Unobtainable: Denies due to encephalopathy, due to endotracheal tube, due to mental condition, due to mental status or other Constitutional Constitutional: Denies anorexia, change in weight, chills, fatigue, fever(s), malaise, night sweats, weakness or other Eyes Eyes: Denies blurry vision, change in eye color, change in vision, discharge from eye(s), double vision, erythema, eye pain, loss of vision or other ENT HEENT: Denies abnormal hearing, dysphagia, ear pain, epistaxis, headache(s), hearing loss, nasal congestion, nasal discharge, post nasal drip, sinus pressure, sore throat or other Cardiovascular Cardiovascular: Denies chest pain, claudication, dyspnea on exertion, edema, lightheadedness, orthopnea, palpitations, paroxysmal nocturnal dyspnea, rapid heart rate, syncope or other Respiratory/Chest Respiratory/Chest: Denies cough, dyspnea, excessive phlegm production, hemoptysis, productive cough, shortness of breath at rest, shortness of breath with exertion, wheezing or other Gastrointestinal Gastrointestinal: Denies abdominal pain, coffee ground emesis, constipation, diarrhea, dyspepsia, hematemesis, hematochezia, loose stools, melena, nausea, vomiting or other Genitourinary Genitourinary: Denies burning urination, difficulty urinating, dysuria, hematuria, nocturia, urinary frequency, urinary hesitancy, urinary incontinence, urinary urgency or other Musculoskeletal Musculoskeletal: Denies arthralgias, back pain, joint pain, joint stiffness, joint swelling, myalgias, neck pain or other Neurologic Neurologic: Denies abnormal gait, abnormal speech, confusion, disequilibrium, dizziness, focal weakness, headache(s), numbness, paresthesias, seizure-like activity, seizures, syncope, tingling, tremor(s) or other Psychiatric Psychiatric: Denies anxiety, depression, homicidal ideation, suicidal ideation or other Endocrine Endocrinology: Denies change in body appearance, cold intolerance, excessive sweating, heat intolerance, polydipsia, polyuria or other Hematologic/Lymphatic Hematologic/Lymphatic: Denies anemia, easy bleeding, easy bruising, lymphadenopathy or other Allergic/Immunologic Allergic/Immunologic: Denies rhinitis, hives, eczemia, asthma or other Vital Signs Vital Signs Vital Signs: 06/25/24 20:38 06/25/24 21:47 Temperature 96.6 F L 96.8 F L Temperature Source Temporal Temporal Pulse Rate 118 H 98 Respiratory Rate 19 H 18 Blood Pressure 157/114 H 140/93 H Blood Pressure Mean 128 108 Pulse Ox 99 95 Oxygen Delivery Method Room Air Room Air Weight Weight: 180 lb Body Mass Index (BMI) 23.1 Physical Exam Const alert and oriented x3 HEENT normocephalic Eyes PERRL and EOMs intact bilaterally Neck no lymphadenopathy Resp normal respiratory effort Cardio regular rate and regular rhythm GI normal to inspection, nondistended, normoactive bowel sounds Extremity normal to inspection Neuro oriented x3, CN's II-XII intact bilaterally and moves all extremities Results Medical Records Data Attestation: I reviewed the patient's medical records Lab / Micro Data Attestation: I reviewed the patient's lab results. 06/25/24 21:00 06/25/24 21:00 Labs: Laboratory Results - last 24 hr 06/25/24 21:00: WBC 5.7, RBC 5.29, Hgb 16.3, Hct 45.4, MCV 85.8, MCH 30.8, MCHC 35.9, RDW Std Deviation 45.1 H, RDW Coeff of Danial 14.4, Plt Count 129 L, MPV 10.7, Immature Gran % (Auto) 0.200, Neut % (Auto) 48.3, Lymph % (Auto) 42.6 H, [place] % (Auto) 7.5, Eos % (Auto) 0.7, Baso % (Auto) 0.7, Absolute Neuts (auto) 2.8, Absolute Lymphs (auto) 2.43, Nucleated RBC % 0, Sodium 131 L, Potassium 3.4, Chloride 91 L, Carbon Dioxide 23.4, Anion Gap 17 H, BUN 6, Creatinine 0.69 L, Estim Creat Clear Calc 138.05, Est GFR (MDRD) Non-Af 109, BUN/Creatinine Ratio 9.1 L, Glucose 142 H, Calcium 8.5, Ethyl Alcohol 347.0 H* Assessment & Plan Assessment/Plan (1) Alcohol abuse: PLAN: Plan 54-year-old male with prior history of alcohol abuse and nicotine dependence presents to the ED for desire for inpatient detoxification. He has had prior attempts at inpatient detoxification and had achieved sobriety for last 18 months. #Alcohol abuse - Send LFTs for evaluation for alcoholic hepatitis - Start on CIAZ protocol - As needed gabapentin, Catapres, Bentyl, Vistaril, IV fluids, IV antiemetics, Tylenol as needed - Case management for assistance to transition to Rehabilitation #Suspected cirrhosis - He has thrombocytopenia we will get an ultrasound liver - LFTs - HCV HIV and hepatitis B # thrombocytopenia - could be due to portal hypertension - Evaluation as above - Normal INR #Risk for refeeding syndrome - Will monitor phosphorus levels as he has been had an inadequate intake for the last 2 weeks and is at risk for refeeding syndrome #Hypertension - Not on any medication at this time - Will continue to monitor -If elevated will start him on amlodipine #Hyponatremia - Sodium 131 - Likely beer potomania - Continue to monitor #DVT prophylaxis - Encourage mobilization
[2024-06-25 22:43] VITALS: BP 152/86; PULSE 90; RESP 18; TEMP 36.7; O2SAT 96
--- NOTE | 2024-06-25 22:49 | US_ITS ---
PROCEDURE: LIVER 06/25/2024 Right upper quadrant ultrasound REASON FOR EXAM: SUSPECTED CIRRHOSIS COMPARISON: None available FINDINGS: Study is limited by bowel gas and patient condition. The pancreas is not well seen. The liver measures 17.3 cm and appears heterogeneous and diffusely increased in echogenicity which can be seen with hepatic steatosis or other hepatocellular disease. No evidence of intrahepatic biliary ductal dilation seen. Hepatic color flow is present with flow in the portal vein hepatopetal as expected. Liver surface contour appears smooth. The gallbladder mildly prominent in size without stones, sludge, wall thickening or pericholecystic free fluid. Wall measures 1-2 mm. CBD 6 mm. The right kidney measures 12.9 x 5.3 x 6.1 cm with a cortical thickness of 1.8 cm. No right hydronephrosis, renal stone or perinephric edema seen. No free fluid seen. US/Liver IMPRESSION: Study is limited by bowel gas and patient condition. The pancreas is not well seen. The liver measures 17.3 cm and appears heterogeneous and diffusely increased in echogenicity which can be seen with hepatic steatosis or other hepatocellular disease. Liver surface contour appears josef h. Reading Location: [id number]
[2024-06-25 23:40] VITALS: BP 139/86; PULSE 99; RESP 16; TEMP 37.2; O2SAT 95
[2024-06-25 23:48] VITALS: BMI 23.2
[2024-06-25] MEDS: LORazepam 1 MG Tablet 2 MG PO (23:54)
[2024-06-25 23:55] LABS: Amphetamine Urine NEGATIVE (<1000 ng/mL); Barbiturate Urine NEGATIVE (< 200 ng/mL); Benzodiazepine Urine NEGATIVE (< 200 ng/mL); Buprenorphine Urine NEGATIVE (< 200 ng/mL); Cocaine Urine NEGATIVE (< 300 ng/mL); Fentanyl, Urine NEGATIVE; Methadone Urine NEGATIVE (< 300 ng/mL); Opiates Urine NEGATIVE (< 300 ng/mL); Oxycodone, Urine NEGATIVE (< 100 ng/mL); PCP Urine NEGATIVE (< 25 ng/mL); THC Urine NEGATIVE (< 50 ng/mL)
[2024-06-26 00:29] LABS: HIV Nonreactive (Nonreactive); Hepatitis B Surface Antigen Nonreactive (Nonreactive); Hepatitis C Antibody Nonreactive (Nonreactive)
[2024-06-26 03:32] VITALS: BP 119/76; PULSE 102; RESP 18; TEMP 36.9; O2SAT 94
[2024-06-26] MEDS: LORazepam 1 MG Tablet 2 MG PO ×2 (03:35→06:53)
[2024-06-26 06:21] LABS: Absolute Lymphocyte Count 1.95 X10^3/uL (0.83-4.51); Absolute Neutrophil Count 2.2 X10^3/uL (2.0-7.7); Basophil# 0.02 X10^3/uL; Basophil% 0.4 % (0-1); Eosinophil# 0.06 X10^3/uL; Eosinophils% 1.3 % (0-5); Hematocrit 42.6 % (40-54); Hemoglobin 15.3 g/dL (13.0-16.5); Lymphocyte # 1.95 X10^3/ul (0.83-4.51); Lymphocyte % 42.3 % (19-41); Mean Corp Hgb Conc 35.9 g/dL (32-36); Mean Corpuscular Hgb 31.3 pg (27.0-32.0); Mean Corpuscular Volume 87.1 fL (80-94); Monocyte# 0.42 X10^3/uL; Monocyte% 9.1 % (0-10); NRBC Flagged by Analyzer 0 % (0-5); Neutrophil # 2.15 X10^3/uL (2.7-7.7); Neutrophil % 46.7 % (47-70); Platelet Count 123 K/mm3 (150-450); RBC Distribution Width CV 14.5 % (11.6-14.6); RBC Distribution Width SD 46.1 fl (35.1-43.9); Red Blood Count 4.89 M/mm3 (4.6-6.2); White Blood Count 4.6 K/mm3 (4.4-11.0)
[2024-06-26 06:32] LABS: Hemoglobin A1c 5.8 % (<=5.6)
[2024-06-26 06:41] LABS: ALB/GLOB Ratio 1.7 RATIO (0.9-2.4); AST(SGOT) 85 U/L (<=37); Alanine Aminotransfer ALT/SGPT 54 U/L (<=46); Alkaline Phosphatase 80 U/L (40-129); Anion Gap 13 (5-15); BUN 7 mg/dL (4-19); BUN/Creat Ratio 9.3 RATIO (10-20); Bilirubin, Direct 0.28 mg/dL (0.00-0.30); Calcium,Total 8.5 mg/dL (7.6-11.0); Carbon Dioxide 25.6 mmol/L (21.0-32.0); Chloride 98 mmol/L (98-108); Creatinine, Serum 0.71 mg/dL (0.70-1.20); EST Glomerular Filtration Rate 108 (>60); Estimated Creatinine Clearance 134.91 ml/min (50-250); Globulin 2.3 g/dL (2.2-4.2); Glucose 149 mg/dL (70-99); Magnesium 2.2 mg/dL (1.5-2.2); Phosphorus 3.7 mg/dL (2.7-4.5); Potassium 3.7 mmol/L (3.3-5.1); Protein, Total 6.3 g/dL (5.9-8.4); Sodium Level 137 mmol/L (133-145); Thyroid Stim Hormone (TSH) 0.495 uIU/mL (0.300-4.200); Total Bilirubin 0.58 mg/dL (0.00-1.30)
[2024-06-26 06:46] LABS: Prothrombin Time (Protime)PT. 12.9 SECONDS (11.7-14.9)
[2024-06-26 06:50] VITALS: BP 122/71; PULSE 99; RESP 16; TEMP 37.1; O2SAT 97
[2024-06-26] MEDS: 0.9% Saline Lock 10 ML Syringe IV (06:53)
[2024-06-26 08:42] VITALS: BP 124/88; PULSE 102; RESP 18; TEMP 36.3; O2SAT 92
[2024-06-26] MEDS: Thiamine Hydrochloride 100 MG Tablet PO (08:58)
[2024-06-26] MEDS: Phenobarbital 32.4 MG Tablet 97.2 MG PO ×4 (08:58→20:47)
[2024-06-26] MEDS: Folic Acid 1 MG Tablet PO (08:59)
--- NOTE | 2024-06-26 10:01 | PCM.PN.HOSP ---
Subjective Subjective CIWA score of 2 this morning, will transition from an Ativan taper to a phenobarb taper Objective Data Objective Data Vital Signs: Vital Signs Temp Pulse Resp BP Pulse Ox O2 Del Method 97.3 F L 102 H 18 124/88 H 92 Room Air 06/26/24 08:42 06/26/24 08:42 06/26/24 08:42 06/26/24 08:42 06/26/24 08:42 06/26/24 08:42 Oxygen Delivery Method Room Air Weight: 181 lb Body Mass Index (BMI) 23.2 Intake & Output: Intake and Output for Last 24 Hours 06/25/24 06/26/24 06/27/24 03:59 03:59 03:59 Intake Total 500 / 500 Balance 500 / 500 Lab / Micro Data 06/26/24 05:40 06/26/24 05:40 Labs: Laboratory Results - last 24 hr 06/25/24 21:00: WBC 5.7, RBC 5.29, Hgb 16.3, Hct 45.4, MCV 85.8, MCH 30.8, MCHC 35.9, RDW Std Deviation 45.1 H, RDW Coeff of Danial 14.4, Plt Count 129 L, MPV 10.7, Immature Gran % (Auto) 0.200, Neut % (Auto) 48.3, Lymph % (Auto) 42.6 H, [place] % (Auto) 7.5, Eos % (Auto) 0.7, Baso % (Auto) 0.7, Absolute Neuts (auto) 2.8, Absolute Lymphs (auto) 2.43, Nucleated RBC % 0, Sodium 131 L, Potassium 3.4, Chloride 91 L, Carbon Dioxide 23.4, Anion Gap 17 H, BUN 6, Creatinine 0.69 L, Estim Creat Clear Calc 138.05, Est GFR (MDRD) Non-Af 109, BUN/Creatinine Ratio 9.1 L, Glucose 142 H, Calcium 8.5, Ethyl Alcohol 347.0 H*, Hep Bs Antigen Nonreactive, Hepatitis C Antibody Nonreactive, HIV 1&2 Antibody Nonreactive 06/25/24 22:41: Urine Opiates Screen NEGATIVE, U Buprenorphine Qual NEGATIVE, Ur Oxycodone Screen NEGATIVE, Urine Methadone Screen NEGATIVE, Urine Fentanyl Screen NEGATIVE, Ur Barbiturates Screen NEGATIVE, Ur Phencyclidine Scrn NEGATIVE, Ur Amphetamines Screen NEGATIVE, U Benzodiazepines Scrn NEGATIVE, Urine Cocaine Screen NEGATIVE, U Cannabinoids Screen NEGATIVE 06/26/24 05:40: WBC 4.6, RBC 4.89, Hgb 15.3, Hct 42.6, MCV 87.1, MCH 31.3, MCHC 35.9, RDW Std Deviation 46.1 H, RDW Coeff of Danial 14.5, Plt Count 123 L, MPV 10.0, Immature Gran % (Auto) 0.200, Neut % (Auto) 46.7 L, Lymph % (Auto) 42.3 H, [place] % (Auto) 9.1, Eos % (Auto) 1.3, Baso % (Auto) 0.4, Absolute Neuts (auto) 2.2, Absolute Lymphs (auto) 1.95, Nucleated RBC % 0, PT 12.9, INR 1.0, Sodium 137, Potassium 3.7, Chloride 98, Carbon Dioxide 25.6, Anion Gap 13, BUN 7, Creatinine 0.71, Estim Creat Clear Calc 134.91, Est GFR (MDRD) Non-Af 108, BUN/Creatinine Ratio 9.3 L, Glucose 149 H, Hemoglobin A1c 5.8 H, Calcium 8.5, Phosphorus 3.7, Magnesium 2.2, Total Bilirubin 0.58, Direct Bilirubin 0.28, AST 85 H, ALT 54 H, Alkaline Phosphatase 80, Total Protein 6.3, Albumin 4.0, Globulin 2.3, Albumin/Globulin Ratio 1.7, TSH 0.495 Radiography Diagnostic Testing: Radiology Impression Liver Ultrasound 06/25/24 22:49 IMPRESSION: Study is limited by bowel gas and patient condition. The pancreas is not well seen. The liver measures 17.3 cm and appears heterogeneous and diffusely increased in echogenicity which can be seen with hepatic steatosis or other hepatocellular disease. Liver surface contour appears smooth. Reading Location: [facility] Physical Exam Narrative General: Alert, Oriented x3, Cooperative, No apparent distress HEENT: Atraumatic, PERRLA, EOMI, Normocephalic Oral: Moist Mucosa Neck: Supple, No JVD Lungs: Clear to auscultation, Normal air movement, No rhonchi, No wheeze, No rales Cardiovascular: Regular rate, Regular Rhythm, Normal S1, Normal S2, No murmurs Abdomen: Soft, Non Tender, Non-Distended, No Hepato-splenomegaly Extremities: No edema, Capillary Refill Less than 3 Seconds Skin: No rashes, No breakdown Musculoskeletal: No Tenderness to Palpation of Joints or Extremities Neurological: No focal neurological deficits, Motor Exam 5/5 strength throughout, Sensory exam intact to light touch and pain Psych/Mental Status: Flat Assessment & Plan Assessment/Plan (1) Alcohol abuse: PLAN: Plan 1. Alcohol abuse requesting detox/elevated LFTs ? Liver ultrasound is pending ? Continue with alcohol withdrawal protocol ? Will have her follow-up with 180 to develop a discharge plan ? Hepatitis and HIV panel pending ? Mild acute thrombocytopenia, will monitor DVT: Ambulation Charges/Coding Visit Charges Inpatient E&M: 31247 Subs Hosp L2
[2024-06-26 14:47] VITALS: BP 141/95; PULSE 88; RESP 16; TEMP 36.8; O2SAT 95
[2024-06-26 18:16] VITALS: BP 138/92; PULSE 102; RESP 18; TEMP 36.8; O2SAT 94
[2024-06-26 21:51] VITALS: BP 154/76; PULSE 98; RESP 18; TEMP 36.4; O2SAT 94
[2024-06-27] MEDS: Phenobarbital 32.4 MG Tablet 97.2 MG PO ×4 (01:59→12:17)
[2024-06-27 02:36] VITALS: BP 136/92; PULSE 68; RESP 16; TEMP 36.9; O2SAT 95
[2024-06-27 06:00] VITALS: BP 128/90; PULSE 100; RESP 18; TEMP 36.7; O2SAT 94
[2024-06-27 06:08] VITALS: BP 134/88; PULSE 88; RESP 18; TEMP 36.9; O2SAT 94
--- NOTE | 2024-06-27 09:26 | PCM.PN.HOSP ---
Subjective Subjective CIWA score of 5, little bit antsy because of his tobacco use, will place him on a nicotine patch Objective Data Objective Data Vital Signs: Vital Signs Temp Pulse Resp BP Pulse Ox O2 Del Method 98.5 F 88 18 134/88 H 94 Room Air 06/27/24 06:08 06/27/24 06:08 06/27/24 06:08 06/27/24 06:08 06/27/24 06:08 06/27/24 06:08 Oxygen Delivery Method Room Air Weight: 181 lb Body Mass Index (BMI) 23.2 Intake & Output: Intake and Output for Last 24 Hours 06/26/24 06/27/24 06/28/24 03:59 03:59 03:59 Intake Total 500 / 500 1090 / 1090 Balance 500 / 500 1090 / 1090 Lab / Micro Data 06/26/24 05:40 06/26/24 05:40 Physical Exam Narrative General: Alert, Oriented x3, Cooperative, No apparent distress HEENT: Atraumatic, PERRLA, EOMI, Normocephalic Oral: Moist Mucosa Neck: Supple, No JVD Lungs: Clear to auscultation, Normal air movement, No rhonchi, No wheeze, No rales Cardiovascular: Regular rate, Regular Rhythm, Normal S1, Normal S2, No murmurs Abdomen: Soft, Non Tender, Non-Distended, No Hepato-splenomegaly Extremities: No edema, Capillary Refill Less than 3 Seconds Skin: No rashes, No breakdown Musculoskeletal: No Tenderness to Palpation of Joints or Extremities Neurological: No focal neurological deficits, Motor Exam 5/5 strength throughout, Sensory exam intact to light touch and pain Psych/Mental Status: Flat Assessment & Plan Assessment/Plan (1) Alcohol abuse: PLAN: Plan 1. Alcohol abuse requesting detox/elevated LFTs ? Liver ultrasound with increased echogenicity consistent with hepatic steatosis ? Continue with alcohol withdrawal protocol ?He has no interest in a discharge plan anticipate he will likely request to be discharged tomorrow or this afternoon ?Hepatitis panel and HIV are negative ? Mild acute thrombocytopenia, will monitor DVT: Ambulation Charges/Coding Visit Charges Inpatient E&M: 96987 Subs Hosp L2
[2024-06-27 09:39] VITALS: BP 147/88; PULSE 95; RESP 18; TEMP 36.8; O2SAT 97
[2024-06-27] MEDS: Folic Acid 1 MG Tablet PO (09:41)
[2024-06-27] MEDS: Thiamine Hydrochloride 100 MG Tablet PO (09:41)
[2024-06-27 11:26] VITALS: BP 134/88; PULSE 88; RESP 18; TEMP 36.8; O2SAT 95; O2SAT 96
--- NOTE | 2024-06-27 13:52 | ADDICTION ---
Clinician met w/ pt to conduct assessment and provide information on the [facility] program. Pt reported that he was not interested in Tx services post med w/d management. I know what I need to d, the other stuff doesn't work. A drink just sounded good that day. It didn't get bad like the last time when I didn't do nothing for 60 days. I was still going to work and everything this time. Clinician utilized MD approach and provided resources to pt.
--- NOTE | 2024-06-28 09:04 | NURSING ---
late entry- at 1400 06/27 pt informed the STOCK SELECTOR he wanted to leave AMA. Nurse confirmed with the patient and AMA papers signed. IV removed and notified.
== END 2024-06-27 14:23 | disposition home or self-care (01) | DRG 897 ==
LOC: ED 21:36 → MS3 22:41
PROVIDERS: Admitting Provider Internal Medicine; Emergency Provider Emergency Medicine; Referring Provider Internal Medicine; Visit Provider Family Medicine
DX: F10.239 Alcohol dependence with withdrawal, unspecified (principal); E87.1 Hypo-osmolality and hyponatremia; D69.6 Thrombocytopenia, unspecified; K74.60 Unspecified cirrhosis of liver; I10 Essential (primary) hypertension; K76.0 Fatty (change of) liver, not elsewhere classified; F17.200 Nicotine dependence, unspecified, uncomplicated; Y90.8 Blood alcohol level of 240 mg/100 ml or more
CPT/HCPCS: 76705; 80048; 80053; 80307; 82077; 82248; 83036; 83735; 84100; 84443; 85025; 85610; 86703; 86803; 87340; 99283; A4216

== ENCOUNTER 2024-08-28 16:17 | Inpatient (IN) | payer BC, SELFPAY ==
[2024-08-28 16:18] VITALS: BP 135/93; PULSE 110; RESP 16; TEMP 36.9; O2SAT 97; BMI 23.0
--- NOTE | 2024-08-28 16:35 | ED.RN ---
As patient was taken back to room from waiting room, patient stated he did the alcohol detox program approx 1 month ago and went AMA. Patient states that when he does the program again this time, he will likely leave AMA again stating I just think it's a mental thing, I'm going to leave after I know I wont from the physical withdrawal.
[2024-08-28 16:48] LABS: Hematocrit 45.0 % (40-54); Hemoglobin 16.3 g/dL (13.0-16.5); Immature Granulocytes Count 0.020 X10^3/uL (0.0-0.0); Mean Corp Hgb Conc 36.2 g/dL (32-36); Mean Corpuscular Volume 86.9 fL (80-94); Mean Platelet Vol. 9.5 fl (6.2-12.0); NRBC Flagged by Analyzer 0 % (0-5); Platelet Count 211 K/mm3 (150-450); RBC Distribution Width CV 14.5 % (11.6-14.6); RBC Distribution Width SD 46.2 fl (35.1-43.9); Red Blood Count 5.18 M/mm3 (4.6-6.2); White Blood Count 10.2 K/mm3 (4.4-11.0)
--- NOTE | 2024-08-28 16:50 | EX.ED.DYSGE1 ---
HPI History of Present Illness Chief Complaint: ETOH Intox Narrative Narrative: Patient is a 54-year-old male with past medical history anxiety, depression, hypertension, hyponatremia, alcohol abuse who presents to the emergency department with a complaint of wanting alcohol detox. He states that he went through detox in the past and he states that he has never had any seizures. He states that he drinks 60 beers a day. Patient states he does not want to therefore he wants to go through detox. Patient states that his last drink was in the parking lot prior to coming into the emergency department [facility] Medical History History of hypertension Anxiety and depression Hypertension Tobacco abuse Alcohol abuse Hyponatremia Alcoholic hepatitis Alcohol abuse Hypertension Home Medications ?Medication ?Instructions ?Recorded ?Last Taken ?Type NK 01/07/23 Unknown History Allergy/AdvReac Type Severity Reaction Status Date / Time No Known Allergies Allergy Verified 06/25/24 20:38 Family History Father Hypertension Myocardial infarction Heart disease Surgical History History of surgery on upper extremity Hx of hand surgery Hx of knee surgery Social History housing: other details: Lives alone primarily, but notes his son will occasionally stay with him. Smoking Status: Heavy Smoker (>10/day) alcohol intake: current alcohol intake frequency: 3 or more drinks per day details: Baseline 40-60, 12 ounce beers daily. substance use type: does not use ROS ROS ED ROS Narrative Constitutional: Denies headache, lightness, dizziness Eyes: Denies double vision blurry vision Cardiovascular: Denies chest pain Respiratory: Denies shortness of breath Abdomen: Denies nausea vomit diarrhea : Denies urinary symptoms Neurological: Denies any numbness, weakness, tingling Skin: Denies any rashes or lesions EXAM Physical Exam Narrative Exam Narrative: General: Patient is lying in bed rest comfortably did not appear to be acute distress Head: Atraumatic, normocephalic Eyes: PERRL bilateral, EOMI blood, no conjunctival injection noted Neck: Soft, supple, trachea midline Cardiovascular: Patient tachycardic with a regular rhythm Extremities: +5/5 strength noted in the bilateral upper and lower extremities Neurological: Patient follow commands knew he was at [facility] year is 2024 Skin: Warm, dry, intact no rashes lesions noted Const Vital Signs: 08/28/24 16:18 08/28/24 17:18 Temperature 98.4 F Temperature Source Oral Pulse Rate 110 H 95 Respiratory Rate 16 18 Blood Pressure 135/93 H 148/98 H Blood Pressure Mean 107 114 Pulse Ox 97 96 Oxygen Delivery Method Room Air Room Air MDM MDM MDM Narrative Medical decision making narrative: Patient is a 54-year-old male who presented to the emergency department with a complaint of wanting alcohol detox. Once again his last drink was prior to coming into the emergency department. He states that he is never gone through alcohol withdrawal and never had seizures in the past. Patient be medically cleared and then be admitted to the hospital for detox. Patient's a CBC reviewed showed no evidence leukocytosis white blood count normal 10.2, he was 16.3, plate count 211. Patient odium is 130, potassium normal at 4.1, creatinine of 0.71. Patient's drug screen was negative, alcohol level 269. At this point time will discuss case with hospitalist for admission for detox. Discussed case with hospitalist Dr. Alvarez who accepts patient for admission. Patient notified is agreeable to the plan all questions and concerns answered. Lab Data Labs: Laboratory Results - last 24 hr 08/28/24 16:39 WBC 10.2 RBC 5.18 Hgb 16.3 Hct 45.0 MCV 86.9 MCH 31.5 MCHC 36.2 H RDW Std Deviation 46.2 H RDW Coeff of Danial 14.5 Plt Count 211 MPV 9.5 Immature Gran % (Auto) 0.200 Neut % (Auto) 61.8 Lymph % (Auto) 28.6 [place] % (Auto) 8.1 Eos % (Auto) 0.7 Baso % (Auto) 0.6 Absolute Neuts (auto) 6.3 Absolute Lymphs (auto) 2.92 Nucleated RBC % 0 Sodium 130 L Potassium 4.1 Chloride 91 L Carbon Dioxide 26.4 Anion Gap 12 BUN 7 Creatinine 0.71 Estim Creat Clear Calc 133.86 Est GFR (MDRD) Non-Af 107 BUN/Creatinine Ratio 9.6 L Glucose 97 Calcium 8.9 Urine Opiates Screen NEGATIVE U Buprenorphine Qual NEGATIVE Ur Oxycodone Screen NEGATIVE Urine Methadone Screen NEGATIVE Urine Fentanyl Screen NEGATIVE Ur Barbiturates Screen NEGATIVE Ur Phencyclidine Scrn NEGATIVE Ur Amphetamines Screen NEGATIVE U Benzodiazepines Scrn NEGATIVE Urine Cocaine Screen NEGATIVE U Cannabinoids Screen NEGATIVE Ethyl Alcohol 269.0 H Discharge Plan Triage Chief Complaint: ETOH Intox ED Provider: Gentry Bailey Dx/Rx/DC Orders Clinical Impression: Alcohol abuse, Anxiety and depression, History of alcoholic hepatitis Prescriptions: No Action NK Primary Care Provider: Care Physician,No Primary Referrals: Care Physician,No Primary [Primary Care Provider] - Print Language: Spanish Disposition Disposition: Acute Care Hospital [facility]
[2024-08-28 17:06] LABS: Barbiturate Urine NEGATIVE (< 200 ng/mL); Benzodiazepine Urine NEGATIVE (< 200 ng/mL); PCP Urine NEGATIVE (< 25 ng/mL); THC Urine NEGATIVE (< 50 ng/mL)
[2024-08-28 17:12] LABS: Alcohol, Blood (Medical)-Serum 269.0 mg/dL (<=10.0)
[2024-08-28 17:13] LABS: Anion Gap 12 (5-15); BUN 7 mg/dL (4-19); BUN/Creat Ratio 9.6 RATIO (10-20); Calcium,Total 8.9 mg/dL (7.6-11.0); Carbon Dioxide 26.4 mmol/L (21.0-32.0); Chloride 91 mmol/L (98-108); Estimated Creatinine Clearance 133.86 ml/min (50-250); Glucose 97 mg/dL (70-99); Potassium 4.1 mmol/L (3.3-5.1)
[2024-08-28 17:18] VITALS: BP 148/98; PULSE 95; RESP 18; O2SAT 96
[2024-08-28 17:42] VITALS: BP 139/92; PULSE 99; RESP 18; TEMP 36.6; O2SAT 95
--- NOTE | 2024-08-28 17:54 | PCM.HP.STD ---
HPI - General General Date of Admission: 08/28/24 Date of Service: 08/28/24 Chief Complaint: Alcohol withdrawal HPI Narrative DIANE POWERS, is a 54-year-old male history of hypertension, hyponatremia, anxiety, alcohol abuse who presented to [facility] ED 08/28/2024 wanting alcohol detox. He has gone through detox in the past and denies any history of withdrawal seizures. Presently states he drinks 60 beers a day and does not want to therefore he wants to go through detox. Last drink in the parking lot prior to coming to the ED. In the ED temp 98.4, heart rate 110 with a blood pressure 135/93, respiratory rate 16 and pulse ox 97% on room air. CBC with white blood cell count 10.2, hemoglobin 16.3 and platelet count 211. BMP with sodium of 130, similar to previous, BUN of 7 with creatinine of 0.71. UDS negative and alcohol level 269. Hospitalist contacted for admission for detox. Patient evaluated bedside. He reports that he began drinking again 9 days ago and drinks between 30-60 beers a day, so they are just regular beers and an 12 ounce cans but was unsure of the percentage. Last drink right before he walked into the ED. Has gone through alcohol detox many times in the past, was in her program within the past couple of months and left AMA. Presently denies any specific complaints but said he is starting to feel unwell and like he is going to go through alcohol withdrawal. [facility] Medical History History of hypertension Anxiety and depression Hypertension Tobacco abuse Alcohol abuse Hyponatremia Alcoholic hepatitis Alcohol abuse Hypertension Home Medications ?Medication ?Instructions ?Recorded ?Last Taken ?Type NK 01/07/23 Unknown History Allergy/AdvReac Type Severity Reaction Status Date / Time No Known Allergies Allergy Verified 06/25/24 20:38 Family History Father Hypertension Myocardial infarction Heart disease Surgical History History of surgery on upper extremity Hx of hand surgery Hx of knee surgery Social History housing: other details: Lives alone primarily, but notes his son will occasionally stay with him. Smoking Status: Heavy Smoker (>10/day) alcohol intake: current alcohol intake frequency: 3 or more drinks per day details: Baseline 40-60, 12 ounce beers daily. substance use type: does not use ROS ROS Narrative General: Denies fever/chills, just feels little bit generally unwell HENT: Denies headache, denies stuffy nose, denies sore throat EYES: Denies changes in vision Resp: Denies cough, denies shortness of breath Cardiac: Denies chest pain GI: Denies abdominal pain, denies changes in bowel, denies nausea/vomiting : Denies changes in urination Extremity: Denies swelling MSK: Denies weakness Neuro: Denies any numbness/tingling Heme: Denies any bleeding or bruising Skin: Denies rashes Psychiatric: No complaints voiced Vital Signs Vital Signs Vital Signs: 08/28/24 16:18 08/28/24 17:18 08/28/24 17:42 Temperature 98.4 F 97.9 F Temperature Source Oral Pulse Rate 110 H 95 99 Respiratory Rate 16 18 18 Blood Pressure 135/93 H 148/98 H 139/92 H Blood Pressure Mean 107 114 107 Pulse Ox 97 96 95 Oxygen Delivery Method Room Air Room Air Weight Weight: 81.465 kg Body Mass Index (BMI) 23.0 Physical Exam Narrative General: Alert, oriented, no apparent distress HEENT: Atraumatic, normocephalic Eyes: Anicteric, normal conjunctiva, extraocular movements grossly intact Neck: Supple Respiratory: Clear to auscultation bilaterally, normal respiratory effort Cardiovascular: Regular rate and rhythm GI: Soft, nontender, nondistended Extremities: No edema Musculoskeletal: Moving all extremities Neuro: No overt focal neurological deficits Skin: No rashes appreciated Psych: Cooperative Results Lab / Micro Data 08/28/24 16:39 08/28/24 16:39 Labs: Laboratory Results - last 24 hr 08/28/24 16:39: WBC 10.2, RBC 5.18, Hgb 16.3, Hct 45.0, MCV 86.9, MCH 31.5, MCHC 36.2 H, RDW Std Deviation 46.2 H, RDW Coeff of Danial 14.5, Plt Count 211, MPV 9.5, Immature Gran % (Auto) 0.200, Neut % (Auto) 61.8, Lymph % (Auto) 28.6, [place] % (Auto) 8.1, Eos % (Auto) 0.7, Baso % (Auto) 0.6, Absolute Neuts (auto) 6.3, Absolute Lymphs (auto) 2.92, Nucleated RBC % 0, Sodium 130 L, Potassium 4.1, Chloride 91 L, Carbon Dioxide 26.4, Anion Gap 12, BUN 7, Creatinine 0.71, Estim Creat Clear Calc 133.86, Est GFR (MDRD) Non-Af 107, BUN/Creatinine Ratio 9.6 L, Glucose 97, Calcium 8.9, Urine Opiates Screen NEGATIVE, U Buprenorphine Qual NEGATIVE, Ur Oxycodone Screen NEGATIVE, Urine Methadone Screen NEGATIVE, Urine Fentanyl Screen NEGATIVE, Ur Barbiturates Screen NEGATIVE, Ur Phencyclidine Scrn NEGATIVE, Ur Amphetamines Screen NEGATIVE, U Benzodiazepines Scrn NEGATIVE, Urine Cocaine Screen NEGATIVE, U Cannabinoids Screen NEGATIVE, Ethyl Alcohol 269.0 H Assessment & Plan Assessment/Plan (1) Alcohol abuse: PLAN: Plan #Alcohol use disorder - We will begin CIWA every 4 for 24 hours, then every 6 for 24 hours, then every 12 until discharge -Will begin phenobarbital taper -Gabapentin 300 mg every 8 as needed -Will start Bentyl and hydroxyzine as needed as well as loperamide as needed -Trazodone 100 mg p.o. nightly as needed sleep -Begin thiamine and folic acid supplementation -Zofran as needed for nausea -Case management consult to assist with discharge planning -EtOH 269 -UDS negative -Will check liver panel - On further chart review patient had AMA in June of this year, if he leaves AMA again we will be 30 days before he will be able to be reconsidered for the ramp program # Hyponatremia -Appears chronic -May be due to beer potomania -Repeat in the a.m, if worsening may need to consider other workup #Tobacco use -Advise cessation -Nicotine patch ordered, patient currently smokes about 2 packs a day #DVT ppx: Low risk, ambulatory Jessika Alvarez MD Charges/Coding Visit Charges Inpatient E&M: 43019 Init Hosp L1
[2024-08-28 18:30] VITALS: BMI 23.0
[2024-08-28 18:38] VITALS: BP 141/80; PULSE 96; RESP 18; TEMP 36.6; O2SAT 95
[2024-08-28 22:30] VITALS: BP 143/100; PULSE 98; RESP 16; TEMP 36.6; O2SAT 97
[2024-08-28] MEDS: hydrOXYzine PAM 25 MG Capsule 50 MG PO (23:01)
[2024-08-29 02:30] VITALS: BP 152/104; PULSE 78; RESP 16; TEMP 36.9; O2SAT 100
[2024-08-29 04:36] VITALS: BP 151/101; PULSE 88; RESP 16; TEMP 37; O2SAT 100
[2024-08-29 06:04] LABS: Prothrombin Time (Protime)PT. 12.6 SECONDS (11.7-14.9)
[2024-08-29 06:22] LABS: AST(SGOT) 26 U/L (<=37); Alanine Aminotransfer ALT/SGPT 11 U/L (<=46); Albumin, Serum 4.2 g/dL (3.5-5.0); Alkaline Phosphatase 105 U/L (40-129); Anion Gap 12 (5-15); BUN 8 mg/dL (4-19); BUN/Creat Ratio 13.3 RATIO (10-20); Bilirubin, Direct 0.16 mg/dL (0.00-0.30); Calcium,Total 9.2 mg/dL (7.6-11.0); Carbon Dioxide 22.5 mmol/L (21.0-32.0); Chloride 102 mmol/L (98-108); Estimated Creatinine Clearance 161.09 ml/min (50-250); Globulin 2.9 g/dL (2.2-4.2); Glucose 113 mg/dL (70-99); Potassium 4.5 mmol/L (3.3-5.1)
[2024-08-29] MEDS: hydrOXYzine PAM 25 MG Capsule 50 MG PO (06:39)
[2024-08-29 07:31] VITALS: BP 149/90; PULSE 79; RESP 16; TEMP 36.9; O2SAT 98
[2024-08-29 07:32] VITALS: BP 149/90; PULSE 79; RESP 16; TEMP 36.9; O2SAT 98
[2024-08-29] MEDS: Thiamine Hydrochloride 100 MG Tablet PO (07:35)
--- NOTE | 2024-08-29 08:26 | PN.HOSP_ITS ---
Reason for Visit Chief Complaint: Alcohol withdrawal Subjective Subjective Patient is a 54-year-old gentleman with history of chronic alcohol dependence who presented to the emergency department wanting to detox. His last alcohol was in the parking lot prior to being admitted. Objective Data Objective Data Vital Signs: Vital Signs Temp Pulse Resp BP Pulse Ox O2 Del Method 98.5 F 79 16 149/90 H 98 Room Air 08/29/24 07:32 08/29/24 07:32 08/29/24 07:32 08/29/24 07:32 08/29/24 07:32 08/29/24 07:32 Oxygen Delivery Method Room Air Weight: 81.465 kg Body Mass Index (BMI) 23.0 Intake & Output: Intake and Output for Last 24 Hours 08/27/24 08/28/24 08/29/24 23:59 23:59 23:59 Intake Total 300 / 300 Balance 300 / 300 Lab / Micro Data 08/28/24 16:39 08/29/24 05:22 Labs: Laboratory Results - last 24 hr 08/28/24 16:39: WBC 10.2, RBC 5.18, Hgb 16.3, Hct 45.0, MCV 86.9, MCH 31.5, MCHC 36.2 H, RDW Std Deviation 46.2 H, RDW Coeff of Danial 14.5, Plt Count 211, MPV 9.5, Immature Gran % (Auto) 0.200, Neut % (Auto) 61.8, Lymph % (Auto) 28.6, [place] % (Auto) 8.1, Eos % (Auto) 0.7, Baso % (Auto) 0.6, Absolute Neuts (auto) 6.3, Absolute Lymphs (auto) 2.92, Nucleated RBC % 0, Sodium 130 L, Potassium 4.1, C hloride 91 L, Carbon Dioxide 26.4, Anion Gap 12, BUN 7, Creatinine 0.71, Estim Creat Clear Calc 133.86, Est GFR (MDRD) Non-Af 107, BUN/Creatinine Ratio 9.6 L, Glucose 97, Calcium 8.9, Urine Opiates Screen NEGATIVE, U Buprenorphine Qual NEGATIVE, Ur Oxycodone Screen NEGATIVE, Urine Methadone Screen NEGATIVE, Urine Fentanyl Screen NEGATIVE, Ur Barbiturates Screen NEGATIVE, Ur Phencyclidine Scrn NEGATIVE, Ur Amphetamines Screen NEGATIVE, U Benzodiazepines Scrn NEGATIVE, Urine Cocaine Screen NEGATIVE, U Cannabinoids Screen NEGATIVE, Ethyl Alcohol 269.0 H 08/29/24 05:22: PT 12.6, INR 0.9, Sodium 136, Potassium 4.5, Chloride 102, Carbon Dioxide 22.5, Anion Gap 12, BUN 8, Creatinine 0.59 L, Estim Creat Clear Calc 161.09, Est GFR (MDRD) Non-Af 114, BUN/Creatinine Ratio 13.3, Glucose 113 H , Calcium 9.2, Total Bilirubin 0.49, Direct Bilirubin 0.16, AST 26, ALT 11, Alkaline Phosphatase 105, Total Protein 7.1, Albumin 4.2, Globulin 2.9 Physical Exam Narrative GENERAL: cooperative HEENT: Atraumatic; normocephalic EYES; Anicteric, Normal Conjunctiva NECK; supple, normal thyroid, RESPIRATORY: Diminished to auscultation CARDIOVASCULAR: Regular S1 S2, GI: soft, normoactive bowel sounds, : No Renal angle tenderness; EXTREMITIES: No edema, no clubbing, MUSCULOSKELETAL: no muscle wasting NEURO: Awake; no lateralizing signs. SKIN: No Rash PSYCH; Flat affect Assessment & Plan Assessment/Plan (1) Alcohol abuse: PLAN: Plan Patient is a 54-year-old gentleman with history of chronic alcohol dependence who presented to the emergency department wanting to detox. His last alcohol was in the parking lot prior to being admitted. 1. Chronic alcohol dependence at risk for withdrawal ? Patient admitted to regular nursing floor started oncCIWA every 4 for 24 hours, then every 6 for 24 hours, then every 12 until discharge. Patient was also placed on phenobarb taper gabapentin Bentyl and hydroxyzine as needed. He was also ordered trazodone at night. Case management consulted to assist with discharge planning. - On further chart review patient had AMA in June of this year, if he leaves AMA again we will be 30 days before he will be able to be reconsidered for the ramp program 2. Acute alcohol intoxication ? Management as discussed above 3. Hyponatremia ? Secondary to beer potomania secondary to chronic alcohol use monitoring with repeat BMP in a.m. 4. Tobacco dependence ? Counseled on cessation, offered nicotine patch for tobacco cravings 5. DVT prophylaxis ? Low risk encourage daily ambulation Charges/Coding Visit Charges Inpatient E&M: 53126 Subs Hosp L2
[2024-08-29 12:36] VITALS: BP 140/92; PULSE 89; RESP 18; TEMP 36.9; O2SAT 99
--- NOTE | 2024-08-29 14:00 | ADDICTION ---
Pt presents as a 54 yr old M, admitted to [facility] for detox from EtOH. Pt reports that he has been drinking a couple cases of beer daily for the past several years, last drink was in the parking lot of [facility] before he admitted to detox. Pt has been in and out of detox more than fifteen times in the past five years. Pt also has hx of inpatient and outpatient tx. However, pt states that he is not interested in any kind of MH or GOVIND tx at this time. Pt states I've tried all that, it doesn't work. Pt was adamant that he does not need to treat his GOVIND or MH, stating I just need to do nothing, just work and go hunting and fishing, take care of the farm. Pt presents with extensive risk factors in most domains and he was recommended to f/u with GOVIND tx, peer support services, and mutual support meetings, despite being unwilling to follow through. Pt states that he plans to return home on Friday and he will go back to work on Friday. Pt was engaged in RAMP assessment, AUDIT, DUDIT, MSE, ASAM, and DC Plan. DC PLAN: Pt refused any tx services; at this time he is unwilling to f/u w/any tx providers. Pt was provided information on tx resources/providers in case he changes his mind.
[2024-08-29 20:36] VITALS: BP 136/88; PULSE 88; RESP 16; TEMP 36.4; O2SAT 98
[2024-08-30 04:36] VITALS: BP 140/84; PULSE 78; RESP 16; TEMP 36.6; O2SAT 100
[2024-08-30] MEDS: Thiamine Hydrochloride 100 MG Tablet PO (08:02)
[2024-08-30 08:13] VITALS: BP 132/97; PULSE 78; RESP 16; TEMP 36.6; O2SAT 99
--- NOTE | 2024-08-30 10:41 | NURSING ---
pt signed ama papers, pt left hospital
--- NOTE | 2024-08-30 11:20 | PCM.DC.SUM ---
Providers Date of Admission: 08/28/24 Date of Discharge: 08/30/24 Primary Care Physician: No Primary Care Phys Reason For Visit: ALCOHOL DETOX Diagnosis Discharge Diagnosis (1) Alcohol abuse: Status: Acute Code(s): F10.10 - Alcohol abuse, uncomplicated Medications at Discharge Home Medications NK 01/07/23 Hospital Course Operations None Procedures None Summary of Care Provided Minutes Spent on Discharge: 35 Hospital Course: Patient is a 54-year-old male with a past medical history as outlined which includes hypertension, hyponatremia and anxiety as well as alcohol use disorder who was admitted to the ED on 08/28/2024 for acute alcohol detox. He had a history of alcohol use disorder and had undergone detox in the past. He said he drank about 60 beers daily. His last drink was in the parking lot before he came into the ED. On admission labs were significant for sodium of 130. Urine tox was negative and serum alcohol level was 269. Was admitted to be managed for acute alcohol withdrawal. He was started on alcohol drawl protocol with phenobarbital. On 08/30/2024 patient stated that he felt better and so wanted to be discharged home. He was counseled back to the detox process was usually at least 3 days and could even extend up to 5 days. However he said he felt much better and insisted on going home. When told he would have to sign out AGAINST MEDICAL ADVICE he agreed to this and immediately signed AM papers as soon as the report. Patient therefore left AGAINST MEDICAL ADVICE on 08/30/2024. Patient was seen and examined prior to him leaving [place]. I saw the patient with his nurse Leona at his bedside. He had no active complaints and denied any shakes or tremors. Review of symptoms otherwise negative. Review of systems otherwise negative. Physical Exam Const alert, oriented x3 and no apparent distress General Appearance: cooperative, comfortable and well kempt Orientation / Consciousness: awake Exam Limitations: no limitations HEENT normocephalic, head/scalp atraumatic, hearing grossly normal bilaterally, moist oral mucous membranes and oropharynx normal Mouth: oral and palatal mucosa normal Eyes EOMs intact bilaterally and conjunctivae normal Neck no lymphadenopathy and supple Resp normal respiratory effort, no retractions and clear to auscultation bilaterally Cardio regular rate, regular rhythm, S1 normal heart sound, S2 normal heart sound and no murmurs GI normal to inspection, nondistended, normoactive bowel sounds, soft to palpation, non-tender and non-distended Extremity normal to inspection, full ROM and no clubbing, cyanosis or edema Skin no rashes or lesions noted Neuro oriented x3, CN's II-XII intact bilaterally, moves all extremities, no focal motor deficits and no sensory deficits noted Sensorium / Orientation: awake and alert Motor Exam: strength 5/5 throughout Psych affect normal Weight / BMI Weight Weight: 179 lb 9.6 oz Body Mass Index (BMI) 23.0 ABG / Lab / Microbiology Data 08/28/24 16:39 08/29/24 05:22 D/C Instructions Discharge Activity: Return to Normal Activity DC O2, CPAP, BIPAP Needs Home O2 Discharge instructions: No Meaningful Use Info Meaningful Use Meaningful Use Diagnoses (Choose all that apply): None applicable Discharge Plan Admission Admit Date/Time: 08/28/24 17:56 Primary Reason for Your Visit: acute alcohol withdrawal Attending Provider: June Espinoza Primary Care Provider: Care Physician,No Primary Consulting Providers: Jessika Alvarez; Lopez Chaudhry Discharge Orders/Prescriptions Prescriptions: No Action NK Referrals / Follow Up: Care Physician,No Primary [Primary Care Provider] - Disposition Disposition (needs filled in before D/C Order can be placed): Home, Self Care Charges/Coding Visit Charges Inpatient E&M: 90858 Disch Hosp >30min
== END 2024-08-30 10:46 | disposition home or self-care (01) | DRG 897 ==
LOC: ED 17:42 → MS3 08-29 07:22
PROVIDERS: Admitting Provider Internal Medicine; Emergency Provider Emergency Medicine; Referring Provider Emergency Medicine; Visit Provider Student in an Organized Health Care Education/Training Program
DX: F10.239 Alcohol dependence with withdrawal, unspecified (principal); E87.1 Hypo-osmolality and hyponatremia; F17.210 Nicotine dependence, cigarettes, uncomplicated; Y90.8 Blood alcohol level of 240 mg/100 ml or more
CPT/HCPCS: 36415; 80048; 80076; 80307; 82077; 85025; 85610; 99283; A4216

== ENCOUNTER 2024-09-24 15:48 | Inpatient (IN) | payer BC, SELFPAY ==
[2024-09-24] VITALS (8 sets, daily range): BP systolic 119–144; BP diastolic 74–93; PULSE 94–120; RESP 18–118; TEMP 36.2–36.9; O2SAT 94–100; BMI 22.5
--- NOTE | 2024-09-24 16:31 | EX.ED.DYSGE1 ---
HPI <ROSLYN Palmer - Last Filed: 09/24/24 18:33> History of Present Illness Chief Complaint: ETOH Intox Narrative Narrative: 54-year-old male with past medical history of alcohol abuse presents requesting alcohol detox. He states he detoxed here recently. He started drinking again at least a week ago and drinks 30 beers a day. No liquor. Last drink about an hour ago. He denies recent vomiting, melena, or hematochezia. He takes no medications. He smokes 2 packs of cigarettes a day. Denies other drug use. Denies history of withdrawal seizures. PFSH <ROSLYN Palmer - Last Filed: 09/24/24 18:33> PFSH Medical History History of hypertension Anxiety and depression Hypertension Tobacco abuse Alcohol abuse Hyponatremia Alcoholic hepatitis Alcohol abuse Hypertension Home Medications ?Medication ?Instructions ?Recorded ?Last Taken ?Type NK 01/07/23 Unknown History Allergy/AdvReac Type Severity Reaction Status Date / Time No Known Allergies Allergy Verified 09/24/24 15:50 Family History Father Hypertension Myocardial infarction Heart disease Surgical History History of surgery on upper extremity Hx of hand surgery Hx of knee surgery Social History housing: other details: Lives alone primarily, but notes his son will occasionally stay with him. Smoking Status: Heavy Smoker (>10/day) alcohol intake: current alcohol intake frequency: 3 or more drinks per day details: Baseline 40-60, 12 ounce beers daily. substance use type: does not use ROS <ROSLYN Palmer - Last Filed: 09/24/24 18:33> ROS ED ROS Narrative Constitutional: Negative for fever, chills, malaise. CVS: Negative for chest pain. Respiratory: Negative for shortness of breath. GI: Negative for abdominal pain, nausea, vomiting, melena, hematochezia. EXAM <ROSLYN Palmer - Last Filed: 09/24/24 18:33> Physical Exam Narrative Exam Narrative: CONST: Patient sitting in no acute distress. EYES: Normal inspection. NECK: Normal inspection. RESP: No respiratory distress, CTAB. CVS: Tachycardic with regular rhythm, no murmur, no gallop. ABD: Soft and nontender, no guarding or rebound, nondistended. SKIN: Color normal, no rash, warm, dry, intact. EXTREMITIES: Normal appearance, no pedal edema. NEURO: Alert and answering questions appropriately. PSYCH: Normal affect. Const Vital Signs: 09/24/24 15:48 09/24/24 16:45 09/24/24 16:48 Temperature 98.5 F 97.2 F L Temperature Source Oral Oral Pulse Rate 120 H 102 H 102 H Respiratory Rate 118 H 18 18 Blood Pressure 121/88 H 133/86 H 133/86 H Blood Pressure Mean 99 101 101 Blood Pressure Source Monitor Blood Pressure Position Semi-Fowlers Blood Pressure Location Right Arm Pulse Ox 95 95 95 Oxygen Delivery Method Room Air Room Air Room Air 09/24/24 17:00 09/24/24 18:00 Temperature Temperature Source Pulse Rate 94 95 Respiratory Rate 18 20 H Blood Pressure 128/83 H 119/74 Blood Pressure Mean 98 89 Blood Pressure Source Blood Pressure Position Blood Pressure Location Pulse Ox 100 97 Oxygen Delivery Method Room Air Room Air <Dr. Diego Cain MD - Last Filed: 09/24/24 16:46> Physical Exam Const Vital Signs: 09/24/24 15:48 09/24/24 16:45 09/24/24 16:48 Temperature 98.5 F 97.2 F L Temperature Source Oral Oral Pulse Rate 120 H 102 H 102 H Respiratory Rate 118 H 18 18 Blood Pressure 121/88 H 133/86 H 133/86 H Blood Pressure Mean 99 101 101 Blood Pressure Source Monitor Blood Pressure Position Semi-Fowlers Blood Pressure Location Right Arm Pulse Ox 95 95 95 Oxygen Delivery Method Room Air Room Air Room Air 09/24/24 17:00 09/24/24 18:00 Temperature Temperature Source Pulse Rate 94 95 Respiratory Rate 18 20 H Blood Pressure 128/83 H 119/74 Blood Pressure Mean 98 89 Blood Pressure Source Blood Pressure Position Blood Pressure Location Pulse Ox 100 97 Oxygen Delivery Method Room Air Room Air MDM <ROSLYN Palmer - Last Filed: 09/24/24 18:33> MDM MDM Narrative Medical decision making narrative: Differential includes but not limited to alcohol withdrawal, polysubstance abuse, electrolyte derangement 54-year-old male drinks 30 beers a day, last drink about an hour ago, presenting requesting detox. He appears calm and nontoxic. He is tachycardic to 120 with otherwise stable vital signs. Labs overall are unremarkable. AST minimally elevated at 40, otherwise normal liver profile. Urine tox positive for cannabinoids. Alcohol is 142. Patient's dates he does not want IV Ativan because it causes vivid dreams and sexual dysfunction so I ordered phenobarbital 97.2 mg and IV fluids. I discussed the case with the hospitalist for admission. I have personally performed a face to face assessment of the patient and have reviewed the JOSE Note. I performed a substantive portion of the visit including all aspects of the following. My maki findings include: History is [54-year-old male history of alcohol abuse with multiple prior inpatient detox admissions. States he is drinking currently 30 beers a day. And wants to be admitted for detox. Denies recent illness. Last detox was 1 to 2 months ago. He drank earlier today.] Exam is [well-appearing 54-year-old male. Vital signs stable. No acute distress. H EENT exam pupils round react light. Moist pink memories. Neck nontender no JVD. No lymphadenopathy. Back nontender. Lungs clear to auscultation bilaterally. Heart regular rhythm rate about 110. Abdomen soft nontender normal bowel sounds without peritoneal signs. Moving all 4 extremities. Nontender no deformity. Normal range of motion. Normal vending machine filler strength. Normal dorsi plantarflexion. Neurologically he is awake alert. Answering questions following commands.] Medical Decision Making [54-year-old male history of alcohol abuse requesting detox. Screening labs will be admitted for detox.] Other additions or changes: [None] Lab Data Attestation: I reviewed the patient's lab results. Labs: Laboratory Results - last 24 hr 09/24/24 09/24/24 16:53 17:46 WBC 6.1 RBC 5.21 Hgb 16.5 Hct 48.1 MCV 92.3 MCH 31.7 MCHC 34.3 RDW Std Deviation 49.4 H RDW Coeff of Danial 14.6 Plt Count 210 MPV 9.9 Immature Gran % (Auto) 0.200 Neut % (Auto) 50.4 Lymph % (Auto) 39.4 [place] % (Auto) 7.4 Eos % (Auto) 1.3 Baso % (Auto) 1.3 H Absolute Neuts (auto) 3.1 Absolute Lymphs (auto) 2.41 Nucleated RBC % 0 Sodium 135 Potassium 4.6 Chloride 97 L Carbon Dioxide 22.8 Anion Gap 15 BUN 6 Creatinine 0.76 Estim Creat Clear Calc 122.20 Est GFR (MDRD) Non-Af 106 BUN/Creatinine Ratio 8.3 L Glucose 135 H Calcium 9.0 Total Bilirubin 0.29 AST 40 H ALT 22 Alkaline Phosphatase 82 Total Protein 7.1 Albumin 4.2 Globulin 2.9 Albumin/Globulin Ratio 1.5 Urine Opiates Screen NEGATIVE U Buprenorphine Qual NEGATIVE Ur Oxycodone Screen NEGATIVE Urine Methadone Screen NEGATIVE Urine Fentanyl Screen NEGATIVE Ur Barbiturates Screen NEGATIVE Ur Phencyclidine Scrn NEGATIVE Ur Amphetamines Screen NEGATIVE U Benzodiazepines Scrn NEGATIVE Urine Cocaine Screen NEGATIVE U Cannabinoids Screen PRESUMPTIVE POSITIVE Ethyl Alcohol 142.0 H <Dr. Diego Cain MD - Last Filed: 09/24/24 16:46> [facility] MDM Narrative Medical decision making narrative: I have personally performed a face to face assessment of the patient and have reviewed the JOSE Note. I performed a substantive portion of the visit including all aspects of the following. My maki findings include: History is [54-year-old male history of alcohol abuse with multiple prior inpatient detox admissions. States he is drinking currently 30 beers a day. And wants to be admitted for detox. Denies recent illness. Last detox was 1 to 2 months ago. He drank earlier today.] Exam is [well-appearing 54-year-old male. Vital signs stable. No acute distress. H EENT exam pupils round react light. Moist pink memories. Neck nontender no JVD. No lymphadenopathy. Back nontender. Lungs clear to auscultation bilaterally. Heart regular rhythm rate about 110. Abdomen soft nontender normal bowel sounds without peritoneal signs. Moving all 4 extremities. Nontender no deformity. Normal range of motion. Normal vending machine filler strength. Normal dorsi plantarflexion. Neurologically he is awake alert. Answering questions following commands.] Medical Decision Making [54-year-old male history of alcohol abuse requesting detox. Screening labs will be admitted for detox.] Other additions or changes: [None] History & Record Review Discussion w/independent historian: Patient Additional record(s) reviewed:: Prior inpatient record, Prior outpatient record, Prior ED visit and Prior labs Lab Data Labs: Laboratory Results - last 24 hr 09/24/24 09/24/24 16:53 17:46 WBC 6.1 RBC 5.21 Hgb 16.5 Hct 48.1 MCV 92.3 MCH 31.7 MCHC 34.3 RDW Std Deviation 49.4 H RDW Coeff of Danial 14.6 Plt Count 210 MPV 9.9 Immature Gran % (Auto) 0.200 Neut % (Auto) 50.4 Lymph % (Auto) 39.4 [place] % (Auto) 7.4 Eos % (Auto) 1.3 Baso % (Auto) 1.3 H Absolute Neuts (auto) 3.1 Absolute Lymphs (auto) 2.41 Nucleated RBC % 0 Sodium 135 Potassium 4.6 Chloride 97 L Carbon Dioxide 22.8 Anion Gap 15 BUN 6 Creatinine 0.76 Estim Creat Clear Calc 122.20 Est GFR (MDRD) Non-Af 106 BUN/Creatinine Ratio 8.3 L Glucose 135 H Calcium 9.0 Total Bilirubin 0.29 AST 40 H ALT 22 Alkaline Phosphatase 82 Total Protein 7.1 Albumin 4.2 Globulin 2.9 Albumin/Globulin Ratio 1.5 Urine Opiates Screen NEGATIVE U Buprenorphine Qual NEGATIVE Ur Oxycodone Screen NEGATIVE Urine Methadone Screen NEGATIVE Urine Fentanyl Screen NEGATIVE Ur Barbiturates Screen NEGATIVE Ur Phencyclidine Scrn NEGATIVE Ur Amphetamines Screen NEGATIVE U Benzodiazepines Scrn NEGATIVE Urine Cocaine Screen NEGATIVE U Cannabinoids Screen PRESUMPTIVE POSITIVE Ethyl Alcohol 142.0 H Discharge Plan Triage Chief Complaint: ETOH Intox ED Midlevel Provider: Karen Garcia ED Provider: Diego Cain Dx/Rx/DC Orders Clinical Impression: Desire for detoxification, Alcohol withdrawal Primary Care Provider: Care Physician,No Primary
[2024-09-24] MEDS: 0.9% Normal Saline (1000mL) 1,000 ML 999 ML IV (16:53)
[2024-09-24 17:06] LABS: Hematocrit 48.1 % (40-54); Hemoglobin 16.5 g/dL (13.0-16.5); Immature Granulocytes Count 0.010 X10^3/uL (0.0-0.0); Mean Corp Hgb Conc 34.3 g/dL (32-36); Mean Corpuscular Volume 92.3 fL (80-94); Mean Platelet Vol. 9.9 fl (6.2-12.0); NRBC Flagged by Analyzer 0 % (0-5); Platelet Count 210 K/mm3 (150-450); RBC Distribution Width CV 14.6 % (11.6-14.6); RBC Distribution Width SD 49.4 fl (35.1-43.9); Red Blood Count 5.21 M/mm3 (4.6-6.2); White Blood Count 6.1 K/mm3 (4.4-11.0)
[2024-09-24 17:26] LABS: AST(SGOT) 40 U/L (<=37); Alanine Aminotransfer ALT/SGPT 22 U/L (<=46); Albumin, Serum 4.2 g/dL (3.5-5.0); Alkaline Phosphatase 82 U/L (40-129); Anion Gap 15 (5-15); BUN 6 mg/dL (4-19); BUN/Creat Ratio 8.3 RATIO (10-20); Calcium,Total 9.0 mg/dL (7.6-11.0); Carbon Dioxide 22.8 mmol/L (21.0-32.0); Chloride 97 mmol/L (98-108); Estimated Creatinine Clearance 122.20 ml/min (50-250); Globulin 2.9 g/dL (2.2-4.2); Glucose 135 mg/dL (70-99); Potassium 4.6 mmol/L (3.3-5.1)
--- NOTE | 2024-09-24 18:13 | PCM.HP.STD ---
HPI - General General Date of Admission: 09/24/24 Date of Service: 09/24/24 Chief Complaint: Requesting alcohol detox HPI Narrative DIANE POWERS, is a 54-year-old male with history of alcohol abuse and tobacco abuse presented to [facility] ED 09/24/2024 requesting alcohol detox, detoxed here recently and started drinking again at least a week ago and is drinking about 30 beers a day with last drink an hour prior to arrival. Also smokes 2 packs/day. In the ED patient afebrile, heart rate initially 120 but came down to 102 with phenobarb, blood pressure 121/88, respiratory rate 18 and pulse ox 95% on room air. CBC with no acute findings and CMP with an AST of 40. Hospitalist contacted for admission for detox. Patient evaluated bedside. Patient reports he has been drinking again at least a week roughly 30 beers a day, drank about half an hour before, and, feeling a little bit better after the phenobarb but has a bit of a headache, ROS otherwise negative [facility] Medical History History of hypertension Anxiety and depression Hypertension Tobacco abuse Alcohol abuse Hyponatremia Alcoholic hepatitis Alcohol abuse Hypertension Home Medications ?Medication ?Instructions ?Recorded ?Last Taken ?Type NK 01/07/23 Unknown History Allergy/AdvReac Type Severity Reaction Status Date / Time No Known Allergies Allergy Verified 09/24/24 15:50 Family History Father Hypertension Myocardial infarction Heart disease Surgical History History of surgery on upper extremity Hx of hand surgery Hx of knee surgery Social History housing: other details: Lives alone primarily, but notes his son will occasionally stay with him. Smoking Status: Heavy Smoker (>10/day) alcohol intake: current alcohol intake frequency: 3 or more drinks per day details: Baseline 40-60, 12 ounce beers daily. substance use type: does not use ROS ROS Narrative General: Denies fever/chills HENT: Does have slight headache, denies stuffy nose, denies sore throat EYES: Denies changes in vision Resp: Denies cough, denies shortness of breath Cardiac: Denies chest pain GI: Denies abdominal pain, denies changes in bowel, denies nausea/vomiting : Denies changes in urination Extremity: Denies swelling MSK: Denies weakness Neuro: Denies any numbness/tingling Heme: Denies any bleeding or bruising Skin: Denies rashes Psychiatric: No complaints voiced Vital Signs Vital Signs Vital Signs: 09/24/24 15:48 09/24/24 16:45 09/24/24 16:48 Temperature 98.5 F 97.2 F L Temperature Source Oral Oral Pulse Rate 120 H 102 H 102 H Respiratory Rate 118 H 18 18 Blood Pressure 121/88 H 133/86 H 133/86 H Blood Pressure Mean 99 101 101 Blood Pressure Source Monitor Blood Pressure Position Semi-Fowlers Blood Pressure Location Right Arm Pulse Ox 95 95 95 Oxygen Delivery Method Room Air Room Air Room Air 09/24/24 17:00 09/24/24 18:00 Temperature Temperature Source Pulse Rate 94 95 Respiratory Rate 18 20 H Blood Pressure 128/83 H 119/74 Blood Pressure Mean 98 89 Blood Pressure Source Blood Pressure Position Blood Pressure Location Pulse Ox 100 97 Oxygen Delivery Method Room Air Room Air Weight Weight: 79.605 kg Body Mass Index (BMI) 22.5 Physical Exam Narrative General: Alert, oriented, no apparent distress HEENT: Atraumatic, normocephalic Eyes: Anicteric, normal conjunctiva, extraocular movements grossly intact Neck: Supple Respiratory: Clear to auscultation bilaterally, normal respiratory effort Cardiovascular: Regular rate and rhythm GI: Soft, nontender, nondistended Extremities: No edema Musculoskeletal: Moving all extremities Neuro: No overt focal neurological deficits Skin: No rashes appreciated Psych: Cooperative Results Lab / Micro Data 09/24/24 16:53 09/24/24 16:53 Labs: Laboratory Results - last 24 hr 09/24/24 16:53: WBC 6.1, RBC 5.21, Hgb 16.5, Hct 48.1, MCV 92.3, MCH 31.7, MCHC 34.3, RDW Std Deviation 49.4 H, RDW Coeff of Danial 14.6, Plt Count 210, MPV 9.9, Immature Gran % (Auto) 0.200, Neut % (Auto) 50.4, Lymph % (Auto) 39.4, [place] % (Auto) 7.4, Eos % (Auto) 1.3, Baso % (Auto) 1.3 H, Absolute Neuts (auto) 3.1, Absolute Lymphs (auto) 2.41, Nucleated RBC % 0, Sodium 135, Potassium 4.6, Chloride 97 L, Carbon Dioxide 22.8, Anion Gap 15, BUN 6, Creatinine 0.76, Estim Creat Clear Calc 122.20, Est GFR (MDRD) Non-Af 106, BUN/Creatinine Ratio 8.3 L, Glucose 135 H, Calcium 9.0, Total Bilirubin 0.29, AST 40 H, ALT 22, Alkaline Phosphatase 82, Total Protein 7.1, Albumin 4.2, Globulin 2.9, Albumin/Globulin Ratio 1.5 Assessment & Plan Assessment/Plan (1) Alcohol withdrawal: (2) Desire for detoxification: PLAN: Plan #Alcohol use disorder - We will begin CIWA every 4 for 24 hours, then every 6 for 24 hours, then every 12 until discharge -Will begin phenobarbital taper -Gabapentin 300 mg every 8 as needed -Will start Bentyl and hydroxyzine as needed as well as loperamide as needed -Trazodone 100 mg p.o. nightly as needed sleep -Begin thiamine and folic acid supplementation -Zofran as needed for nausea -Case management consult to assist with discharge planning -EtOH 142 -UDS positive for cannabinoids - Of note patient left AMA less than 30 days ago however given this is alcohol detox and not opioid detox this could be life-threatening, cannot deny admission for detox at this time due to concerns over risks of alcohol withdrawal #Tobacco use -Advise cessation -Nicotine replacement available if desired #DVT ppx: Low risk, ambulatory Jessika Alvarez MD Charges/Coding Visit Charges Inpatient E&M: 37258 Init Hosp L1
[2024-09-24 18:22] LABS: Alcohol, Blood (Medical)-Serum 142.0 mg/dL (<=10.0); Barbiturate Urine NEGATIVE (< 200 ng/mL); Benzodiazepine Urine NEGATIVE (< 200 ng/mL); PCP Urine NEGATIVE (< 25 ng/mL); THC Urine PRESUMPTIVE POSITIVE (< 50 ng/mL)
[2024-09-25 03:53] VITALS: BP 143/95; PULSE 79; RESP 18; TEMP 36.7; O2SAT 96
[2024-09-25 08:40] VITALS: BP 142/91; PULSE 80; RESP 16; TEMP 36.5; O2SAT 96
[2024-09-25] MEDS: Thiamine Hydrochloride 100 MG Tablet PO (08:49)
--- NOTE | 2024-09-25 10:33 | PCM.PN.HOSP ---
Subjective Subjective Doing well, CIWA score of 8 Objective Data Objective Data Vital Signs: Vital Signs Temp Pulse Resp BP Pulse Ox O2 Del Method 97.7 F L 80 16 142/91 H 96 Room Air 09/25/24 08:40 09/25/24 08:40 09/25/24 08:40 09/25/24 08:40 09/25/24 08:40 09/25/24 08:40 Oxygen Delivery Method Room Air Weight: 175 lb 8 oz Body Mass Index (BMI) 22.5 Intake & Output: Intake and Output for Last 24 Hours 09/24/24 09/25/24 09/26/24 03:59 03:59 03:59 Intake Total 1500 / 1500 300 / 300 Balance 1500 / 1500 300 / 300 Lab / Micro Data 09/24/24 16:53 09/24/24 16:53 Labs: Laboratory Results - last 24 hr 09/24/24 16:53: WBC 6.1, RBC 5.21, Hgb 16.5, Hct 48.1, MCV 92.3, MCH 31.7, MCHC 34.3, RDW Std Deviation 49.4 H, RDW Coeff of Danial 14.6, Plt Count 210, MPV 9.9, Immature Gran % (Auto) 0.200, Neut % (Auto) 50.4, Lymph % (Auto) 39.4, [place] % (Auto) 7.4, Eos % (Auto) 1.3, Baso % (Auto) 1.3 H, Absolute Neuts (auto) 3.1, Absolute Lymphs (auto) 2.41, Nucleated RBC % 0, Sodium 135, Potassium 4.6, Chloride 97 L, Carbon Dioxide 22.8, Anion Gap 15, BUN 6, Creatinine 0.76, Estim Creat Clear Calc 122.20, Est GFR (MDRD) Non-Af 106, BUN/Creatinine Ratio 8.3 L, Glucose 135 H, Calcium 9.0, Total Bilirubin 0.29, AST 40 H, ALT 22, Alkaline Phosphatase 82, Total Protein 7.1, Albumin 4.2, Globulin 2.9, Albumin/Globulin Ratio 1.5 09/24/24 17:46: Urine Opiates Screen NEGATIVE, U Buprenorphine Qual NEGATIVE, Ur Oxycodone Screen NEGATIVE, Urine Methadone Screen NEGATIVE, Urine Fentanyl Screen NEGATIVE, Ur Barbiturates Screen NEGATIVE, Ur Phencyclidine Scrn NEGATIVE, Ur Amphetamines Screen NEGATIVE, U Benzodiazepines Scrn NEGATIVE, Urine Cocaine Screen NEGATIVE, U Cannabinoids Screen PRESUMPTIVE POSITIVE, Ethyl Alcohol 142.0 H Physical Exam Narrative General: Alert, Oriented x3, Cooperative, No apparent distress HEENT: Atraumatic, PERRLA, EOMI, Normocephalic Oral: Moist Mucosa Neck: Supple, No JVD Lungs: Clear to auscultation, Normal air movement, No rhonchi, No wheeze, No rales Cardiovascular: Regular rate, Regular Rhythm, Normal S1, Normal S2, No murmurs Abdomen: Soft, Non Tender, Non-Distended, No Hepato-splenomegaly Extremities: No edema, Capillary Refill Less than 3 Seconds Skin: No rashes, No breakdown Musculoskeletal: No Tenderness to Palpation of Joints or Extremities Neurological: No focal neurological deficits, Motor Exam 5/5 strength throughout, Sensory exam intact to light touch and pain Psych/Mental Status: Normal Affect, Appropriate Assessment & Plan Assessment/Plan (1) Alcohol withdrawal: (2) Desire for detoxification: PLAN: Plan 1. Alcohol withdrawal requesting detox/tobacco abuse ? Continue with the alcohol withdrawal protocol ? Follow-up with 180 develop a discharge plan ? Continue with nicotine patch, discussed cessation DVT: Ambulation Charges/Coding Visit Charges Inpatient E&M: 15198 Subs Hosp L2
--- NOTE | 2024-09-25 11:11 | ADDICTION ---
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 Pt declined to follow up with substance use treatment services at this time. Pt reports that he has had success maintaining abstinence in the past without following up with treatment services, and historically has not found treatment programs to be effective. Identified employment as a barrier, indicating he presented to detox so that he is able to return to work this week.
[2024-09-25 14:28] VITALS: BP 127/86; PULSE 82; RESP 16; TEMP 36.3; O2SAT 96
[2024-09-25 18:40] VITALS: BP 128/94; PULSE 86; RESP 16; TEMP 36.6; O2SAT 98
[2024-09-25 19:29] VITALS: BP 123/85; PULSE 75; RESP 16; TEMP 36.8; O2SAT 97
[2024-09-25 22:54] VITALS: BP 142/98; PULSE 67; RESP 16; TEMP 36.4; O2SAT 100
[2024-09-26 03:42] VITALS: BP 130/90; PULSE 73; RESP 16; TEMP 36.2; O2SAT 98
[2024-09-26] MEDS: Thiamine Hydrochloride 100 MG Tablet PO (07:23)
--- NOTE | 2024-09-26 08:36 | DCINST_ITS ---
Discharge Instructions DC O2, CPAP, BIPAP needs Home O2 Discharge instructions: No Dressing / Incision Discharge Activity: Return to Normal Activity Dressing / Incision Call your doctor if you observe: Fever of 101 or Higher, Shortness of breath, Dizziness, Fainting spells, Swelling in the ankles, Chest pain and Increased palpitations (irregular heartbeat) Follow Up Care Test Results: Test results from this visit will be discussed in further detail at your follow- up appointment, if applicable. Discharge Plan Admission Admit Date/Time: 09/24/24 18:14 Attending Provider: Jose Ludwig Primary Care Provider: Care Physician,No Primary Consulting Providers: Jessika Alvarez Discharge Orders/Prescriptions Prescriptions: No Action NK Referrals / Follow Up: Care Physician,No Primary [Primary Care Provider] - Disposition Disposition (needs filled in before D/C Order can be placed): Home, Self Care
--- NOTE | 2024-09-26 08:37 | PCM.DC.SUM ---
Providers Date of Admission: 09/24/24 Primary Care Physician: No Primary Care Phys Reason For Visit: ALCOHOL DETOX Diagnosis Discharge Diagnosis (1) Alcohol withdrawal: Status: Acute Code(s): F10.939 - Alcohol use, unspecified with withdrawal, unspecified (2) Desire for detoxification: Status: Acute Medications at Discharge Home Medications NK 01/07/23 Hospital Course Operations None Procedures None Summary of Care Provided Minutes Spent on Discharge: 31 Hospital Course: Per HPI: DIANE POWERS, is a 54-year-old male with history of alcohol abuse and tobacco abuse presented to [facility] ED 09/24/2024 requesting alcohol detox, detoxed here recently and started drinking again at least a week ago and is drinking about 30 beers a day with last drink an hour prior to arrival. Also smokes 2 packs/day. In the ED patient afebrile, heart rate initially 120 but came down to 102 with phenobarb, blood pressure 121/88, respiratory rate 18 and pulse ox 95% on room air. CBC with no acute findings and CMP with an AST of 40. Hospitalist contacted for admission for detox. Patient evaluated bedside. Patient reports he has been drinking again at least a week roughly 30 beers a day, drank about half an hour before, and, feeling a little bit better after the phenobarb but has a bit of a headache, ROS otherwise negative Hospital Course: 1. Acute home with requesting detox?54-year-old male who is gone through alcohol detox before presented to the hospital requesting detox again. Last time he was here he left AMA. He has been doing well, CIWA scores today are 1. He felt like going home and said that he would sign out AMA after lunch so I just elected to proceed with discharge. I discussed with him the need to follow-up as an outpatient with 180 to continue with outpatient rehab. Physical Exam Narrative General: Alert, Oriented x3, Cooperative, No apparent distress HEENT: Atraumatic, PERRLA, EOMI, Normocephalic Oral: Moist Mucosa Neck: Supple, No JVD Lungs: Clear to auscultation, Normal air movement, No rhonchi, No wheeze, No rales Cardiovascular: Regular rate, Regular Rhythm, Normal S1, Normal S2, No murmurs Abdomen: Soft, Non Tender, Non-Distended, No Hepato-splenomegaly Extremities: No edema, Capillary Refill Less than 3 Seconds Skin: No rashes, No breakdown Musculoskeletal: No Tenderness to Palpation of Joints or Extremities Neurological: No focal neurological deficits, Motor Exam 5/5 strength throughout, Sensory exam intact to light touch and pain Psych/Mental Status: Normal Affect, Appropriate Weight / BMI Weight Weight: 175 lb 8 oz Body Mass Index (BMI) 22.5 ABG / Lab / Microbiology Data 09/24/24 16:53 09/24/24 16:53 D/C Instructions Call your doctor if you observe: Fever of 101 or Higher, Shortness of breath, Dizziness, Fainting spells, Swelling in the ankles, Chest pain and Increased palpitations (irregular heartbeat) DC O2, CPAP, BIPAP Needs Home O2 Discharge instructions: No Meaningful Use Info Meaningful Use Meaningful Use Diagnoses (Choose all that apply): None applicable Discharge Plan Admission Admit Date/Time: 09/24/24 18:14 Attending Provider: Jose Ludwig Primary Care Provider: Care Physician,No Primary Consulting Providers: Jessika Alvarez Discharge Orders/Prescriptions Prescriptions: No Action NK Referrals / Follow Up: Care Physician,No Primary [Primary Care Provider] - Disposition Disposition (needs filled in before D/C Order can be placed): Home, Self Care Charges/Coding Visit Charges Inpatient E&M: 60903 Disch Hosp >30min
[2024-09-26 09:25] VITALS: BP 145/95; PULSE 75; RESP 16; TEMP 36.2; O2SAT 100
== END 2024-09-26 09:40 | disposition home or self-care (01) | DRG 897 ==
LOC: ED 16:27 → MS3 18:18
PROVIDERS: Physician Assistant; Admitting Provider Internal Medicine; Emergency Provider Emergency Medicine; Visit Provider Family Medicine
DX: F10.139 Alcohol abuse with withdrawal, unspecified (principal); F17.210 Nicotine dependence, cigarettes, uncomplicated; I10 Essential (primary) hypertension; Y90.6 Blood alcohol level of 120-199 mg/100 ml
CPT/HCPCS: 80053; 80307; 82077; 85025; 97802; 99284; A4216

== ENCOUNTER 2024-10-15 10:59 | Observation (INO) | payer BC, SELFPAY ==
[2024-10-15] VITALS (11 sets, daily range): BP systolic 125–151; BP diastolic 87–109; PULSE 80–113; RESP 10–22; TEMP 36.3–36.7; O2SAT 93–99; BMI 22.0; BMI 21.4
--- NOTE | 2024-10-15 11:10 | EX.ED.SAOD ---
HPI History of Present Illness Chief Complaint: Substance Abuse Informant: patient Onset/Context/Timing Onset: Today Context: Gradual Onset Timing: Continuous Quality: Jittery Location: Generalized Worsened by: Nothing Relieved by: Nothing Associated Symptoms Associated Symptoms: Positive for vomiting* and palpatations; Negative for diarrhea*, fever*, rash*, seizure, tremor, suicidal ideation or homicidal ideation Narrative Narrative: Patient presents for alcohol withdrawal and detoxification. Patient states he drinks 60 beers per day. Patient states his last drink was approxi-1 hour prior to arrival. Patient recently went through detox here started drinking again shortly after he was discharged. Patient admits to some nausea and vomiting. Patient admits to some palpitations where it feels like his heart is beating out of his chest. Patient denies any suicidal homicidal ideations. Patient denies any fevers or chills. Patient denies any seizures or tremors. [facility] Medical History History of alcoholic hepatitis Anxiety and depression History of hypertension Anxiety and depression Hypertension Tobacco abuse Alcohol abuse Hyponatremia Alcoholic hepatitis Alcohol abuse Hypertension Home Medications ?Medication ?Instructions ?Recorded ?Last Taken ?Type NK 01/07/23 Unknown History Allergy/AdvReac Type Severity Reaction Status Date / Time No Known Allergies Allergy Verified 10/15/24 11:00 Family History Father Hypertension Myocardial infarction Heart disease Surgical History History of surgery on upper extremity Hx of hand surgery Hx of knee surgery Social History housing: other details: Lives alone primarily, but notes his son will occasionally stay with him. Smoking Status: Heavy Smoker (>10/day) alcohol intake: current alcohol intake frequency: 3 or more drinks per day details: Baseline 40-60, 12 ounce beers daily. substance use type: does not use ROS ROS ED Constitutional Constitutional ED: Denies chills or fever(s) Eyes Eyes: Denies blurry vision or change in vision ENT ENT ED: Reports rhinorrhea; Denies sore throat Cardiovascular Cardiovascular: Denies chest pain or palpitations Respiratory/Chest Respiratory/Chest: Denies cough or dyspnea Gastrointestinal Gastrointestinal: Reports nausea and vomiting Genitourinary Genitourinary ED: Denies dysuria or hematuria Musculoskeletal Musculoskeletal: Reports back pain; Denies neck pain Integumentary Denies abscess or rash Neurologic Neurologic: Denies headache(s) or weakness Psychiatric Psychiatric: Denies depression, suicidal ideation or suicidal thoughts Allergic/Immunologic Allergic/Immunologic ED: Denies mouth swelling or urticaria EXAM Physical Exam Const Vital Signs: 10/15/24 11:00 10/15/24 12:15 10/15/24 12:16 Temperature 97.6 F L 97.6 F L Temperature Source Temporal Pulse Rate 111 H 80 80 Respiratory Rate 18 16 16 Blood Pressure 146/109 H 133/91 H 133/91 H Blood Pressure Mean 121 104 105 Pulse Ox 99 94 94 Oxygen Delivery Method Room Air 10/15/24 12:30 Temperature Temperature Source Pulse Rate 82 Respiratory Rate 16 Blood Pressure 130/88 H Blood Pressure Mean 101 Pulse Ox 94 Oxygen Delivery Method Positive well nourished and well developed General Appearance ED: well developed and NAD HEENT Reports moist mucous membranes atraumatic Neck supple and no JVD Resp normal respiratory effort and clear to auscultation bilaterally Cardio regular rhythm Rate: tachycardic GI soft to palpation, non-tender and non-distended Neuro oriented x3, CN's II-XII intact bilaterally and no sensory deficits noted [place] Coma Scale: document GCS findings Spontaneous Obeys Commands Oriented 15 Sensorium / Orientation: alert Speech: speech normal Motor Exam: strength 5/5 throughout Psych mental status grossly normal and thought process normal MDM MDM MDM Narrative Medical decision making narrative: Medical screening labs will be obtained. CBC will be obtained to assess for leukocytosis and anemia. Comprehensive metabolic profile will be obtained to assess for electrolyte abnormality and renal function. Serum alcohol level will be obtained to assess for alcohol intoxication. Urine drug screen will be obtained to assess for substance abuse. History & Record Review Additional record(s) reviewed:: Prior inpatient record, Prior ED visit and Prior labs Lab Data Attestation: I reviewed the patient's lab results. Lab results narrative: CBC was reviewed. Hemoglobin was mildly elevated at 18.0. Platelets are slightly low at 107. Comprehensive metabolic profile was reviewed. AST was slightly elevated at 202 and ALT was mildly elevated at 140. The remainder was within normal limits. Lipase was reviewed and was normal at 46. Serum alcohol level was reviewed and was elevated at 333. Urine drug screen was reviewed and was positive for barbiturates. Labs: Laboratory Results - last 24 hr 10/15/24 10/15/24 11:20 11:23 WBC 4.4 RBC 5.64 Hgb 18.0 H* Hct 50.0 MCV 88.7 MCH 31.9 MCHC 36.0 RDW Std Deviation 50.0 H RDW Coeff of Danial 15.3 H Plt Count 107 L MPV 10.5 Immature Gran % (Auto) 0.000 Neut % (Auto) 38.8 L Lymph % (Auto) 46.9 H Young % (Auto) 11.8 H Eos % (Auto) 1.6 Baso % (Auto) 0.9 Absolute Neuts (auto) 1.7 L Absolute Lymphs (auto) 2.07 Nucleated RBC % 0 Sodium 133 Potassium 3.6 Chloride 91 L Carbon Dioxide 25.8 Anion Gap 15 BUN 5 Creatinine 0.70 Estim Creat Clear Calc 129.80 Est GFR (MDRD) Non-Af 108 BUN/Creatinine Ratio 7.2 L Glucose 100 H Calcium 9.3 Total Bilirubin 0.76 AST 202 H ALT 140 H Alkaline Phosphatase 102 Total Protein 8.5 H Albumin 5.0 Globulin 3.5 Albumin/Globulin Ratio 1.4 Lipase 46 Urine Opiates Screen NEGATIVE U Buprenorphine Qual NEGATIVE Ur Oxycodone Screen NEGATIVE Urine Methadone Screen NEGATIVE Urine Fentanyl Screen NEGATIVE Ur Barbiturates Screen PRESUMPTIVE POSITIVE Ur Phencyclidine Scrn NEGATIVE Ur Amphetamines Screen NEGATIVE U Benzodiazepines Scrn NEGATIVE Urine Cocaine Screen NEGATIVE U Cannabinoids Screen NEGATIVE Ethyl Alcohol 333.0 H* Management Discussion w/another healthcare provider: Hospitalist Treatment and Re-Evaluation Narrative: Patient is requesting detox from alcohol. Patient was advised of his findings. Case was discussed with the hospitalist. She will admit the patient to her service. Patient understood and was agreeable with the plan. All questions were answered. Discharge Plan Dx/Rx/DC Orders Clinical Impression: Alcohol intoxication, Desire for detoxification, Elevated blood pressure reading Disposition Disposition: Acute Care Hospital [facility] Discharge Date/Time: 10/15/24 14:15
[2024-10-15 11:35] LABS: Hematocrit 50.0 % (40-54); Immature Granulocytes Count 0.000 X10^3/uL (0.0-0.0); Mean Corp Hgb Conc 36.0 g/dL (32-36); Mean Corpuscular Volume 88.7 fL (80-94); Mean Platelet Vol. 10.5 fl (6.2-12.0); NRBC Flagged by Analyzer 0 % (0-5); Platelet Count 107 K/mm3 (150-450); RBC Distribution Width CV 15.3 % (11.6-14.6); RBC Distribution Width SD 50.0 fl (35.1-43.9); Red Blood Count 5.64 M/mm3 (4.6-6.2); White Blood Count 4.4 K/mm3 (4.4-11.0)
[2024-10-15 11:38] LABS: Hemoglobin 18.0 g/dL (13.0-16.5)
[2024-10-15 12:05] LABS: AST(SGOT) 202 U/L (<=37); Alanine Aminotransfer ALT/SGPT 140 U/L (<=46); Albumin, Serum 5.0 g/dL (3.5-5.0); Alkaline Phosphatase 102 U/L (40-129); Anion Gap 15 (5-15); BUN 5 mg/dL (4-19); BUN/Creat Ratio 7.2 RATIO (10-20); Calcium,Total 9.3 mg/dL (7.6-11.0); Carbon Dioxide 25.8 mmol/L (21.0-32.0); Chloride 91 mmol/L (98-108); Estimated Creatinine Clearance 129.80 ml/min (50-250); Globulin 3.5 g/dL (2.2-4.2); Glucose 100 mg/dL (70-99); Lipase 46 U/L (13-75); Potassium 3.6 mmol/L (3.3-5.1)
[2024-10-15 12:10] LABS: Barbiturate Urine PRESUMPTIVE POSITIVE (< 200 ng/mL); Benzodiazepine Urine NEGATIVE (< 200 ng/mL); PCP Urine NEGATIVE (< 25 ng/mL); THC Urine NEGATIVE (< 50 ng/mL)
[2024-10-15 12:10] LABS: Alcohol, Blood (Medical)-Serum 333.0 mg/dL (<=10.0)
--- NOTE | 2024-10-15 12:38 | CM.ED ---
Social Work SW spoke with patient regarding goals for admission for detox. Patient stated he has no idea what his next steps would be. SW encouraged patient to consider residential treatment, outpatient treatment, or other counseling services. Patient stated he has done all of those multiple times and none of it works. Patient stated the only times he has been able to stay sober is when he detoxed and then 'did nothing, just went to work and went home. SW reminded patient that just because something did not work before, it could still be beneficial. Patient stated he was unsure of his goals after discharge. Emmanuelle Mari, HOME HEALTH NURSE LICENSED PRACTICAL, CUTTING SUPERVISOR
--- NOTE | 2024-10-15 12:42 | HP.PCM.HOS_ITS ---
HPI - General General Date of Admission: 10/15/24 Date of Service: 10/15/24 Chief Complaint: acute alcohol withdrawal HPI Narrative DIANE POWERS, is a 54 M with a past medical history as outlined was admitted through the ED on 10/15/2024 for acute alcohol detox. Patient was admitted here both in August and September 2024 for acute alcohol withdrawal. He was also admitted in June 2024 for the same thing. He says he started drinking as soon as he left the hospital on all 3 occasions. He drinks up to 60 beers daily and told me he just loves beer. He decided to come back to the ED for help with detox. He denies any shakes or tremors, palpitations, nausea vomiting or any other symptoms. Review of systems otherwise negative. He admits to smoking and says he smokes about 2 packs daily. Vitals in the ED were blood pressure 141/101, pulse rate of 91, respirate rate of 16 and oxygen saturation of 98% on room air. CBC showed hemoglobin of 18 with WBC of 4.4 and platelets of 107. Chemistry showed sodium of 133 with potassium of 3.6 and bicarb of 25.8. Anion gap was 15. Total bilirubin was 0.76 though AST and ALT were mildly elevated at 04[birth year]02/1939 respectively. ALP was 102. Urine tox was negative and serum alcohol level was 333. He has been admitted to be managed for acute alcohol detox with potential for withdrawal. [facility] Medical History History of alcoholic hepatitis Anxiety and depression History of hypertension Anxiety and depression Hypertension Tobacco abuse Alcohol abuse Hyponatremia Alcoholic hepatitis Alcohol abuse Hypertension Home Medications ?Medication ?Instructions ?Recorded ?Last Taken ?Type NK 01/07/23 Unknown History Allergy/AdvReac Type Severity Reaction Status Date / Time No Known Allergies Allergy Verified 10/15/24 11:00 Family History Father Hypertension Myocardial infarction Heart disease Surgical History History of surgery on upper extremity Hx of hand surgery Hx of knee surgery Social History housing: other details: Lives alone primarily, but notes his son will occasionally stay with him. Smoking Status: Heavy Smoker (>10/day) alcohol intake: current alcohol intake frequency: 3 or more drinks per day details: Baseline 40-60, 12 ounce beers daily. substance use type: does not use ROS Constitutional Constitutional: Denies anorexia, chills, fatigue, fever(s), malaise or weakness Eyes Eyes: Denies change in vision ENT HEENT: Denies dysphagia, headache(s) or sore throat Cardiovascular Cardiovascular: Denies chest pain, dyspnea on exertion, edema, lightheadedness, orthopnea, palpitations, rapid heart rate or syncope Respiratory/Chest Respiratory/Chest: Denies cough, dyspnea or shortness of breath at rest Gastrointestinal Gastrointestinal: Denies abdominal pain, constipation, diarrhea, nausea or vomiting Genitourinary Genitourinary: Denies dysuria Musculoskeletal Musculoskeletal: Denies arthralgias Neurologic Neurologic: Denies confusion, dizziness, focal weakness, headache(s) or numbness Psychiatric Psychiatric: Denies anxiety or depression Vital Signs Vital Signs Vital Signs: 10/15/24 11:00 10/15/24 12:15 10/15/24 12:16 Temperature 97.6 F L 97.6 F L Temperature Source Temporal Pulse Rate 111 H 80 80 Respiratory Rate 18 16 16 Blood Pressure 146/109 H 133/91 H 133/91 H Blood Pressure Mean 121 104 105 Pulse Ox 99 94 94 Oxygen Delivery Method Room Air Weight Weight: 171 lb 11.2 oz Body Mass Index (BMI) 22.0 Physical Exam Const alert, oriented x3 and no apparent distress Constitutional Narrative: flat affect HEENT normocephalic, head/scalp atraumatic, moist oral mucous membranes and oropharynx normal Eyes PERRL and EOMs intact bilaterally Neck supple Resp normal respiratory effort, no use of accessory muscles and clear to auscultation bilaterally Cardio regular rate, regular rhythm, S1 normal heart sound, S2 normal heart sound and no murmurs GI normal to inspection, nondistended, normoactive bowel sounds, soft to palpation, non-tender and non-distended Extremity normal to inspection, full ROM and no clubbing, cyanosis or edema Neuro oriented x3, moves all extremities and no focal motor deficits Sensorium / Orientation: awake and alert Motor Exam: strength 5/5 throughout Psych affect normal Results Lab / Micro Data 10/15/24 11:23 10/15/24 11:23 Labs: Laboratory Results - last 24 hr 10/15/24 11:20: Urine Opiates Screen NEGATIVE, U Buprenorphine Qual NEGATIVE, Ur Oxycodone Screen NEGATIVE, Urine Methadone Screen NEGATIVE, Urine Fentanyl Screen NEGATIVE, Ur Barbiturates Screen PRESUMPTIVE POSITIVE, Ur Phencyclidine Scrn NEGATIVE, Ur Amphetamines Screen NEGATIVE, U Benzodiazepines Scrn NEGATIVE, Urine Cocaine Screen NEGATIVE, U Cannabinoids Screen NEGATIVE 10/15/24 11:23: WBC 4.4, RBC 5.64, Hgb 18.0 H*, Hct 50.0, MCV 88.7, MCH 31.9, MCHC 36.0, RDW Std Deviation 50.0 H, RDW Coeff of Danial 15.3 H, Plt Count 107 L, MPV 10.5, Immature Gran % (Auto) 0.000, Neut % (Auto) 38.8 L, Lymph % (Auto) 46.9 H, [place] % (Auto) 11.8 H, Eos % (Auto) 1.6, Baso % (Auto) 0.9, Absolute Neuts (auto) 1.7 L, Absolute Lymphs (auto) 2.07, Nucleated RBC % 0, Sodium 133, Potassium 3.6, Chloride 91 L, Carbon Dioxide 25.8, Anion Gap 15, BUN 5, Creatinine 0.70, Estim Creat Clear Calc 129.80, Est GFR (MDRD) Non-Af 108, B UN/Creatinine Ratio 7.2 L, Glucose 100 H, Calcium 9.3, Total Bilirubin 0.76, AST 202 H, ALT 140 H, Alkaline Phosphatase 102, Total Protein 8.5 H, Albumin 5.0, Globulin 3.5, Albumin/Globulin Ratio 1.4, Lipase 46, Ethyl Alcohol 333.0 H* Assessment & Plan Assessment/Plan (1) Alcohol intoxication: (2) Desire for detoxification: PLAN: Plan #Acute alcohol detox with potential for withdrawal * Admit to MedSurg. Serum alcohol level is 333. * Started alcohol withdrawal protocol with phenobarbital. Ordered thiamine, folic acid and Multi-Jp. * Adjunctive meds for symptomatic relief. * Monitor CIWA score. * Nicotine dependence: States he smokes about 1 to 2 packs daily. Counseled to quit. Nicotine patch 21 mg daily #Elevated liver enzymes: * AST is elevated at 2 2 and ALT at 140. This is higher than previous levels. This is likely due to acute and chronic alcohol use. Was screened for HIV hepatitis B and C in June 2024 which were negative. * Will monitor closely for resolution. If it worsens we will get further workup with liver ultrasound. * DVT prophylaxis: Low risk , encourage ambulation Charges/Coding Visit Charges Inpatient E&M: 45758 Subs Hosp L2
--- NOTE | 2024-10-15 15:58 | CASEMGMT ---
Social Work- SW met with pt to discuss no PCP reported. Pt reports that he does have a PCP through his work insurance, but cannot recall the name and reports that he has never met him. Pt declined a list of PCP providers. EDIN Prado
[2024-10-15] MEDS: Nicotine (PBKC) 21 MG Patch TD (18:22)
[2024-10-15] MEDS: 0.9% Saline Lock 10 ML Syringe IV (23:27)
[2024-10-16] VITALS (7 sets, daily range): BP systolic 128–153; BP diastolic 86–96; PULSE 86–99; RESP 15–20; TEMP 36.4–36.7; O2SAT 95–98
[2024-10-16] MEDS: hydrOXYzine PAM 25 MG Capsule 50 MG PO ×2 (02:47→10:24)
[2024-10-16 07:04] LABS: AST(SGOT) 132 U/L (<=37); Alanine Aminotransfer ALT/SGPT 110 U/L (<=46); Albumin, Serum 4.1 g/dL (3.5-5.0); Alkaline Phosphatase 79 U/L (40-129); Anion Gap 13 (5-15); BUN 7 mg/dL (4-19); BUN/Creat Ratio 10.3 RATIO (10-20); Calcium,Total 9.3 mg/dL (7.6-11.0); Carbon Dioxide 25.3 mmol/L (21.0-32.0); Chloride 98 mmol/L (98-108); Estimated Creatinine Clearance 131.90 ml/min (50-250); Globulin 2.7 g/dL (2.2-4.2); Glucose 91 mg/dL (70-99); Potassium 4.5 mmol/L (3.3-5.1)
[2024-10-16] MEDS: Thiamine Hydrochloride 100 MG Tablet PO (09:03)
[2024-10-16] MEDS: Nicotine (PBKC) 21 MG Patch TD (09:09)
[2024-10-16] MEDS: 0.9% Saline Lock 10 ML Syringe IV (10:25)
--- NOTE | 2024-10-16 14:03 | PN_ITS ---
Subjective Subjective Patient seen and examined. He said he felt much better today and had no active complaints. He had an uneventful night and review of systems otherwise negative. He has remained hemodynamically stable. Objective Data Objective Data Vital Signs: Vital Signs Temp Pulse Resp BP Pulse Ox O2 Del Method 97.7 F L 92 19 H 153/96 H 95 Room Air 10/16/24 08:59 10/16/24 08:59 10/16/24 08:59 10/16/24 08:59 10/16/24 08:59 10/16/24 08:59 Oxygen Delivery Method Room Air Weight: 167 lb 0.002 oz Body Mass Index (BMI) 21.4 Intake & Output: Intake and Output for Last 24 Hours 10/14/24 10/15/24 10/16/24 23:59 23:59 23:59 Intake Total 1140 / 1140 Balance 1140 / 1140 Medical Nutrition Assessment Dietitian: Malnutrition Criteria Met Start: 10/15/24 15:15 Freq: Status: Active Protocol: Document 10/15/24 15:15 SB (Rec: 10/15/24 15:16 SB [id number]) Nutrition Malnutrition Evidence of Yes Malnutrition Exists Malnutrition ( Acute Illness/Injury moderate): Evidenced By Suboptimal Energy Intake (Moderate),Weight Loss ( Moderate) Intake Problem Excessive Alcohol Intake Etiology related to alcohol abuse Signs/Symptoms as evidenced by 40-60 beers daily Status Active Problem Clinical Problem Acute Disease or Injury Related Malnutrition Etiology moderate malnutrition related to inadequate oral intake and alcohol abuse Signs/Symptoms as evidenced by 5% weight loss x 3 weeks and PO meeting <50% of estimated nutrition needs ~ 3 weeks Status Active Problem Recommendation Dietitian Continue regular diet. Will add snacks 3 times daily to Recommendations/ diet order. Changes Will monitor weight trends. Lab / Micro Data 10/15/24 11:23 10/16/24 06:24 Labs: Laboratory Results - last 24 hr 10/16/24 06:24: Sodium 137, Potassium 4.5, Chloride 98, Carbon Dioxide 25.3, Anion Gap 13, BUN 7, Creatinine 0.67 L, Estim Creat Clear Calc 131.90, Est GFR (MDRD) Non-Af 110, BUN/Creatinine Ratio 10.3, Glucose 91, Calcium 9.3, Total Bilirubin 1.11, AST 132 H, ALT 110 H, Alkaline Phosphatase 79, Total Protein 6.7, Albumin 4.1, Globulin 2.7, Albumin/Globulin Ratio 1.5 Physical Exam Const alert, oriented x3 and no apparent distress Constitutional Narrative: flat affect HEENT normocephalic, head/scalp atraumatic, moist oral mucous membranes and oropharynx normal Eyes PERRL and EOMs intact bilaterally Neck supple Resp normal respiratory effort, normal air movement, no use of accessory muscles and clear to auscultation bilaterally Cardio regular rate, regular rhythm, S1 normal heart sound, S2 normal heart sound and no murmurs GI normal to inspection, nondistended, normoactive bowel sounds, soft to palpation, non-tender and non-distended Extremity normal to inspection, full ROM, normal capillary refill and no clubbing, cyanosis or edema General Extremity: no tenderness to palpation of joints or extremities Skin General Skin Exam: no breakdown Neuro oriented x3, CN's II-XII intact bilaterally, moves all extremities and no focal motor deficits Sensorium / Orientation: awake and alert Motor Exam: strength 5/5 throughout Psych thought process normal, cooperative and affect normal Appearance: appropriate Assessment & Plan Assessment/Plan (1) Alcohol intoxication: (2) Desire for detoxification: PLAN: Plan #Acute alcohol detox with potential for withdrawal * On alcohol withdrawal protocol with phenobarbital. Ordered thiamine, folic acid and Multi-Jp. * Adjunctive meds for symptomatic relief. * Monitor CIWA score. * Nicotine dependence: * States he smokes about 1 to 2 packs daily. Counseled to quit. Nicotine patch 21 mg daily #Elevated liver enzymes: * AST and ALT are trending downwards. This is likely due to acute and chronic alcohol use. Was screened for HIV hepatitis B and C in June 2024 which were negative. * will continue monitoring * DVT prophylaxis: Low risk , encourage ambulation Charges/Coding Visit Charges Inpatient E&M: 44034 Subs Hosp L2
--- NOTE | 2024-10-16 15:40 | ADDICTION ---
Pt was met with for RAMP assessment and to complete the AUDIT, DUDIT, ASAM, MSE, and DC Plan. Pt was engaged in psychoeducation on the disease process of addiction and relapse. Pt was engaged in exploring his pattern of chronic relapse and pt had very little insight. Pt was offered residential and outpatient tx options and pt declined all options. Pt states none of them work for me. Pt was encouraged to f/u with tx as his relapses are becoming progressively severe. Pt was encouraged to f/u with his PCP if he is refusing all other tx. Pt admits he is unwilling to explore any GOVIND or MH tx options, unwilling to explore AA or mutual support, but he agreed to f/u with his PCP. Pt is choosing to dc home w/no GOVIND or MH f/u tx.
[2024-10-17 02:54] VITALS: BP 153/102; PULSE 79; RESP 15; TEMP 36.2; O2SAT 97
[2024-10-17 09:17] VITALS: BP 130/89; PULSE 90; RESP 14; TEMP 36.8; O2SAT 97
[2024-10-17] MEDS: Nicotine (PBKC) 21 MG Patch TD (09:28)
[2024-10-17] MEDS: Thiamine Hydrochloride 100 MG Tablet PO (09:28)
--- NOTE | 2024-10-17 12:51 | PN_ITS ---
Subjective Subjective Patient seen and examined with his nurse by his bedside. He had no active complaints and had an uneventful night. Review of systems otherwise negative. He has remained hemodynamically stable. Objective Data Objective Data Vital Signs: Vital Signs Temp Pulse Resp BP Pulse Ox O2 Del Method 98.2 F 90 14 130/89 H 97 Room Air 10/17/24 09:17 10/17/24 09:17 10/17/24 09:17 10/17/24 09:17 10/17/24 09:17 10/17/24 09:17 Oxygen Delivery Method Room Air Weight: 167 lb 0.002 oz Body Mass Index (BMI) 21.4 Intake & Output: Intake and Output for Last 24 Hours 10/15/24 10/16/24 10/17/24 23:59 23:59 23:59 Intake Total 1939 400 / 400 Balance 1939 400 / 400 Medical Nutrition Assessment Dietitian: Malnutrition Criteria Met Start: 10/15/24 15:15 Freq: Status: Active Protocol: Document 10/15/24 15:15 SB (Rec: 10/15/24 15:16 SB [id number]) Nutrition Malnutrition Evidence of Yes Malnutrition Exists Malnutrition ( Acute Illness/Injury moderate): Evidenced By Suboptimal Energy Intake (Moderate),Weight Loss ( Moderate) Intake Problem Excessive Alcohol Intake Etiology related to alcohol abuse Signs/Symptoms as evidenced by 40-60 beers daily Status Active Problem Clinical Problem Acute Disease or Injury Related Malnutrition Etiology moderate malnutrition related to inadequate oral intake and alcohol abuse Signs/Symptoms as evidenced by 5% weight loss x 3 weeks and PO meeting <50% of estimated nutrition needs ~ 3 weeks Status Active Problem Recommendation Dietitian Continue regular diet. Will add snacks 3 times daily to Recommendations/ diet order. Changes Will monitor weight trends. Lab / Micro Data 10/15/24 11:23 10/16/24 06:24 Physical Exam Const alert, oriented x3 and no apparent distress Constitutional Narrative: flat affect HEENT normocephalic, head/scalp atraumatic, moist oral mucous membranes and oropharynx normal Eyes PERRL and EOMs intact bilaterally Neck supple Lymph Lymphatic: no lymphedema noted Resp normal respiratory effort, normal air movement, no use of accessory muscles and clear to auscultation bilaterally Cardio regular rate, regular rhythm, S1 normal heart sound, S2 normal heart sound and no murmurs GI normal to inspection, nondistended, normoactive bowel sounds, soft to palpation, non-tender and non-distended Extremity normal to inspection, full ROM, normal capillary refill and no clubbing, cyanosis or edema General Extremity: no tenderness to palpation of joints or extremities Skin General Skin Exam: no breakdown Neuro oriented x3, CN's II-XII intact bilaterally, moves all extremities and no focal motor deficits Sensorium / Orientation: awake and alert Motor Exam: strength 5/5 throughout Psych thought process normal, cooperative and affect normal Appearance: appropriate Assessment & Plan Assessment/Plan (1) Alcohol intoxication: (2) Desire for detoxification: PLAN: Plan #Acute alcohol detox with potential for withdrawal * On alcohol withdrawal protocol with phenobarbital. Ordered thiamine, folic acid and Multi-Jp. * Adjunctive meds for symptomatic relief. * Monitor CIWA score. * Nicotine dependence: * States he smokes about 1 to 2 packs daily. Counseled to quit. Nicotine patch 21 mg daily. Patient requesting nicotine gum also #Elevated liver enzymes: * AST and ALT are trending downwards. This is likely due to acute and chronic alcohol use. Was screened for HIV hepatitis B and C in June 2024 which were negative. * will continue monitoring * DVT prophylaxis: Low risk , encourage ambulation DispositioN: for likely DC tomorrow Charges/Coding Visit Charges Inpatient E&M: 77975 Subs Hosp L2
[2024-10-17 15:34] VITALS: BP 123/91; PULSE 87; RESP 14; TEMP 36.4; O2SAT 100
[2024-10-17 21:18] VITALS: BP 143/104; PULSE 87; RESP 15; TEMP 36.3; O2SAT 98
[2024-10-17 21:23] VITALS: BP 143/104; PULSE 87; RESP 15; TEMP 36.3; O2SAT 98
[2024-10-18 04:00] VITALS: BP 140/90; PULSE 88; RESP 15; TEMP 36.4; O2SAT 97
--- NOTE | 2024-10-18 07:39 | DCINST_ITS ---
Discharge Instructions DC O2, CPAP, BIPAP needs Home O2 Discharge instructions: No Dressing / Incision Discharge Activity: Return to Normal Activity Dressing / Incision Call your doctor if you observe: Fever of 101 or Higher, Shortness of breath, Dizziness, Fainting spells, Swelling in the ankles, Chest pain and Increased palpitations (irregular heartbeat) Follow Up Care Test Results: Test results from this visit will be discussed in further detail at your follow- up appointment, if applicable. Discharge Plan Admission Admit Date/Time: 10/15/24 12:44 Attending Provider: Jose Ludwig Primary Care Provider: Care Physician,No Primary Consulting Providers: June Espinoza Discharge Orders/Prescriptions Prescriptions: No Action NK Referrals / Follow Up: Care Physician,No Primary [Primary Care Provider] - Disposition Disposition (needs filled in before D/C Order can be placed): Home, Self Care
[2024-10-18 10:22] VITALS: BP 138/89; PULSE 80; RESP 18; TEMP 36.6; O2SAT 99
--- NOTE | 2024-10-18 12:16 | PCM.DC.SUM ---
Providers Date of Admission: 10/15/24 Primary Care Physician: No Primary Care Phys Reason For Visit: ACUTE ALCOHOL WITHDRAWAL Diagnosis Discharge Diagnosis (1) Alcohol intoxication: Status: Acute Code(s): F10.929 - Alcohol use, unspecified with intoxication, unspecified (2) Desire for detoxification: Status: Acute Medications at Discharge Home Medications NK 01/07/23 Hospital Course Operations None Procedures None Summary of Care Provided Minutes Spent on Discharge: 34 Hospital Course: Per HPI: DIANE POWERS, is a 54 M with a past medical history as outlined was admitted through the ED on 10/15/2024 for acute alcohol detox. Patient was admitted here both in August and September 2024 for acute alcohol withdrawal. He was also admitted in June 2024 for the same thing. He says he started drinking as soon as he left the hospital on all 3 occasions. He drinks up to 60 beers daily and told me he just loves beer. He decided to come back to the ED for help with detox. He denies any shakes or tremors, palpitations, nausea vomiting or any other symptoms. Review of systems otherwise negative. He admits to smoking and says he smokes about 2 packs daily. Vitals in the ED were blood pressure 141/101, pulse rate of 91, respirate rate of 16 and oxygen saturation of 98% on room air. CBC showed hemoglobin of 18 with WBC of 4.4 and platelets of 107. Chemistry showed sodium of 133 with potassium of 3.6 and bicarb of 25.8. Anion gap was 15. Total bilirubin was 0.76 though AST and ALT were mildly elevated at 04/02/1939 respectively. ALP was 102. Urine tox was negative and serum alcohol level was 333. He has been admitted to be managed for acute alcohol detox with potential for withdrawal. Hospital Course: 1. Acute alcohol withdrawal requesting detox?54-year-old male who is gone through alcohol detox before presented to the hospital requesting detox again. Last time he was here he requested discharge home where he would leave AMA. He has been doing well on the discharge protocol, CIWA scores today are 1-2. He says that last time he rushed his decision in this time he refused meds prior to discharge to see how he would feel because he states that the last time when he demanded to go home and the medications wore off he was too embarrassed to come back to the hospital so he decided to start drinking again. This time though he states that he feels much better and wants to go home, he still does not want to do any inpatient rehab treatments. I discussed with him the plan for discharge today and he expressed understanding of the risks and benefits of going home and would like to go home today. Physical Exam Narrative General: Alert, Oriented x3, Cooperative, No apparent distress HEENT: Atraumatic, PERRLA, EOMI, Normocephalic Oral: Moist Mucosa Neck: Supple, No JVD Lungs: Clear to auscultation, Normal air movement, No rhonchi, No wheeze, No rales Cardiovascular: Regular rate, Regular Rhythm, Normal S1, Normal S2, No murmurs Abdomen: Soft, Non Tender, Non-Distended, No Hepato-splenomegaly Extremities: No edema, Capillary Refill Less than 3 Seconds Skin: No rashes, No breakdown Musculoskeletal: No Tenderness to Palpation of Joints or Extremities Neurological: No focal neurological deficits, Motor Exam 5/5 strength throughout, Sensory exam intact to light touch and pain Psych/Mental Status: Normal Affect, Appropriate Weight / BMI Weight Weight: 167 lb 0.002 oz Body Mass Index (BMI) 21.4 ABG / Lab / Microbiology Data 10/15/24 11:23 10/16/24 06:24 D/C Instructions Call your doctor if you observe: Fever of 101 or Higher, Shortness of breath, Dizziness, Fainting spells, Swelling in the ankles, Chest pain and Increased palpitations (irregular heartbeat) DC O2, CPAP, BIPAP Needs Home O2 Discharge instructions: No Meaningful Use Info Meaningful Use Meaningful Use Diagnoses (Choose all that apply): None applicable Discharge Plan Admission Admit Date/Time: 10/15/24 12:44 Attending Provider: Jose Ludwig Primary Care Provider: Care Physician,No Primary Consulting Providers: June Espinoza Discharge Orders/Prescriptions Prescriptions: No Action NK Referrals / Follow Up: Care Physician,No Primary [Primary Care Provider] - Disposition Disposition (needs filled in before D/C Order can be placed): Home, Self Care Charges/Coding Visit Charges Inpatient E&M: [id number] Disch Hosp >30min
== END 2024-10-18 11:03 | disposition home or self-care (01) ==
LOC: ED 12:45 → MS3 10-18 07:07
PROVIDERS: Admitting Provider Student in an Organized Health Care Education/Training Program; Emergency Provider Emergency Medicine; Visit Provider Family Medicine
DX: F10.139 Alcohol abuse with withdrawal, unspecified (principal); E44.0 Moderate protein-calorie malnutrition; F10.129 Alcohol abuse with intoxication, unspecified; F17.210 Nicotine dependence, cigarettes, uncomplicated; Z68.22 Body mass index [BMI] 22.0-22.9, adult; Y90.8 Blood alcohol level of 240 mg/100 ml or more
CPT/HCPCS: 36415; 80053; 80307; 82077; 83690; 85025; 96374; 96376; 97802; 99221; 99284; 99406; A4216; G0378; J2405